=== PATIENT | male | born 1945 | race Caucasian/White ===

== ENCOUNTER → 2016-10-26 | Outpatient (REF) | payer MEDICARE, OTHER ==
[~2016-10-26] MED LIST: /PRAV20TA; /WARF2TA PO; /WARF4TA OR; ALBU17IN INH; ARANESP; AZEL0.05; B6 OR; BABY81CH; CARV6.25 PO; CENT1TAB PO; COLA100C2 OR; COLA50CA3 PO; COLC0.6T OR; CORE12.5; CORE25TA; CORE25TA OR; CORE25TA PO; COUM1TAB; DARB60SYR; DIALYSIS; DIGO0.257; ELIQ5TAB PO; FERR325T OR; FLUO20CA8 PO; INSULANT; INSULANT SQ; KEFL500C7 PO; LANTUS; LASI40TA; LISI5TAB OR; LORA-376 PO; MIRA3350 PO; MULTIVIT OR; NOVOLOG100 MG/ML; NOVOLOG100 MG/ML SC; Omega OR; PAXI20TA; PERC5TAB PO; POTA10CA2 OR; PRAV10TA4; PRAV20TA2 PO; PRAV40TA OR; PRAV40TA2 PO; PROZ20CA OR; RENA800T PO; RENV2TAB PO; ROCA0.25; SALI0.653; SENO8.6T9 PO; TORS20TA2 OR; TRIC145T19; TRIC145T19 OR; Uloric OR; VIT D; VITA250T OR; VITA400C29 PO; VITA500C24 PO; WARF1TAB OR; [UNRECOGNIZED DRUG - OTHER]
[2016-10-26 18:27] LABS: PERCENT SATURATION 46.7 % (19.7-37.4)
== END ==
LOC: M LAB REF 16:22
DX: N18.6 End stage renal disease (principal); D63.1 Anemia in chronic kidney disease

== ENCOUNTER → 2017-04-17 | Outpatient (REF) | payer MEDICARE, OTHER ==
[~2017-04-17] MED LIST changes: +KEFL500C17 PO; -KEFL500C7 PO; -LORA-376 PO; +LORA0.5T11 PO; +SALI0.6523; -SALI0.653; +VITA-110 PO; -VITA400C29 PO
== END ==
LOC: M LAB REF 13:50
PROVIDERS: ATTEND Nurse Practitioner Family
DX: L02.416 Cutaneous abscess of left lower limb (principal)

== ENCOUNTER → 2017-05-15 | Outpatient (REF) | payer MEDICARE, OTHER | LOC: M LAB REF 17:29 | PROVIDERS: ATTEND Surgery | DX: L02.31 Cutaneous abscess of buttock (principal); E11.9 Type 2 diabetes mellitus without complications; Z79.4 Long term (current) use of insulin | CPT/HCPCS: 10060; 87070; 87077; 87186; G0463 ==

== ENCOUNTER → 2017-06-05 | Outpatient (CLI) | payer MEDICARE, OTHER ==
[~2017-06-05] MED LIST changes: +GASTROGRAFIN SOLUTION 30ML (Q9963) As Ordered ONE; +ISOVUE-370 76% 100ML VIAL (Q9967) As Ordered ONE
--- NOTE | 2017-06-05 13:53 | REP ---
CT ABDOMEN AND PELVIS WITH IV AND ORAL CONTRAST: HISTORY: Perirectal abscess. Comparison CT study November 01, 2013. CT CONTRAST DOSE: 100 mL of Isovue [address] FINDINGS: Preliminary digital filler room attendant radiograph demonstrates a normal bowel gas pattern. The heart is enlarged and contains pacemaker leads. A lap band device is visible superimposed on the left abdomen. There are pins in the left hip. The lung bases are clear on axial CT images. A lap band device seen in good position around the gastroesophageal junction region in the left upper quadrant. There is a tiny cyst in the right lobe of the liver. No significant liver lesion is seen. There are clips in the gallbladder fossa. Spleen is unremarkable. No adrenal lesion is seen. The pancreas has a normal appearance. Prominent vascular calcification is seen in the upper abdomen. Fairly advanced renal cortical atrophy is noted bilaterally. The patient is on dialysis. No retroperitoneal mass or adenopathy is seen. Normal caliber aorta is noted. A normal appendix is visible. Small and large intestinal bowel loops are normal in the upper abdomen and mid pelvis. Pelvic CT images show no evidence of perirectal or other peroneal abscess. There is skin thickening and subdermal inflammation along with a skin defect in the left posteromedial buttock. No abscess cavity is visible however. There is no evidence of free air or intraperitoneal abscess. IMPRESSION: 1. Skin thickening and subdermal edema in the left posteromedial buttock. No abscess is seen in the peroneal region or perirectal region. 2. Renal cortical atrophy bilaterally. 3. Lap band in place. 4. Extensive vascular calcification. 5. Cardiomegaly with pacemaker. Signed by Adrian Castillo MD 06/05/2017 05:17 P
== END ==
LOC: M RAD 11:21
PROVIDERS: ATTEND Surgery
DX: K61.1 Rectal abscess (principal); I51.7 Cardiomegaly; Z98.84 Bariatric surgery status; Z95.0 Presence of cardiac pacemaker; Z99.2 Dependence on renal dialysis
CPT/HCPCS: 11042; 74177; Q9963; Q9967

== ENCOUNTER 2017-09-22 09:47 | Inpatient (IN) | payer MEDICARE, OTHER ==
[~2017-09-22] VITALS: Ht 188 cm; Wt 105.7 kg
[~2017-09-22 09:47] MED LIST changes: -GASTROGRAFIN SOLUTION 30ML (Q9963) As Ordered ONE; -ISOVUE-370 76% 100ML VIAL (Q9967) As Ordered ONE
[2017-09-22] MEDS ORDERED: AMIO200T PO (09:59)
[2017-09-22] MEDS ORDERED: INSUHUMDS SC (09:59)
[2017-09-22] MEDS ORDERED: TOUJ1.2I SC (09:59)
--- NOTE | 2017-09-22 11:11 | REP ---
CT of the abdomen pelvis without IV or bowel contrast: Comparison is 06/05/2017. The visualized lung bird are unremarkable. There is a left abandon surrounding the gastroesophageal junction. This is unchanged. The unenhanced hepatic parenchyma is unremarkable. Surgical clips are again identified in the gallbladder fossa. The unenhanced pancreas and spleen are unremarkable. There is calcified vascular atheroma in the splenic artery. There is calcified vascular atheroma in the superior mesenteric artery. The adrenals are unremarkable. There is bilateral renal cortical atrophy. This is unchanged. There is vascular atheroma in the renal arteries. There is a 3 mm nonobstructive left renal calculus laterally at the mid pole. There is no hydronephrosis. There is calcified atheroma in the abdominal aorta. No aneurysm. There is no bowel distension or obstruction. Pelvis: The appendix is unremarkable. There is no ascites or adenopathy. The pelvic bowel loops are unremarkable. Previously the skin thickening and subdural edema in the left posteromedial buttock. This is no longer present. Impression: There is no hydronephrosis. There is a 3 mm nonobstructive left renal calculus laterally at the mid pole. There are renal vascular calcifications. There is bilateral renal cortical atrophy and there are small bilateral renal cortical cysts. These are unchanged. Cholecystectomy. Lap band. Diffuse vascular calcified atheroma. The skin thickening subdural edema in the left posteromedial buttock is no longer present. Signed by Farhad Oden MD 09/22/2017 11:03 A
[2017-09-22 11:13] LABS: BASO % 0.2 % (0.0-1.0); EOS # 0.1 10^3/uL (0.0-0.50); EOS % 0.7 % (0.0-3.0); IMMATURE GRANULOCYTE % 0.8 % (0-0); LYMPH # 0.7 10^3/uL (1.5-4.5); MEAN CORPUSCULAR HGB CONC 34.6 g/dl (32.0-36.5); MEAN CORPUSCULAR VOLUME 98.1 fl (80.0-96.0); MONO # 0.8 10^3/uL (0.0-0.8); MONO % 6.1 % (0.0-5.0); NEUTROPHILS # 11.5 10^3/uL (1.8-7.7); NEUTROPHILS % 87.2 % (36.0-66.0); PLATELET COUNT, AUTOMATED 189 10^3/uL (150-450); WHITE BLOOD COUNT 13.1 10^3/uL (4.0-10.0)
[2017-09-22 11:20] LABS: BACTERIA, URINE NONE SEEN; HYALINE CAST, URINE NONE SEEN /lpf (0-1); MICROSCOPIC EXAM PERFORMED; MICROSCOPIC INDICATED? MAN YES (NO); RBC, URINE TNTC /hpf (0-3); SQUAMOUS EPITHELIAL CELL URINE NONE SEEN /hpf (SMALL AMT); WBC, URINE 20-30 /hpf (0-3)
[2017-09-22 11:27] LABS: INR 1.15
[2017-09-22 11:34] LABS: ALBUMIN 3.6 GM/DL (3.2-5.2); ALBUMIN/GLOBULIN RATIO 0.73 (1.00-1.93); BILIRUBIN,DIRECT 0.3 MG/DL (0.0-0.2); BILIRUBIN,TOTAL 1.2 MG/DL (0.2-1.0); CALCIUM LEVEL 9.7 MG/DL (8.8-10.2); CREATININE FOR GFR 4.73 MG/DL (0.70-1.30); POTASSIUM SERUM 4.3 MEQ/L (3.5-5.1); TOTAL PROTEIN 8.5 GM/DL (6.4-8.2)
[2017-09-22] MEDS ORDERED: CIPROFLOXACIN 400 MG in APPROPRIATE DILUENT 1 EA IV ONE (13:00)
[2017-09-22] MEDS ORDERED: NS 1,000 ML IV SCH (13:48)
--- NOTE | 2017-09-22 13:53 | SMCUROLCON ---
Urology Consultation General Date of Consultation 09/22/17 Reason For Consultation This patient is seen for gross hematuria History of Present Illness The patient is a [74]-year-old [man] with a past medical history for [HD dependent renal failure]here with gross hematuria and dysuria. Symptoms began 24 hours ago and have been stable. Is on hemodialysis and is severely oliguric. Has a history of similar symptoms 3 years ago and was evaluated by urology. Other than the dysuria, patient feels well, has good apatite, and good energy level Past Medical History Medical History chronic renal failure on hemodialysis, anticoagulated, HTN Surgical Hstory Patient denies any prior urologic surgery Medications Current Medications reviewed Allergies Allergies: Coded Allergies: Penicillins (Verified Allergy, Unknown, DROWSINESS, 02/03/15) Penicillins Cross Reactors (Verified Allergy, Unknown, 01/09/13) Review of Systems General: Denies: ROS Unobtainable, Chills, Night Sweats, Fatigue, Malaise, Normal Appetite, Other Symptoms Constitutional: Reports: Fever, Chills, Denies: Sweats, Weakness, Malaise, Other Eyes: Denies: Pain, Vision change, Conjunctivae inflammation, Eyelid inflammation, Redness, Other ENT: Denies: Head Aches, Ear Pain, Dysphagia, Sinus Congestion, Post Nasal Drip , Sore Throat, Epistaxis, Other Symptoms Skin: Denies: Rash, Lesions, Jaundice, Bruising, Itching, Dry, Breakdown, Nail Changes, Other Pulmonary: Denies: Dyspnea, Cough, Pleuritic Chest Pain, Other Symptoms Cardiovascular: Denies Chest Pain, Denies Palpitations, Denies Orthopnea, Denies Paroxysmal Noc. Dyspnea, Denies Edema, Denies Lt Headedness, Denies Other Symptoms Gastrointestinal: Denies: Nausea, Vomiting, Abdominal Pain, Diarrhea, Constipation, Melena, Hematochezia, Other Symptoms Genitourinary: Reports: Hematuria, Denies: Dysuria, Frequency, Incontinence, Retention, Other Symptoms Hematologic: Denies: Bruising, Bleeding Excessively, Petecchia, Purpura, Enlarged Lymph Nodes, Other Hematologic Musculoskeletal: Denies: Neck Pain, Back Pain, Shoulder Pain, Arm Pain, Hand Pain, Leg Pain, Foot Pain, Joint Pain, Muscle Pain, Spasms, Other Symptoms Psych: Denies: Mood Normal, Anxiety, Depression, Memory Issues, Thoughts of Self Harm, Anger, Thoughts of harming Other, Other Psych Physical Examination General Exam: Cooperative, No: Alert, No Acute Distress, Mild Distress, Moderate Distress, Severe Distress, Other EYE EXAM: No: PERRLA, Conjunctiva & lids normal, EOMI, Sclera icteric, Ptosis, Other Eye Symptoms ENT EXAM: Tongue Midline Neck Exam: Supple, No: JVD, thyromegaly Chest Exam: Clear to auscultation, Normal air movement Heart Exam: Rate Normal, Regular Rhythm, Normal S1, Normal S2, No: Murmurs, Rubs Abdomen Exam: Soft Male Exam: Tenderness, No: Normal Genital Exam, Lesions, Edema, Erythema, Discharge, Mass, Hernia, Normal Prostate, Normal Sphincter Tone Male Exam Bladder not distended, normal phallus. Sonosite done and negative for bladder clot Female Exam: Nl Ext Genitalia, No: Lesions, Discharge, Odor, Tenderness Extremity Exam: Normal Pulses, No: Clubbing, Cyanosis, Edema Skin Exam: Nl turgor and temperature, No: Rash, Breakdown Neuro Exam: Normal Gait, Normal Speech, Cranial Nerves 3-12 NL, Reflexes 2+ Psych Exam: Mental status NL, Mood NL, Anxiety, Oriented x 3, No: Memory Intact, Other Vital Signs/I&O Vital Signs Date Time Temp Pulse Resp B/P (MAP) Pulse Ox O2 Delivery O2 Flow Rate FiO2 09/22/17 13:17 70 99 09/22/17 12:54 128/64 (85) 09/22/17 09:48 98.9 18 Room Air Laboratory Data 24H Labs Laboratory Tests 2 09/22/17 10:56: Immature Granulocyte % (Auto) 0.8H, White Blood Count 13.1H, Red Blood Count 3.21L, Hemoglobin 10.9L, Hematocrit 31.5L, Mean Corpuscular Volume 98.1H, Mean Corpuscular Hemoglobin 34.0H, Mean Corpuscular Hemoglobin Concent 34.6, Red Cell Distribution Width 15.0H, Platelet Count 189, Neutrophils (%) (Auto) 87.2H , Lymphocytes (%) (Auto) 5.0L, Monocytes (%) (Auto) 6.1H, Eosinophils (%) (Auto ) 0.7, Basophils (%) (Auto) 0.2, Neutrophils # (Auto) 11.5H, Lymphocytes # (Auto ) 0.7L, Monocytes # (Auto) 0.8, Eosinophils # (Auto) 0.1, Basophils # (Auto) 0.0 , Immature Granulocyte # (Auto) 0.1H, Nucleated Red Blood Cells % (auto) 0.0, Prothrombin Time 14.9H, Prothromb Time International Ratio 1.15, Activated Partial Thromboplast Time 34.5, Bedside Urine Color (LAB) REDH, Bedside Urine Appearance (LAB) TURBIDH, Bedside Urine pH (LAB) 7.0, Bedside Urine Specific [place] (LAB 1.015, Bedside Urine Protein (LAB) 3+H, Bedside Urine Glucose (UA) NEGATIVE, Bedside Urine Ketones (LAB) NEGATIVE, Bedside Urine Blood POSITIVEH, Bedside Urine Nitrite (LAB) NEGATIVE, Bedside Urine Bilirubin (LAB) NEGATIVE, Bedside Urine Urobilinogen (LAB) NORMAL, Bedside Urine Leukocyte Esterase (L TRACEH, Urine WBC 20-30H, Urine RBC TNTCH, Urine Squamous Epithelial Cells NONE SEEN, Urine Bacteria NONE SEEN, Urine Hyaline Casts NONE SEEN, Urine Sediment Examination PERFORMED, Anion Gap 9, Glomerular Filtration Rate 13.0L, Calcium Level 9.7, Aspartate Amino Transf (AST/SGOT) 16, Alanine Aminotransferase (ALT/ SGPT) 23, Alkaline Phosphatase 167H, Total Bilirubin 1.2H, Direct Bilirubin 0.3H , Total Protein 8.5H, Albumin 3.6, Albumin/Globulin Ratio 0.73L, Lipase 280 CBC/BMP Laboratory Tests 09/22/17 10:56 Red Blood Count 3.21 L, Mean Corpuscular Volume 98.1 H, Mean Corpuscular Hemoglobin 34.0 H, Mean Corpuscular Hemoglobin Concent 34.6, Red Cell Distribution Width 15.0 H, Neutrophils (%) (Auto) 87.2 H, Lymphocytes (%) (Auto ) 5.0 L, Monocytes (%) (Auto) 6.1 H, Eosinophils (%) (Auto) 0.7, Basophils (%) ( Auto) 0.2, Neutrophils # (Auto) 11.5 H, Lymphocytes # (Auto) 0.7 L, Monocytes # (Auto) 0.8, Eosinophils # (Auto) 0.1, Basophils # (Auto) 0.0 Microbiology Microbiology 09/22/17 Blood Culture, Received Pending 09/22/17 Blood Culture, Received Pending 09/22/17 Urine Culture, Received Pending Assessment Gross hematuria, elevated WBC, anticoagulated, UTI Plan Admit for observation, IV antibiotics. Please hold eliquis. No need for garvey at present. Will re-evaluate in the AM. Follow CBC. Time Spent on Consult: Time Spent / Consult (Minutes): 30 JOSE KELLY MD Sep 22, 2017 13:53
[2017-09-22] MEDS ORDERED: ACETAMINOPHEN TAB 650MG DOSE (2X325MG) PO PRN (14:00)
[2017-09-22] MEDS ORDERED: PERCOCET 5MG/325MG TAB PO PRN (14:00)
[2017-09-22] MEDS ORDERED: BISACODYL 5 MG TAB PO PRN (14:00)
[2017-09-22] MEDS ORDERED: MORPHINE 2 MG/ML 1ML SYRINGE IV PRN (14:00)
[2017-09-22] MEDS ORDERED: ONDANSETRON 4MG/2ML VIAL (J2405) IV PRN (14:00)
[2017-09-22] MEDS ORDERED: CARV3.12 PO (14:01)
[2017-09-22] MEDS ORDERED: DRIS50002 PO (14:01)
[2017-09-22 15:00] VITALS: BP 131/71
--- NOTE | 2017-09-22 15:34 | HPEPDOC ---
[facility] Medical History & Physical History and Physical Primary care provider: Dr. Miller Date of Admission: 09/22/2017 Attending: Dr. Pan CHIEF COMPLAINT: Hematuria and dysuria HISTORY OF PRESENT ILLNESS: Mr. Villarreal is a 72-year-old male who has been experiencing dysuria and hematuria since yesterday evening. Because he has end-stage renal disease and is on dialysis he only urinates and very small quantities. He states that yesterday evening he began to experience significant burning while urinating and the sensation that "it was like someone was pulling sandpaper out". He does not flush the toilet during the night so as not to disturb the others in the home, this morning he noticed that the water was pinkish, and with his next urination he noticed blood. He called the urologist who recommended that he come to the emergency department. ALLERGIES: Penicillins and penicillin cross reactors PAST MEDICAL HISTORY: End-stage renal disease on dialysis History of hematuria approximately 3 years ago, was given antibiotics and it cleared up within 3 days Hypertension Hypercholesterolemia Atrial fibrillation Coronary artery disease status post triple bypass graft and 3 stents Ischemic cardiomyopathy Diabetes mellitus type 2, on insulin Anxiety PAST SURGICAL HISTORY: Left hip fracture repair 2013 Left knee replacement 1999 Cholecystectomy 1985 Triple bypass graft and defibrillator/pacer 1998 Cardiac stenting times 12/25/2014 SOCIAL HISTORY: Lives at home with his as well as his daughter and granddaughter. They also have 2 dogs in the home. 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 He quit smoking in 1999, prior to that he smoked one pack per day for 36 years. He will drink alcohol on a rare occasion. He does not use recreational drugs FAMILY HISTORY: Both his father and mother had diabetes, his father had lung cancer. He has a brother who of an unknown etiology while he was in the hospital status post prostate surgery REVIEW OF SYSTEMS: Constitutional: Patient denies fevers, chills, night sweats, recent weight gain/ loss. HEENT: Patient denies blurred or double vision, transient visual disturbances, postnasal drip, epistaxis, sore throat, difficulty chewing or swallowing food. Cardiovascular: Patient denies chest discomfort/pain, palpitations, exertional dyspnea, orthopnea, edema of the extremities, claudication. Respiratory: Patient denies dyspnea, wheezing, cough, hemoptysis, sputum production. Gastrointestinal: Patient denies nausea, vomiting, diarrhea, constipation, abdominal pain, melena, hematochezia, hematemesis, jaundice. Genitourinary: He has significant burning and pain with urination, and gross hematuria. He only urinates a few drops at a time. He does not have pain in between episodes of urination. PHYSICAL EXAMINATION: General: Awake, alert, oriented. He is in no acute distress at this time HEENT: Head normocephalic atraumatic, pupils equally reactive to light and accommodation, conjunctiva are pink, sclera are nonicteric, buccal mucosa is pink and moist with no lesions in the oropharynx. Hearing is grossly intact to conversation. Respiratory: Clear to auscultation bilaterally with no wheezes, rales, or rhonchi. Cardiovascular: Regular rate and rhythm, with no rubs, gallops, he does have a very faint 1/6 systolic murmur. Abdomen: Soft, nontender, nondistended, no hepatosplenomegaly appreciated. Bowel sounds present. Extremities: 2+ pulses in the radial and dorsalis pedis bilaterally. No evidence of clubbing or cyanosis. Trace to 1+ pitting edema in the ankles bilaterally. He also does have chronic venous stasis changes in the skin of the legs IMAGING: CT of the abdomen and pelvis does show a 3 mm nonobstructive left renal calculus laterally at the midpole. He does have multiple chronic changes. Please see full report ASSESSMENT: 1. Hematuria with dysuria 2. Nonobstructing 3 mm left renal calculus 3. End-stage renal disease on dialysis 4. Hypertension 5. Hypercholesterolemia 6. Atrial fibrillation 7. Coronary artery disease status post triple bypass graft and 3 stents 8. Ischemic cardiomyopathy 9. Diabetes mellitus type 2, on insulin PLAN: Will admit for observation. Urology has been consulted and has already seen and evaluated the patient. We will start the patient on IV ciprofloxacin, hold his Eliquis, and monitor him through the night. Otherwise, we will continue the remainder of his home medications at their usual dose for his chronic conditions. My preceptor for this patient encounter was physically present in the building during the encounter and was fully available. As needed, all aspects of the patient interview, examination, medical decision making process, and medical care plan development were reviewed and approved by the preceptor. Preceptor is aware and concurs with the plan as stated in the body of this note and will attest to such by his/her cosignature. Vital Signs Vital Signs Date Time Temp Pulse Resp B/P (MAP) Pulse Ox O2 Delivery O2 Flow Rate FiO2 09/22/17 15:00 98.7 82 18 131/71 (91) 97 Room Air Laboratory Data Labs 24H Laboratory Tests 2 09/22/17 10:56: Immature Granulocyte % (Auto) 0.8H, White Blood Count 13.1H, Red Blood Count 3.21L, Hemoglobin 10.9L, Hematocrit 31.5L, Mean Corpuscular Volume 98.1H, Mean Corpuscular Hemoglobin 34.0H, Mean Corpuscular Hemoglobin Concent 34.6, Red Cell Distribution Width 15.0H, Platelet Count 189, Neutrophils (%) (Auto) 87.2H , Lymphocytes (%) (Auto) 5.0L, Monocytes (%) (Auto) 6.1H, Eosinophils (%) (Auto ) 0.7, Basophils (%) (Auto) 0.2, Neutrophils # (Auto) 11.5H, Lymphocytes # (Auto ) 0.7L, Monocytes # (Auto) 0.8, Eosinophils # (Auto) 0.1, Basophils # (Auto) 0.0 , Immature Granulocyte # (Auto) 0.1H, Nucleated Red Blood Cells % (auto) 0.0, Prothrombin Time 14.9H, Prothromb Time International Ratio 1.15, Activated Partial Thromboplast Time 34.5, Bedside Urine Color (LAB) REDH, Bedside Urine Appearance (LAB) TURBIDH, Bedside Urine pH (LAB) 7.0, Bedside Urine Specific [place] (LAB 1.015, Bedside Urine Protein (LAB) 3+H, Bedside Urine Glucose (UA) NEGATIVE, Bedside Urine Ketones (LAB) NEGATIVE, Bedside Urine Blood POSITIVEH, Bedside Urine Nitrite (LAB) NEGATIVE, Bedside Urine Bilirubin (LAB) NEGATIVE, Bedside Urine Urobilinogen (LAB) NORMAL, Bedside Urine Leukocyte Esterase (L TRACEH, Urine WBC 20-30H, Urine RBC TNTCH, Urine Squamous Epithelial Cells NONE SEEN, Urine Bacteria NONE SEEN, Urine Hyaline Casts NONE SEEN, Urine Sediment Examination PERFORMED, Anion Gap 9, Glomerular Filtration Rate 13.0L, Calcium Level 9.7, Aspartate Amino Transf (AST/SGOT) 16, Alanine Aminotransferase (ALT/ SGPT) 23, Alkaline Phosphatase 167H, Total Bilirubin 1.2H, Direct Bilirubin 0.3H , Total Protein 8.5H, Albumin 3.6, Albumin/Globulin Ratio 0.73L, Lipase 280 CBC/BMP Laboratory Tests 09/22/17 10:56 Red Blood Count 3.21 L, Mean Corpuscular Volume 98.1 H, Mean Corpuscular Hemoglobin 34.0 H, Mean Corpuscular Hemoglobin Concent 34.6, Red Cell Distribution Width 15.0 H, Neutrophils (%) (Auto) 87.2 H, Lymphocytes (%) (Auto ) 5.0 L, Monocytes (%) (Auto) 6.1 H, Eosinophils (%) (Auto) 0.7, Basophils (%) ( Auto) 0.2, Neutrophils # (Auto) 11.5 H, Lymphocytes # (Auto) 0.7 L, Monocytes # (Auto) 0.8, Eosinophils # (Auto) 0.1, Basophils # (Auto) 0.0 Microbiology Microbiology 09/22/17 Blood Culture, Received Pending 09/22/17 Blood Culture, Received Pending 09/22/17 Urine Culture, Received Pending Home Medications Scheduled (Miles Quintero) 300 Unit/Ml Inj, 30 UNITS SC DAILY Amiodarone HCl (Amiodarone HCl) 200 Mg Tab, 200 MG PO DAILY Apixaban Base (Eliquis) 5 Mg Tab, 5 MG PO ASDIRECTED RX FOR BID DOSING, PT STATES HE DOES NOT TAKE ON DIALYSIS DAYS (SUN/SUN/SUN) BC OF LOWER BP. Ascorbic Acid (Vitamin C) 500 Mg Cap, 500 MG PO DAILY Carvedilol (Carvedilol) 3.125 Mg Tab, 3.125 MG PO BID Cholecalciferol (Vitamin D) 400 Unit Cap, 400 UNIT PO ASDIRECTED TAKES ON DIALYSIS DAYS SUN/SUN/SUN Insulin Human Lispro (Humalog) 1 Units/0.01 Ml Inj, 10 UNITS SC AC Multivitamins (Centrum Silver Adult 50+) 1 Tab Tab, 1 TAB PO DAILY Pravastatin Sodium (Pravastatin Sodium) 20 Mg Tab, 20 MG PO DAILY Sevelamer Carbonate (Renvela) 800 Mg Tab, 800 MG PO ASDIRECTED TAKES 800MG TID WITH MEALS EXCEPT ON DIALYSIS DAYS (SUN/SUN/SUN) Vitamin D (Drisdol) 50,000 Unit Cap, 50,000 UNIT PO ASDIRECTED EVERY SUNDAY Scheduled PRN (Saline Nasal [place]) 0.65 % Spr, 2 SPRAYS NA PRN PRN for NASAL CONGESTION Fluoxetine Hcl (Fluoxetine) 20 Mg Cap, 20 MG PO BID PRN for ANXIETY TAKES PRN AT DIALYSIS Lorazepam (Lorazepam) 0.5 Mg Tab, 0.5 MG PO ASDIRECTED PRN for ANXIETY TAKES PRN WHEN AT DIALYSIS Allergies Coded Allergies: Penicillins (Verified Allergy, Unknown, DROWSINESS, 02/03/15) Penicillins Cross Reactors (Verified Allergy, Unknown, 01/09/13) SAVITA KENDRICK DO Sep 22, 2017 15:34 LEEANN PAN MD Sep 22, 2017 16:32
[2017-09-22] MEDS ORDERED: SODIUM CHLORIDE NASAL 0.65% SPRAY BTL (OCEAN) PRN (15:45)
[2017-09-22] MEDS ORDERED: DEXTROSE 50% 50 ML SYRINGE IV PRN (15:45)
[2017-09-22] MEDS ORDERED: GLUCOSE 4 GM CHEW TABLET PO PRN (15:45)
[2017-09-22] MEDS ORDERED: FLUoxetine 20 MG CAP PO PRN (15:45)
[2017-09-22] MEDS ORDERED: GLUCAGON FOR INJ 1 MG VIAL (J1610) SC PRN (15:45)
[2017-09-22] MEDS ORDERED: LORazepam 0.5 MG TAB PO PRN (15:45)
[2017-09-22] MEDS ORDERED: APIXABAN 5 MG TAB (ELIQUIS) PO SCH (15:45)
[2017-09-22] MEDS ORDERED: LORazepam 0.5 MG TAB PO ONE (16:30)
[2017-09-22] MEDS: (RENVELA) SEVELAMER **CARBONate** 800 MG TAB PO SCH (17:10)
[2017-09-22] MEDS: AMIODARONE 200 MG TAB (PACERONE) PO SCH (17:10)
[2017-09-22] MEDS: HumaLOG INSULIN (NovoLOG) PER UNIT SC SCH ×2 (17:11→21:10)
[2017-09-22] MEDS: CARVedilol 3.125 MG TAB PO SCH (21:11)
[2017-09-22 22:00] VITALS: BP 135/64
[2017-09-23] MEDS: CIPROFLOXACIN 200 MG in APPROPRIATE DILUENT 1 EA IV SCH ×2 (00:49→13:57)
[2017-09-23] MEDS ORDERED: CIPROFLOXACIN 200 MG in APPROPRIATE DILUENT 1 EA IV SCH (01:00)
[2017-09-23 06:00] VITALS: BP 125/79
[2017-09-23 06:44] LABS: BASO % 0.1 % (0.0-1.0); EOS % 0.1 % (0.0-3.0); IMMATURE GRANULOCYTE % 0.8 % (0-0); LYMPH # 0.6 10^3/uL (1.5-4.5); LYMPH % 3.3 % (24.0-44.0); MEAN CORPUSCULAR HEMOGLOBIN 33.8 pg (27.0-33.0); MEAN CORPUSCULAR HGB CONC 34.6 g/dl (32.0-36.5); MEAN CORPUSCULAR VOLUME 97.7 fl (80.0-96.0); MONO # 1.1 10^3/uL (0.0-0.8); MONO % 6.6 % (0.0-5.0); NEUTROPHILS # 14.9 10^3/uL (1.8-7.7); NEUTROPHILS % 89.1 % (36.0-66.0); PLATELET COUNT, AUTOMATED 177 10^3/uL (150-450); RED CELL DISTRIBUTION WIDTH 15.5 % (11.5-14.5); WHITE BLOOD COUNT 16.7 10^3/uL (4.0-10.0)
[2017-09-23 07:08] LABS: CREATININE FOR GFR 6.13 MG/DL (0.70-1.30); GLOMERULAR FILTRATION RATE 9.6 (>42); POTASSIUM SERUM 4.7 MEQ/L (3.5-5.1)
[2017-09-23] MEDS: HumaLOG INSULIN (NovoLOG) PER UNIT SC SCH ×4 (08:56→21:00)
[2017-09-23] MEDS: MULTIVITAMINS/MINERALS THERAP 1 TAB PO SCH (08:57)
[2017-09-23] MEDS: CARVedilol 3.125 MG TAB PO SCH ×2 (08:57→21:31)
[2017-09-23] MEDS: (RENVELA) SEVELAMER **CARBONate** 800 MG TAB PO SCH ×3 (08:57→18:02)
[2017-09-23] MEDS: LEVEMIR (INSULIN DETEMIR) 1 UNITS/0.01ML SC SCH (08:57)
[2017-09-23] MEDS: AMIODARONE 200 MG TAB (PACERONE) PO SCH (08:58)
[2017-09-23] MEDS: ASCORBIC ACID 500 MG TAB PO SCH (08:58)
[2017-09-23] MEDS: PRAVASTATIN 20 MG TAB PO SCH (08:58)
--- NOTE | 2017-09-23 09:45 | IPNPDOC ---
Date Seen The patient was seen on 09/23/17. Progress Note SUBJECTIVE: Patient is a [74]-year-old [white] [male] with [gross hematuria. resolved, dysuria resolved] OBJECTIVE PHYSICAL EXAMINATION: VITAL SIGNS: Please see below. GENERAL: [looks well. No distress] HEENT: CARDIOVASCULAR: . RESPIRATORY: . ABDOMINAL: [soft, NT. Bladder not distended] EXTREMITIES: NEUROLOGICAL: PSYCHOLOGICAL: LABORATORY DATA: Please see below. MICROBIOLOGY: Please see below. IMAGING: Echocardiogram: . DVT prophylaxis ordered?: ASSESSMENT AND PLAN: This is a [74]-year-old [white] [male] with [gross hematuria and dysuria, resolving]. PROBLEMS: 1. [dysuria]: [resolved with antibiotics]. 2. [hematuria]: [resolved with antibiotics]. 3. [UTI]: [awaiting culture, resolved with antibiotics]. DISPOSITION: [Patient may go home either today or tomorrow depending on culture results. He is hold his Eliquis until complete resolution of his hematuria. Will follow if still here in the AM]. VS, I&O, 24H, [facility] Vital Signs/I&O Vital Signs Date Time Temp Pulse Resp B/P (MAP) Pulse Ox O2 Delivery O2 Flow Rate FiO2 09/23/17 08:57 77 125/79 09/23/17 08:46 BIPAP/CPAP 09/23/17 06:00 98.5 20 94 Laboratory Data 24H LABS Laboratory Tests 2 09/22/17 10:56: Immature Granulocyte % (Auto) 0.8H, White Blood Count 13.1H, Red Blood Count 3.21L, Hemoglobin 10.9L, Hematocrit 31.5L, Mean Corpuscular Volume 98.1H, Mean Corpuscular Hemoglobin 34.0H, Mean Corpuscular Hemoglobin Concent 34.6, Red Cell Distribution Width 15.0H, Platelet Count 189, Neutrophils (%) (Auto) 87.2H , Lymphocytes (%) (Auto) 5.0L, Monocytes (%) (Auto) 6.1H, Eosinophils (%) (Auto ) 0.7, Basophils (%) (Auto) 0.2, Neutrophils # (Auto) 11.5H, Lymphocytes # (Auto ) 0.7L, Monocytes # (Auto) 0.8, Eosinophils # (Auto) 0.1, Basophils # (Auto) 0.0 , Immature Granulocyte # (Auto) 0.1H, Nucleated Red Blood Cells % (auto) 0.0, Prothrombin Time 14.9H, Prothromb Time International Ratio 1.15, Activated Partial Thromboplast Time 34.5, Bedside Urine Color (LAB) REDH, Bedside Urine Appearance (LAB) TURBIDH, Bedside Urine pH (LAB) 7.0, Bedside Urine Specific [place] (LAB 1.015, Bedside Urine Protein (LAB) 3+H, Bedside Urine Glucose (UA) NEGATIVE, Bedside Urine Ketones (LAB) NEGATIVE, Bedside Urine Blood POSITIVEH, Bedside Urine Nitrite (LAB) NEGATIVE, Bedside Urine Bilirubin (LAB) NEGATIVE, Bedside Urine Urobilinogen (LAB) NORMAL, Bedside Urine Leukocyte Esterase (L TRACEH, Urine WBC 20-30H, Urine RBC TNTCH, Urine Squamous Epithelial Cells NONE SEEN, Urine Bacteria NONE SEEN, Urine Hyaline Casts NONE SEEN, Urine Sediment Examination PERFORMED, Anion Gap 9, Glomerular Filtration Rate 13.0L, Calcium Level 9.7, Aspartate Amino Transf (AST/SGOT) 16, Alanine Aminotransferase (ALT/ SGPT) 23, Alkaline Phosphatase 167H, Total Bilirubin 1.2H, Direct Bilirubin 0.3H , Total Protein 8.5H, Albumin 3.6, Albumin/Globulin Ratio 0.73L, Lipase 280 09/22/17 20:21: Bedside Glucose (Misc Panel) 289H 09/23/17 06:21: Anion Gap 13, Glomerular Filtration Rate 9.6L, Calcium Level 9.0, Blood Urea Nitrogen 33H, Creatinine 6.13H, Sodium Level 131L, Potassium Level 4.7, Chloride Level 94L, Carbon Dioxide Level 24 09/23/17 06:22: Immature Granulocyte % (Auto) 0.8H, White Blood Count 16.7H, Red Blood Count 3.08L, Hemoglobin 10.4L, Hematocrit 30.1L, Mean Corpuscular Volume 97.7H, Mean Corpuscular Hemoglobin 33.8H, Mean Corpuscular Hemoglobin Concent 34.6, Red Cell Distribution Width 15.5H, Platelet Count 177, Neutrophils (%) (Auto) 89.1H , Lymphocytes (%) (Auto) 3.3L, Monocytes (%) (Auto) 6.6H, Eosinophils (%) (Auto ) 0.1, Basophils (%) (Auto) 0.1, Neutrophils # (Auto) 14.9H, Lymphocytes # (Auto ) 0.6L, Monocytes # (Auto) 1.1H, Eosinophils # (Auto) 0.0, Basophils # (Auto) 0.0, Immature Granulocyte # (Auto) 0.1H, Nucleated Red Blood Cells % (auto) 0.0 CBC/BMP Laboratory Tests 09/22/17 10:56 Red Blood Count 3.21 L, Mean Corpuscular Volume 98.1 H, Mean Corpuscular Hemoglobin 34.0 H, Mean Corpuscular Hemoglobin Concent 34.6, Red Cell Distribution Width 15.0 H, Neutrophils (%) (Auto) 87.2 H, Lymphocytes (%) (Auto ) 5.0 L, Monocytes (%) (Auto) 6.1 H, Eosinophils (%) (Auto) 0.7, Basophils (%) ( Auto) 0.2, Neutrophils # (Auto) 11.5 H, Lymphocytes # (Auto) 0.7 L, Monocytes # (Auto) 0.8, Eosinophils # (Auto) 0.1, Basophils # (Auto) 0.0 09/23/17 06:21 Calcium Level 9.0 09/23/17 06:22 Red Blood Count 3.08 L, Mean Corpuscular Volume 97.7 H, Mean Corpuscular Hemoglobin 33.8 H, Mean Corpuscular Hemoglobin Concent 34.6, Red Cell Distribution Width 15.5 H, Neutrophils (%) (Auto) 89.1 H, Lymphocytes (%) (Auto ) 3.3 L, Monocytes (%) (Auto) 6.6 H, Eosinophils (%) (Auto) 0.1, Basophils (%) ( Auto) 0.1, Neutrophils # (Auto) 14.9 H, Lymphocytes # (Auto) 0.6 L, Monocytes # (Auto) 1.1 H, Eosinophils # (Auto) 0.0, Basophils # (Auto) 0.0 Microbiology Microbiology 09/22/17 Blood Culture, Received Pending 09/22/17 Blood Culture, Received Pending 09/22/17 Urine Culture, Received Pending JOSE KELLY MD Sep 23, 2017 09:45
[2017-09-23 14:00] VITALS: BP 107/57
--- NOTE | 2017-09-23 15:22 | IPN ---
DATE: 09/23/2017 SUBJECTIVE: The patient tells me that he is feeling significantly better. He denies any further dysuria or any significant hematuria. He tells me that his notes a significant improvement in his symptoms over the last 24 hours. OBJECTIVE: Vital signs: Temperature 98.5, pulse 77, respiratory rate 20, blood pressure 175/79, oxygen saturation 94% on room air. General: He is a pleasant elderly man sitting up in bed eating breakfast. He does not appear to be in any acute distress. HEENT: Cranial nerves II through XII grossly intact. He has moist mucous membranes. No elevation of his jugular venous pulse. Cardiovascular: S1, S2. Respiratory exam is clear. Abdominal exam: Obese. Extremities: No clubbing, cyanosis or edema. He has chronic deformity of the distal right upper extremity. LABORATORY STUDIES: WBC 15.7, up from 13.1. Hemoglobin 10.4 stable. Platelet count 177. Chemistry panel: Sodium 131 stable. Potassium 4.1, chloride 94, bicarbonate 24, BUN 33, creatinine 6.1. Microbiology: Urine culture is pending. Blood cultures are negative after 24 hours. Imaging: The patient did have a CT scan of the abdomen and pelvis yesterday which revealed no hydronephrosis and there was a 3 mm nonobstructing left renal calculi as well as renal vascular calcifications. Bilateral renal and cortical atrophy. Small bilateral renal cortical cysts, unchanged. ASSESSMENT/PLAN: This is a 72-year-old man with dysuria and hematuria likely secondary to a urinary tract infection. PROBLEMS: 1. Hematuria and dysuria likely secondary to urinary tract infection. This does appear to be resolving. His symptoms have abated. Will continue with ciprofloxacin IV. I suspect that tomorrow he can be transitioned to oral. We will await urine culture to ensure appropriate coverage is being met. I suspect he can be discharged home over the next 24 hours. I did speak with the urologist seeing the patient during this stay as well and they are in agreement. I have spoken with Dr. Alonso of nephrology. We will plan for outpatient hemodialysis tomorrow. 2. Endstage renal disease on hemodialysis: Nephrology's help was appreciated. Continue on Renvela. 3. History of a Lap-Band: The patient is on vitamin D and vitamin C and multivitamin. 4. Coronary artery disease: The patient is on a statin, beta alexander. He is normally on Eliquis, which is on hold. 5. Atrial fibrillation: His anticoagulation is on hold. He is rate controlled with Coreg. Consider restarting anticoagulation in the coming weeks. Will defer to his outpatient provider as to what is best appropriate. Please note he is on amiodarone. 6. Insulin dependent diabetes: He is on a sliding scale of insulin. His fingersticks are in control. 7. Mood disorder: He is on Prozac. 8. Anxiety: He is on Ativan as needed. 9. Hypertension controlled. 10. Deep venous thrombosis prophylaxis: Sequentials and thromboembolic deterrent stockings (TEDS). DISPOSITION: Likely home within the next 24-48 hours.
[2017-09-23] MEDS ORDERED: LORazepam 0.5 MG TAB PO ONE (19:00)
[2017-09-23 22:00] VITALS: BP 128/71
[2017-09-24 06:00] VITALS: BP 114/67
[2017-09-24 07:02] LABS: MEAN CORPUSCULAR HEMOGLOBIN 34.1 pg (27.0-33.0); MEAN CORPUSCULAR HGB CONC 34.6 g/dl (32.0-36.5); MEAN CORPUSCULAR VOLUME 98.6 fl (80.0-96.0); PLATELET COUNT, AUTOMATED 158 10^3/uL (150-450); RED CELL DISTRIBUTION WIDTH 15.7 % (11.5-14.5); WHITE BLOOD COUNT 12.8 10^3/uL (4.0-10.0)
[2017-09-24 07:34] LABS: CREATININE FOR GFR 7.69 MG/DL (0.70-1.30); GLOMERULAR FILTRATION RATE 7.4 (>42); POTASSIUM SERUM 4.9 MEQ/L (3.5-5.1)
[2017-09-24] MEDS ORDERED: CIPR500T3 PO (07:39)
[2017-09-24] MEDS: HumaLOG INSULIN (NovoLOG) PER UNIT SC SCH (07:56)
[2017-09-24] MEDS: LEVEMIR (INSULIN DETEMIR) 1 UNITS/0.01ML SC SCH (07:56)
[2017-09-24] MEDS: (RENVELA) SEVELAMER **CARBONate** 800 MG TAB PO SCH (07:57)
[2017-09-24] MEDS: PRAVASTATIN 20 MG TAB PO SCH (07:57)
[2017-09-24] MEDS: MULTIVITAMINS/MINERALS THERAP 1 TAB PO SCH (07:58)
[2017-09-24] MEDS: AMIODARONE 200 MG TAB (PACERONE) PO SCH (07:58)
[2017-09-24] MEDS: ASCORBIC ACID 500 MG TAB PO SCH (07:58)
[2017-09-24 07:59] VITALS: BP 110/60
[2017-09-24] MEDS: CARVedilol 3.125 MG TAB PO SCH (07:59)
[2017-09-24] MEDS ORDERED: VITAMIN D (CHOLECALCIFEROL) 400 INTERNATIONAL UNITS TAB PO SCH (09:00)
[2017-09-24] MEDS ORDERED: CIPROFLOXACIN 200 MG in APPROPRIATE DILUENT 1 EA IV SCH (16:00)
--- NOTE | 2017-09-24 16:13 | CR ---
DATE OF CONSULTATION: 09/23/2017 CONSULTATION REPORT FOR: Dr. Ritesh Driscoll REASON FOR CONSULTATION: Management of end-stage renal disease. HISTORY OF PRESENT ILLNESS: Mr. Villarreal is a 72-year-old male with a past medical history of longstanding diabetes, coronary artery disease (CAD) status post coronary artery bypass graft (CABG), atrial fibrillation, history of automatic implantable cardioverter defibrillator (AICD) placement, hypertension, ischemic cardiomyopathy who was admitted with complaint of dysuria and hematuria. The patient states he was in his usual state of health until one day prior to admission when he had significant burning with urination and episode of darleen hematuria. He reports a similar episode three years prior. He denies any flank pain, renal colic, or associated nausea or vomiting. His hemoglobin has remained stable and subsequent CT scan of the abdomen and pelvis revealed a 3 mm nonobstructive left renal calculus. The patient is receiving empiric antibiotics with IV ciprofloxacin and his home anticoagulant, Eliquis, has been on hold. PAST MEDICAL HISTORY: 1. End-stage renal disease on hemodialysis via right upper extremity fistula Sunday, Sunday and Sunday schedule. 2. History of gross hematuria three years prior. 3. Hypertension. 4. Dyslipidemia. 5. Atrial fibrillation on Eliquis. 6. Coronary artery disease (CAD) status post coronary artery bypass graft (CABG) and history of stents. 7. Ischemic cardiomyopathy. 8. Insulin-dependent diabetes. 9. Anxiety. PAST SURGICAL HISTORY: 1. Fistula, right upper extremity. 2. Left hip fracture repair 2013. 3. Left knee replacement 1999. 4. Cholecystectomy 1985. 5. Coronary artery bypass graft (CABG) and placement of automatic implantable cardioverter defibrillator (AICD) in remote past. 6. History of cardiac stenting. SOCIAL HISTORY: Ex-smoker. Social alcohol. No recreational drugs. 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 FAMILY HISTORY: No known history of renal failure requiring dialysis. REVIEW OF SYSTEMS: CONSTITUTIONAL: The patient denies fevers, chills, or fatigue. HEENT: The patient denies any change in vision, sore throat, dysphagia. CARDIOVASCULAR: The patient denies chest pain, edema, or palpitations. RESPIRATORY: He denies any shortness of breath or cough. GASTROINTESTINAL (GI): He denies nausea, vomiting, diarrhea. GENITOURINARY (): He notes improvement in urinary symptoms. Denies any ongoing hematuria or dysuria. He is oligo-anuric. MUSCULOSKELETAL: He denies any arthralgias, myalgias. NEUROLOGIC: He denies any focal weakness or syncopal episode. PSYCHIATRIC: He denies depression and increased anxiety. SKIN: He denies rashes and ulcers. HEMATOLOGY: Reports use of long-term anticoagulant. Remainder of review of systems is negative. ALLERGIES: PENICILLIN and PENICILLIN CROSS REACTORS. PHYSICAL EXAMINATION: VITAL SIGNS: Temperature 98.5, pulse 77, respiratory rate 20, blood pressure 125/79, saturating 94% to 98% on room air. INTAKE AND OUTPUT: Oral intake today 1440, IV intake 750. Weight in the bed scale 108 kg. GENERAL: The patient is seen sitting up in bed, comfortable, in no acute distress, in good spirits. Extraocular muscles are intact. The oral mucosa is moist. NECK: Supple. There is no jugular venous distention. CARDIAC: S1, S2, irregular, 2+ radial pulse. No edema in the peripheries or in the dependent area. RESPIRATORY: Clear lungs bilaterally. Comfortable on room air. ABDOMEN: Soft, obese, nontender with no flank tenderness elicited. EXTREMITIES: There is a right upper extremity fistula with thrill and bruit. There is no edema of cyanosis in the lower extremities. NEUROLOGIC: Baseline mentation without issues. PSYCHIATRIC: Appropriate mood and affect. LABORATORY DATA: Hemoglobin 10.4, platelets 177. Sodium 131, potassium 4.7, bicarbonate 24, glucose 297. MICROBIOLOGY: Blood cultures two sets with no growth. Urine culture is pending. IMAGING STUDIES: CT scan of the abdomen and pelvis 09/22/2017 which is noncontrast shows no hydronephrosis. There is a 3 mm nonobstructive left renal calculus and bilateral renal atrophy and small bilateral renal cortical cysts. INPATIENT MEDICATIONS: I have adjusted the patient's ciprofloxacin for dialysis dosing. He has received two doses of ciprofloxacin 200 mg IV thus far. He is on: - acetaminophen as needed - amiodarone 200 mg by mouth daily - vitamin C 500 mg by mouth daily - carvedilol 3.125 mg by mouth twice a day - Prozac 20 mg by mouth twice a day as needed - insulin - Ativan 0.5 mg by mouth as needed - morphine 2 mg IV every two hours as needed for pain - multivitamin one tablet by mouth daily - Zofran 4 mg IV every six hours as needed - Percocet one tablet by mouth every four hours as needed - pravastatin 20 mg by mouth daily - Renvela 800 mg by mouth with meals - vitamin D 400 units by mouth Sunday, Sunday and Sunday PROBLEMS: 1. Episode of gross hematuria with dysuria. The patient has been seen by urology. CT scan did not show any renal mass. There was a small nonobstructive stone. Urine culture is pending. He is on ciprofloxacin and I have reduced the frequency to 200 mg IV every 24 hours for dialysis dosing. His anticoagulation, Eliquis, is on hold at present. Hemoglobin has remained stable. 2. End-stage renal disease on hemodialysis. The patient's maintenance schedule is Sunday, Sunday and Sunday. Next treatment will be Sunday09/24/2017. Electrolytes are reviewed and acceptable. Corrected sodium is close to 134. 3. Atrial fibrillation. His Eliquis is on hold. He is rate controlled on Coreg and continues as well on amiodarone. 4. Anemia of chronic kidney disease. The patient's hemoglobin is at goal for end-stage renal disease. 5. Insulin-dependent diabetes. The patient's glucose is in the 200s and he continues on insulin at this time. Thank you for involving me in the care of the patient. I will be happy to follow the patient along with you. Plan of care was discussed with Dr. Ritesh Driscoll.
--- NOTE | 2017-09-24 17:24 | DS.PDOC ---
Discharge Summary General Date of Admission Sep 22, 2017 at 13:53 Date of Discharge 09/24/2017 Discharge Summary PRIMARY CARE PHYSICIAN: Dr. Miller ATTENDING AT TIME OF DISCHARGE: Dr. Driscoll DISCHARGE DIAGNOS(E)S: 1. Hematuria with dysuria 2. Nonobstructing 3 mm left renal calculus 3. End-stage renal disease on dialysis 4. Hypertension 5. Hypercholesterolemia 6. Atrial fibrillation 7. Coronary artery disease status post triple bypass graft and 3 stents 8. Ischemic cardiomyopathy 9. Diabetes mellitus type 2, on insulin HPI & HOSPITAL COURSE: Mr. Villarreal is a 72-year-old male who presented to the emergency department per recommendations from his urologist with symptoms of gross hematuria and dysuria. CT of the abdomen and pelvis did show a 3 mm nonobstructive left renal calculus, however is not felt that this was the etiology of his hematuria. It is more likely secondary to a cystitis or urethritis, and was treated with ciprofloxacin. With the administration of antibiotics his dysuria and hematuria has essentially resolved, and he does appear stable for discharge at this time. His Eliquis was was put on hold upon admission, and it will not be continued upon discharge, he will need to follow- up with his outpatient provider to determine the appropriate time to restart. PHYSICAL EXAMINATION ON DISCHARGE: GENERAL: Awake, alert, oriented. He is in no acute distress. CARDIOVASCULAR EXAMINATION: Regular rate and rhythm, with no rubs, gallops, perhaps he does have a 1/6 systolic murmur. RESPIRATORY EXAMINATION: Clear to auscultation bilaterally with no wheezes, rales, or rhonchi. ABDOMINAL EXAMINATION: Soft, nontender, nondistended. Bowel sounds present. EXTREMITIES: Chronic venous stasis changes noted in the bilateral lower extremities, he does have trace pitting edema. DISPOSITION: Home DISCHARGE INSTRUCTIONS: With follow-up with primary care provider Dr. Miller within 7-10 days. He will be seeing Dr. Jiménez this afternoon in dialysis as well. Also recommend that he follow-up with urology if his symptoms worsen or return. DISCHARGE MEDICATIONS: -He'll be discharged home on ciprofloxacin 500 mg by mouth daily ( recommendation to take after dialysis on dialysis days) for an additional 5 days. -Eliquis's has been stopped for the time being -Otherwise, no changes to his home medications ITEMS THAT NEED OUTPATIENT FOLLOWUP: He will need to discuss with his primary care provider about the appropriate reinitiation of his Eliquis. My preceptor for this patient encounter was physically present in the building during the encounter and was fully available. As needed, all aspects of the patient interview, examination, medical decision making process, and medical care plan development were reviewed and approved by the preceptor. Preceptor is aware and concurs with the plan as stated in the body of this note and will attest to such by his/her cosignature. Vital Signs/I&Os Vital Signs Date Time Temp Pulse Resp B/P (MAP) Pulse Ox O2 Delivery O2 Flow Rate FiO2 09/24/17 09:00 BIPAP/CPAP 09/24/17 07:59 70 110/60 09/24/17 06:00 97.4 18 92 Laboratory Data Labs 24H Laboratory Tests 2 09/23/17 17:55: Bedside Glucose (Misc Panel) 217H 09/23/17 21:25: Bedside Glucose (Misc Panel) 173H 09/24/17 06:46: Nucleated Red Blood Cells % (auto) 0.0, Anion Gap 14, Glomerular Filtration Rate 7.4L, Blood Urea Nitrogen 53#H, Creatinine 7.69H, Sodium Level 131L, Potassium Level 4.9, Chloride Level 94L, Carbon Dioxide Level 23, Calcium Level 9.0 CBC/BMP Laboratory Tests 09/24/17 06:46 Red Blood Count 2.87 L, Mean Corpuscular Volume 98.6 H, Mean Corpuscular Hemoglobin 34.1 H, Mean Corpuscular Hemoglobin Concent 34.6, Red Cell Distribution Width 15.7 H, Calcium Level 9.0 FSBS Laboratory Tests Test 09/23/17 17:55 09/23/17 21:25 Range/Units Bedside Glucose (Misc Panel) 217 173 83-110 MG/DL Microbiology Microbiology 09/22/17 Blood Culture - Preliminary, Resulted No Growth after 48 hours. All Specime... 09/22/17 Blood Culture - Preliminary, Resulted No Growth after 48 hours. All Specime... 09/22/17 Urine Culture - Final, Complete Klebsiella Pneumoniae Discharge Medications Scheduled (Miles Quintero) 300 Unit/Ml Inj, 30 UNITS SC DAILY, (Reported) Amiodarone HCl (Amiodarone HCl) 200 Mg Tab, 200 MG PO DAILY, (Reported) Ascorbic Acid (Vitamin C) 500 Mg Cap, 500 MG PO DAILY, (Reported) Carvedilol (Carvedilol) 3.125 Mg Tab, 3.125 MG PO BID, (Reported) Cholecalciferol (Vitamin D) 400 Unit Cap, 400 UNIT PO ASDIRECTED, (Reported) TAKES ON DIALYSIS DAYS SUN/SUN/SUN Ciprofloxacin HCl (Ciprofloxacin HCl) 500 Mg Tab, 500 MG PO DAILY Take after dialysis (on dialysis days) Insulin Human Lispro (Humalog) 1 Units/0.01 Ml Inj, 10 UNITS SC AC, (Reported) Multivitamins (Centrum Silver Adult 50+) 1 Tab Tab, 1 TAB PO DAILY, (Reported) Pravastatin Sodium (Pravastatin Sodium) 20 Mg Tab, 20 MG PO DAILY, (Reported) Sevelamer Carbonate (Renvela) 800 Mg Tab, 800 MG PO ASDIRECTED, (Reported) TAKES 800MG TID WITH MEALS EXCEPT ON DIALYSIS DAYS (SUN/SUN/SUN) Vitamin D (Drisdol) 50,000 Unit Cap, 50,000 UNIT PO ASDIRECTED, (Reported) EVERY SUNDAY Scheduled PRN (Saline Nasal [place]) 0.65 % Spr, 2 SPRAYS NA PRN PRN for NASAL CONGESTION, ( Reported) Fluoxetine Hcl (Fluoxetine) 20 Mg Cap, 20 MG PO BID PRN for ANXIETY, (Reported) TAKES PRN AT DIALYSIS Lorazepam (Lorazepam) 0.5 Mg Tab, 0.5 MG PO ASDIRECTED PRN for ANXIETY, ( Reported) TAKES PRN WHEN AT DIALYSIS Allergies Coded Allergies: Penicillins (Verified Allergy, Unknown, DROWSINESS, 02/03/15) Penicillins Cross Reactors (Verified Allergy, Unknown, 01/09/13) SAVITA KENDRICK DO Sep 24, 2017 17:24
== END 2017-09-24 10:30 | disposition home or self-care (01) | DRG 689 ==
LOC: M ED 09:47 → M ED INP 13:53 → M MS5PR 14:54
PROVIDERS: ADMIT General Practice; ATTEND Internal Medicine
DX: N30.91 Cystitis, unspecified with hematuria (principal); N18.6 End stage renal disease; I12.0 Hypertensive chronic kidney disease with stage 5 chronic kidney disease or end stage renal disease; I25.5 Ischemic cardiomyopathy; N20.0 Calculus of kidney; E11.9 Type 2 diabetes mellitus without complications; E78.00 Pure hypercholesterolemia, unspecified; I48.91 Unspecified atrial fibrillation; I25.10 Atherosclerotic heart disease of native coronary artery without angina pectoris; Z95.5 Presence of coronary angioplasty implant and graft; Z96.652 Presence of left artificial knee joint; Z90.49 Acquired absence of other specified parts of digestive tract; Z99.2 Dependence on renal dialysis; Z95.810 Presence of automatic (implantable) cardiac defibrillator; Z88.0 Allergy status to penicillin; Z87.891 Personal history of nicotine dependence; Z79.4 Long term (current) use of insulin; Z79.01 Long term (current) use of anticoagulants; Z79.899 Other long term (current) drug therapy; Z98.84 Bariatric surgery status

== ENCOUNTER → 2017-12-11 | Outpatient (CLI) | payer MEDICARE, OTHER ==
[2017-12-11 13:58] LABS: ALBUMIN 3.7 GM/DL (3.2-5.2); ALBUMIN/GLOBULIN RATIO 0.95 (1.00-1.93); ALKALINE PHOSPHATASE 194 U/L (45-117); ALT/SGPT 23 U/L (12-78); ANION GAP 11 MEQ/L (8-16); AST/SGOT 11 U/L (7-37); BILIRUBIN,DIRECT 0.2 MG/DL (0.0-0.2); BILIRUBIN,TOTAL 0.7 MG/DL (0.2-1.0); BLOOD UREA NITROGEN 25 MG/DL (7-18); CALCIUM LEVEL 8.4 MG/DL (8.8-10.2); CARBON DIOXIDE LEVEL 29 MEQ/L (21-32); CHLORIDE LEVEL 96 MEQ/L (98-107); CHOLESTEROL LEVEL 175 MG/DL (<200); CHOLESTEROL RISK RATIO 4.487 (<5); GLOMERULAR FILTRATION RATE 11.4 (>42); GLUCOSE, FASTING 218 MG/DL (70-100); HDL CHOLESTEROL 39 MG/DL (>40); LDL CHOLESTEROL 94.2 MG/DL (<100); NON-HDL-C 136 MG/DL; POTASSIUM SERUM 4.6 MEQ/L (3.5-5.1); SODIUM LEVEL 136 MEQ/L (136-145); TOTAL PROTEIN 7.6 GM/DL (6.4-8.2); TRIGLYCERIDES LEVEL 209 MG/DL (<150)
[2017-12-11 14:00] LABS: HEMATOCRIT 33.6 % (42.0-52.0); HEMOGLOBIN 11.3 g/dl (14.0-18.0); MEAN CORPUSCULAR HEMOGLOBIN 33.6 pg (27.0-33.0); MEAN CORPUSCULAR HGB CONC 33.6 g/dl (32.0-36.5); PLATELET COUNT, AUTOMATED 209 10^3/uL (150-450); RED BLOOD COUNT 3.36 10^6/uL (4.30-6.10); RED CELL DISTRIBUTION WIDTH 14.4 % (11.5-14.5); WHITE BLOOD COUNT 6.9 10^3/uL (4.0-10.0)
== END ==
LOC: M SMT 08:47
DX: I47.2 Ventricular tachycardia (principal); E78.5 Hyperlipidemia, unspecified; I48.2 Chronic atrial fibrillation; N19 Unspecified kidney failure; Z95.810 Presence of automatic (implantable) cardiac defibrillator; I25.5 Ischemic cardiomyopathy; I25.10 Atherosclerotic heart disease of native coronary artery without angina pectoris
CPT/HCPCS: 84443

== ENCOUNTER 2018-01-13 09:46 | Emergency (ER) | payer MEDICARE, OTHER ==
[2018-01-13 10:45] LABS: BASO % 0.2 % (0.0-1.0); EOS # 0.1 10^3/uL (0.0-0.50); EOS % 0.9 % (0.0-3.0); HEMATOCRIT 29.4 % (42.0-52.0); HEMOGLOBIN 10.3 g/dl (13.5-17.5); IMMATURE GRANULOCYTE % 0.6 % (0-3.0); LYMPH # 0.7 10^3/uL (1.5-4.5); LYMPH % 8.5 % (24.0-44.0); MEAN CORPUSCULAR HEMOGLOBIN 33.8 pg (27.0-33.0); MEAN CORPUSCULAR VOLUME 96.4 fl (80.0-96.0); MONO # 0.6 10^3/uL (0.0-0.8); MONO % 6.7 % (0.0-5.0); NEUTROPHILS # 7.2 10^3/uL (1.8-7.7); NEUTROPHILS % 83.1 % (36.0-66.0); PLATELET COUNT, AUTOMATED 201 10^3/uL (150-450); RED BLOOD COUNT 3.05 10^6/uL (4.30-6.10); WHITE BLOOD COUNT 8.7 10^3/uL (4.0-10.0)
[2018-01-13 10:56] LABS: PROTHROMBIN TIME 15.5 SECONDS (12.4-14.5)
[2018-01-13 11:29] LABS: ANION GAP 11 MEQ/L (8-16); BLOOD UREA NITROGEN 42 MG/DL (7-18); CALCIUM LEVEL 8.4 MG/DL (8.8-10.2); CARBON DIOXIDE LEVEL 27 MEQ/L (21-32); CHLORIDE LEVEL 91 MEQ/L (98-107); CREATININE FOR GFR 6.55 MG/DL (0.70-1.30); GLOMERULAR FILTRATION RATE 8.9 (>42); GLUCOSE, FASTING 373 MG/DL (70-100); SODIUM LEVEL 129 MEQ/L (136-145)
== END 2018-01-13 11:55 | disposition home or self-care (01) ==
LOC: M ED 09:46
DX: S70.11XA Contusion of right thigh, initial encounter (principal); X58.XXXA Exposure to other specified factors, initial encounter; Y92.89 Other specified places as the place of occurrence of the external cause; D68.8 Other specified coagulation defects; I25.10 Atherosclerotic heart disease of native coronary artery without angina pectoris; N18.6 End stage renal disease; I48.91 Unspecified atrial fibrillation; Z88.0 Allergy status to penicillin; Z79.4 Long term (current) use of insulin; Z79.899 Other long term (current) drug therapy
CPT/HCPCS: 80048

== ENCOUNTER 2018-01-31 06:50 | Day surgery (SDC) | payer MEDICARE, OTHER ==
[~2018-01-31 06:50] MED LIST changes: -/PRAV20TA; -/WARF2TA PO; -/WARF4TA OR; -ALBU17IN INH; -ARANESP; -AZEL0.05; -B6 OR; -BABY81CH; -CARV6.25 PO; -CENT1TAB PO; -COLA100C2 OR; -COLA50CA3 PO; -COLC0.6T OR; -CORE12.5; -CORE25TA; -CORE25TA OR; -CORE25TA PO; -COUM1TAB; -DARB60SYR; -DIALYSIS; -DIGO0.257; -ELIQ5TAB PO; -FERR325T OR; -FLUO20CA8 PO; -INSULANT; -INSULANT SQ; -KEFL500C17 PO; -LANTUS; -LASI40TA; -LISI5TAB OR; -LORA0.5T11 PO; -MIRA3350 PO; -MULTIVIT OR; -NOVOLOG100 MG/ML; -NOVOLOG100 MG/ML SC; +OFLOXACIN 0.3 % (OCUFLOX) OPTH SOL 5ML OS; -Omega OR; -PAXI20TA; -PERC5TAB PO; +PHENYLEPHRINE 2.5% OPHTH SOL 2ML OS; -POTA10CA2 OR; -PRAV10TA4; -PRAV20TA2 PO; -PRAV40TA OR; -PRAV40TA2 PO; +PROPARACAINE 0.5% OPHTH SOL 15ML OS; -PROZ20CA OR; -RENA800T PO; -RENV2TAB PO; -ROCA0.25; -SALI0.6523; -SENO8.6T9 PO; -TORS20TA2 OR; -TRIC145T19; -TRIC145T19 OR; +TROPICAMIDE 1% OPHTH SOLN 2ML OS; -Uloric OR; -VIT D; -VITA-110 PO; -VITA250T OR; -VITA500C24 PO; -WARF1TAB OR; -[UNRECOGNIZED DRUG - OTHER]
[2018-01-31] MEDS ORDERED: TROPICAMIDE 1% OPHTH SOLN 2ML OS (07:00)
[2018-01-31 07:31] LABS: BEDSIDE GLUCOSE 218 MG/DL (83-110)
[2018-01-31 07:36] LABS: POTASSIUM SERUM 4.2 MEQ/L (3.5-5.1)
[2018-01-31] MEDS: PHENYLEPHRINE 2.5% OPHTH SOL 2ML OS (07:36)
[2018-01-31] MEDS: OFLOXACIN 0.3 % (OCUFLOX) OPTH SOL 5ML OS (07:36)
[2018-01-31] MEDS: PROPARACAINE 0.5% OPHTH SOL 15ML OS (07:36)
[2018-01-31] MEDS ORDERED: fentaNYL 100 MCG/2 ML INJECTION (J3010) As Ordered (08:19)
[2018-01-31] MEDS ORDERED: MIDAZOLAM INJ 2 MG/2 ML VIAL (J2250) As Ordered (08:20)
[2018-01-31] MEDS ORDERED: DUOVISC (0.50ML VISCOAT/0.55ML PROVISC) OPHTH KIT As Ordered (08:55)
[2018-01-31] MEDS: BALANCED SALT IRRIGATION SOLUTION 500ML BAG (FOR OR EYE MACHINE) As Ordered (08:56)
[2018-01-31] MEDS: DUOVISC (0.50ML VISCOAT/0.55ML PROVISC) OPHTH KIT As Ordered (08:56)
[2018-01-31] MEDS: POVIDONE-IODINE 5% OPHTH PREP SOL 30ML As Ordered (08:56)
[2018-01-31] MEDS: LIDOCAINE 0.75%/EPINEPHRINE 0.025% IN BSS 1ML SYR INTRACAMERAL (OR ONLY) As Ordered (08:57)
== END 2018-01-31 09:44 | disposition home or self-care (01) ==
LOC: M SDC 06:50
DX: H25.12 Age-related nuclear cataract, left eye (principal); I25.10 Atherosclerotic heart disease of native coronary artery without angina pectoris; I12.0 Hypertensive chronic kidney disease with stage 5 chronic kidney disease or end stage renal disease; E78.5 Hyperlipidemia, unspecified; E11.65 Type 2 diabetes mellitus with hyperglycemia; E11.22 Type 2 diabetes mellitus with diabetic chronic kidney disease; E11.21 Type 2 diabetes mellitus with diabetic nephropathy; E11.3293 Type 2 diabetes mellitus with mild nonproliferative diabetic retinopathy without macular edema, bilateral; R29.898 Other symptoms and signs involving the musculoskeletal system; M12.9 Arthropathy, unspecified; F41.9 Anxiety disorder, unspecified; F32.9 Major depressive disorder, single episode, unspecified; G47.33 Obstructive sleep apnea (adult) (pediatric); N18.6 End stage renal disease; I87.2 Venous insufficiency (chronic) (peripheral); I50.42 Chronic combined systolic (congestive) and diastolic (congestive) heart failure; I48.91 Unspecified atrial fibrillation; Z88.0 Allergy status to penicillin; Z88.8 Allergy status to other drugs, medicaments and biological substances; Z79.899 Other long term (current) drug therapy; Z79.4 Long term (current) use of insulin; Z79.01 Long term (current) use of anticoagulants; Z95.810 Presence of automatic (implantable) cardiac defibrillator; Z87.891 Personal history of nicotine dependence; Z99.2 Dependence on renal dialysis
CPT/HCPCS: 66984

== ENCOUNTER 2018-02-14 05:44 | Day surgery (SDC) | payer MEDICARE, OTHER ==
[2018-02-14 06:33] LABS: POTASSIUM SERUM 4.3 MEQ/L (3.5-5.1)
[2018-02-14] MEDS: LIDOCAINE 0.75%/EPINEPHRINE 0.025% IN BSS 1ML SYR INTRACAMERAL (OR ONLY) As Ordered (06:35)
[2018-02-14 07:10] LABS: BEDSIDE GLUCOSE 285 MG/DL (83-110)
[2018-02-14] MEDS: OFLOXACIN 0.3 % (OCUFLOX) OPTH SOL 5ML OD (07:13)
[2018-02-14] MEDS: TROPICAMIDE 1% OPHTH SOLN 2ML OD (07:14)
[2018-02-14] MEDS: PHENYLEPHRINE 2.5% OPHTH SOL 2ML OD (07:14)
[2018-02-14] MEDS: PROPARACAINE 0.5% OPHTH SOL 15ML OD (07:14)
[2018-02-14] MEDS ORDERED: fentaNYL 100 MCG/2 ML INJECTION (J3010) As Ordered (07:34)
[2018-02-14] MEDS ORDERED: MIDAZOLAM INJ 2 MG/2 ML VIAL (J2250) As Ordered (07:34)
[2018-02-14] MEDS: DUOVISC (0.50ML VISCOAT/0.55ML PROVISC) OPHTH KIT As Ordered (07:37)
[2018-02-14] MEDS: ACETYLCHOLINE OPHTH SOLN 1% 2ML (MIOCHOL-E) As Ordered (07:37)
[2018-02-14] MEDS: BALANCED SALT IRRIGATION SOLUTION 500ML BAG (FOR OR EYE MACHINE) As Ordered (07:37)
[2018-02-14] MEDS: CEFUROXIME 1MG/0.1ML INTRACAMERAL INJ As Ordered (07:37)
[2018-02-14] MEDS: POVIDONE-IODINE 5% OPHTH PREP SOL 30ML As Ordered (07:37)
== END 2018-02-14 08:19 | disposition home or self-care (01) ==
LOC: M SDC 05:44
DX: H25.11 Age-related nuclear cataract, right eye (principal); I48.91 Unspecified atrial fibrillation; I25.10 Atherosclerotic heart disease of native coronary artery without angina pectoris; I13.2 Hypertensive heart and chronic kidney disease with heart failure and with stage 5 chronic kidney disease, or end stage renal disease; E78.00 Pure hypercholesterolemia, unspecified; R29.898 Other symptoms and signs involving the musculoskeletal system; M12.9 Arthropathy, unspecified; F41.9 Anxiety disorder, unspecified; F32.9 Major depressive disorder, single episode, unspecified; G47.33 Obstructive sleep apnea (adult) (pediatric); N18.6 End stage renal disease; E10.9 Type 1 diabetes mellitus without complications; Z88.0 Allergy status to penicillin; Z79.899 Other long term (current) drug therapy; Z79.01 Long term (current) use of anticoagulants; Z79.4 Long term (current) use of insulin; Z95.5 Presence of coronary angioplasty implant and graft; Z95.810 Presence of automatic (implantable) cardiac defibrillator; Z87.891 Personal history of nicotine dependence
CPT/HCPCS: 66984

== ENCOUNTER 2018-03-10 18:40 | Emergency (ER) | payer MEDICARE, OTHER | END 2018-03-10 20:30 | disposition home or self-care (01) | LOC: M ED 18:40 | DX: I87.2 Venous insufficiency (chronic) (peripheral) (principal); I50.9 Heart failure, unspecified; E11.9 Type 2 diabetes mellitus without complications; I10 Essential (primary) hypertension; N18.6 End stage renal disease; K21.9 Gastro-esophageal reflux disease without esophagitis; Z79.4 Long term (current) use of insulin; Z79.899 Other long term (current) drug therapy; Z88.0 Allergy status to penicillin | CPT/HCPCS: 99283 ==

== ENCOUNTER 2018-04-25 12:21 | Day surgery (SDC) | payer MEDICARE, OTHER ==
[2018-04-25 13:16] LABS: POTASSIUM SERUM 4.4 MEQ/L (3.5-5.1)
[2018-04-25 13:27] LABS: BEDSIDE GLUCOSE 287 MG/DL (83-110)
[2018-04-25] MEDS: NS 1,000 ML IV (13:30)
[2018-04-25] MEDS ORDERED: MIDAZOLAM INJ 2 MG/2 ML VIAL (J2250) As Ordered ×3 (13:30→16:02)
[2018-04-25] MEDS ORDERED: BUPIVACAINE HCL 0.5% 30 ML VIAL As Ordered (13:53)
[2018-04-25] MEDS ORDERED: LIDOCAINE 1% SDV INJ 30 ML VIAL As Ordered (13:53)
[2018-04-25] MEDS ORDERED: HEPARIN SOD (PORCINE) 5000 UNITS/ML VIAL As Ordered (13:53)
[2018-04-25] MEDS ORDERED: ONDANSETRON 4MG/2ML VIAL (J2405) As Ordered (13:58)
[2018-04-25] MEDS ORDERED: PROPOFOL 200 MG/20 ML VIAL As Ordered (13:58)
[2018-04-25] MEDS ORDERED: fentaNYL 100 MCG/2 ML INJECTION (J3010) As Ordered (13:58)
[2018-04-25] MEDS ORDERED: LIDOCAINE 2% INJ 100 MG/5 ML SDV (FOR ANES.) As Ordered (13:58)
[2018-04-25] MEDS ORDERED: HumaLOG INSULIN (NovoLOG) PER UNIT As Ordered (14:01)
[2018-04-25] MEDS: HumaLOG INSULIN (NovoLOG) PER UNIT SC (14:05)
[2018-04-25] MEDS ORDERED: KETAMINE HCL 200 MG/20 ML VIAL As Ordered (14:45)
[2018-04-25] MEDS ORDERED: ceFAZolin 2 GM/D5W 50 ML IV BAG (J0690 PER 500MG) As Ordered (15:05)
[2018-04-25] MEDS ORDERED: ONDANSETRON 4MG/2ML VIAL (J2405) IV (16:45)
[2018-04-25] MEDS ORDERED: NORCO, ANEXSIA 5/325MG TABLET (HYDROcodone/ACETAMINOPHEN) PO (16:45)
[2018-04-25] MEDS ORDERED: NS 1,000 ML IV ×2 (16:45)
[2018-04-25 17:16] LABS: BEDSIDE GLUCOSE 172 MG/DL (83-110)
== END 2018-04-25 18:51 | disposition home or self-care (01) ==
LOC: M SDC 12:21
DX: T82.898A Other specified complication of vascular prosthetic devices, implants and grafts, initial encounter (principal); T82.838A Hemorrhage due to vascular prosthetic devices, implants and grafts, initial encounter; N18.6 End stage renal disease; I12.0 Hypertensive chronic kidney disease with stage 5 chronic kidney disease or end stage renal disease; I25.10 Atherosclerotic heart disease of native coronary artery without angina pectoris; I48.91 Unspecified atrial fibrillation; Z98.61 Coronary angioplasty status; Z95.810 Presence of automatic (implantable) cardiac defibrillator; E78.5 Hyperlipidemia, unspecified; G47.30 Sleep apnea, unspecified; Z88.0 Allergy status to penicillin; Z79.02 Long term (current) use of antithrombotics/antiplatelets; D64.9 Anemia, unspecified; Z79.4 Long term (current) use of insulin; Z79.899 Other long term (current) drug therapy; Z87.891 Personal history of nicotine dependence
CPT/HCPCS: 36832

== ENCOUNTER 2018-05-02 18:49 | Emergency (ER) | payer MEDICARE, OTHER ==
[2018-05-02 19:38] LABS: BASO % 0.2 % (0.0-1.0); EOS % 0.1 % (0.0-3.0); HEMATOCRIT 30.6 % (42.0-52.0); HEMOGLOBIN 10.5 g/dl (13.5-17.5); IMMATURE GRANULOCYTE % 0.8 % (0-3.0); LYMPH # 0.7 10^3/uL (1.5-4.5); LYMPH % 4.9 % (24.0-44.0); MEAN CORPUSCULAR HEMOGLOBIN 33.8 pg (27.0-33.0); MEAN CORPUSCULAR HGB CONC 34.3 g/dl (32.0-36.5); MEAN CORPUSCULAR VOLUME 98.4 fl (80.0-96.0); MONO # 0.8 10^3/uL (0.0-0.8); MONO % 5.8 % (0.0-5.0); NEUTROPHILS % 88.2 % (36.0-66.0); PLATELET COUNT, AUTOMATED 196 10^3/uL (150-450); RED BLOOD COUNT 3.11 10^6/uL (4.30-6.10); WHITE BLOOD COUNT 13.6 10^3/uL (4.0-10.0)
[2018-05-02] MEDS: ACETAMINOPHEN 325 MG TAB PO (19:49)
[2018-05-02 20:02] LABS: ALBUMIN 2.9 GM/DL (3.2-5.2); ALBUMIN/GLOBULIN RATIO 0.57 (1.00-1.93); ALKALINE PHOSPHATASE 236 U/L (45-117); ALT/SGPT 10 U/L (12-78); ANION GAP 10 MEQ/L (8-16); AST/SGOT 13 U/L (7-37); BILIRUBIN,DIRECT 0.2 MG/DL (0.0-0.2); BILIRUBIN,TOTAL 0.6 MG/DL (0.2-1.0); BLOOD UREA NITROGEN 26 MG/DL (7-18); CALCIUM LEVEL 9.2 MG/DL (8.8-10.2); CARBON DIOXIDE LEVEL 28 MEQ/L (21-32); CHLORIDE LEVEL 93 MEQ/L (98-107); CREATININE FOR GFR 5.29 MG/DL (0.70-1.30); GLOMERULAR FILTRATION RATE 11.4 (>42); GLUCOSE, FASTING 189 MG/DL (70-100); POTASSIUM SERUM 3.8 MEQ/L (3.5-5.1); SODIUM LEVEL 131 MEQ/L (136-145)
[2018-05-02 20:15] LABS: LACTIC ACID SEPSIS PROTOCOL 2.7 MMOL/L (0.4-2.0)
[2018-05-02] MEDS: NS 500 ML IV (22:02)
[2018-05-02] MEDS: diphenhydrAMINE INJ 50MG/ML VIAL (J1200) IV (22:05)
[2018-05-02] MEDS: cefTRIAXone SOD 500 MG in D5W MINI-BAG PLUS 50 ML IV (22:06)
== END 2018-05-02 23:41 | disposition home or self-care (01) ==
LOC: M ED 18:49
DX: R50.9 Fever, unspecified (principal); I25.10 Atherosclerotic heart disease of native coronary artery without angina pectoris; I51.7 Cardiomegaly; E11.9 Type 2 diabetes mellitus without complications; E78.5 Hyperlipidemia, unspecified; N18.9 Chronic kidney disease, unspecified; Z99.2 Dependence on renal dialysis; Z98.84 Bariatric surgery status
CPT/HCPCS: J1200

== ENCOUNTER 2018-05-05 18:26 | Emergency (ER) | payer MEDICARE, OTHER | END 2018-05-05 19:28 | disposition home or self-care (01) | LOC: M ED 18:26 | DX: R79.9 Abnormal finding of blood chemistry, unspecified (principal); R50.9 Fever, unspecified; B95.2 Enterococcus as the cause of diseases classified elsewhere; E11.9 Type 2 diabetes mellitus without complications; I11.0 Hypertensive heart disease with heart failure; I50.9 Heart failure, unspecified; N18.6 End stage renal disease; I48.91 Unspecified atrial fibrillation; I25.10 Atherosclerotic heart disease of native coronary artery without angina pectoris; G47.33 Obstructive sleep apnea (adult) (pediatric); K21.9 Gastro-esophageal reflux disease without esophagitis; K74.60 Unspecified cirrhosis of liver; Z99.2 Dependence on renal dialysis; Z95.1 Presence of aortocoronary bypass graft; Z95.5 Presence of coronary angioplasty implant and graft; Z79.899 Other long term (current) drug therapy; Z79.01 Long term (current) use of anticoagulants; Z79.4 Long term (current) use of insulin; Z88.0 Allergy status to penicillin | CPT/HCPCS: 99282 ==

== ENCOUNTER → 2018-05-16 | Outpatient (CLI) | payer MEDICARE, OTHER ==
[~2018-05-16] MED LIST changes: +ISOVUE-300 61% 50ML VIAL (Q9967) As Ordered; +MIDAZOLAM INJ 2 MG/2 ML VIAL (J2250) As Ordered; -OFLOXACIN 0.3 % (OCUFLOX) OPTH SOL 5ML OS; -PHENYLEPHRINE 2.5% OPHTH SOL 2ML OS; -PROPARACAINE 0.5% OPHTH SOL 15ML OS; -TROPICAMIDE 1% OPHTH SOLN 2ML OS; +fentaNYL 100 MCG/2 ML INJECTION (J3010) As Ordered
== END | disposition home or self-care (01) ==
LOC: M IRPRO 06:16
DX: T82.858A Stenosis of other vascular prosthetic devices, implants and grafts, initial encounter (principal); N18.6 End stage renal disease
CPT/HCPCS: 36902

== ENCOUNTER 2018-06-02 19:46 | Emergency (ER) | payer MEDICARE, OTHER ==
[2018-06-02] MEDS: NORCO, ANEXSIA 5/325MG TABLET (HYDROcodone/ACETAMINOPHEN) PO (21:42)
[2018-06-02 22:08] LABS: BASO % 0.3 % (0.0-1.0); EOS # 0.2 10^3/uL (0.0-0.50); EOS % 2.3 % (0.0-3.0); HEMATOCRIT 31.8 % (42.0-52.0); HEMOGLOBIN 10.8 g/dl (13.5-17.5); IMMATURE GRANULOCYTE % 0.5 % (0-3.0); LYMPH # 1.1 10^3/uL (1.5-4.5); LYMPH % 11.6 % (24.0-44.0); MEAN CORPUSCULAR HEMOGLOBIN 33.2 pg (27.0-33.0); MEAN CORPUSCULAR VOLUME 97.8 fl (80.0-96.0); MONO # 0.7 10^3/uL (0.0-0.8); MONO % 7.4 % (0.0-5.0); NEUTROPHILS # 7.4 10^3/uL (1.8-7.7); NEUTROPHILS % 77.9 % (36.0-66.0); PLATELET COUNT, AUTOMATED 247 10^3/uL (150-450); RED BLOOD COUNT 3.25 10^6/uL (4.30-6.10); RED CELL DISTRIBUTION WIDTH 14.2 % (11.5-14.5); WHITE BLOOD COUNT 9.5 10^3/uL (4.0-10.0)
[2018-06-02 22:24] LABS: INR 1.19; PROTHROMBIN TIME 15.3 SECONDS (12.1-14.4)
[2018-06-02 22:25] LABS: PARTIAL THROMBOPLASTIN TIME 36.5 SECONDS (25.4-37.6)
[2018-06-02 22:42] LABS: ALBUMIN 3.2 GM/DL (3.2-5.2); ALBUMIN/GLOBULIN RATIO 0.78 (1.00-1.93); ALKALINE PHOSPHATASE 237 U/L (45-117); ALT/SGPT 15 U/L (12-78); AMYLASE 74 U/L (25-115); ANION GAP 13 MEQ/L (8-16); AST/SGOT 13 U/L (7-37); BILIRUBIN,DIRECT 0.2 MG/DL (0.0-0.2); BILIRUBIN,TOTAL 0.5 MG/DL (0.2-1.0); BLOOD UREA NITROGEN 31 MG/DL (7-18); CALCIUM LEVEL 8.3 MG/DL (8.8-10.2); CARBON DIOXIDE LEVEL 27 MEQ/L (21-32); CHLORIDE LEVEL 95 MEQ/L (98-107); GLOMERULAR FILTRATION RATE 8.5 (>42); GLUCOSE, FASTING 214 MG/DL (70-100); LIPASE 241 U/L (73-393); POTASSIUM SERUM 4.3 MEQ/L (3.5-5.1); SODIUM LEVEL 135 MEQ/L (136-145); TOTAL PROTEIN 7.3 GM/DL (6.4-8.2)
[2018-06-02] MEDS: CEFUROXIME 500 MG TAB PO (23:28)
== END 2018-06-02 23:36 | disposition home or self-care (01) ==
LOC: M ED 19:46
DX: J18.1 Lobar pneumonia, unspecified organism (principal); I50.9 Heart failure, unspecified; E11.9 Type 2 diabetes mellitus without complications; G47.33 Obstructive sleep apnea (adult) (pediatric); K21.9 Gastro-esophageal reflux disease without esophagitis; F41.9 Anxiety disorder, unspecified; Z95.1 Presence of aortocoronary bypass graft; Z98.890 Other specified postprocedural states; Z87.891 Personal history of nicotine dependence; Z88.0 Allergy status to penicillin; Z79.4 Long term (current) use of insulin; Z79.01 Long term (current) use of anticoagulants; Z79.899 Other long term (current) drug therapy
CPT/HCPCS: 74176

== ENCOUNTER → 2018-08-15 | Outpatient (CLI) | payer MEDICARE, OTHER ==
[~2018-08-15] MED LIST changes: +LIDOCAINE 2% MDV 20 ML VIAL As Ordered; -MIDAZOLAM INJ 2 MG/2 ML VIAL (J2250) As Ordered; -fentaNYL 100 MCG/2 ML INJECTION (J3010) As Ordered
== END ==
LOC: M IRPRO 09:08
DX: Z53.8 Procedure and treatment not carried out for other reasons (principal)

== ENCOUNTER 2018-09-16 13:17 | Emergency (ER) | payer MEDICARE, OTHER ==
[2018-09-16 13:50] LABS: BASO % 0.4 % (0.0-1.0); EOS # 0.2 10^3/uL (0.0-0.50); EOS % 2.2 % (0.0-3.0); HEMATOCRIT 31.3 % (42.0-52.0); HEMOGLOBIN 11.2 g/dl (13.5-17.5); IMMATURE GRANULOCYTE % 0.7 % (0-3.0); MEAN CORPUSCULAR HEMOGLOBIN 32.7 pg (27.0-33.0); MEAN CORPUSCULAR HGB CONC 35.8 g/dl (32.0-36.5); MEAN CORPUSCULAR VOLUME 91.5 fl (80.0-96.0); MONO # 0.6 10^3/uL (0.0-0.8); MONO % 6.4 % (0.0-5.0); NEUTROPHILS # 7.3 10^3/uL (1.8-7.7); NEUTROPHILS % 79.3 % (36.0-66.0); PLATELET COUNT, AUTOMATED 225 10^3/uL (150-450); RED BLOOD COUNT 3.42 10^6/uL (4.30-6.10); RED CELL DISTRIBUTION WIDTH 16.4 % (11.5-14.5); WHITE BLOOD COUNT 9.2 10^3/uL (4.0-10.0)
[2018-09-16 14:17] LABS: ALBUMIN 3.7 GM/DL (3.2-5.2); ALBUMIN/GLOBULIN RATIO 0.77 (1.00-1.93); ALKALINE PHOSPHATASE 219 U/L (45-117); ALT/SGPT 19 U/L (12-78); ANION GAP 12 MEQ/L (8-16); AST/SGOT 13 U/L (7-37); BILIRUBIN,DIRECT 0.2 MG/DL (0.0-0.2); BILIRUBIN,TOTAL 0.6 MG/DL (0.2-1.0); BLOOD UREA NITROGEN 21 MG/DL (7-18); CALCIUM LEVEL 9.6 MG/DL (8.8-10.2); CARBON DIOXIDE LEVEL 26 MEQ/L (21-32); CHLORIDE LEVEL 91 MEQ/L (98-107); CREATININE FOR GFR 4.58 MG/DL (0.70-1.30); GLOMERULAR FILTRATION RATE 13.5 (>42); GLUCOSE, FASTING 239 MG/DL (70-100); LIPASE 493 U/L (73-393); POTASSIUM SERUM 3.6 MEQ/L (3.5-5.1); SODIUM LEVEL 129 MEQ/L (136-145); TOTAL PROTEIN 8.5 GM/DL (6.4-8.2)
[2018-09-16] MEDS: IPRATROPIUM 0.5MG/ALBUTEROL 2.5MG INH SOL UD 3ML (DUONEB)(J7620) NEB (14:51)
== END 2018-09-16 15:50 | disposition home or self-care (01) ==
LOC: M ED 13:17
DX: K59.00 Constipation, unspecified (principal)
CPT/HCPCS: 74021

== ENCOUNTER → 2018-09-17 | Outpatient (CLI) | payer MEDICARE, OTHER ==
[2018-09-17 10:04] LABS: BEDSIDE GLUCOSE 404 MG/DL (83-110)
== END ==
LOC: M IRPRO 09:34
DX: N18.6 End stage renal disease (principal); Z53.8 Procedure and treatment not carried out for other reasons

== ENCOUNTER 2018-09-26 11:46 | Day surgery (SDC) | payer MEDICARE, OTHER ==
[~2018-09-26] VITALS: Ht 188 cm; Wt 104.3 kg
[~2018-09-26 11:46] MED LIST changes: +/PRAV20TA; +/WARF2TA PO; +/WARF4TA OR; +ALBU17IN INH; +AMIO200T PO; +ARANESP; +AURY1TAB PO; +AZEL0.05; +B6 OR; +BABY81CH; +CARV25TA PO; +CARV3.12 PO; +CARV6.25 PO; +CEFU50TA PO; +CENT1TAB PO; +CINA30TA PO; +CIPR500T3 PO; +COLA100C2 OR; +COLA100C5 PO; +COLA50CA3 PO; +COLC0.6T OR; +CORE12.5; +CORE25TA; +CORE25TA OR; +CORE25TA PO; +COUM1TAB; +DARB60SYR; +DIALYSIS; +DIGO0.257; +DRIS50003 PO; +ELIQ5TAB PO; +FERR325T OR; +FLUO20CA8 PO; +INSUHUMDS SC; +INSULANT; +INSULANT SQ; -ISOVUE-300 61% 50ML VIAL (Q9967) As Ordered; +KEFL500C17 PO; +LANTUS; +LASI40TA; +LIDOCAINE 1% MDV 20ML VIAL SQ PRN; -LIDOCAINE 2% MDV 20 ML VIAL As Ordered; +LISI5TAB OR; +LORA0.5T11 PO; +MIRA3350 PO; +MULTIVIT OR; +NOVOLOG100 MG/ML; +NOVOLOG100 MG/ML SC; +Omega OR; +PAXI20TA; +PERC5TAB PO; +POTA10CA2 OR; +PRAV10TA4; +PRAV20TA2 PO; +PRAV40TA OR; +PRAV40TA2 PO; +PROZ20CA OR; +RENA800T PO; +RENV2TAB PO; +ROCA0.25; +SALI0.6528; +SENO8.6T9 PO; +SENS60TA PO; +TORS20TA2 OR; +TOUJ1.2I SC; +TRIC145T19; +TRIC145T19 OR; +Uloric OR; +VIT D; +VITA-110 PO; +VITA200016 PO; +VITA250T OR; +VITA50005 PO; +VITA500C24 PO; +WARF1TAB OR; +[UNRECOGNIZED DRUG - OTHER]
[2018-09-26] MEDS ORDERED: LR 1,000 ML IV ONE (12:00)
[2018-09-26] MEDS ORDERED: NS 1,000 ML IV SCH (12:45)
[2018-09-26] MEDS ORDERED: LIDOCAINE 2% INJ 100 MG/5 ML SDV (FOR ANES.) As Ordered ONE (12:46)
[2018-09-26] MEDS ORDERED: ONDANSETRON 4MG/2ML VIAL (J2405) As Ordered ONE (12:46)
[2018-09-26] MEDS ORDERED: PROPOFOL 500 MG/50 ML VIAL As Ordered ONE (12:46)
[2018-09-26] MEDS ORDERED: dexameTHASONE 4 MG/ML 1ML VIAL (J1100) As Ordered ONE (12:46)
[2018-09-26] MEDS ORDERED: fentaNYL 250 MCG/5 ML INJECTION (J3010) As Ordered ONE (12:47)
[2018-09-26] MEDS ORDERED: MIDAZOLAM INJ 2 MG/2 ML VIAL (J2250) As Ordered ONE (12:47)
[2018-09-26] MEDS ORDERED: fentaNYL 100 MCG/2 ML INJECTION (J3010) As Ordered ONE (12:48)
[2018-09-26] MEDS ORDERED: HumaLOG INSULIN (NovoLOG) PER UNIT As Ordered ONE (13:20)
[2018-09-26] MEDS ORDERED: HumaLOG INSULIN (NovoLOG) PER UNIT SC ONE (13:30)
[2018-09-26] MEDS ORDERED: LIDOCAINE 1% SDV INJ 30 ML VIAL As Ordered ONE (13:37)
[2018-09-26] MEDS ORDERED: HEPARIN SOD (PORCINE) 5000 UNITS/ML VIAL As Ordered ONE (13:37)
[2018-09-26] MEDS ORDERED: BUPIVACAINE HCL 0.5% 30 ML VIAL As Ordered ONE (13:38)
[2018-09-26] MEDS ORDERED: PHENYLephrine HCL 500 MCG/5 ML (100MCG/ML) SYRINGE (J2370) As Ordered ONE (14:19)
[2018-09-26 15:20] VITALS: BP 114/61
--- NOTE | 2018-11-01 14:12 | RO ---
DATE OF PROCEDURE: 09/26/2018 ATTENDING SURGEON: Dr. Priyanka Auguste RETAIL LOAN ORIGINATOR: Nevin Romero PA-C PREOPERATIVE DIAGNOSIS: End-stage renal disease, dysfunctional right radiocephalic arteriovenous fistula. POSTOPERATIVE DIAGNOSIS: End-stage renal disease, dysfunctional right radiocephalic arteriovenous fistula. PROCEDURE: Revision of right radiocephalic arteriovenous fistula, creation of advancement skin flaps for coverage of the right radiocephalic arteriovenous fistula. 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 The patient now has exposure of a small area of the PTFE graft at the wrist which has been nonhealing and will undergo revision of the arteriovenous fistula with attempts to salvage the arteriovenous fistula and cover the exposed graft. Risks, benefits and alternative treatment options were discussed with the patient. The procedure was described and explained to the patient in detail including drawing pictures of the pertinent anatomy and the procedure. Alternative treatment options included but were not limited to, no intervention. Benefits included but were not limited to, coverage of the graft with prevention of loss of the arteriovenous access and infection. Risks included but were not limited to, infection, bleeding, loss of arteriovenous access, steal syndrome, possible need for further open surgical intervention, adverse reaction to the prepping and draping materials, adverse reaction to the anesthetic and sedation medications, cerebrovascular accident, myocardial infarction, pulmonary embolus, deep vein thrombosis (DVT), loss of limb, loss to life, poor outcome, poor results and poor satisfaction. The patient's questions were answered. The patient voices understanding and acceptance of the risks, benefits and alternative treatment options and consents to proceed. No promises or guarantees were made to the patient or his regarding the procedure outcome and/or results. ANESTHESIA: Local, monitored anesthesia care (MAC). ESTIMATED BLOOD LOSS: 35 mL. IV FLUIDS: 500 mL. SPECIMEN: None. COMPLICATIONS: None. DRAINS: None. IMPLANTS: None. HEPARIN: None. DESCRIPTION OF PROCEDURE: The patient was taken to the operating room, placed supine on the operating room table and then prepped and draped in a standard surgical fashion. A timeout was then conducted by myself and the team members in the room confirming the correct patient, procedure and laterality. The skin surrounding the exposed graft was sharply dissected free and mobilized and advancement skin flaps created by undermining of the skin on either side of the arteriovenous fistula. The graft and wound were then irrigated after which the skin flaps were advanced over the graft and closed using holli. There was a good thrill in the fistula at the completion of the procedure. Dressings were then applied. The patient tolerated the procedure well. All instrument, sponge and needle counts were correct at the end of the case. There were no complications. Dr. Auguste was present for and directed the entire case. The patient was transferred to the recovery room awake, alert, extubated and in stable condition. The procedure, findings and results were discussed with the patient in the recovery room with all of his questions answered. The procedure findings and results were discussed with the patient's in the surgical waiting room with all of her questions answered.
== END 2018-09-26 15:35 | disposition home or self-care (01) ==
LOC: M SDC 11:46
PROVIDERS: ATTEND Surgery Vascular Surgery
DX: T82.898A Other specified complication of vascular prosthetic devices, implants and grafts, initial encounter (principal); S61.501A Unspecified open wound of right wrist, initial encounter
CPT/HCPCS: 14020; 36415; 84132; J1100; J2250; J2370; J2405; J3010

== ENCOUNTER 2018-09-29 15:31 | Inpatient (IN) | payer MEDICARE, OTHER ==
[~2018-09-29] VITALS: Ht 188 cm; Wt 101.5 kg
[~2018-09-29 15:31] MED LIST changes: -LIDOCAINE 1% MDV 20ML VIAL SQ PRN
[2018-09-29] MEDS ORDERED: VANCOMYCIN HCL 1,000 MG, VIAL MATE ADAPTER 1 EACH in D5W 250 ML IV ONE (17:00)
--- NOTE | 2018-09-29 17:22 | REP ---
Clinical: Acute chest pain. Comparison: 09/16/2018. Findings: Cardiomegaly is again appreciated. Evidence for prior sternotomy and pacemaker. Lung bird demonstrate chronic interstitial changes. No obvious acute consolidation, effusion, or pneumothorax. Skeletal structures demonstrate stable degenerative changes. Impression: Stable cardiomegaly and diffuse chronic interstitial changes. Electronically Signed by Mars Ivory MD 09/29/2018 05:14 P
[2018-09-29 17:24] LABS: BASO % 0.3 % (0.0-1.0); EOS # 0.1 10^3/uL (0.0-0.50); EOS % 1.4 % (0.0-3.0); HEMATOCRIT 31.1 % (42.0-52.0); HEMOGLOBIN 10.8 g/dl (13.5-17.5); LYMPH # 0.7 10^3/uL (1.5-4.5); LYMPH % 7.8 % (24.0-44.0); MEAN CORPUSCULAR HEMOGLOBIN 32.9 pg (27.0-33.0); MEAN CORPUSCULAR HGB CONC 34.7 g/dl (32.0-36.5); MEAN CORPUSCULAR VOLUME 94.8 fl (80.0-96.0); MONO # 0.6 10^3/uL (0.0-0.8); MONO % 6.8 % (0.0-5.0); NEUTROPHILS # 7.8 10^3/uL (1.8-7.7); NEUTROPHILS % 82.8 % (36.0-66.0); PLATELET COUNT, AUTOMATED 206 10^3/uL (150-450); RED BLOOD COUNT 3.28 10^6/uL (4.30-6.10); WHITE BLOOD COUNT 9.4 10^3/uL (4.0-10.0)
[2018-09-29 17:34] LABS: INR 1.04; PROTHROMBIN TIME 13.8 SECONDS (12.1-14.4)
[2018-09-29 17:35] LABS: PARTIAL THROMBOPLASTIN TIME 31.5 SECONDS (25.4-37.6)
[2018-09-29] MEDS ORDERED: MIRA3350 PO (17:49)
[2018-09-29 17:54] LABS: ALBUMIN 3.3 GM/DL (3.2-5.2); BILIRUBIN,DIRECT 0.2 MG/DL (0.0-0.2); BILIRUBIN,TOTAL 0.7 MG/DL (0.2-1.0); CALCIUM LEVEL 8.7 MG/DL (8.8-10.2); CREATININE FOR GFR 2.71 MG/DL (0.70-1.30); GLOMERULAR FILTRATION RATE 24.7 (>42); MB/CK RELATIVE INDEX 6.15 (< OR =4); TOTAL PROTEIN 7.5 GM/DL (6.4-8.2)
[2018-09-29 17:55] LABS: THYROID STIMULATING HORMONE 3.34 uIU/ML (0.358-3.740); TROPONIN I 0.03 NG/ML (< 0.10)
[2018-09-29] MEDS ORDERED: GLUCOSE 4 GM CHEW TABLET PO PRN (19:45)
[2018-09-29] MEDS ORDERED: GLUCAGON FOR INJ 1 MG VIAL (J1610) SC PRN (19:45)
[2018-09-29] MEDS ORDERED: DEXTROSE 50% 50 ML SYRINGE IV PRN (19:45)
--- NOTE | 2018-09-29 20:27 | HPEPDOC ---
[facility] Medical History & Physical Date of Admission Sep 29, 2018 Attending Physician: JUSTEN JACKSON MD History and Physical CHIEF COMPLAINT: [Right arm fistula bleed] HISTORY OF PRESENT ILLNESS: [73-year-old gentleman with significant past medical history of end-stage renal disease (M, W, F), hypertension, hypercholesterolemi a, atrial fibrillation, coronary artery disease status post CABG 3 stents in the past, ischemic cardiomyopathy, diabetes, anxiety who presents bleed from right arm fistula after hemodialysis today. Patient had his fistula of the right arm manipulated by vascular couple of days ago and today had his dialysis due to the holiday season. Afterwards he noted bleeding from the site of the fistula manipulation and therefore came to emergency room for further evaluation. The bleeding stopped with pressure. Vital stable. H&H stable. ER consulted with renal and vascular surgery who recommended admission for surgical intervention in the a.m. Per ER, specialist recommended vancomycin to the ER physician and therefore patient received a dose. Otherwise patient denies of any complaints. ER asked hospitalist admission. Review system: 10 point review systems negative than those described in HPI PAST MEDICAL HISTORY: End-stage renal disease on dialysis (M,W,F) History of hematuria Hypertension Hypercholesterolemia Atrial fibrillation Coronary artery disease status post triple bypass graft and 3 stents Ischemic cardiomyopathy Diabetes mellitus type 2, on insulin Anxiety PAST SURGICAL HISTORY: Left hip fracture repair 2013 Left knee replacement 1999 Cholecystectomy 1985 Triple bypass graft Right-sided defibrillator/pacer Cardiac stenting times 12/25/2014 SOCIAL HISTORY: He quit smoking in 1999, prior to that he smoked one pack per day for 36 years. He will drink alcohol on a rare occasion. He does not use recreational drugs FAMILY HISTORY: Both his father and mother had diabetes, his father had lung cancer. He has a brother who of an unknown etiology while he was in the hospital status post prostate surgery ALLERGIES: Please see below. HOME MEDICATIONS: Please see below. PHYSICAL EXAMINATION: VITAL SIGNS: Please see below GENERAL APPEARANCE: Resting comfortably HEENT: Normocephalic, PERRLA, Mucous moist, CARDIOVASCULAR: S1,S2, pulse present, regularly, regular LUNGS: Equal air entry b/l, no wheezes or crackle ABDOMEN: Soft, BS present, no tenderness, no guarding GENITOURINARY: No Cardona EXTREMITIES: B/L no edema, right arm fistula patent, bandaged at the site of bleed and no active bleeding. SKIN: Warm, No fever NEUROLOGICAL: Cranial nerves grossly intact PSYCHIATRIC: Normal mood and affect for current situation IMAGING: MICROBIOLOGY: Please see below. Assessment and plan: 73-year-old gentleman with significant past medical history of end-stage renal disease (M, W, F), hypertension, hypercholesterolemia, atrial fibrillation, coronary artery disease status post CABG 3 stents in the past, ischemic cardiomyopathy, diabetes, anxiety who presents bleed from right arm fistula after hemodialysis today. Right arm fistula bleed, stopped Plan for surgery by Dr. Auguste in a.m., nothing by mouth, repeat blood work Hold Maryana covarrubias and defer to vascular End-stage renal disease on dialysis (M,W,F), consult with nephrology in a.m. Diabetes mellitus type 2, on insulin, fingersticks and sliding scale, Give half of long-acting insulin 1 as patient nothing by mouth. Resume amiodarone, Sensipar, Colace, vitamin D, fluoxetine, Xanax, pravastatin once patient no longer nothing by mouth Hypertension Hypercholesterolemia Atrial fibrillation Coronary artery disease status post triple bypass graft and 3 stents Ischemic cardiomyopathy Anxiety DVT prophylaxis with SCD and defer to surgery Vital Signs Vital Signs Date Time Temp Pulse Resp B/P (MAP) Pulse Ox O2 Delivery O2 Flow Rate FiO2 09/29/18 18:31 87 100 09/29/18 18:30 108/52 (70) 09/29/18 15:33 97.2 18 Room Air Laboratory Data Labs 24H Laboratory Tests 2 09/29/18 17:12: Immature Granulocyte % (Auto) 0.9, White Blood Count 9.4, Red Blood Count 3.28L, Hemoglobin 10.8L, Hematocrit 31.1L, Mean Corpuscular Volume 94.8, Mean Corpuscular Hemoglobin 32.9, Mean Corpuscular Hemoglobin Concent 34.7, Red Cell Distribution Width 15.9H, Platelet Count 206, Neutrophils (%) (Auto) 82.8H, Lymphocytes (%) (Auto) 7.8L, Monocytes (%) (Auto) 6.8H, Eosinophils (%) (Auto) 1.4, Basophils (%) (Auto) 0.3, Neutrophils # (Auto) 7.8H, Lymphocytes # (Auto) 0.7L, Monocytes # (Auto) 0.6, Eosinophils # (Auto) 0.1, Basophils # (Auto) 0.0, Nucleated Red Blood Cells % (auto) 0.0, Prothrombin Time 13.8, Prothromb Time International Ratio 1.04, Activated Partial Thromboplast Time 31.5, Anion Gap 11, Glomerular Filtration Rate 24.7L, Calcium Level 8.7L, Aspartate Amino Transf (AST/SGOT) 13, Alanine Aminotransferase (ALT/SGPT) 20, Alkaline Phosphatase 207H, Total Bilirubin 0.7, Direct Bilirubin 0.2, Total Creatine Kinase 26L, Creatine Kinase MB 2.0, Creatine Kinase MB Relative Index 6.15H, Troponin I 0.03, Total Protein 7.5, Albumin 3.3, Albumin/Globulin Ratio 0.79L, Thyroid Stimulating Hormone (TSH) 3.340 CBC/BMP Laboratory Tests 09/29/18 17:12 Red Blood Count 3.28 L, Mean Corpuscular Volume 94.8, Mean Corpuscular Hemoglobin 32.9, Mean Corpuscular Hemoglobin Concent 34.7, Red Cell Distribution Width 15.9 H, Neutrophils (%) (Auto) 82.8 H, Lymphocytes (%) (Auto) 7.8 L, Monocytes (%) (Auto) 6.8 H, Eosinophils (%) (Auto) 1.4, Basophils (%) (Auto) 0.3, Neutrophils # (Auto) 7.8 H, Lymphocytes # (Auto) 0.7 L, Monocytes # (Auto) 0.6, Eosinophils # (Auto) 0.1, Basophils # (Auto) 0.0 Microbiology Microbiology 09/29/18 Blood Culture, Received Pending 09/29/18 Blood Culture, Received Pending Home Medications Scheduled (Miles Quintero) 300 Unit/Ml Inj, 36 UNITS SC DAILY (Auryxia) 210 Mg Tab, 630 MG PO AC Amiodarone HCl (Amiodarone HCl) 200 Mg Tab, 200 MG PO DAILY Apixaban Base (Eliquis) 5 Mg Tab, 5 MG PO BID Cinacalcet Hydrochloride (Sensipar) 30 Mg Tab, 30 MG PO 2XW SUNDAY AND SUNDAY Docusate Sodium (Colace) 100 Mg Cap, 100 MG PO BID Ergocalciferol (Vitamin D) 50,000 Unit Cap, 50,000 UNITS PO QWEEK MONDAYS Fluoxetine Hcl (Fluoxetine) 20 Mg Cap, 20 MG PO DAILY Insulin Human Lispro (Humalog) 1 Units/0.01 Ml Inj, 10 UNITS SC TID Pravastatin Sodium (Pravastatin Sodium) 20 Mg Tab, 20 MG PO DAILY Scheduled PRN Lorazepam (Lorazepam) 0.5 Mg Tab, 0.5 MG PO ASDIRECTED PRN for ANXIETY TAKES PRN WHEN AT DIALYSIS Polyethylene Glycol (Miralax) 1 Pow Pow, 17 GM PO DAILY PRN for CONSTIPATION Allergies Coded Allergies: Penicillins (Verified Adverse Reaction, Mild, DROWSINESS; DIZZINESS, 09/26/18) Penicillins Cross Reactors (Verified Adverse Reaction, Mild, 09/26/18) KELSI HAYES MD Sep 29, 2018 20:27
[2018-09-29] MEDS ORDERED: LEVEMIR (INSULIN DETEMIR) 1 UNITS/0.01ML SC ONE (20:30)
[2018-09-29] MEDS ORDERED: LORazepam 2 MG/ML VIAL (J2060) IV PRN (20:45)
[2018-09-29] MEDS ORDERED: HumaLOG INSULIN (NovoLOG) PER UNIT SC SCH (21:00)
[2018-09-29 22:00] VITALS: BP 162/84
[2018-09-29] MEDS: ACETAMINOPHEN TAB 650MG DOSE (2X325MG) PO PRN (22:47)
[2018-09-30] MEDS: HumaLOG INSULIN (NovoLOG) PER UNIT SC SCH ×4 (00:02→17:45)
[2018-09-30 02:00] VITALS: BP 108/84
[2018-09-30] MEDS: ACETAMINOPHEN TAB 650MG DOSE (2X325MG) PO PRN ×3 (04:38→20:11)
[2018-09-30 05:48] LABS: HEMOGLOBIN 10.2 g/dl (13.5-17.5); MEAN CORPUSCULAR HEMOGLOBIN 33.2 pg (27.0-33.0); MEAN CORPUSCULAR HGB CONC 35.2 g/dl (32.0-36.5); MEAN CORPUSCULAR VOLUME 94.5 fl (80.0-96.0); PLATELET COUNT, AUTOMATED 173 10^3/uL (150-450); RED BLOOD COUNT 3.07 10^6/uL (4.30-6.10); WHITE BLOOD COUNT 9.7 10^3/uL (4.0-10.0)
[2018-09-30 06:00] VITALS: BP 144/62
[2018-09-30 06:13] LABS: CALCIUM LEVEL 8.6 MG/DL (8.8-10.2); CREATININE FOR GFR 3.71 MG/DL (0.70-1.30); GLOMERULAR FILTRATION RATE 17.2 (>42); POTASSIUM SERUM 3.6 MEQ/L (3.5-5.1)
[2018-09-30] MEDS ORDERED: HumaLOG INSULIN (NovoLOG) PER UNIT SC SCH (07:30)
[2018-09-30] MEDS ORDERED: LORazepam 0.5 MG TAB PO PRN (08:00)
[2018-09-30] MEDS: AMIODARONE 200 MG TAB (PACERONE) PO SCH (08:16)
[2018-09-30] MEDS: FLUoxetine 20 MG CAP PO SCH (08:16)
[2018-09-30] MEDS: PRAVASTATIN 20 MG TAB PO SCH (08:16)
[2018-09-30] MEDS: DOCUSATE SODIUM 100 MG CAP PO SCH ×2 (08:16→20:08)
[2018-09-30] MEDS ORDERED: LEVEMIR (INSULIN DETEMIR) 1 UNITS/0.01ML SC SCH (09:00)
[2018-09-30] MEDS ORDERED: KETOROLAC 30 MG/ML VIAL (J1885) IV ONE (09:00)
--- NOTE | 2018-09-30 09:41 | IPNPDOC ---
Subjective Date Seen The patient was seen on 09/30/18. Subjective Chief Complaint/HPI . General: Denies: Chills Pulmonary: Denies: Dyspnea, Cough Cardiovascular: Denies: Chest Pain, Palpitations, Orthopnea, Paroxysmal Noc. Dyspnea, Edema, Lt Headedness Gastrointestinal: Denies: Nausea, Vomiting, Abdominal Pain, Diarrhea, Constipation Genitourinary: Denies: Dysuria Musculoskeletal: Reports: Hand Pain (right hand pain) Neurological: Denies: Weakness Psych: Reports: Mood Normal Objective Physical Examination General Exam: Positive: Alert, Cooperative, No Acute Distress Chest Exam: Positive: Diminished; Negative: Rales, Rhonchi, Wheezing Heart Exam: Positive: Rate Normal, Normal S1, Normal S2; Negative: Gallops, Murmurs, Rubs Abdomen Exam: Positive: Normal bowel sounds, Soft; Negative: Tenderness, Hepatospenomegaly, Mass Extremity Exam: Negative: Clubbing, Cyanosis, Edema Skin Exam: Positive: Breakdown (right forearm ) Psych Exam: Positive: Oriented x 3 Assessment /Plan Assessment 1. Right arm fistula bleed -this has stopped -pt NPO, will contact Dr. Auguste again to discuss surgery tomorrow or possibly today -holding patients eliquis 2. End-stage renal disease on dialysis (M,W,F) -We will consult nephrology 3. Diabetes mellitus type 2 -c/w insulin -sliding scale with hypoglycemic protocol 4. HTN -stable, pt continued on home medications 5. DLP 6. A fib -Eliquis on hold in light of possible surgery -c/w amiodarone 7. CAD s/p triple bypass and 3 stent placement 8. Anxiety -c/w home medications xanax 9. DVT prophylaxis -scds, defer to surgery DISPOSITION: patient was to be discharged today as per vascular surgery recommendation however began to bleed again from right fistula, he will stay today. Plan/VTE VTE Prophylaxis Ordered?: Yes VS, I&O, 24H, Fishbone Vital Signs/I&O Vital Signs Date Time Temp Pulse Resp B/P (MAP) Pulse Ox O2 Delivery O2 Flow Rate FiO2 09/30/18 06:00 98.1 80 16 144/62 (89) 98 Room Air I&O- Last 24 Hours up to 6 AM 09/30/18 05:59 Intake Total 270 ml Balance 270 ml Laboratory Data 24H LABS Laboratory Tests 2 09/29/18 17:12: Immature Granulocyte % (Auto) 0.9, White Blood Count 9.4, Red Blood Count 3.28L, Hemoglobin 10.8L, Hematocrit 31.1L, Mean Corpuscular Volume 94.8, Mean Corpuscular Hemoglobin 32.9, Mean Corpuscular Hemoglobin Concent 34.7, Red Cell Distribution Width 15.9H, Platelet Count 206, Neutrophils (%) (Auto) 82.8H, Lymphocytes (%) (Auto) 7.8L, Monocytes (%) (Auto) 6.8H, Eosinophils (%) (Auto) 1.4, Basophils (%) (Auto) 0.3, Neutrophils # (Auto) 7.8H, Lymphocytes # (Auto) 0.7L, Monocytes # (Auto) 0.6, Eosinophils # (Auto) 0.1, Basophils # (Auto) 0.0, Nucleated Red Blood Cells % (auto) 0.0, Prothrombin Time 13.8, Prothromb Time International Ratio 1.04, Activated Partial Thromboplast Time 31.5, Anion Gap 11, Glomerular Filtration Rate 24.7L, Calcium Level 8.7L, Aspartate Amino Transf (AST/SGOT) 13, Alanine Aminotransferase (ALT/SGPT) 20, Alkaline Phosphatase 207H, Total Bilirubin 0.7, Direct Bilirubin 0.2, Total Creatine Kinase 26L, Creatine Kinase MB 2.0, Creatine Kinase MB Relative Index 6.15H, Troponin I 0.03, Total Protein 7.5, Albumin 3.3, Albumin/Globulin Ratio 0.79L, Thyroid Stimulating Hormone (TSH) 3.340 09/29/18 20:43: Bedside Glucose (Misc Panel) 328H 09/29/18 23:57: Bedside Glucose (Misc Panel) 281H 09/30/18 05:37: Nucleated Red Blood Cells % (auto) 0.2H, Anion Gap 10, Glomerular Filtration Rate 17.2L, Calcium Level 8.6L, Blood Urea Nitrogen 16#, Creatinine 3.71H, Sodium Level 132L, Potassium Level 3.6, Chloride Level 94L, Carbon Dioxide Level 28 CBC/BMP Laboratory Tests 09/29/18 17:12 Red Blood Count 3.28 L, Mean Corpuscular Volume 94.8, Mean Corpuscular Hemoglobin 32.9, Mean Corpuscular Hemoglobin Concent 34.7, Red Cell Distribution Width 15.9 H, Neutrophils (%) (Auto) 82.8 H, Lymphocytes (%) (Auto) 7.8 L, Monocytes (%) (Auto) 6.8 H, Eosinophils (%) (Auto) 1.4, Basophils (%) (Auto) 0.3, Neutrophils # (Auto) 7.8 H, Lymphocytes # (Auto) 0.7 L, Monocytes # (Auto) 0.6, Eosinophils # (Auto) 0.1, Basophils # (Auto) 0.0 09/30/18 05:37 Red Blood Count 3.07 L, Mean Corpuscular Volume 94.5, Mean Corpuscular Hem oglobin 33.2 H, Mean Corpuscular Hemoglobin Concent 35.2, Red Cell Distribution Width 16.0 H, Calcium Level 8.6 L Microbiology Microbiology 09/29/18 Blood Culture, Received Pending 09/29/18 Blood Culture, Received Pending GME ATTESTATION GME ATTESTATION My faculty preceptor for this patient encounter was physically present during the encounter and was fully available. All aspects of the patient interview, examination, medical decision making process, and medical care plan development were reviewed and approved by the faculty preceptor. The faculty preceptor is aware and concurs with the plan as stated in the body of this note and will attest to such by his/her cosignature. TYRESE TEIXEIRA DO Sep 30, 2018 09:41
[2018-09-30 10:00] VITALS: BP 117/56
[2018-09-30] MEDS ORDERED: OXYC1TAB23 PO (11:40)
[2018-09-30 14:00] VITALS: BP 122/61
[2018-09-30 18:00] VITALS: BP 120/64
[2018-09-30] MEDS ORDERED: VANCOMYCIN HCL 1,000 MG, VIAL MATE ADAPTER 1 EACH in D5W 250 ML IV SCH (18:45)
--- NOTE | 2018-09-30 19:41 | PHACANCOPD ---
PHARMACY VANCOMYCIN DOSING Pt Demographics Demographics Patient Age:73 , Weight:99.200 , Gender: male Adjusted Body Weight Date: 09/30/18, Adjusted Body Weight: [89] Kg Events Past 24 Hours Events Past 24 Hours: NO: Dialysis, Diuretic Therapy, Change in CrCl, Fever, Elevation in WBC, Pending Diagnostics, Pending Procedures, Other Vancomycin Vancomycin indication: POSSITIVE BLOOD CX Vancomycin Target Ranges: 15-20 mcg/ml Vancomycin Load Y/N: No Load Dose Date Time Vancomycin Load Dose: Date: Time: Vancomycin Dose Date: 09/30/18. Current Vancomycin Dose: [1G IV AFTER HD] Intermittent Dosing?: No Labs Labs Item Value Date Time White Blood Count 9.4 10^3/uL 09/29/18 1712 White Blood Count 9.7 10^3/uL 09/30/18 0537 Creatinine 2.71 MG/DL H 09/29/18 1712 Creatinine 3.71 MG/DL H 09/30/18 0537 Micro Microbiology 09/30/18 Blood Culture, Received Pending 09/29/18 Blood Culture - Preliminary, Resulted 09/29/18 Blood Culture - Preliminary, Resulted No growth after 24 hours . All specim... Creatinine Clearance Date:09/30/18. Creatinine Clearance: [20.6ML/MIN]. Assessment and Plan Maintaining Current Dose?: Yes Reason for dose change: No Dose Change Pharmacist Note Pharmacist Note Date: 09/30/18. Pharmacist note: PT is a 73 year old male being treated for positive blood cultures. The patient was planned to be discharged until fistula began bleeding. The patient is currently receiving hd sunday, sunday, and sunday. Current therapy will consist of 1g iv after hd. We will continue to monitor and adjust dose as needed. AALIYAH CONTRERAS PHARMACY Sep 30, 2018 19:41
[2018-09-30 22:00] VITALS: BP 99/77
[2018-10-01] VITALS (10 sets, daily range): BP systolic 82–121; BP diastolic 49–67
--- NOTE | 2018-10-01 05:39 | ECGEPIP ---
Stationary ECG Study [facility] - ED Test Date: 2018-09-29 Pat Name: DAGO BRODERICK Department: Room: - Gender: M [employer] Supervisor: lanette : [id number] Requested By: EMILY Mathew Order Number: [id number] Reading MD: Jose Ponce Measurements Intervals [place] Rate: 89 P: MD: 0 QRS: -30 QRSD: 134 T: 129 QT: 422 QTc: 515 Interpretive Statements ATRIAL FIBRILLATION WITH ABERRANT CONDUCTION OR VENTRICULAR PREMATURE COMPLEXES INTRAVENTRICULAR CONDUCTION DELAY POOR R WAVE PROGRESSION SIMILAR TO 10/22/13 Electronically Signed On 10-01-2018 5:38:38 EST by Jose Ponce
[2018-10-01] MEDS: DOCUSATE SODIUM 100 MG CAP PO SCH ×2 (08:29→21:10)
[2018-10-01] MEDS: AMIODARONE 200 MG TAB (PACERONE) PO SCH (08:29)
[2018-10-01] MEDS: FLUoxetine 20 MG CAP PO SCH (08:29)
[2018-10-01] MEDS: PRAVASTATIN 20 MG TAB PO SCH (08:29)
[2018-10-01] MEDS: HumaLOG INSULIN (NovoLOG) PER UNIT SC SCH ×4 (08:29→17:01)
[2018-10-01] MEDS: LEVEMIR (INSULIN DETEMIR) 1 UNITS/0.01ML SC SCH (08:30)
--- NOTE | 2018-10-01 10:23 | CR ---
DATE OF CONSULTATION: 09/30/2018 REQUESTING PHYSICIAN: Dr. Anjelica Quinonez CONSULTING PHYSICIAN: Dr. Persaud REASON FOR CONSULTATION: Management of end-stage renal disease on hemodialysis. CHIEF COMPLAINT: Patient was sent from the dialysis center yesterday because of bleeding from the right forearm AV fistula site after end of dialysis. HISTORY OF PRESENT ILLNESS: Mr. Joel Villarreal is a 73-year-old male with past medical history of end-stage renal disease on hemodialysis every Sunday, Sunday, and Sunday, history of atrial fibrillation, hypertension, multiple other comorbidities as mentioned below. Patient recently had a right forearm AV fistula repair done last because of bleeding from the fistula site. He got his regular Sunday, Sunday, and Sunday scheduled dialysis done yesterday at dialysis center because of holiday schedule and dialysis went okay, however, at the end of dialysis then pressure was being applied at the needle site he started oozing from his AV fistula at anastomosis site. A pressure dressing was applied and patient was sent to the emergency room from further evaluation. Patient was admitted overnight under the hospitalist service. Vascular surgery is onboard. Nephrology service was called for further help in the management of this patient with end-stage renal disease and hemodialysis. I saw and evaluated the patient today morning at the beside. He reports that bleeding has stopped with the pressure dressing at this point. He denies any active complaints and he tells me that he pending surgical repair of the fistula now. PAST MEDICAL HISTORY: End-stage renal disease on hemodialysis every Sunday, Sunday, and Sunday, hypertension, hyperlipidemia, atrial fibrillation, coronary artery disease status post stents and coronary artery bypass grafting, ischemic cardiomyopathy, diabetes mellitus type 2 insulin dependent, history of anxiety. PAST SURGICAL HISTORY: Status post left forearm AV fistula repair last week. Status post left fracture repair 2013. Left knee replacement in 1999. Status post cholecystectomy 1985. Status post coronary artery bypass grafting, three vessel graft was done, status post automatic implantable cardioverter-defibrillator (AICD) placement and status post coronary artery stenting. ALLERGIES: PENICILLINS. FAMILY HISTORY: No significant family history of end-stage renal disease. Both parents have diabetes. Patient family history of lung cancer in the father. SOCIAL HISTORY: Patient lives at home. He denies any illicit drug abuse or alcohol abuse. He quit smoking almost 18 years ago. REVIEW OF SYSTEMS: CONSTITUTIONAL: He denies any fevers or chills. EYES: He denies any blurry vision or double vision. ENT: Denies any dysphagia or odynophagia. CARDIOVASCULAR: He denies any chest pain or palpitation. RESPIRATORY: He denies any shortness of breath, cough, or phlegm. GI: He denies any nausea or vomiting. GENITOURINARY: He denies any dysuria, hematuria. MUSCULOSKELETAL: He denies any muscle aches or pains. HEALTH PROMOTION SPECIALIST: He denies any strokes or seizures. SKIN: He reports bleeding from the right forearm AV fistula site. HEMATOLOGICAL/ONCOLOGICAL: Bleeding on fistula site as mentioned above, otherwise he denies any bruising. ENDOCRINE: He reports history of type 2 diabetes and secondary hyperparathyroidism. All other review of systems is negative. PHYSICAL EXAMINATION: GENERAL: The patient is awake, alert, oriented times three, laying in bed, in no apparent distress. VITAL SIGNS: Temperature is 98.1 degrees Fahrenheit, blood pressure 144/62, pulse is 80, respiratory rate of 16, saturating 98% on room air. HEAD AND NECK EXAM: Extraocular muscles intact, pupils equal round and reactive to light. Mucous membranes are moist. NECK: Supple. There is no jugular venous distention (JVD). CARDIOVASCULAR: S1, S2. Right anterior chest wall automatic implantable cardioverter-defibrillator (AICD) is noted. Midline sternotomy scar was also noted. EXTREMITIES: No edema of the bilateral lower extremities. RESPIRATORY: Chest is clear to auscultation bilaterally. Bilateral good air entry. No rales or rhonchi. ABDOMEN: Soft, obese, positive right upper quadrant previous cholecystectomies, eschar is noted. Left upper quadrant abdominal band is noted from previous bariatric surgery. No other organomegaly was noted. GENITOURINARY: Bladder is not palpable. No hernia was noted. MUSCULOSKELETAL: No clubbing or stenosis. Pulses are 2+. Right forearm AV fistula with positive thrill and bruit and close to the wrist there is a pressure dressing at the AV fistula site, there is no active bleeding at this time. CENTRAL NERVOUS SYSTEM (HEALTH PROMOTION SPECIALIST): No focal deficit. Power is 5/5 in all extremities. PSYCH: Normal mood and affect. LABORATORY REVIEW: CBC showed a WBC of 9.7, hemoglobin 10.2, platelets of 173, INR is 1.04. BMP showed sodium of 132, potassium 3.6, chloride 94, bicarbonate 28, BUN 16, creatinine is 3.7. MICROBIOLOGY: Blood cultures were drawn and they are negative so far. IMAGING: Chest x-ray was done yesterday which showed cardiomegaly and diffuse chronic interstitial changes. HOME MEDICATIONS: - amiodarone 200 mg daily - Auryxia one tablet three times a day - Sensipar 30 mg by mouth two times a week - Colace 100 mg by mouth twice a day - vitamin D 5000 units once a week - fluoxetine 20 mg by mouth daily - Humalog 10 units subcutaneous three times a day - Ativan as needed - Percocet as needed for pain - MiraLAX as needed - pravastatin 20 mg daily - Toujeo 36 units subcutaneous daily CURRENT INPATIENT MEDICATIONS: Patient's medications are all reviewed by me. - Tylenol as needed - amiodarone 200 mg daily - Colace 100 mg by mouth twice a day - fluoxetine 20 mg daily - insulin Levemir 15 units one dose then 30 units subcutaneous daily - insulin Humalog sliding scale - Ativan 0.5 mg by mouth every 6 hour as needed anxiety - pravastatin 20 mg daily ASSESSMENT: 73-year-old male with past medical history of end-stage renal disease on hemodialysis every Sunday, Sunday, and Sunday, hypertension, ischemic cardiomyopathy, atrial fibrillation, coronary artery disease, diabetes mellitus type 2, admitted this time because of bleeding from the right forearm AV fistula. PLAN: 1. Right forearm AV fistula type bleeding. Patient takes Eliquis 5 mg by mouth twice a day because of his history of atrial fibrillation. His Eliquis is on hold now. He has a pressure dressing on the right forearm. Vascular surgery to repair the fistula. 2. End-stage renal disease on hemodialysis. Patient's regular days are Sunday, Sunday, and Sunday. He was dialyzed yesterday because of the holiday schedule. His volume status is optimized. No urgent need of hemodialysis today. 3. Chronic atrial fibrillation. Heart rate is controlled with current dose of amiodarone. Eliquis is on hold as mentioned above because of bleeding from the fistula site. 4. Secondary hyperparathyroidism of renal origin. It is being managed at the dialysis center. Patient will resume his Sensipar at dialysis center as outpatient. 5. Chronic kidney disease. Mineral bone disease. I am going to check his phosphorus levels tomorrow. Patient takes Auryxia at home which is not available in the hospital. 6. Anemia and end-stage renal disease. Hemoglobin is 10.2 which is optimal. No need of Aranesp administration at this point. 7. Diabetes mellitus type 2 insulin dependent. Glucose levels are controlled. Continue current dose of insulin Levemir and Humalog sliding scale. If patient is nothing by mouth give half the dose of Levemir. Thank you for involving me in the care of this patient. I shall be happy to follow the patient along with you tomorrow morning.
--- NOTE | 2018-10-01 10:29 | IPNPDOC ---
Subjective Date Seen The patient was seen on 10/01/18. Subjective Chief Complaint/HPI . General: Denies: Chills, Fatigue Skin: Denies: Rash, Lesions Pulmonary: Denies: Dyspnea, Cough Cardiovascular: Denies: Chest Pain, Palpitations, Orthopnea Gastrointestinal: Denies: Nausea, Vomiting, Abdominal Pain Musculoskeletal: Reports: Arm Pain, Hand Pain (RIGHT arm fistula discomfort) Neurological: Denies: Weakness Psych: Reports: Mood Normal Objective Physical Examination General Exam: Positive: Alert, Cooperative, No Acute Distress Chest Exam: Positive: Diminished; Negative: Rales, Rhonchi, Wheezing Heart Exam: Positive: Rate Normal, Normal S1, Normal S2; Negative: Gallops, Murmurs, Rubs Abdomen Exam: Positive: Normal bowel sounds, Soft; Negative: Tenderness, Hepatospenomegaly, Mass Extremity Exam: Negative: Clubbing, Cyanosis, Edema Skin Exam: Positive: Breakdown (right forearm is wrapped there is no blood exudation through the wrapping) Psych Exam: Positive: Oriented x 3 Assessment /Plan Assessment 1. Right arm fistula bleed -this has stopped today, however patient was due to be discharged home yesterday per recommendation of vascular surgery and then the fistula began bleeding again, decision made to not discharge patient -pt is currently is on a diet, NPO after midnight, Dr. Auguste to perform surgery hopefully tomorrow -holding patients Eliquis 2. End-stage renal disease on dialysis (M,W,F) -Nephrology consulted appreciate their help -dialysis today 3. Bacteremia -pt does not have complaints of cough or diarrhea, could be source from fistula- covering for MRSA with Vancomycin -blood cultures 1 out 2 from 09.29.18 demonstrated gram positive cocci pairs, clusters chains, awaiting sensitivities and organism identification, first set from 09.29.18 neg. -have started vancomycin to be given after HD 3x a week -pt afebrile without a white count today, max temp this admission 100.7 F -two more sets of blood cultures drawn and pending 4. Diabetes mellitus type 2 -c/w insulin -levemir increased to 40 units daily for better BS control -sliding scale with hypoglycemic protocol 5. HTN -stable, pt continued on home medications 6. DLP -stable 7. A fib -Eliquis on hold in light of possible surgery -c/w amiodarone 8. CAD s/p triple bypass and 3 stent placement -stable 9. Anxiety -c/w home medications xanax 10. DVT prophylaxis -scds, defer to surgery Plan/VTE VTE Prophylaxis Ordered?: Yes VS, I&O, 24H, Fishbone Vital Signs/I&O Vital Signs Date Time Temp Pulse Resp B/P (MAP) Pulse Ox O2 Delivery O2 Flow Rate FiO2 10/01/18 06:00 97.9 90 18 103/56 (72) 97 Room Air I&O- Last 24 Hours up to 6 AM 10/01/18 06:00 Intake Total 360 ml Output Total 0 ml Balance 360 ml Laboratory Data 24H LABS Laboratory Tests 2 09/30/18 13:00: Bedside Glucose (Misc Panel) 211H 09/30/18 16:59: Bedside Glucose (Misc Panel) 274H 09/30/18 23:33: Bedside Glucose (Misc Panel) 234H 10/01/18 05:10: Bedside Glucose (Misc Panel) 269H 10/01/18 05:51: Phosphorus Level 4.0 Microbiology Microbiology 09/30/18 Blood Culture, Received Pending 09/30/18 Blood Culture, Received Pending 09/29/18 Blood Culture - Preliminary, Resulted 09/29/18 Blood Culture - Preliminary, Resulted No growth after 24 hours . All specim... GME ATTESTATION GME ATTESTATION My faculty preceptor for this patient encounter was physically present during the encounter and was fully available. All aspects of the patient interview, examination, medical decision making process, and medical care plan development were reviewed and approved by the faculty preceptor. The faculty preceptor is aware and concurs with the plan as stated in the body of this note and will attest to such by his/her cosignature. TYRESE TEIXEIRA DO Oct 01, 2018 10:29
[2018-10-01] MEDS ORDERED: DARBEPOETIN 100 MCG/0.5 ML *DIALYSIS* SYRINGE (J0882) IV SCH (10:45)
[2018-10-01] MEDS ORDERED: VANCOMYCIN HCL 750 MG, VIAL MATE ADAPTER 1 EACH in D5W 250 ML IV ONE (11:00)
[2018-10-01] MEDS: ACETAMINOPHEN TAB 650MG DOSE (2X325MG) PO PRN ×2 (12:26→21:10)
[2018-10-01] MEDS: **VANCO AFTER HD** MISC XX SCH (13:16)
[2018-10-01] MEDS ORDERED: PERCOCET 5MG/325MG TAB PO ONE (13:30)
[2018-10-01] MEDS ORDERED: NS 250 ML IV ONE ×2 (16:00→17:30)
[2018-10-01 16:03] LABS: HEMATOCRIT 26.3 % (42.0-52.0); HEMOGLOBIN 9.2 g/dl (13.5-17.5)
[2018-10-01 17:27] LABS: HEMOGLOBIN 9.6 g/dl (13.5-17.5); MEAN CORPUSCULAR HEMOGLOBIN 33.3 pg (27.0-33.0); MEAN CORPUSCULAR HGB CONC 34.3 g/dl (32.0-36.5); MEAN CORPUSCULAR VOLUME 97.2 fl (80.0-96.0); PLATELET COUNT, AUTOMATED 153 10^3/uL (150-450); RED BLOOD COUNT 2.88 10^6/uL (4.30-6.10); WHITE BLOOD COUNT 4.4 10^3/uL (4.0-10.0)
[2018-10-01 18:22] LABS: ALBUMIN 2.3 GM/DL (3.2-5.2); BILIRUBIN,TOTAL 0.5 MG/DL (0.2-1.0); C REACTIVE PROTEIN QUANTITATIV 22.5 MG/DL (0.00-0.30); CALCIUM LEVEL 8.3 MG/DL (8.8-10.2); CREATININE FOR GFR 6.3 MG/DL (0.70-1.30); GLOMERULAR FILTRATION RATE 9.3 (>42); POTASSIUM SERUM 3.7 MEQ/L (3.5-5.1); TOTAL PROTEIN 6.2 GM/DL (6.4-8.2)
[2018-10-01 22:18] LABS: BASO % 0.4 % (0.0-1.0); EOS # 0.2 10^3/uL (0.0-0.50); EOS % 3.6 % (0.0-3.0); HEMATOCRIT 27.3 % (42.0-52.0); HEMOGLOBIN 9.5 g/dl (13.5-17.5); LYMPH # 0.3 10^3/uL (1.5-4.5); MEAN CORPUSCULAR HEMOGLOBIN 33.5 pg (27.0-33.0); MEAN CORPUSCULAR HGB CONC 34.8 g/dl (32.0-36.5); MEAN CORPUSCULAR VOLUME 96.1 fl (80.0-96.0); MONO # 0.4 10^3/uL (0.0-0.8); MONO % 9.2 % (0.0-5.0); NEUTROPHILS # 3.7 10^3/uL (1.8-7.7); NEUTROPHILS % 79.4 % (36.0-66.0); PLATELET COUNT, AUTOMATED 135 10^3/uL (150-450); RED BLOOD COUNT 2.84 10^6/uL (4.30-6.10); WHITE BLOOD COUNT 4.7 10^3/uL (4.0-10.0)
[2018-10-02] VITALS (8 sets, daily range): BP systolic 100–131; BP diastolic 55–68
[2018-10-02] MEDS ORDERED: D5W/0.45% SODIUM CHLORIDE 1,000 ML IV SCH (01:00)
[2018-10-02] MEDS: ACETAMINOPHEN TAB 650MG DOSE (2X325MG) PO PRN ×3 (03:44→20:28)
[2018-10-02] MEDS: FLUoxetine 20 MG CAP PO SCH (06:14)
[2018-10-02] MEDS: DOCUSATE SODIUM 100 MG CAP PO SCH ×2 (06:14→20:28)
[2018-10-02] MEDS: PRAVASTATIN 20 MG TAB PO SCH (06:14)
[2018-10-02 06:35] LABS: BASO % 0.2 % (0.0-1.0); EOS # 0.2 10^3/uL (0.0-0.50); EOS % 4.4 % (0.0-3.0); HEMATOCRIT 26.1 % (42.0-52.0); LYMPH # 0.4 10^3/uL (1.5-4.5); MEAN CORPUSCULAR HEMOGLOBIN 32.5 pg (27.0-33.0); MEAN CORPUSCULAR HGB CONC 34.5 g/dl (32.0-36.5); MEAN CORPUSCULAR VOLUME 94.2 fl (80.0-96.0); MONO # 0.5 10^3/uL (0.0-0.8); MONO % 10.8 % (0.0-5.0); NEUTROPHILS # 3.6 10^3/uL (1.8-7.7); NEUTROPHILS % 75.5 % (36.0-66.0); PLATELET COUNT, AUTOMATED 138 10^3/uL (150-450); RED BLOOD COUNT 2.77 10^6/uL (4.30-6.10); WHITE BLOOD COUNT 4.7 10^3/uL (4.0-10.0)
[2018-10-02 06:54] LABS: ALBUMIN 2.4 GM/DL (3.2-5.2); CALCIUM LEVEL 8.3 MG/DL (8.8-10.2); CREATININE FOR GFR 7.19 MG/DL (0.70-1.30); PHOSPHORUS LEVEL 4.5 MG/DL (2.5-4.9); POTASSIUM SERUM 4.1 MEQ/L (3.5-5.1); VANCOMYCIN RANDOM 16.1 UG/ML
[2018-10-02] MEDS: HumaLOG INSULIN (NovoLOG) PER UNIT SC SCH ×3 (07:52→17:15)
[2018-10-02 07:59] LABS: C REACTIVE PROTEIN QUANTITATIV 15.7 MG/DL (0.00-0.30)
[2018-10-02] MEDS: AMIODARONE 200 MG TAB (PACERONE) PO SCH (08:16)
[2018-10-02] MEDS ORDERED: LEVEMIR (INSULIN DETEMIR) 1 UNITS/0.01ML SC ONE (09:00)
--- NOTE | 2018-10-02 10:50 | IPNPDOC ---
Subjective Date Seen The patient was seen on 10/02/18. Subjective Chief Complaint/HPI Feels well. Denies any changes overnight.. General: Denies: Chills Pulmonary: Denies: Dyspnea, Cough Cardiovascular: Denies: Chest Pain, Palpitations, Lt Headedness Gastrointestinal: Denies: Nausea, Vomiting, Abdominal Pain, Diarrhea, Constipation Hematologic: Reports: Other Hematologic (right arm fistula bleed) Musculoskeletal: Reports: Arm Pain (right arm fistula), Hand Pain Neurological: Denies: Weakness Psych: Reports: Mood Normal Objective Physical Examination General Exam: Positive: Alert, Cooperative, No Acute Distress Chest Exam: Positive: Diminished; Negative: Rales, Rhonchi, Wheezing Heart Exam: Positive: Rate Normal, Normal S1, Normal S2; Negative: Gallops, Murmurs, Rubs Abdomen Exam: Positive: Normal bowel sounds, Soft; Negative: Tenderness, Hepatospenomegaly, Mass Extremity Exam: Positive: Normal pulses; Negative: Clubbing, Cyanosis, Edema Skin Exam: Positive: Breakdown (right forearm is wrapped there is no blood exudation through the wrapping this morning) Psych Exam: Positive: Oriented x 3 Assessment /Plan Assessment 1. Right arm fistula bleed -this has stopped -pt has been NPO since midnight, Dr. Auguste to perform surgery today -holding patients Eliquis 2. End-stage renal disease on dialysis (M,W,F) -Nephrology consulted appreciate their help -dialysis one day ago 3. Bacteremia -pt does not have complaints of cough or diarrhea, could be source from fistula- covering for MRSA with Vancomycin -blood cultures 1 out 2 from 09.29.18 demonstrated gram positive cocci pairs, clusters chains, identification of E. Faecalis from second culture 09.29.18, repeat from 09.30.18 first set demonstrated gram positive cocci in clusters -we will obtain CT ab/pelvis to rule out abscess that could possibly have caused E. faecalis bacteremia, will coordinate this with nephrology per patients dialysis schedule -repeat blood cultures pending, ECHO ordered -c/w Vancomycin for now -c/w vancomycin to be given after HD 3x a week -pt afebrile without a white count today, max temp this admission 100.7 F 4. Diabetes mellitus type 2 -c/w insulin -levemir 40 units daily -have cut to 20 units this AM in anticipation of arnaud morris, also holding sliding scale this AM -sliding scale with hypoglycemic protocol 5. HTN -stable, pt continued on home medications 6. DLP -stable 7. A fib -Eliquis on hold in light of possible surgery today -c/w amiodarone this morning 8. CAD s/p triple bypass and 3 stent placement -stable 9. Anxiety -c/w home medications Xanax 10. DVT prophylaxis -SCDS, defer to surgery Plan/VTE VTE Prophylaxis Ordered?: Yes VS, I&O, 24H, Fishbone Vital Signs/I&O Vital Signs Date Time Temp Pulse Resp B/P (MAP) Pulse Ox O2 Delivery O2 Flow Rate FiO2 10/02/18 02:00 97.6 84 20 100/64 (76) 97 Room Air I&O- Last 24 Hours up to 6 AM 10/02/18 05:59 Intake Total 290 ml Output Total 0 ml Balance 290 ml Laboratory Data 24H LABS Laboratory Tests 2 10/01/18 11:40: Bedside Glucose (Misc Panel) 349H 10/01/18 16:58: Bedside Glucose (Misc Panel) 172H 10/01/18 17:13: Nucleated Red Blood Cells % (auto) 0.0, Anion Gap 10, Glomerular Filtration Rate 9.3L, Lactic Acid Level 1.6, Blood Urea Nitrogen 42#H, Creatinine 6.30#H, Sodium Level 130L, Potassium Level 3.7, Chloride Level 93L, Carbon Dioxide Level 27, Calcium Level 8.3L, Aspartate Amino Transf (AST/SGOT) 19, Alanine Aminotransferase (ALT/SGPT) 13, Alkaline Phosphatase 202H, Total Bilirubin 0.5, Total Protein 6.2L, Albumin 2.3#L, C-Reactive Protein, Quantitative 22.50H, Albumin/Globulin Ratio 0.59L 10/01/18 20:00: Bedside Glucose (Misc Panel) 163H 10/01/18 22:12: Immature Granulocyte % (Auto) 0.4, White Blood Count 4.7, Red Blood Count 2.84L, Hemoglobin 9.5L, Hematocrit 27.3L, Mean Corpuscular Volume 96.1H, Mean Corpuscular Hemoglobin 33.5H, Mean Corpuscular Hemoglobin Concent 34.8, Red Cell Distribution Width 16.7H, Platelet Count 135L, Neutrophils (%) (Auto) 79.4H, Lymphocytes (%) (Auto) 7.0L, Monocytes (%) (Auto) 9.2H, Eosinophils (%) (Auto) 3.6H, Basophils (%) (Auto) 0.4, Neutrophils # (Auto) 3.7, Lymphocytes # (Auto) 0.3L, Monocytes # (Auto) 0.4, Eosinophils # (Auto) 0.2, Basophils # (Auto) 0.0, Nucleated Red Blood Cells % (auto) 0.0 10/02/18 06:08: Immature Granulocyte % (Auto) 1.1, White Blood Count 4.7, Red Blood Count 2.77L, Hemoglobin 9.0L, Hematocrit 26.1L, Mean Corpuscular Volume 94.2, Mean Corpuscular Hemoglobin 32.5, Mean Corpuscular Hemoglobin Concent 34.5, Red Cell Distribution Width 16.6H, Platelet Count 138L, Neutrophils (%) (Auto) 75.5H, Lymphocytes (%) (Auto) 8.0L, Monocytes (%) (Auto) 10.8H, Eosinophils (%) (Auto) 4.4H, Basophils (%) (Auto) 0.2, Neutrophils # (Auto) 3.6, Lymphocytes # (Auto) 0.4L, Monocytes # (Auto) 0.5, Eosinophils # (Auto) 0.2, Basophils # (Auto) 0.0, Nucleated Red Blood Cells % (auto) 0.0, Blood Urea Nitrogen 50H, Creatinine 7.19H, Sodium Level 130L, Potassium Level 4.1, Chloride Level 93L, Carbon Dioxide Level 25, Anion Gap 12, Glomerular Filtration Rate 8.0L, Calcium Level 8.3L, Phosphorus Level 4.5, C-Reactive Protein, Quantitative 15.70H, Albumin 2.4L, Random Vancomycin Level 16.1 CBC/BMP Laboratory Tests 10/01/18 15:56 10/01/18 17:13 Red Blood Count 2.88 L, Mean Corpuscular Volume 97.2 H, Mean Corpuscular Hemoglobin 33.3 H, Mean Corpuscular Hemoglobin Concent 34.3, Red Cell Distribution Width 16.8 H, Calcium Level 8.3 L, Aspartate Amino Transf (AST/SGOT) 19, Alanine Aminotransferase (ALT/SGPT) 13, Alkaline Phosphatase 202 H, Total Bilirubin 0.5, Total Protein 6.2 L, Albumin 2.3 #L 10/01/18 22:12 Red Blood Count 2.84 L, Mean Corpuscular Volume 96.1 H, Mean Corpuscular Hemoglobin 33.5 H, Mean Corpuscular Hemoglobin Concent 34.8, Red Cell Distribution Width 16.7 H, Neutrophils (%) (Auto) 79.4 H, Lymphocytes (%) (Auto) 7.0 L, Monocytes (%) (Auto) 9.2 H, Eosinophils (%) (Auto) 3.6 H, Basophils (%) (Auto) 0.4, Neutrophils # (Auto) 3.7, Lymphocytes # (Auto) 0.3 L, Monocytes # (Auto) 0.4, Eosinophils # (Auto) 0.2, Basophils # (Auto) 0.0 10/02/18 06:08 Red Blood Count 2.77 L, Mean Corpuscular Volume 94.2, Mean Corpuscular Hemoglobin 32.5, Mean Corpuscular Hemoglobin Concent 34.5, Red Cell Distribution Width 16.6 H, Neutrophils (%) (Auto) 75.5 H, Lymphocytes (%) (Auto) 8.0 L, Monocytes (%) (Auto) 10.8 H, Eosinophils (%) (Auto) 4.4 H, Basophils (%) (Auto) 0.2, Neutrophils # (Auto) 3.6, Lymphocytes # (Auto) 0.4 L, Monocytes # (Auto) 0.5, Eosinophils # (Auto) 0.2, Basophils # (Auto) 0.0, Anion Gap 12 Microbiology Microbiology 09/30/18 Blood Culture - Preliminary, Resulted No growth after 24 hours . All specim... 09/30/18 Blood Culture - Preliminary, Resulted 09/29/18 Blood Culture - Final, Complete Enterococcus Faecalis 09/29/18 Blood Culture - Preliminary, Resulted No Growth after 48 hours. All Specime... GME ATTESTATION GME ATTESTATION My faculty preceptor for this patient encounter was physically present during the encounter and was fully available. All aspects of the patient interview, examination, medical decision making process, and medical care plan development were reviewed and approved by the faculty preceptor. The faculty preceptor is aware and concurs with the plan as stated in the body of this note and will attest to such by his/her cosignature. TYRESE TEIXEIRA DO Oct 02, 2018 10:50 BAKARI CHEW MD Oct 17, 2018 20:31
[2018-10-02] MEDS ORDERED: ISOVUE-370 76% 100ML VIAL (Q9967) As Ordered ONE (12:55)
[2018-10-02] MEDS: **VANCO AFTER HD** MISC XX SCH (13:55)
--- NOTE | 2018-10-02 14:32 | REP ---
Clinical: Bacteremia/sepsis. Technique: Axial contrast enhanced images from the lung bases to the pubic symphysis using 100 ml Isovue 370 intravenous contrast material with coronal and sagittal re-formations. Comparison: 09/22/2017, 06/02/2018. Findings: Lung bases demonstrate chronic changes. Cardiomegaly is appreciated. Liver, spleen, pancreas, and bilateral adrenal glands are normal. The patient is status post cholecystectomy. Kidneys demonstrate bilateral symmetric atrophic changes with bilateral small hypodensities compatible with cysts and scattered renovascular calcifications. No hydroureteronephrosis or perinephric stranding. The enteric system is without obstruction or acute inflammatory process. Normal terminal ileum and appendix are identified in the right lower quadrant. Pelvis demonstrates normal bladder and age appropriate prostate/seminal vesicles. Evidence for gastric banding. Musculoskeletal structures demonstrate age-related degenerative changes without focal osseous abnormality. Extensive atherosclerotic disease noted to the aorta and vasculature. No ascites. No free air. No adenopathy. Impression: No acute abdominopelvic pathology appreciated. No ascites, focal inflammatory stranding or adenopathy. Chronic renal disease with small bilateral renal cysts. Extensive atherosclerotic disease. Electronically Signed by Mars Ivory MD 10/02/2018 02:24 P
[2018-10-02] MEDS ORDERED: CONRAY-60 60% 50ML VIAL (Q9961) As Ordered ONE (15:49)
[2018-10-02] MEDS ORDERED: LIDOCAINE 1% SDV INJ 30 ML VIAL As Ordered ONE (15:50)
[2018-10-02] MEDS ORDERED: BUPIVACAINE HCL 0.5% 30 ML VIAL As Ordered ONE (15:50)
--- NOTE | 2018-10-02 16:06 | IPN ---
DATE: 10/01/2018 SUBJECTIVE: Patient was seen and examined at the bedside this morning. Patient is afebrile, hemodynamically stable. Last 24 hour events are noted. Patient started bleeding from the right forearm arteriovenous (AV) fistula site again yesterday. He has a large pressure dressing at the fistula now and he is scheduled to go to the operating room (OR) tomorrow. He also had one out of two blood cultures positive so he has been started on antibiotics. OBJECTIVE: VITAL SIGNS: Temperature is 97.9 degrees Fahrenheit, blood pressure is 103/56, pulse is 90, respiratory rate of 18, saturating 97% on room air. INTAKE AND OUTPUT: Urine output is not recorded. Weight in the bed scale was 99.2 kg yesterday. PHYSICAL EXAMINATION: GENERAL: Patient is awake and alert, oriented times three, laying in bed, no apparent distress. HEAD AND NECK EXAM: Extraocular muscles intact, pupils equally round and reactive to light. Mucous membranes are moist. Neck is supple. There is no jugular venous distention (JVD). CARDIOVASCULAR: S1, S2. Right anterior chest wall automatic implantable cardioverter-defibrillator (AICD) was noted. Midline sternotomy scar was also noted. No edema of the bilateral lower extremities. RESPIRATORY: Chest is clear to auscultation bilaterally. Bilaterally good air entry. No rales or rhonchi. ABDOMEN: Soft, obese, positive bowel sounds . Right upper quadrant cholecystectomy scar. Left upper quadrant lap band is palpable. No organomegaly was noted. MUSCULOSKELETAL: No clubbing or cyanosis. Pulses are 2+. Right forearm AV fistula site has a pressure dressing. CENTRAL NERVOUS SYSTEM (PRODUCER ASSISTANT): No focal deficit. Power is 5/5 in all extremities. LABORATORY REVIEW: CBC showed a WBC of 9.7, hemoglobin 10.2, platelets 173. BMP showed sodium 132 and creatinine 7.2 and these labs are from yesterday. This morning a phosphorous level was done and it is 4. Microbiology: Patient has one out of two blood cultures from 09/29/2018 positive for gram-positive cocci in pairs, chains, and clusters. CURRENT INPATIENT MEDICATIONS: Patient has been started on vancomycin 1 gram IV with hemodialysis. Levemir dose has been changed to 40 units subcutaneous daily. ASSESSMENT AND PLAN: 1. Right forearm arteriovenous (AV) fistula site bleeding. Anticoagulation is on hold. He has a pressure dressing. Patient is going to operating room (OR) tomorrow after dialysis. 2. End-stage renal disease on hemodialysis. Patient's regular dialysis days are Sunday, Sunday, Sunday. He will be dialyzed tomorrow morning for optimization before he goes to the operating room (OR) for fistula surgery. 3. Chronic atrial fibrillation. It is rate controlled with amiodarone. Eliquis is on hold because of bleeding. 4. Chronic kidney disease-mineral bone disease. Phosphorous level is within the acceptable range. No need of binders at this point. 5. Anemia secondary to end-stage renal disease. Patient recently had a bleed from the fistula as well. Latest hemoglobin from yesterday is 10.2 which is optimal. I will check a complete blood count (CBC) tomorrow for any need of packed red blood cell (PRBC) transfusion and I will also give him a dose of Aranesp with dialysis tomorrow morning. 6. Diabetes mellitus type 2. Patient is insulin dependent. Levemir and Humalog dose is being adjusted by primary team.
[2018-10-02] MEDS ORDERED: MIDAZOLAM INJ 2 MG/2 ML VIAL (J2250) As Ordered ONE (17:24)
[2018-10-02] MEDS ORDERED: fentaNYL 100 MCG/2 ML INJECTION (J3010) As Ordered ONE ×2 (17:24→19:13)
[2018-10-02] MEDS ORDERED: PROPOFOL 200 MG/20 ML VIAL As Ordered ONE ×3 (17:24→18:32)
[2018-10-02] MEDS ORDERED: ONDANSETRON 4MG/2ML VIAL (J2405) As Ordered ONE (17:24)
[2018-10-02] MEDS: HEPARIN SOD (PORCINE) 5000 UNITS/ML VIAL As Ordered ONE ×2 (17:48→17:57)
[2018-10-02] MEDS: fentaNYL 100 MCG/2 ML INJECTION (J3010) IV PRN ×3 (19:14→19:25)
[2018-10-02] MEDS ORDERED: D5W/0.2% SODIUM CHLORIDE 1,000 ML IV SCH (19:30)
[2018-10-02] MEDS ORDERED: ONDANSETRON 4MG/2ML VIAL (J2405) IV PRN (19:30)
[2018-10-02] MEDS: PERCOCET 5MG/325MG TAB PO PRN (23:02)
[2018-10-03] VITALS: BP 127/60
[2018-10-03 04:00] VITALS: BP 122/64
[2018-10-03 06:00] VITALS: BP 114/60
[2018-10-03] MEDS: FLUoxetine 20 MG CAP PO SCH (06:23)
[2018-10-03] MEDS: PRAVASTATIN 20 MG TAB PO SCH (06:23)
[2018-10-03] MEDS: DOCUSATE SODIUM 100 MG CAP PO SCH ×2 (06:23→20:37)
[2018-10-03] MEDS: AMIODARONE 200 MG TAB (PACERONE) PO SCH (06:24)
[2018-10-03] MEDS: ACETAMINOPHEN TAB 650MG DOSE (2X325MG) PO PRN (06:24)
[2018-10-03 06:45] LABS: BASO % 0.2 % (0.0-1.0); EOS # 0.2 10^3/uL (0.0-0.50); EOS % 3.5 % (0.0-3.0); HEMATOCRIT 24.8 % (42.0-52.0); HEMOGLOBIN 8.5 g/dl (13.5-17.5); LYMPH # 0.6 10^3/uL (1.5-4.5); LYMPH % 9.2 % (24.0-44.0); MEAN CORPUSCULAR HEMOGLOBIN 32.8 pg (27.0-33.0); MEAN CORPUSCULAR HGB CONC 34.3 g/dl (32.0-36.5); MEAN CORPUSCULAR VOLUME 95.8 fl (80.0-96.0); MONO # 0.8 10^3/uL (0.0-0.8); MONO % 11.9 % (0.0-5.0); NEUTROPHILS # 4.7 10^3/uL (1.8-7.7); NEUTROPHILS % 74.2 % (36.0-66.0); PLATELET COUNT, AUTOMATED 164 10^3/uL (150-450); RED BLOOD COUNT 2.59 10^6/uL (4.30-6.10); WHITE BLOOD COUNT 6.3 10^3/uL (4.0-10.0)
[2018-10-03 07:17] LABS: CALCIUM LEVEL 7.8 MG/DL (8.8-10.2); CREATININE FOR GFR 8.35 MG/DL (0.70-1.30); GLOMERULAR FILTRATION RATE 6.7 (>42); POTASSIUM SERUM 4.8 MEQ/L (3.5-5.1)
[2018-10-03] MEDS: LEVEMIR (INSULIN DETEMIR) 1 UNITS/0.01ML SC SCH (08:37)
[2018-10-03] MEDS: HumaLOG INSULIN (NovoLOG) PER UNIT SC SCH ×3 (08:37→17:37)
[2018-10-03] MEDS ORDERED: IRON SUCROSE 100MG 5ML VIAL (J1756 PER 1MG) IV SCH (09:15)
[2018-10-03] MEDS: PERCOCET 5MG/325MG TAB PO PRN ×2 (11:58→18:11)
--- NOTE | 2018-10-03 13:54 | PHACANCOPD ---
PHARMACY VANCOMYCIN DOSING Pt Demographics Demographics Patient Age:73 , Weight:100.300 , Gender: male Adjusted Body Weight Date: 09/30/18, Adjusted Body Weight: [89] Kg Vancomycin Vancomycin indication: POSSITIVE BLOOD CX Vancomycin Target Ranges: 15-20 mcg/ml Vancomycin Load Y/N: No Load Dose Date Time Vancomycin Load Dose: Date: Time: Vancomycin Dose Date: 09/30/18. Current Vancomycin Dose: [1G IV AFTER HD] Intermittent Dosing?: No Labs Micro Microbiology 10/03/18 Blood Culture, Received Pending 10/03/18 Blood Culture, Received Pending 09/30/18 Blood Culture - Preliminary, Resulted No Growth after 48 hours. All Specime... 09/30/18 Blood Culture - Preliminary, Resulted 09/29/18 Blood Culture - Final, Complete Enterococcus Faecalis 09/29/18 Blood Culture - Preliminary, Resulted No Growth after 72 hours. All specime... Creatinine Clearance Date:09/30/18. Creatinine Clearance: [20.6ML/MIN]. Assessment and Plan Maintaining Current Dose?: Yes Reason for dose change: No Dose Change Pharmacist Note Pharmacist Note 10/03/18: Day #4 IV vancomycin. Random level yesterday resulted therapeutic at 16.1mcg/ml. The patient was not dialyzed yesterday and today his scr has jumped from 3.71 at the start of vancomycin therapy to 8.35 today. The patient is being dialyzed today and will received a 1g dose after dialysis. Another follow-up random vancomycin level has been scheduled to be drawn tomorrow. We will continue to monitor and make dose adjustments if needed. Date: 09/30/18. Pharmacist note: PT is a 73 year old male being treated for positive blood cultures. The patient was planned to be discharged until fistula began bleeding. The patient is currently receiving hd sunday, sunday, and . Current therapy will consist of 1g iv after hd. We will continue to monitor and adjust dose as needed. R[facility]Y [facility] Oct 03, 2018 13:54
[2018-10-03 14:00] VITALS: BP 107/59
[2018-10-03] MEDS: **VANCO AFTER HD** MISC XX SCH (15:53)
--- NOTE | 2018-10-03 15:54 | IPNPDOC ---
Text Note Date of Service The patient was seen on 10/03/18. NOTE Subjective: Patient feels well. No active bleeding from the right upper extr emity site. No chest pain or shortness of breath. Objective: Vitals: (see below) General: No acute distress, laying comfortably in bed. HEENT: Moist mucous membranes. Neck: No JVD or lymphadenopathy Cardiac: RRR, No murmurs Pulm: Diminished breath sounds at the bases b/l. No wheezing, rhonchi Abd: NT/ND + BS Ext: No edema or cyanosis. Right upper extremity- bandage intact. Distal pulses intact. No active bleeding. Capillary refill less than 2 seconds. Labs (see below) Images: CT abdomen and pelvis on 10/02/18 Impression: No acute abdominopelvic pathology appreciated. No ascites, focal inflammatory stranding or adenopathy. Chronic renal disease with small bilateral renal cysts. Extensive atherosclerotic disease. Assessment/Plan 1. Right upper extremity fistula bleeding, status post revision 10/[address] Auguste. Eliquis management per Dr. Auguste. 2. Enterococcus faecalis bacteremia- patient with prior bacteremia in April after AV fistula placement, and had since cleared. Patient notes prior ulceration at the area prior to surgery with drainage in April. Presents on this admission with bleeding at the fistula site, and noted to be bacteremic once again. Repeat blood cultures on 09/30 positive. Repeat blood cultures sent on 10/03. CT abdomen pelvis with no abscess. Discussed with Dr. Delacruz who will be performing a HERMILO 10/04 to rule out vegetations. On vancomycin. Hemodynamically stable. CRP trending down. 3. Diabetes mellitus continue current insulin regimen. 4. Hypertension controlled continue home meds 5. History of atrial fibrillation- rate controlled. On eliquis - to be resumed when cleared by Dr. Auguste. 6. CAD status post CABG/PCI. Continue meds. Denies chest pain. DVT prophy: On Eliquis Overall prognosis guarded. VS,Fishbone, I+O VS, Fishbone, I+O Laboratory Tests 10/03/18 06:22 Red Blood Count 2.59 L, Mean Corpuscular Volume 95.8, Mean Corpuscular Hemoglobin 32.8, Mean Corpuscular Hemoglobin Concent 34.3, Red Cell Distribution Width 16.9 H, Neutrophils (%) (Auto) 74.2 H, Lymphocytes (%) (Auto) 9.2 L, Mon ocytes (%) (Auto) 11.9 H, Eosinophils (%) (Auto) 3.5 H, Basophils (%) (Auto) 0.2, Neutrophils # (Auto) 4.7, Lymphocytes # (Auto) 0.6 L, Monocytes # (Auto) 0.8, Eosinophils # (Auto) 0.2, Basophils # (Auto) 0.0, Calcium Level 7.8 L Vital Signs Date Time Temp Pulse Resp B/P (MAP) Pulse Ox O2 Delivery O2 Flow Rate FiO2 10/03/18 11:58 19 Room Air 10/03/18 06:00 97.1 86 114/60 (78) 99 10/03/18 04:00 2.0 10/03/18 00:00 97 I&O- Last 24 Hours up to 6 AM 10/03/18 05:59 Intake Total 800 ml Output Total 200 ml Balance 600 ml BAKARI CHEW MD Oct 03, 2018 15:54
--- NOTE | 2018-10-03 16:40 | IPN ---
DATE: 10/02/2018 SUBJECTIVE: The patient was seen and examined at the bedside today morning. He is afebrile, hemodynamically stable. The patient is nothing by mouth at this point. He is getting IV fluids. Last 24 hour events were noted. The patient reports that around 4:00 o'clock early in the morning he found himself in a pool of blood. There was blood on the pillows, on his right arm, on the clothes, and on the bedding, and the right forearm arteriovenous (AV) fistula was bleeding through the dressing. Another pressure dressing was done. The patient was given IV fluids because of hypotension. He reports that he is feeling better now and he is pending AV fistula exploration by vascular surgery today in the operating room (OR). OBJECTIVE: VITAL SIGNS: Temperature is 97.6 degrees Fahrenheit, blood pressure 100/64, pulse is 84, respiratory rate of 20, saturating 97% on room air. INTAKE AND OUTPUT: There is no urine output recorded. Weight in the bed scale is 99 kg. PHYSICAL EXAMINATION: GENERAL: The patient is awake, alert and oriented times three, laying in bed, in no apparent distress. HEAD AND NECK: Extraocular muscles intact. Pupils equally round and reactive to light. Mucous membranes are moist. Neck is supple. There is no jugular venous distention (JVD). CARDIOVASCULAR: S1, S2. Right anterior chest wall automatic implantable cardioverter-defibrillator (AICD) was noted. No edema of the bilateral lower extremities. Midline sternotomy scar was also noted. RESPIRATORY: Chest is clear to auscultation bilaterally. Bilateral equal air entry. No rales or rhonchi. ABDOMEN: Soft, obese, positive bowel sounds. Old right upper quadrant cholecystectomy scar was noted. Left upper quadrant abdominal band was also noted. MUSCULOSKELETAL: No clubbing or cyanosis. Pulses are 2+. Right forearm arteriovenous (AV) fistula site is covered with a large pressure dressing. CENTRAL NERVOUS SYSTEM (INDUSTRIAL ELECTRICIAN JOURNEYMAN): No focal deficit. Power is 5/5 in all extremities. LABORATORY REVIEW: CBC showed a WBC of 4.7, hemoglobin is 9, platelets are 138. BMP showed a sodium of 130, potassium 4.1, chloride 93, bicarbonate 25, BUN 50, creatinine is 7.1, calcium 8.3, C-reactive protein 15.7. Microbiology: Blood culture one out of two is positive for Enterococcus faecalis. CURRENT INPATIENT MEDICATIONS: The patient's medications were all reviewed by me. He is currently on D5 half-normal saline at 60 mL an hour. He is also on IV vancomycin. No other change in the medications today as compared with yesterday. ASSESSMENT AND PLAN: 1. Right forearm arteriovenous (AV) fistula site bleeding. The patient is persistently bleeding almost everyday from the fistula site despite the pressure dressing. Anticoagulation is already on hold. The patient is nothing by mouth at this point for operating room (OR) today. 2. End-stage renal disease, on hemodialysis. The patient needs to be dialyzed today as per his regular schedule. However, because of recurrent bleeding from the fistule, it has a large pressure dressing. The patient needs to be evaluated in the OR before fistula is deemed okay to cannulate or he will need a tunneled dialysis catheter placement before we can dialyze him. Plan of care was already discussed with vascular surgery. 3. Chronic atrial fibrillation. Heart rate is controlled. Anticoagulation is on hold because of active bleeding. Continue current dose of amiodarone. 4. Anemia and end-stage renal disease and recent bleeding. Hemoglobin is 9 which is lower than his baseline on admission. The patient will get Aranesp 200 mcg IV with hemodialysis. If needed, the patient will get packed red blood cells (PRBC) transfusion if hemoglobin drops below 9. 5. Diabetes mellitus type 2, insulin dependent. The patient is currently on insulin Levemir and sliding scale. Give half the dose of Levemir when the patient is nothing by mouth. 6. Enterococcus faecalis bacteremia. The patient has one out of two blood cultures positive for Enterococcus faecalis. It was sent on 09/29/2018. Repeat blood culture sent on 09/30/2018 is also positive. Continue vancomycin at this point.
[2018-10-03 18:00] VITALS: BP 109/62
[2018-10-03 22:00] VITALS: BP 124/71
[2018-10-04 02:00] VITALS: BP 112/52
[2018-10-04] MEDS: PERCOCET 5MG/325MG TAB PO PRN (05:48)
[2018-10-04 05:49] LABS: BASO % 0.3 % (0.0-1.0); EOS # 0.1 10^3/uL (0.0-0.50); EOS % 1.7 % (0.0-3.0); HEMOGLOBIN 8.2 g/dl (13.5-17.5); LYMPH # 0.4 10^3/uL (1.5-4.5); LYMPH % 6.1 % (24.0-44.0); MEAN CORPUSCULAR HEMOGLOBIN 32.8 pg (27.0-33.0); MEAN CORPUSCULAR HGB CONC 34.2 g/dl (32.0-36.5); MONO # 0.6 10^3/uL (0.0-0.8); MONO % 9.8 % (0.0-5.0); NEUTROPHILS # 5.2 10^3/uL (1.8-7.7); NEUTROPHILS % 80.5 % (36.0-66.0); PLATELET COUNT, AUTOMATED 153 10^3/uL (150-450); WHITE BLOOD COUNT 6.4 10^3/uL (4.0-10.0)
[2018-10-04 06:00] VITALS: BP 107/52
[2018-10-04 06:19] LABS: C REACTIVE PROTEIN QUANTITATIV 13.5 MG/DL (0.00-0.30); CALCIUM LEVEL 7.9 MG/DL (8.8-10.2); CREATININE FOR GFR 4.74 MG/DL (0.70-1.30); GLOMERULAR FILTRATION RATE 12.9 (>42)
[2018-10-04] MEDS: HumaLOG INSULIN (NovoLOG) PER UNIT SC SCH ×3 (07:30→16:19)
[2018-10-04] MEDS: PRAVASTATIN 20 MG TAB PO SCH (08:34)
[2018-10-04] MEDS: FLUoxetine 20 MG CAP PO SCH (08:34)
[2018-10-04] MEDS: AMIODARONE 200 MG TAB (PACERONE) PO SCH (08:34)
[2018-10-04] MEDS: MEROPENEM INJ 1 GM in APPROPRIATE DILUENT 1 EA IV SCH (08:34)
[2018-10-04] MEDS: DOCUSATE SODIUM 100 MG CAP PO SCH ×2 (08:34→20:49)
[2018-10-04] MEDS: LEVEMIR (INSULIN DETEMIR) 1 UNITS/0.01ML SC SCH (08:35)
[2018-10-04 10:00] VITALS: BP 95/54
[2018-10-04] MEDS ORDERED: METOCLOPRAMIDE INJ 10MG/2ML VIAL (J2765) IV PRN (12:45)
--- NOTE | 2018-10-04 12:47 | IPN ---
DATE: 10/03/2018 SUBJECTIVE: The patient was seen and examined at the bedside today morning during hemodialysis. The patient is tolerating the hemodialysis procedure well. The patient was taken to the operating room (OR) yesterday. Right forearm arteriovenous (AV) fistula was repaired. He did have some blood loss during the surgery. His hemoglobin has dropped to 8.5 today. He denies any active complaints at this time. OBJECTIVE: VITAL SIGNS: Temperature is 97.1 degrees Fahrenheit, blood pressure 114/60, pulse is 86, respiratory rate of 16, saturating 99% on room air. INTAKE AND OUTPUT: Urine output is not recorded. Estimated blood loss during surgery was about 200 mL. Weight in the bed scale is 100.3 kg. PHYSICAL EXAMINATION: GENERAL: The patient is awake, alert and oriented times three, laying in bed, getting hemodialysis done. HEAD AND NECK: Extraocular muscles intact. Pupils equally round and reactive to light. Mucous membranes are moist. Neck is supple. There is no jugular venous distention (JVD). CARDIOVASCULAR: S1, S2, irregular rate. Right anterior chest wall automatic implantable cardioverter-defibrillator (AICD) was noted. No edema of the bilateral lower extremities. Midline sternotomy scar was visible. RESPIRATORY: Chest is clear to auscultation bilaterally. Bilateral equal air entry. No rales or rhonchi. ABDOMEN: Soft, obese, positive bowel sounds. Left upper quadrant bariatric surgery lap band is palpable. MUSCULOSKELETAL: No clubbing or cyanosis. Pulses are 2+. ARTERIOVENOUS (AV) ACCESS: Right forearm AV fistula site is being used and on the distal portion there is a dressing. CENTRAL NERVOUS SYSTEM (WEB WORKER): No focal deficit. Power is 5/5 in all extremities. LABORATORY REVIEW: CBC showed a WBC of 6.3, hemoglobin 8.5, platelets are 164. BMP showed sodium 129, potassium 4.8, chloride 94, bicarbonate 43, BUN 54, creatinine is 8.3, calcium is 7.8, C-reactive protein is 12. Microbiology: Repeat blood culture sent on 09/30/2018 is also growing gram-positive cocci in clusters. IMAGING STUDIES: A CAT scan of the abdomen and pelvis was done yesterday which showed no acute abdominopelvic pathology. CURRENT INPATIENT MEDICATIONS: The patient's medications were all reviewed by me. He continues to be on IV vancomycin with hemodialysis. He has been started on Venofer 100 mg IV with hemodialysis. He is also on Aranesp 200 mcg with hemodialysis. ASSESSMENT AND PLAN: 1. End-stage renal disease, on hemodialysis. Yesterday was the patient's regular day of dialysis but he missed hemodialysis yesterday because of bleeding from the arteriovenous (AV) fistula. He is being dialyzed today. I will try to remove at least 1.5 to 2 liters of fluid as tolerated by his blood pressure. 2. Right forearm AV fistula site bleeding. The patient got the repair of the right forearm AV fistula done yesterday. AV fistula is working well at this time. Anticoagulation is on hold. 3. Chronic atrial fibrillation. Heart rate is controlled with amiodarone. He was on Eliquis which is on hold for now. I would keep it on hold at least for the next 24 hours until he is cleared by surgical service to restart anticoagulation. 4. Anemia secondary to end-stage renal disease and recent blood loss. Hemoglobin has dropped to 8.5. I will give him a dose of Aranesp 200 mcg today. He will also get Venofer 100 mg with each hemodialysis. No need of blood transfusion at this point. I would given him blood transfusion only if his hemoglobin drops to 8 or below. . 5. Diabetes mellitus, type 2. Continue current dose of Levemir and Humolog. 6. Hyponatremia. It is hypervolemic hyponatremia because he missed his hemodialysis yesterday. Sodium level is expected to improve with hemodialysis. 7. Enterococcus faecalis bacteremia. The patient got the CAT scan done yesterday which did not show any abdominopelvic pathology. He continues to be on IV vancomycin. Because of persistent positive cultures, the patient needs to get an echocardiogram done to rule out vegetation.
[2018-10-04] MEDS ORDERED: MIDAZOLAM INJ 2 MG/2 ML VIAL (J2250) As Ordered ONE ×2 (13:52→13:53)
--- NOTE | 2018-10-04 14:10 | IPNPDOC ---
Subjective Date Seen The patient was seen on 10/04/18. Subjective Chief Complaint/HPI . General: Reports: Fatigue; Denies: Chills Constitutional: Reports: Weakness Pulmonary: Denies: Dyspnea, Cough Cardiovascular: Denies: Chest Pain, Palpitations, Edema, Lt Headedness Gastrointestinal: Denies: Nausea, Vomiting, Abdominal Pain Genitourinary: Denies: Dysuria Musculoskeletal: Denies: Neck Pain Neurological: Reports: Weakness Objective Physical Examination General Exam: Positive: Alert, Cooperative, No Acute Distress Chest Exam: Positive: Diminished; Negative: Rales, Rhonchi, Wheezing Heart Exam: Positive: Rate Normal, Normal S1, Normal S2; Negative: Gallops, Murmurs, Rubs Abdomen Exam: Positive: Normal bowel sounds, Soft; Negative: Tenderness, Hepatospenomegaly, Mass Extremity Exam: Negative: Clubbing, Cyanosis, Edema Skin Exam: Positive: Breakdown (right forearm is wrapped there is no blood exudation, s/p av fistula repair) Psych Exam: Positive: Oriented x 3 Assessment /Plan Assessment 1. Right upper extremity fistula bleeding -s/p revision 10.02.18 with vascular surgery -patient is being dialyzed today, reports of av fistula working well 2. Enterococcus faecalis and GNR bacteremia- - patient with prior bacteremia in April after AV fistula placement, and had since cleared. Patient notes prior ulceration at the area prior to surgery with drainage in April. Presents on this admission with bleeding at the fistula site, and noted to be bacteremic once again - Repeat blood cultures on 09/30 positive. Repeat blood cultures sent on 10/03 -third set blood cx now positive for GNR 10.03.18 -CT abdomen pelvis with no abscess - Discussed with Dr. Delacruz who will be performing a HERMILO today to rule out vegetations -patient on meropenem antibiotic, s/p vancomycin with HD -CRP did bump today to 13.50, awaiting identification and sensitivity for GNR + blood cx -Hemodynamically stable 3. DM2 - continue current insulin regimen 4. ESRD on HD -nephrology on board -dialysis as per nephrology t,r,s normal schedule 5. Anemia 2/2 ESRD and recent blood loss due to AV fistula bleed -h/h now 8.2 and 24, nephrology to give venofer and aranesp, recommend not to transfuse unless hg <8 6. Hypertension - controlled continue home meds 7. History of atrial fibrillation- - rate controlled, currently on Eliquis which has been on hold due to AV fistula bleed - to be resumed when cleared by Dr. Auguste -c/w amiodarone 8. CAD s/p CABG/PCI -c/w current medications, patient has not complained of chest pain 9. dvt px -scd teds Plan/VTE VTE Prophylaxis Ordered?: Yes VS, I&O, 24H, Fishbone Vital Signs/I&O Vital Signs Date Time Temp Pulse Resp B/P (MAP) Pulse Ox O2 Delivery O2 Flow Rate FiO2 10/04/18 10:00 99.8 90 18 95/54 (68) 97 Room Air 10/04/18 06:00 2.0 10/03/18 00:00 97 I&O- Last 24 Hours up to 6 AM 10/04/18 06:00 Intake Total 970 ml Output Total 1000 ml Balance -30 ml Laboratory Data 24H LABS Laboratory Tests 2 10/03/18 14:09: Bedside Glucose (Misc Panel) 103 10/03/18 16:30: Bedside Glucose (Misc Panel) 168H 10/03/18 23:15: Bedside Glucose (Misc Panel) 123H 10/04/18 05:26: Immature Granulocyte % (Auto) 1.6, White Blood Count 6.4, Red Blood Count 2.50L, Hemoglobin 8.2L, Hematocrit 24.0L, Mean Corpuscular Volume 96.0, Mean Corpus cular Hemoglobin 32.8, Mean Corpuscular Hemoglobin Concent 34.2, Red Cell Distribution Width 17.0H, Platelet Count 153, Neutrophils (%) (Auto) 80.5H, Lymphocytes (%) (Auto) 6.1L, Monocytes (%) (Auto) 9.8H, Eosinophils (%) (Auto) 1.7, Basophils (%) (Auto) 0.3, Neutrophils # (Auto) 5.2, Lymphocytes # (Auto) 0.4L, Monocytes # (Auto) 0.6, Eosinophils # (Auto) 0.1, Basophils # (Auto) 0.0, Nucleated Red Blood Cells % (auto) 0.0, Anion Gap 10, Glomerular Filtration Rate 12.9L, Blood Urea Nitrogen 22#H, Creatinine 4.74H, Sodium Level 135L, Potassium Level 4.0, Chloride Level 97L, Carbon Dioxide Level 28, Calcium Level 7.9L, C- Reactive Protein, Quantitative 13.50H 10/04/18 11:15: Bedside Glucose (Misc Panel) 133H CBC/BMP Laboratory Tests 10/04/18 05:26 Red Blood Count 2.50 L, Mean Corpuscular Volume 96.0, Mean Corpuscular Hemoglobin 32.8, Mean Corpuscular Hemoglobin Concent 34.2, Red Cell Distribution Width 17.0 H, Neutrophils (%) (Auto) 80.5 H, Lymphocytes (%) (Auto) 6.1 L, Monocytes (%) (Auto) 9.8 H, Eosinophils (%) (Auto) 1.7, Basophils (%) (Auto) 0.3, Neutrophils # (Auto) 5.2, Lymphocytes # (Auto) 0.4 L, Monocytes # (Auto) 0.6, Eosinophils # (Auto) 0.1, Basophils # (Auto) 0.0, Calcium Level 7.9 L Microbiology Microbiology 10/03/18 Blood Culture - Preliminary, Resulted No growth after 24 hours . All specim... 10/03/18 Blood Culture - Preliminary, Resulted 09/30/18 Blood Culture - Preliminary, Resulted No Growth after 72 hours. All specime... 09/30/18 Blood Culture - Final, Complete Staphylococcus Epidermidis 09/29/18 Blood Culture - Final, Complete Enterococcus Faecalis 09/29/18 Blood Culture - Preliminary, Resulted No Growth after 72 hours. All specime... GME ATTESTATION GME ATTESTATION My faculty preceptor for this patient encounter was physically present during the encounter and was fully available. All aspects of the patient interview, examination, medical decision making process, and medical care plan development were reviewed and approved by the faculty preceptor. The faculty preceptor is aware and concurs with the plan as stated in the body of this note and will attest to such by his/her cosignature. TYRESE TEIXEIRA DO Oct 04, 2018 14:10
[2018-10-04] MEDS ORDERED: LIDOCAINE VISCOUS 2% SOLN 15ML UDC PO ONE (14:50)
[2018-10-04] MEDS ORDERED: LIDOCAINE VISCOUS 2% SOLN 15ML UDC As Ordered ONE (15:08)
[2018-10-04] MEDS ORDERED: MIDAZOLAM INJ 2 MG/2 ML VIAL (J2250) IV ONE ×2 (15:27→15:28)
--- NOTE | 2018-10-04 16:17 | T-ECHO ---
DATE OF PROCEDURE: 10/04/2018 REFERRING PHYSICIAN: Dr. Ernst Rehman INDICATION: Enterococcus faecalis bacteremia. PREPROCEDURE DIAGNOSIS: Enterococcus faecalis bacteremia. POSTPROCEDURE DIAGNOSIS: Enterococcus faecalis bacteremia. PRINCIPAL FINDINGS: No vegetations on any of the cardiac valves or the pacemaker lead. PROCEDURE PERFORMED: Transesophageal echocardiogram. PROCEDURE PERFORMED BY: Jayme Delacruz MD LEATHER CLEANER: None. IV SEDATION: Midazolam 4 mg IV. COMPLICATIONS: None. PROCEDURE DESCRIPTION: Rhythm was atrial fibrillation with controlled ventricular response. The patient received 50 mL of 2% viscous lidocaine to gargle and swallow. Following this, he received 4 mg of midazolam IV for IV sedation. Esophageal intubation was then accomplished without difficulty using a Pan 3-dimensional transesophageal echocardiogram probe. The left ventricle appeared normal in size and LV systolic function probably near the lower limits of normal at about 55% by visual estimate. It was difficult to see all of the endocardium and all of the left ventricle because I could not deep enough on the transgastric views to view the entire left ventricle. Overall, the left ventricle regional wall motion appeared fairly preserved. The right ventricle appeared normal in size and systolic function. No mass or thrombi were seen within the atria or their appendages. The pacemaker lead was seen in the right atrium and right ventricle and was without attached vegetations. Tricuspid leaflets appeared structurally normal. Very mild tricuspid regurgitation was present. Pulmonic valve was normal and without vegetations. At least mild mitral annular calcification was present. Very mild mitral regurgitation. No mitral stenosis. No vegetations on the mitral valve. Aortic valve is 3-cusp and had moderate focal thickening and calcific deposit. No aortic stenosis or aortic regurgitation. No vegetations on the aortic valve. No pericardial effusion. Mild to moderate atherosclerosis involving the distal aortic arch and descending thoracic aorta. CONCLUSIONS: 1. No vegetations on any of the cardiac valves or on the cardiac rhythm management endocardial lead. 2. Mild mitral annular calcification. Very mild mitral regurgitation. 3. Moderate aortic valve sclerosis of a 3-cusp aortic valve. No aortic stenosis or regurgitation. 4. Preserved overall LV systolic function. 5. Mild to moderate atheroma in the distal aortic arch and descending thoracic aorta.
[2018-10-04 18:00] VITALS: BP 112/39
[2018-10-04] MEDS: ACETAMINOPHEN TAB 650MG DOSE (2X325MG) PO PRN (20:48)
[2018-10-04 22:00] VITALS: BP 95/58
[2018-10-05 02:00] VITALS: BP 102/60
[2018-10-05 05:48] LABS: BASO % 0.3 % (0.0-1.0); EOS # 0.1 10^3/uL (0.0-0.50); EOS % 1.7 % (0.0-3.0); HEMATOCRIT 23.5 % (42.0-52.0); HEMOGLOBIN 7.9 g/dl (13.5-17.5); LYMPH # 1.1 10^3/uL (1.5-4.5); LYMPH % 15.3 % (24.0-44.0); MEAN CORPUSCULAR HEMOGLOBIN 32.6 pg (27.0-33.0); MEAN CORPUSCULAR HGB CONC 33.6 g/dl (32.0-36.5); MEAN CORPUSCULAR VOLUME 97.1 fl (80.0-96.0); MONO # 1.1 10^3/uL (0.0-0.8); MONO % 15.8 % (0.0-5.0); NEUTROPHILS # 4.4 10^3/uL (1.8-7.7); NEUTROPHILS % 64.2 % (36.0-66.0); PLATELET COUNT, AUTOMATED 135 10^3/uL (150-450); RED BLOOD COUNT 2.42 10^6/uL (4.30-6.10); WHITE BLOOD COUNT 6.9 10^3/uL (4.0-10.0)
[2018-10-05 06:00] VITALS: BP 103/54
[2018-10-05 06:24] LABS: C REACTIVE PROTEIN QUANTITATIV 21.6 MG/DL (0.00-0.30); CALCIUM LEVEL 8.2 MG/DL (8.8-10.2); CREATININE FOR GFR 6.68 MG/DL (0.70-1.30); GLOMERULAR FILTRATION RATE 8.7 (>42); POTASSIUM SERUM 4.2 MEQ/L (3.5-5.1)
[2018-10-05] MEDS: MEROPENEM INJ 1 GM in APPROPRIATE DILUENT 1 EA IV SCH (08:16)
[2018-10-05] MEDS: HumaLOG INSULIN (NovoLOG) PER UNIT SC SCH ×3 (08:17→17:22)
[2018-10-05] MEDS: LEVEMIR (INSULIN DETEMIR) 1 UNITS/0.01ML SC SCH (08:17)
[2018-10-05] MEDS: DOCUSATE SODIUM 100 MG CAP PO SCH ×3 (08:18→20:23)
[2018-10-05] MEDS: PRAVASTATIN 20 MG TAB PO SCH (08:18)
[2018-10-05] MEDS: FLUoxetine 20 MG CAP PO SCH (08:18)
[2018-10-05] MEDS: AMIODARONE 200 MG TAB (PACERONE) PO SCH (08:18)
[2018-10-05] MEDS ORDERED: VANCOMYCIN HCL 1,000 MG, VIAL MATE ADAPTER 1 EACH in D5W 250 ML IV SCH (09:30)
--- NOTE | 2018-10-05 11:07 | IPN ---
DATE OF SERVICE: 10/04/2018 SUBJECTIVE: The patient was seen and examined at the bedside today morning. He was nothing by mouth in the morning for transesophageal echocardiogram. Patient reported that he was nauseated and he requested medication for nausea. He was dialyzed yesterday, he tolerated the hemodialysis procedure well. OBJECTIVE: VITAL SIGNS: Temperature is 99.8 degrees Fahrenheit, blood pressure 95/54, pulse is 90, respiratory rate of 18, saturating 97 on room air. INTAKE AND OUTPUT: Ultrafiltration with hemodialysis was 1 liter yesterday. Weight in the bed scale was 100.3 kg yesterday, no weight is available today. PHYSICAL EXAMINATION: GENERAL: The patient is awake, alert and oriented times three, laying in bed, in no apparent distress, having nausea and having some retching. HEAD AND NECK: Extraocular muscles intact. Pupils equally round and reactive to light. Mucous membranes are moist. Neck is supple. There is no jugular venous distention (JVD). CARDIOVASCULAR: S1, S2, irregular rate. Right anterior chest wall automatic implantable cardioverter-defibrillator (AICD). No edema of the bilateral lower extremities. RESPIRATORY: Chest is clear to auscultation bilaterally. Bilateral equal air entry. No rales or rhonchi. ABDOMEN: Soft, obese, positive bowel sounds. Left upper quadrant bariatric lap band was noted. Right upper quadrant old cholecystectomy scar. MUSCULOSKELETAL: No clubbing or cyanosis. Pulses are 2+. ARTERIOVENOUS (AV) ACCESS: Right forearm AV fistula site is covered with a dressing. CENTRAL NERVOUS SYSTEM (SCHOOL BUS DRIVER/MECHANIC): No focal deficit. Power is 5/5 in all extremities. LABORATORY REVIEW: CBC showed a WBC of 6.4, hemoglobin 8.2, platelets are 153. BMP showed sodium 135, potassium 4, chloride 97, bicarbonate 28, BUN 22, creatinine is 4.7, calcium is 7.9, C-reactive protein is 13.5. Microbiology: Repeat blood culture sent on 09/30/2018 is also growing Staphylococcus epidermitis and initial blood culture on 09/29/2018 was growing Enterococcus faecalis. CURRENT INPATIENT MEDICATIONS: The patient's medications were all reviewed by me. He is currently on meropenem 1 gram IV daily. Vancomycin has been stopped now. ASSESSMENT AND PLAN: 1. End-stage renal disease, on hemodialysis. Patient was dialyzed yesterday. Next hemodialysis will be tomorrow. Fluid ascites is optimized. 2. Right forearm AV fistula site bleeding. Patient AV fistula was repaired during this hospitalization. He denies any more bleeding. Hemoglobin is still low at 8.2. If his hemoglobin stays low, then patient will get 1 unit of packed red blood cell (PRBC) transfusion with hemodialysis. 3. Chronic atrial fibrillation. Heart rate is controlled with amiodarone. Eliquis was held because of active bleeding. 4. 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 Patient is getting Aranesp and Venofer with hemodialysis. As mentioned above if hemoglobin stays close to 8 then he will get packed red blood cell (PRBC) transfusion. 5. Enterococcus faecalis and Staphylococcus epidermitis bacteremia. Patient has two different blood cultures on two different days. He was initially on vancomycin, current he is getting meropenem. I see the transesophageal echocardiogram report is back, there are no evidence of vegetation, most likely source was infected right forearm AV fistula. Duration of antibiotic is as per primary team and infectious disease recommendations. 6. Nausea and vomiting. I have started the patient on metoclopramide 5 mg IV every 8 hours as needed for nausea and vomiting. MTDD
[2018-10-05 14:00] VITALS: BP 126/56
--- NOTE | 2018-10-05 14:42 | PHACANCOPD ---
PHARMACY VANCOMYCIN DOSING Pt Demographics Demographics Patient Age:73 , Weight:99.800 , Gender: male Adjusted Body Weight Date: 09/30/18, Adjusted Body Weight: [89] Kg Events Past 24 Hours Events Past 24 Hours: YES: Dialysis; NO: Diuretic Therapy, Change in CrCl, Fever, Elevation in WBC, Pending Diagnostics, Pending Procedures, Other Vancomycin Vancomycin indication: POSSITIVE BLOOD CX Vancomycin Target Ranges: 15-20 mcg/ml Vancomycin Load Y/N: No Load Dose Date Time Vancomycin Load Dose: 1000mg Date: 10/05 Time: after HD Vancomycin Dose Date: 09/30/18. Current Vancomycin Dose: [1G IV AFTER HD] Intermittent Dosing?: No Labs Labs Vital Signs Label Value Date Time Patient Temperature 98.0 degrees F 10/05/18 0200 Temperature Source Temporal 10/05/18 0200 Patient Temperature 97.4 degrees F 10/05/18 0600 Temperature Source Temporal 10/05/18 0600 Item Value Date Time White Blood Count 6.4 10^3/uL 10/04/18 0526 White Blood Count 6.9 10^3/uL 10/05/18 0515 Creatinine 4.74 MG/DL H 10/04/18 0526 Creatinine 6.68 MG/DL H 10/05/18 0515 C-Reactive Protein, Quantitative 13.50 MG/DL H 10/04/18 0526 C-Reactive Protein, Quantitative 21.60 MG/DL H 10/05/18 0515 Micro Microbiology 10/05/18 Blood Culture, Received Pending 10/05/18 Blood Culture, Received Pending 10/03/18 Blood Culture - Preliminary, Resulted No Growth after 48 hours. All Specime... 10/03/18 Blood Culture - Final, Complete Enterobacter Cloacae Complex 09/30/18 Blood Culture - Preliminary, Resulted No Growth after 72 hours. All specime... 09/30/18 Blood Culture - Final, Complete Staphylococcus Epidermidis 09/29/18 Blood Culture - Final, Complete Enterococcus Faecalis 09/29/18 Blood Culture - Final, Complete NO GROWTH AFTER 5 DAYS Creatinine Clearance Date:09/30/18. Creatinine Clearance: [20.6ML/MIN]. Assessment and Plan Maintaining Current Dose?: Yes Reason for dose change: No Dose Change Pharmacist Note Pharmacist Note 10/05: Patient was restarted on Vancomycin again this morning nephrology. Since admission patient has had three sets of positive blood cultures: 09/29 was E. faecalis, 09/30 was Staph.epi, 10/03 was Enterobacter. His random this morning was 19 so he was continued on Vancomycin 1000mg after HD. He currently has more sets of blood cultures pending. Patient had dialysis today and had 1500ml removed. He is afebrile, WBC is within normal limits, but his CRP is trending up. His AV fistula has been replaced since admission, which is what is believed to be the source of infection. His HERMILO was negative as well. We will continue to monitor and make adjustments as necessary. 10/03/18: Day #4 IV vancomycin. Random level yesterday resulted therapeutic at 16.1mcg/ml. The patient was not dialyzed yesterday and today his scr has jumped from 3.71 at the start of vancomycin therapy to 8.35 today. The patient is being dialyzed today and will received a 1g dose after dialysis. Another follow-up random vancomycin level has been scheduled to be drawn tomorrow. We will continue to monitor and make dose adjustments if needed. Date: 09/30/18. Pharmacist note: PT is a 73 year old male being treated for positive blood cultures. The patient was planned to be discharged until fistula began bleeding. The patient is currently receiving hd sunday, sunday, and sunday. Current therapy will consist of 1g iv after hd. We will continue to monitor and adjust dose as needed. [facility] Oct 05, 2018 14:42
--- NOTE | 2018-10-05 15:00 | IPNPDOC ---
Subjective Date Seen The patient was seen on 10/05/18. Subjective Chief Complaint/HPI . Events since last encounter No acute changes overnight. No active bleeding. General: Denies: Chills Constitutional: Denies: Chills Pulmonary: Denies: Dyspnea, Cough Cardiovascular: Denies: Chest Pain, Palpitations, Lt Headedness Gastrointestinal: Denies: Nausea, Vomiting, Abdominal Pain Musculoskeletal: Reports: Other Symptoms (minimal right arm AV fistula discomfort) Psych: Reports: Mood Normal Objective Physical Examination General Exam: Positive: Alert, Cooperative, No Acute Distress (in HD) ENT Exam: Positive: Mucous membr. moist/pink Chest Exam: Positive: Diminished; Negative: Rales, Rhonchi, Wheezing Heart Exam: Positive: Rate Normal, Normal S1, Normal S2; Negative: Gallops, Murmurs, Rubs Abdomen Exam: Positive: Normal bowel sounds, Soft; Negative: Tenderness, Hepatospenomegaly, Mass Extremity Exam: Negative: Clubbing, Cyanosis, Edema Skin Exam: Positive: Breakdown (right forearm is wrapped, currently in HD with good function of AV fistula in use) Neuro Exam: Positive: Normal Speech Psych Exam: Positive: Oriented x 3 Assessment /Plan Assessment 1. Right upper extremity fistula bleeding -s/p revision 10.02.18 with vascular surgery -patient is being dialyzed today and seen in HD, av fistula working well on physical exam -patient reports minimal pain of right upper extremity 2. 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 Repeat blood cultures sent on 10/03 -third set blood cx now positive for GNR 10.03.18-enterobacter -CT abdomen pelvis with no intra-abdominal abscess - HERMILO with cardiology ruled out vegetations -patient on meropenem antibiotic, restarted on vancomycin with HD today -CRP did bump again today, restarted vancomycin -Hemodynamically stable 3. DM2 - continue current insulin regimen 4. ESRD on HD -nephrology on board -dialysis as per nephrology -seen in HD today 5. 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 Hypertension - controlled continue home meds 7. History of atrial fibrillation- - rate controlled, currently on Eliquis which has been on hold due to AV fistula bleed - to be resumed when cleared by Dr. Auguste -c/w amiodarone 8. CAD s/p CABG/PCI -c/w current medications, patient has not complained of chest pain 9. dvt px -scd teds 10. Physical deconditioning -PT ordered Plan/VTE VTE Prophylaxis Ordered?: Yes VS, I&O, 24H, Fishbone Vital Signs/I&O Vital Signs Date Time Temp Pulse Resp B/P (MAP) Pulse Ox O2 Delivery O2 Flow Rate FiO2 10/05/18 14:00 97.8 72 18 126/56 (79) 91 Room Air 10/05/18 02:00 2.0 10/03/18 00:00 97 I&O- Last 24 Hours up to 6 AM 10/05/18 06:00 Intake Total 720 ml Output Total 0 ml Balance 720 ml Laboratory Data 24H LABS Laboratory Tests 2 10/04/18 16:15: Bedside Glucose (Misc Panel) 139H 10/04/18 20:47: Bedside Glucose (Misc Panel) 200H 10/05/18 05:15: Immature Granulocyte % (Auto) 2.7, White Blood Count 6.9, Red Blood Count 2.42L, Hemoglobin 7.9L, Hematocrit 23.5L, Mean Corpuscular Volume 97.1H, Mean Corpuscular Hemoglobin 32.6, Mean Corpuscular Hemoglobin Concent 33.6, Red Cell Distribution Width 17.2H, Platelet Count 135L, Neutrophils (%) (Auto) 64.2, Lymphocytes (%) (Auto) 15.3L, Monocytes (%) (Auto) 15.8H, Eosinophils (%) (Auto) 1.7, Basophils (%) (Auto) 0.3, Neutrophils # (Auto) 4.4, Lymphocytes # (Auto) 1. 1L, Monocytes # (Auto) 1.1H, Eosinophils # (Auto) 0.1, Basophils # (Auto) 0.0, Nucleated Red Blood Cells % (auto) 0.3H, Anion Gap 8, Glomerular Filtration Rate 8.7L, Blood Urea Nitrogen 34#H, Creatinine 6.68H, Sodium Level 133L, Potassium Level 4.2, Chloride Level 97L, Carbon Dioxide Level 28, Calcium Level 8.2L, C- Reactive Protein, Quantitative 21.60H, Random Vancomycin Level 19.0 10/05/18 13:46: Bedside Glucose (Misc Panel) 137H CBC/BMP Laboratory Tests 10/05/18 05:15 Red Blood Count 2.42 L, Mean Corpuscular Volume 97.1 H, Mean Corpuscular Hemoglobin 32.6, Mean Corpuscular Hemoglobin Concent 33.6, Red Cell Distribution Width 17.2 H, Neutrophils (%) (Auto) 64.2, Lymphocytes (%) (Auto) 15.3 L, Monocytes (%) (Auto) 15.8 H, Eosinophils (%) (Auto) 1.7, Basophils (%) (Auto) 0.3, Neutrophils # (Auto) 4.4, Lymphocytes # (Auto) 1.1 L, Monocytes # (Auto) 1.1 H, Eosinophils # (Auto) 0.1, Basophils # (Auto) 0.0, Calcium Level 8.2 L Microbiology Microbiology 10/05/18 Blood Culture, Received Pending 10/05/18 Blood Culture, Received Pending 10/03/18 Blood Culture - Preliminary, Resulted No Growth after 48 hours. All Specime... 10/03/18 Blood Culture - Final, Complete Enterobacter Cloacae Complex 09/30/18 Blood Culture - Preliminary, Resulted No Growth after 72 hours. All specime... 09/30/18 Blood Culture - Final, Complete Staphylococcus Epidermidis 09/29/18 Blood Culture - Final, Complete Enterococcus Faecalis 09/29/18 Blood Culture - Final, Complete NO GROWTH AFTER 5 DAYS GME ATTESTATION GME ATTESTATION My faculty preceptor for this patient encounter was physically present during the encounter and was fully available. All aspects of the patient interview, examination, medical decision making process, and medical care plan development were reviewed and approved by the faculty preceptor. The faculty preceptor is aware and concurs with the plan as stated in the body of this note and will attest to such by his/her cosignature. TYRESE TEIXEIRA DO Oct 05, 2018 15:00 BAKARI CHEW MD Oct 17, 2018 21:02
[2018-10-05] MEDS: **VANCO AFTER HD** MISC XX SCH (16:00)
[2018-10-05] MEDS: ACETAMINOPHEN TAB 650MG DOSE (2X325MG) PO PRN (20:23)
[2018-10-05 22:00] VITALS: BP 119/58
[2018-10-06 02:00] VITALS: BP 126/58
[2018-10-06 05:48] LABS: HEMATOCRIT 25.8 % (42.0-52.0); HEMOGLOBIN 8.5 g/dl (13.5-17.5); MEAN CORPUSCULAR HEMOGLOBIN 32.3 pg (27.0-33.0); MEAN CORPUSCULAR HGB CONC 32.9 g/dl (32.0-36.5); MEAN CORPUSCULAR VOLUME 98.1 fl (80.0-96.0); PLATELET COUNT, AUTOMATED 155 10^3/uL (150-450); RED BLOOD COUNT 2.63 10^6/uL (4.30-6.10); WHITE BLOOD COUNT 6.2 10^3/uL (4.0-10.0)
[2018-10-06 06:00] VITALS: BP 122/57
[2018-10-06 06:18] LABS: C REACTIVE PROTEIN QUANTITATIV 13.5 MG/DL (0.00-0.30); CALCIUM LEVEL 8.7 MG/DL (8.8-10.2); CREATININE FOR GFR 3.88 MG/DL (0.70-1.30); GLOMERULAR FILTRATION RATE 16.3 (>42); POTASSIUM SERUM 3.9 MEQ/L (3.5-5.1)
[2018-10-06 06:34] LABS: ANISOCYTOSIS 1+; BASOPHILS 1 % (0-4); EOSINOPHILS 5 % (0-5); LYMPHOCYTES 18 % (16-52); METAMYELOCYTES 1 % (0-0); MONOCYTES 6 % (0-8); MYELOCYTES 3 % (0-0); NEUTROPHILS 64 % (35-75)
[2018-10-06 06:35] LABS: HYPOCHROMASIA 1+; PLATELET ESTIMATE NORMAL (NORMAL); POIKILOCYTOSIS 1+
[2018-10-06] MEDS: HumaLOG INSULIN (NovoLOG) PER UNIT SC SCH ×3 (07:30→17:25)
[2018-10-06] MEDS: DOCUSATE SODIUM 100 MG CAP PO SCH ×2 (09:00→20:32)
[2018-10-06] MEDS: AMIODARONE 200 MG TAB (PACERONE) PO SCH (09:09)
[2018-10-06] MEDS: MEROPENEM INJ 1 GM in APPROPRIATE DILUENT 1 EA IV SCH (09:09)
[2018-10-06] MEDS: LEVEMIR (INSULIN DETEMIR) 1 UNITS/0.01ML SC SCH (09:09)
[2018-10-06] MEDS: FLUoxetine 20 MG CAP PO SCH (09:09)
[2018-10-06] MEDS: PRAVASTATIN 20 MG TAB PO SCH (09:09)
[2018-10-06 10:00] VITALS: BP 103/55
[2018-10-06 10:04] LABS: VANCOMYCIN RANDOM 14.1 UG/ML
[2018-10-06] MEDS ORDERED: VANCOMYCIN HCL 750 MG, VIAL MATE ADAPTER 1 EACH in D5W 250 ML IV ONE (11:00)
--- NOTE | 2018-10-06 11:50 | IPNPDOC ---
Text Note Date of Service The patient was seen on 10/06/18. NOTE Subjective: Patient feels well. No active bleeding from the right upper extr emity site. Denies any complaints. No abd pain. Objective: Vitals: (see below) General: No acute distress, laying comfortably in bed. HEENT: Moist mucous membranes. Neck: No JVD or lymphadenopathy Cardiac: RRR, No murmurs Pulm: Diminished breath sounds at the bases b/l. No wheezing, rhonchi Abd: NT/ND + BS Ext: No edema or cyanosis. Right upper extremity- bandage intact. Distal pulses intact. No active bleeding. Capillary refill less than 2 seconds. Labs (see below) Images: CT abdomen and pelvis on 10/02/18 Impression: No acute abdominopelvic pathology appreciated. No ascites, focal inflammatory stranding or adenopathy. Chronic renal disease with small bilateral renal cysts. Extensive atherosclerotic disease. Assessment/Plan 1. Right upper extremity fistula bleeding, status post revision 10/[address] Auguste. Eliquis management per Dr. Auguste. 2. Enterococcus faecalis bacteremia- patient with prior bacteremia in April after AV fistula placement, and had since cleared. Patient notes prior ulceration at the area prior to surgery with drainage in April. Presents on this admission with bleeding at the fistula site, and noted to be bacteremic once again. Repeat blood cultures on 09/30 positive. Repeat blood cultures sent on 10/03. CT abdomen pelvis with no abscess. HERMILO 10/04 negative for vegetations.Hemodynamically stable. CRP trending down now as meropenem/vanco. Discussed with Dr. Auguste who notes graft was infected, and has since been removed. 3. Diabetes mellitus continue current insulin regimen. 4. Hypertension controlled continue home meds 5. History of atrial fibrillation- rate controlled. On eliquis - to be resumed when cleared by Dr. Auguste. 6. CAD status post CABG/PCI. Continue meds. Denies chest pain. DVT prophy: On Eliquis Overall prognosis guarded. VS,Fishbone, I+O VS, Fishbone, I+O Laboratory Tests 10/06/18 05:13 Red Blood Count 2.63 L, Mean Corpuscular Volume 98.1 H, Mean Corpuscular Hemoglobin 32.3, Mean Corpuscular Hemoglobin Concent 32.9, Red Cell Distribution Width 18.3 H, Calcium Level 8.7 L Vital Signs Date Time Temp Pulse Resp B/P (MAP) Pulse Ox O2 Delivery O2 Flow Rate FiO2 10/06/18 10:00 96.8 69 18 103/55 (71) 100 Room Air 10/05/18 02:00 2.0 10/03/18 00:00 97 I&O- Last 24 Hours up to 6 AM 10/06/18 06:00 Intake Total 1020 ml Output Total 1500 ml Balance -480 ml BAKARI CHEW MD Oct 06, 2018 11:50
--- NOTE | 2018-10-06 11:54 | PHACANCOPD ---
PHARMACY VANCOMYCIN DOSING Pt Demographics Demographics Patient Age:73 , Weight:99.800 , Gender: male Adjusted Body Weight Date: 09/30/18, Adjusted Body Weight: [89] Kg Vancomycin Vancomycin indication: POSITIVE BLOOD CX Vancomycin Target Ranges: 15-20 mcg/ml Vancomycin Load Y/N: No Load Dose Date Time Vancomycin Load Dose: 1000mg Date: 10/05 Time: after HD Vancomycin Dose Date: 09/30/18. Current Vancomycin Dose: [1G IV AFTER HD] Intermittent Dosing?: No Labs Micro Microbiology 10/05/18 Blood Culture - Preliminary, Resulted No growth after 24 hours . All specim... 10/05/18 Blood Culture - Preliminary, Resulted No growth after 24 hours . All specim... 10/03/18 Blood Culture - Preliminary, Resulted No Growth after 72 hours. All specime... 10/03/18 Blood Culture - Final, Complete Enterobacter Cloacae Complex 09/30/18 Blood Culture - Final, Complete NO GROWTH AFTER 5 DAYS 09/30/18 Blood Culture - Final, Complete Staphylococcus Epidermidis 09/29/18 Blood Culture - Final, Complete Enterococcus Faecalis 09/29/18 Blood Culture - Final, Complete NO GROWTH AFTER 5 DAYS Creatinine Clearance Date:09/30/18. Creatinine Clearance: [20.6ML/MIN]. Assessment and Plan Maintaining Current Dose?: No Reason for dose change: Other Pharmacist Note Pharmacist Note 10/06/18: A random level was ordered this morning because pharmacy discovered that no vancomycin had been administered by nursing yesterday after dialysis. The random level this morning resulted at 14.1mcg/ml (~30% had been removed by dialysis). Goal trough level ordered is 15-20mcg/ml, so a one time dose of 750mg was ordered to be given today. The patient will continue vancomycin 750mg IV post-HD starting tomorrow. Another follow-up random vancomycin level has been scheduled to be drawn tomorrow with morning labs to ensure that continuing the patient on a regimen of 750mg IV HD will be appropriate. We will continue to monitor and make further dose adjustments if needed. 10/05: Patient was restarted on Vancomycin again this morning nephrology. Since admission patient has had three sets of positive blood cultures: 09/29 was E. faecalis, 09/30 was Staph.epi, 10/03 was Enterobacter. His random this morning was 19 so he was continued on Vancomycin 1000mg after HD. He currently has more sets of blood cultures pending. Patient had dialysis today and had 1500ml removed. He is afebrile, WBC is within normal limits, but his CRP is trending up. His AV fistula has been replaced since admission, which is what is believed to be the source of infection. His HERMILO was negative as well. We will continue to monitor and make adjustments as necessary. 10/03/18: Day #4 IV vancomycin. Random level yesterday resulted therapeutic at 16.1mcg/ml. The patient was not dialyzed yesterday and today his scr has jumped from 3.71 at the start of vancomycin therapy to 8.35 today. The patient is being dialyzed today and will received a 1g dose after dialysis. Another follow-up random vancomycin level has been scheduled to be drawn tomorrow. We will continue to monitor and make dose adjustments if needed. Date: 09/30/18. Pharmacist note: PT is a 73 year old male being treated for positive blood cultures. The patient was planned to be discharged until fistula began bleeding. The patient is currently receiving hd sunday, sunday, and sunday. Current therapy will consist of 1g iv after hd. We will continue to monitor and adjust dose as needed. [facility] Oct 06, 2018 11:54
--- NOTE | 2018-10-06 12:05 | IPN ---
DATE: 10/05/2018 SUBJECTIVE: The patient was seen and examined at the bedside today morning getting hemodialysis procedure. He is tolerating the hemodialysis procedure well. He denies any fever or chills at this point. He denies any bleeding from the right forearm AV fistula site. The patient's anemia is worse, his hemoglobin has dropped to 7.9 today. OBJECTIVE: VITAL SIGNS: Temperature is 97.8 degrees Fahrenheit, blood pressure 126/56, pulse is 72, respiratory rate of 18, saturating 91% on room air. INTAKE AND OUTPUT: Urine output is not recorded. Weight on the bed scale is 99.8 kg. PHYSICAL EXAMINATION: GENERAL: The patient is awake, alert and oriented times three, laying in bed getting hemodialysis done. In no apparent distress. HEAD AND NECK: Extraocular muscles intact. Pupils equally round and reactive to light. Mucous membranes are moist. Neck is supple. There is no jugular venous distention (JVD). CARDIOVASCULAR: S1, S2, regular rate. Right anterior chest wall automatic implantable cardioverter-defibrillator (AICD). No edema of the bilateral lower extremities. RESPIRATORY: Chest is clear to auscultation bilaterally. Bilateral equal air entry. No rales or rhonchi. ABDOMEN: Soft, obese, positive bowel sounds. Left upper quadrant bariatric lap band was palpable. Right upper quadrant old cholecystectomy scar is noted. MUSCULOSKELETAL: No clubbing or cyanosis. Pulses are 2+. ARTERIOVENOUS (AV) ACCESS: Right forearm AV fistula site is covered with a dressing and is currently being used for dialysis from the proximal portion. CENTRAL NERVOUS SYSTEM (BLEACHING MACHINE OPERATOR): No focal deficit. Power is 5/5 in all extremities. LABORATORY REVIEW: CBC showed a WBC of 6.9, hemoglobin 7.9, platelets are 135. BMP showed sodium 133, potassium 4.2, chloride 97, bicarbonate 28, BUN 34, creatinine is 6.6, calcium is 8.2, C-reactive protein is 21.6. MICROBIOLOGY: Blood culture sent on 10/03/2018 is also growing Enterobacter cloacae complex. CURRENT INPATIENT MEDICATIONS: The patient's medications were all reviewed by me. He is currently on meropenem 1 gram IV daily. I have also started him on Vancomycin 1 gram IV daily. No other change in the medications today as compared with yesterday. ASSESSMENT AND PLAN: 1. End-stage renal disease, on hemodialysis. Patient is being dialyzed today. Volume status is optimized. Ultrafiltration goal will be 1.5 liters today. 2. Right forearm AV fistula site infection and bleeding. Patient got excision of the infected AV fistula done. It is being used for dialysis at this point, there is no active bleeding. 3. Polymicrobial bacteremia. The patient is growing three organisms in his blood cultures -- Enterococcus faecalis, Staphylococcus epidermidis, and Enterobacter cloacae on cultures drawn on three different days. He is currently being covered with meropenem. I added Vancomycin as well. The patient needs infectious disease consultation as well. I have discussed this with the primary team. 4. Chronic atrial fibrillation. Controlled with amiodarone at this time. Eliquis was held on admission because of active bleeding. 4. 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 Hemoglobin has dropped below 8. The patient is going to get 1 unit of packed red blood cell transfusion with dialysis today. MTDD
[2018-10-06 14:00] VITALS: BP 113/57
[2018-10-06] MEDS: **VANCO AFTER HD** MISC XX SCH (15:23)
[2018-10-06 22:00] VITALS: BP 108/62
[2018-10-07 02:00] VITALS: BP 120/57
[2018-10-07 05:58] LABS: HEMATOCRIT 26.6 % (42.0-52.0); HEMOGLOBIN 8.8 g/dl (13.5-17.5); MEAN CORPUSCULAR HEMOGLOBIN 32.6 pg (27.0-33.0); MEAN CORPUSCULAR HGB CONC 33.1 g/dl (32.0-36.5); MEAN CORPUSCULAR VOLUME 98.5 fl (80.0-96.0); PLATELET COUNT, AUTOMATED 182 10^3/uL (150-450); WHITE BLOOD COUNT 7.6 10^3/uL (4.0-10.0)
[2018-10-07 06:00] VITALS: BP 118/58
[2018-10-07 06:22] LABS: C REACTIVE PROTEIN QUANTITATIV 7.28 MG/DL (0.00-0.30); CALCIUM LEVEL 8.5 MG/DL (8.8-10.2); CREATININE FOR GFR 5.23 MG/DL (0.70-1.30); GLOMERULAR FILTRATION RATE 11.6 (>42); POTASSIUM SERUM 3.7 MEQ/L (3.5-5.1); VANCOMYCIN RANDOM 19.8 UG/ML
[2018-10-07 07:07] LABS: ANISOCYTOSIS 1+; ATYPICAL LYMPH 1 % (0-5); BASOPHILS 2 % (0-4); EOSINOPHILS 5 % (0-5); LYMPHOCYTES 13 % (16-52); METAMYELOCYTES 2 % (0-0); MONOCYTES 8 % (0-8); MYELOCYTES 1 % (0-0); NEUTROPHILS 68 % (35-75); PLATELET ESTIMATE NORMAL (NORMAL)
--- NOTE | 2018-10-07 07:26 | PHACANCOPD ---
PHARMACY VANCOMYCIN DOSING Pt Demographics Demographics Patient Age:73 , Weight:100.600 , Gender: male Adjusted Body Weight Date: 09/30/18, Adjusted Body Weight: [89] Kg Events Past 24 Hours Events Past 24 Hours: YES: Dialysis; NO: Diuretic Therapy, Change in CrCl, Fever, Elevation in WBC, Pending Diagnostics, Pending Procedures, Other Vancomycin Vancomycin indication: POSITIVE BLOOD CX Vancomycin Target Ranges: 15-20 mcg/ml Vancomycin Load Y/N: No Load Dose Date Time Vancomycin Load Dose: 1000mg Date: 10/05 Time: after HD Vancomycin Dose Date: 09/30/18. Current Vancomycin Dose: [1G IV AFTER HD] Intermittent Dosing?: No Labs Labs Vital Signs Label Value Date Time Patient Temperature 96.0 degrees F 10/07/18 0600 Temperature Source Temporal 10/07/18 0600 Patient Temperature 96.7 degrees F 10/07/18 0200 Temperature Source Temporal 10/07/18 0200 Patient Temperature 97.8 degrees F 10/06/18 2200 Temperature Source Temporal 10/06/18 2200 Item Value Date Time White Blood Count 7.6 10^3/uL 10/07/18 0524 White Blood Count 6.2 10^3/uL 10/06/18 0513 White Blood Count 6.9 10^3/uL 10/05/18 0515 Creatinine 5.23 MG/DL H 10/07/18 0524 Creatinine 3.88 MG/DL H 10/06/18 0513 Creatinine 6.68 MG/DL H 10/05/18 0515 Random Vancomycin Level 19.8 UG/ML 10/07/18 0524 Random Vancomycin Level 14.1 UG/ML 10/06/18 0513 Random Vancomycin Level 19.0 UG/ML 10/05/18 0515 Micro Microbiology 10/05/18 Blood Culture - Preliminary, Resulted No Growth after 48 hours. All Specime... 10/05/18 Blood Culture - Preliminary, Resulted No Growth after 48 hours. All Specime... 10/03/18 Blood Culture - Preliminary, Resulted No Growth after 72 hours. All specime... 10/03/18 Blood Culture - Final, Complete Enterobacter Cloacae Complex 09/30/18 Blood Culture - Final, Complete NO GROWTH AFTER 5 DAYS 09/30/18 Blood Culture - Final, Complete Staphylococcus Epidermidis 09/29/18 Blood Culture - Final, Complete Enterococcus Faecalis 09/29/18 Blood Culture - Final, Complete NO GROWTH AFTER 5 DAYS Creatinine Clearance Date:09/30/18. Creatinine Clearance: [20.6ML/MIN]. Assessment and Plan Maintaining Current Dose?: Yes Reason for dose change: No Dose Change Pharmacist Note Pharmacist Note 10/07/18: Random this AM resulted at 19.8mcg/ml. We will continue Vanco 750mg IV HD. We will continue to follow and adjust dose as needed. 10/06/18: A random level was ordered this morning because pharmacy discovered that no vancomycin had been administered by nursing yesterday after dialysis. T he random level this morning resulted at 14.1mcg/ml (~30% had been removed by dialysis). Goal trough level ordered is 15-20mcg/ml, so a one time dose of 750mg was ordered to be given today. The patient will continue vancomycin 750mg IV post-HD starting tomorrow. Another follow-up random vancomycin level has been scheduled to be drawn tomorrow with morning labs to ensure that continuing the patient on a regimen of 750mg IV HD will be appropriate. We will continue to monitor and make further dose adjustments if needed. 10/05: Patient was restarted on Vancomycin again this morning nephrology. Since admission patient has had three sets of positive blood cultures: 09/29 was E. faecalis, 09/30 was Staph.epi, 10/03 was Enterobacter. His random this morning was 19 so he was continued on Vancomycin 1000mg after HD. He currently has more sets of blood cultures pending. Patient had dialysis today and had 1500ml removed. He is afebrile, WBC is within normal limits, but his CRP is trending up. His AV fistula has been replaced since admission, which is what is believed to be the source of infection. His HERMILO was negative as well. We will continue to monitor and make adjustments as necessary. 10/03/18: Day #4 IV vancomycin. Random level yesterday resulted therapeutic at 16.1mcg/ml. The patient was not dialyzed yesterday and today his scr has jumped from 3.71 at the start of vancomycin therapy to 8.35 today. The patient is being dialyzed today and will received a 1g dose after dialysis. Another follow-up random vancomycin level has been scheduled to be drawn tomorrow. We will continue to monitor and make dose adjustments if needed. Date: 09/30/18. Pharmacist note: PT is a 73 year old male being treated for positive blood cultures. The patient was planned to be discharged until fistula began bleeding. The patient is currently receiving hd sunday, sunday, and sunday. Current therapy will consist of 1g iv after hd. We will continue to monitor and adjust dose as needed. ANAMARIA [facility]HANNA [facility] Oct 07, 2018 07:26
[2018-10-07] MEDS: HumaLOG INSULIN (NovoLOG) PER UNIT SC SCH ×3 (07:30→17:30)
--- NOTE | 2018-10-07 13:27 | IPN ---
DATE: 10/06/2018 SUBJECTIVE: Patient was seen and examined at the bedside today morning. He is afebrile, hemodynamically stable. He was getting the intravenous (IV) antibiotic. He was dialyzed yesterday. There was 1.5 liters of fluid removed. Hemoglobin has improved to 8.5 today. OBJECTIVE: Vital signs: Temperature is 96.8 degrees Fahrenheit, blood pressure 103/55, pulse is 69, respiratory rate of 18, saturating 100% on room air. Intake and output: Urine output is not recorded. Ultrafiltration was 1.5 liters yesterday. Weight in the bed scale was 99.8 kg yesterday. PHYSICAL EXAMINATION: GENERAL: Patient is awake, alert, oriented times three, lying in bed. No apparent distress. HEAD AND NECK: Extraocular muscles intact. Pupils equally round and reactive to light. Mucous membranes are moist. Neck is supple. There is no jugular venous distention (JVD). CARDIOVASCULAR: S1, S2, regular rate. Right anterior chest wall automatic implantable cardioverter-defibrillator (AICD) was noted. RESPIRATORY: Chest is clear to auscultation bilaterally. Bilateral equal air entry. No rales or rhonchi. ABDOMEN: Soft, obese. Positive bowel sounds. Nontender. Left upper quadrant Lap-Band was palpable. No organomegaly. MUSCULOSKELETAL: No clubbing or cyanosis. Pulses are 2+. CENTRAL NERVOUS SYSTEM: No focal deficit. Power is 5/5 in all extremities. ARTERIOVENOUS (AV) ACCESS: Right forearm AV fistula and anastomosis site is covered with a dressing. LABORATORY REVIEW: CBC showed a WBC 6.2, hemoglobin 8.5, platelets are 155. BMP showed sodium 136, potassium 3.9, chloride 99, bicarbonate 31, BUN 14, creatinine is 3.8. C-reactive protein is 13.5 now. Microbiology: Repeat blood cultures sent yesterday are negative so far. CURRENT INPATIENT MEDICATIONS: Patient's medications were all reviewed by me. He continues to be on intravenous (IV) meropenem and vancomycin. No other change in the medications today as compared with yesterday. ASSESSMENT AND PLAN: 1. End-stage renal disease, on hemodialysis. Patient was dialyzed yesterday. There was 1.5 liters of fluid removed. Next hemodialysis will be done tomorrow morning. 2. Right forearm AV fistula site infection and bleeding. Patient got the excision and repair of the infected AV fistula. She currently is on IV antibiotic. Symptomatically is improving. 2. Polymicrobial bacteremia. Patient currently continues to be meropenem and IV vancomycin. Repeat blood cultures from yesterday are negative. Possible source was infected right forearm AV fistula. 3. Anemia secondary to blood loss and end-stage renal disease. Patient continues to be on IV Venofer and Aranesp. He also got 1 unit of packed red blood cells (PRBC) transfusion yesterday. Transfuse as needed for hemoglobin 8 or below.
[2018-10-07 14:00] VITALS: BP 111/57
[2018-10-07] MEDS: AMIODARONE 200 MG TAB (PACERONE) PO SCH (14:20)
[2018-10-07] MEDS: DOCUSATE SODIUM 100 MG CAP PO SCH ×2 (14:20→21:00)
[2018-10-07] MEDS: PRAVASTATIN 20 MG TAB PO SCH (14:20)
[2018-10-07] MEDS: FLUoxetine 20 MG CAP PO SCH (14:20)
[2018-10-07] MEDS: LEVEMIR (INSULIN DETEMIR) 1 UNITS/0.01ML SC SCH (14:21)
--- NOTE | 2018-10-07 14:51 | IPNPDOC ---
Subjective Date Seen The patient was seen on 10/07/18. Subjective Chief Complaint/HPI . General: Denies: Chills, Night Sweats, Fatigue, Malaise Constitutional: Denies: Weakness Pulmonary: Denies: Dyspnea, Cough, Pleuritic Chest Pain Cardiovascular: Denies: Chest Pain, Palpitations, Orthopnea, Edema, Lt Headedness Gastrointestinal: Denies: Nausea, Vomiting, Abdominal Pain, Diarrhea Neurological: Denies: Weakness Objective Physical Examination General Exam: Positive: Alert, Cooperative, No Acute Distress (in HD today) ENT Exam: Positive: Mucous membr. moist/pink Chest Exam: Positive: Diminished; Negative: Rales, Rhonchi, Wheezing Heart Exam: Positive: Rate Normal, Normal S1, Normal S2; Negative: Gallops, Murmurs, Rubs Abdomen Exam: Positive: Normal bowel sounds, Soft; Negative: Tenderness, Hepatospenomegaly, Mass Extremity Exam: Negative: Clubbing, Cyanosis, Edema Skin Exam: Positive: Breakdown (right forearm is wrapped, currently in HD with good function of AV fistula in use, no bleeding episodes reported ) Neuro Exam: Positive: Normal Speech Psych Exam: Positive: Oriented x 3 Assessment /Plan Assessment 1. Right upper extremity fistula bleeding -s/p revision 10.02.18 with vascular surgery -patient is being dialyzed today and seen in HD again, av fistula working well on physical exam -patient reports minimal pain of right upper extremity 2. 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 Repeat blood cultures sent on 10/03 -third set blood cx now positive for GNR 10.03.18-enterobacter -CT abdomen pelvis with no intra-abdominal abscess - HERMILO with cardiology ruled out vegetations -patient on meropenem/Vanco antibiotic, restarted on vancomycin with HD days -CRP improved today, will de-escalate antibiotic therapy tomorrow, one more day of IV antibiotics -Hemodynamically stable 3. DM2 - continue current insulin regimen 4. ESRD on HD -nephrology on board -dialysis as per nephrology -seen in HD today 5. 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 Hypertension - controlled continue home meds 7. History of atrial fibrillation- - rate controlled, currently on Eliquis which has been on hold due to AV fistula bleed - to be resumed when cleared by Dr. Auguste -c/w amiodarone 8. CAD s/p CABG/PCI -c/w current medications, patient has not complained of chest pain 9. dvt px -scd teds 10. Physical deconditioning -PT ordered Plan/VTE VTE Prophylaxis Ordered?: Yes VS, I&O, 24H, Fishbone Vital Signs/I&O Vital Signs Date Time Temp Pulse Resp B/P (MAP) Pulse Ox O2 Delivery O2 Flow Rate FiO2 10/07/18 06:00 96.0 54 16 118/58 (78) 100 Room Air 10/05/18 02:00 2.0 10/03/18 00:00 97 I&O- Last 24 Hours up to 6 AM 10/07/18 06:00 Intake Total 1620 ml Output Total 0 ml Balance 1620 ml Laboratory Data 24H LABS Laboratory Tests 2 10/06/18 16:52: Bedside Glucose (Misc Panel) 95 10/06/18 20:15: Bedside Glucose (Misc Panel) 88 10/07/18 05:24: Immature Granulocyte % (Auto) , Nucleated Red Blood Cells % (auto) 0.0, Neutrophils 68, Lymphocytes (Manual) 13L, Monocytes (Manual) 8, Eosinophils (Manual) 5, Basophils (Manual) 2, Metamyelocytes 2H, Myelocytes 1H, Atypical Lymphocytes 1, Platelet Estimate NORMAL, Anisocytosis 1+, Macrocytosis 1+, Anion Gap 10, Glomerular Filtration Rate 11.6L, Blood Urea Nitrogen 18, Creatinine 5.23H, Sodium Level 134L, Potassium Level 3.7, Chloride Level 97L, Carbon Dioxide Level 27, Calcium Level 8.5L, C-Reactive Protein, Quantitative 7.28H, Random Vancomycin Level 19.8 10/07/18 13:40: Bedside Glucose (Misc Panel) 133H CBC/BMP Laboratory Tests 10/07/18 05:24 Red Blood Count 2.70 L, Mean Corpuscular Volume 98.5 H, Mean Corpuscular Hemoglobin 32.6, Mean Corpuscular Hemoglobin Concent 33.1, Red Cell Distribution Width 17.8 H, Calcium Level 8.5 L Microbiology Microbiology 10/05/18 Blood Culture - Preliminary, Resulted No Growth after 48 hours. All Specime... 10/05/18 Blood Culture - Preliminary, Resulted No Growth after 48 hours. All Specime... 10/03/18 Blood Culture - Preliminary, Resulted No Growth after 72 hours. All specime... 10/03/18 Blood Culture - Final, Complete Enterobacter Cloacae Complex 09/30/18 Blood Culture - Final, Complete NO GROWTH AFTER 5 DAYS 09/30/18 Blood Culture - Final, Complete Staphylococcus Epidermidis 09/29/18 Blood Culture - Final, Complete Enterococcus Faecalis 09/29/18 Blood Culture - Final, Complete NO GROWTH AFTER 5 DAYS GME ATTESTATION GME ATTESTATION My faculty preceptor for this patient encounter was physically present during the encounter and was fully available. All aspects of the patient interview, examination, medical decision making process, and medical care plan development were reviewed and approved by the faculty preceptor. The faculty preceptor is aware and concurs with the plan as stated in the body of this note and will attest to such by his/her cosignature. TYRESE TEIXEIRA DO Oct 07, 2018 14:50
[2018-10-07] MEDS: ACETAMINOPHEN TAB 650MG DOSE (2X325MG) PO PRN (15:49)
[2018-10-07] MEDS: **VANCO AFTER HD** MISC XX SCH (16:00)
[2018-10-07] MEDS: MEROPENEM INJ 1 GM in APPROPRIATE DILUENT 1 EA IV SCH (16:00)
[2018-10-07] MEDS: VANCOMYCIN HCL 750 MG, VIAL MATE ADAPTER 1 EACH in D5W 250 ML IV SCH (18:28)
[2018-10-07 22:00] VITALS: BP 97/55
[2018-10-08 02:00] VITALS: BP 106/56
[2018-10-08 05:58] LABS: HEMATOCRIT 27.6 % (42.0-52.0); HEMOGLOBIN 8.9 g/dl (13.5-17.5); MEAN CORPUSCULAR HEMOGLOBIN 31.6 pg (27.0-33.0); MEAN CORPUSCULAR HGB CONC 32.2 g/dl (32.0-36.5); MEAN CORPUSCULAR VOLUME 97.9 fl (80.0-96.0); PLATELET COUNT, AUTOMATED 195 10^3/uL (150-450); RED BLOOD COUNT 2.82 10^6/uL (4.30-6.10); WHITE BLOOD COUNT 7.5 10^3/uL (4.0-10.0)
[2018-10-08 06:00] VITALS: BP 95/57
[2018-10-08 06:31] LABS: C REACTIVE PROTEIN QUANTITATIV 4.65 MG/DL (0.00-0.30); CALCIUM LEVEL 8.4 MG/DL (8.8-10.2); CREATININE FOR GFR 3.14 MG/DL (0.70-1.30); GLOMERULAR FILTRATION RATE 20.8 (>42)
[2018-10-08 06:59] LABS: ANISOCYTOSIS 1+; EOSINOPHILS 2 % (0-5); LYMPHOCYTES 22 % (16-52); MONOCYTES 6 % (0-8); MYELOCYTES 1 % (0-0); NEUTROPHILS 67 % (35-75); PLATELET ESTIMATE NORMAL (NORMAL)
[2018-10-08 07:00] LABS: POLYCHROMASIA 1+
[2018-10-08] MEDS: HumaLOG INSULIN (NovoLOG) PER UNIT SC SCH ×3 (07:30→17:58)
[2018-10-08] MEDS: PRAVASTATIN 20 MG TAB PO SCH (08:45)
[2018-10-08] MEDS: DOCUSATE SODIUM 100 MG CAP PO SCH ×2 (08:45→21:12)
[2018-10-08] MEDS: FLUoxetine 20 MG CAP PO SCH (08:45)
[2018-10-08] MEDS: MEROPENEM INJ 1 GM in APPROPRIATE DILUENT 1 EA IV SCH (08:45)
[2018-10-08] MEDS: AMIODARONE 200 MG TAB (PACERONE) PO SCH (08:45)
[2018-10-08] MEDS: LEVEMIR (INSULIN DETEMIR) 1 UNITS/0.01ML SC SCH (08:46)
--- NOTE | 2018-10-08 08:53 | IPN ---
DATE: 10/07/2018 Mr. Villarreal is seen during hemodialysis this morning. He is feeling much better now and denies any nausea, vomiting, dyspnea, chest pain, fever, or chills. His AV fistula is working well. His initial blood cultures were positive; however, since the surgery of his infected AV fistula repeat blood cultures have been negative so far. On physical examination, temperature 96 degrees Fahrenheit, heart rate 68 per minute and respiratory rate 16 per minute. Blood pressure 118/58 mmHg and oxygen saturation 100% on room air. His head is atraumatic. Neck is supple and there is no jugular venous distention (JVD) or thyroid enlargement. Pupils are equal and reactive to light and sclera is anicteric. His heart sounds are irregular in rhythm. Lungs have slightly diminished breath sounds at bases, but no wheezing or rales. Abdomen is soft and nontender and bowel sounds are present. Extremities have no cyanosis or clubbing. The right arm AV fistula is currently being used for dialysis. Neurologically, he is awake, alert and oriented times three. Today's labs show WBC count 7.6, hemoglobin 8.8, hematocrit 26.6 and platelets 182. Sodium 137, potassium 3.7, CO2 27, BUN 18 and creatinine 5.23. Calcium level is 8.5 and C-reactive protein is down to 7.28. PROBLEMS: 1. End-stage renal disease. The patient is being dialyzed today for his regular treatment. He is tolerating it very well. His electrolytes are stable and likely to improve further. 2. Acute blood loss anemia. The patient did have a transfusion earlier and his anemia has improved. At this point, I do not see any need for further transfusion. Anemia will be managed with hemodialysis as an outpatient. 3. Bacteremia. His blood cultures have been positive initially for different organisms. However, the most recent blood cultures drawn on October 03 and October 05 are negative so far. He remains on antibiotics and infected AV fistula surgery has already been done with removal of the source of his infection. 4. Atrial fibrillation. He is rate is very well controlled and no changes are being made today. 5. Disposition. The patient seems to be doing well and I feel that he will be ready for discharge tomorrow. I will see him again and confirm tomorrow morning.
[2018-10-08 10:00] VITALS: BP 95/59
--- NOTE | 2018-10-08 11:15 | IPNPDOC ---
Subjective Date Seen The patient was seen on 10/08/18. Subjective Chief Complaint/HPI . General: Denies: Chills Constitutional: Denies: Malaise Pulmonary: Denies: Dyspnea, Cough Cardiovascular: Denies: Chest Pain, Palpitations, Lt Headedness Gastrointestinal: Denies: Nausea, Vomiting Neurological: Denies: Weakness Psych: Reports: Mood Normal Objective Physical Examination General Exam: Positive: Alert, Cooperative, No Acute Distress ENT Exam: Positive: Mucous membr. moist/pink Chest Exam: Positive: Diminished; Negative: Rales, Rhonchi, Wheezing Heart Exam: Positive: Rate Normal, Normal S1, Normal S2; Negative: Gallops, Murmurs, Rubs Abdomen Exam: Positive: Normal bowel sounds, Soft; Negative: Tenderness, Hepatospenomegaly, Mass Extremity Exam: Negative: Clubbing, Cyanosis, Edema Skin Exam: Positive: Breakdown (right forearm is wrapped, s/p HD with good function of AV fistula in HD, no bleeding episodes reported ) Neuro Exam: Positive: Normal Speech Psych Exam: Positive: Oriented x 3 Assessment /Plan Assessment 1. Right upper extremity fistula bleeding -s/p revision 10.02.18 with vascular surgery -patient s/p dialysis av fistula working well -patient reports minimal pain of right upper extremity 2. 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 Repeat blood cultures sent on 10/03 -third set blood cx now positive for GNR 10.03.18-enterobacter -CT abdomen pelvis with no intra-abdominal abscess - HERMILO with cardiology ruled out vegetations -patient on meropenem/Vanco antibiotic, restarted on vancomycin with HD days -CRP improved today, will de-escalate antibiotic therapy today-monitor labs in AM -Hemodynamically stable 3. DM2 - continue current insulin regimen 4. ESRD on HD -nephrology on board -dialysis as per nephrology 5. 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 Hypertension - controlled continue home meds 7. History of atrial fibrillation- - rate controlled, currently on Eliquis which has been on hold due to AV fistula bleed - to be resumed when cleared by Dr. Auguste -c/w amiodarone 8. CAD s/p CABG/PCI -c/w current medications, patient has not complained of chest pain 9. dvt px -scd teds 10. Physical deconditioning -PT ordered Plan/VTE VTE Prophylaxis Ordered?: Yes VS, I&O, 24H, Fishbone Vital Signs/I&O Vital Signs Date Time Temp Pulse Resp B/P (MAP) Pulse Ox O2 Delivery O2 Flow Rate FiO2 10/08/18 10:00 96.8 60 16 95/59 (71) 100 10/08/18 06:00 NIPPV (BIPAP/CPAP) 10/05/18 02:00 2.0 10/03/18 00:00 97 I&O- Last 24 Hours up to 6 AM 10/08/18 06:00 Intake Total 1200 ml Output Total 1700 ml Balance -500 ml Laboratory Data 24H LABS Laboratory Tests 2 10/07/18 13:40: Bedside Glucose (Misc Panel) 133H 10/07/18 16:34: Bedside Glucose (Misc Panel) 170H 10/07/18 20:17: Bedside Glucose (Misc Panel) 181H 10/08/18 05:21: Immature Granulocyte % (Auto) , Nucleated Red Blood Cells % (auto) 0.4H, Neutrophils 67, Band Neutrophils 2, Lymphocytes (Manual) 22, Monocytes (Manual) 6, Eosinophils (Manual) 2, Myelocytes 1H, Platelet Estimate NORMAL, Polychromasia 1+, Anisocytosis 1+, Macrocytosis 1+, Anion Gap 8, Glomerular Filtration Rate 20.8L, Blood Urea Nitrogen 6#L, Creatinine 3.14H, Sodium Level 136, Potassium Level 4.0, Chloride Level 100, Carbon Dioxide Level 28, Calcium Level 8.4L, C-Reactive Protein, Quantitative 4.65H CBC/BMP Laboratory Tests 10/08/18 05:21 Red Blood Count 2.82 L, Mean Corpuscular Volume 97.9 H, Mean Corpuscular Hemoglobin 31.6, Mean Corpuscular Hemoglobin Concent 32.2, Red Cell Distribution Width 17.6 H, Calcium Level 8.4 L Microbiology Microbiology 10/05/18 Blood Culture - Preliminary, Resulted No Growth after 72 hours. All specime... 10/05/18 Blood Culture - Preliminary, Resulted No Growth after 72 hours. All specime... 10/03/18 Blood Culture - Final, Complete NO GROWTH AFTER 5 DAYS 10/03/18 Blood Culture - Final, Complete Enterobacter Cloacae Complex 09/30/18 Blood Culture - Final, Complete NO GROWTH AFTER 5 DAYS 09/30/18 Blood Culture - Final, Complete Staphylococcus Epidermidis 09/29/18 Blood Culture - Final, Complete Enterococcus Faecalis 09/29/18 Blood Culture - Final, Complete NO GROWTH AFTER 5 DAYS GME ATTESTATION GME ATTESTATION My faculty preceptor for this patient encounter was physically present during the encounter and was fully available. All aspects of the patient interview, examination, medical decision making process, and medical care plan development were reviewed and approved by the faculty preceptor. The faculty preceptor is a [employer] and concurs with the plan as stated in the body of this note and will attest to such by his/her cosignature. TYRESE TEIXEIRA DO Oct 08, 2018 11:15
[2018-10-08 14:00] VITALS: BP 113/56
--- NOTE | 2018-10-08 14:17 | IPN ---
DATE: 10/08/2018 Mr. Schrader is seen this morning on his bedside. He is feeling well and denies any nausea, vomiting, dyspnea or chest pain. He underwent regular hemodialysis yesterday which he tolerated very well. His next dialysis is going to be scheduled for tomorrow. The patient reports that Dr. Auguste inspected his wound and felt comfortable that it is healing. The patient had various positive blood cultures and has been on antibiotics. PHYSICAL EXAMINATION: Temperature 96.8 degrees Fahrenheit, heart rate 60 per minute and respiratory rate 16 per minute. Blood pressure 95/59 mmHg and oxygen saturation 100%. Head is atraumatic. Neck is supple and without JVD or thyroid enlargement. There is no oral thrush or ulcers. Heart sounds are irregular in rhythm and lungs clear to auscultation. Abdomen soft and nontender and bowel sounds are normal. Extremities have no cyanosis or clubbing. Right forearm surgical site is covered with dressing. His AV fistula in right forearm is patent. Neurologically, he is awake, alert and oriented x3. Today's labs show WBC count 7.5, hemoglobin 8.9 and hematocrit 27.6. Sodium 136, potassium 4.0, BUN 6 and creatinine 3.14. C-reactive protein is down to 4.65. PROBLEMS: 1. End-stage renal disease. The patient was dialyzed yesterday and we plan to dialyze him again tomorrow which is a regular day for him. His electrolytes are stable and volume status is well-compensated. 2. Sepsis with bacteremia. The patient had various blood cultures positive. However, most recent blood cultures from October 05 is negative so far. I discussed with Dr. Anjelica Quinonez today about antibiotic choices as an outpatient. He is already on meropenem and vancomycin after dialysis. He will get vancomycin after dialysis and also we will switch him to ceftazidime. 3. Anemia. The patient had acute blood loss anemia in the setting of bleeding from his AV fistula. Since she was transfused his anemia has been stable and we hope that it will improve with treatment. There is no emergent indication for a transfusion. DISPOSITION: The patient is going to have dialysis tomorrow here and then we will consider to discharge him on .
[2018-10-08] MEDS: **VANCO AFTER HD** MISC XX SCH (16:00)
[2018-10-08 22:00] VITALS: BP 114/58
[2018-10-09] MEDS: ACETAMINOPHEN TAB 650MG DOSE (2X325MG) PO PRN (01:03)
[2018-10-09 02:00] VITALS: BP 115/62
[2018-10-09] MEDS: FLUoxetine 20 MG CAP PO SCH (05:39)
[2018-10-09] MEDS: AMIODARONE 200 MG TAB (PACERONE) PO SCH (05:39)
[2018-10-09] MEDS: PRAVASTATIN 20 MG TAB PO SCH (05:39)
[2018-10-09] MEDS: DOCUSATE SODIUM 100 MG CAP PO SCH ×2 (05:44→20:31)
[2018-10-09 06:00] VITALS: BP 110/60
[2018-10-09 06:06] LABS: C REACTIVE PROTEIN QUANTITATIV 3.02 MG/DL (0.00-0.30)
[2018-10-09] MEDS: HumaLOG INSULIN (NovoLOG) PER UNIT SC SCH ×3 (07:30→16:29)
[2018-10-09 07:56] LABS: ALBUMIN 2.3 GM/DL (3.2-5.2); CALCIUM LEVEL 8.3 MG/DL (8.8-10.2); CREATININE FOR GFR 4.64 MG/DL (0.70-1.30); GLOMERULAR FILTRATION RATE 13.3 (>42); PHOSPHORUS LEVEL 2.8 MG/DL (2.5-4.9); POTASSIUM SERUM 4.8 MEQ/L (3.5-5.1)
--- NOTE | 2018-10-09 08:18 | IPNPDOC ---
Subjective Date Seen The patient was seen on 10/09/18. Subjective Chief Complaint/HPI . General: Reports: Normal Appetite; Denies: Chills, Fatigue Constitutional: Denies: Weakness Pulmonary: Denies: Dyspnea, Cough Cardiovascular: Denies: Chest Pain, Palpitations, Orthopnea, Paroxysmal Noc. Dyspnea, Edema, Lt Headedness Gastrointestinal: Denies: Nausea, Vomiting Genitourinary: Denies: Dysuria Neurological: Denies: Weakness Objective Physical Examination General Exam: Positive: Alert, Cooperative, No Acute Distress ENT Exam: Positive: Mucous membr. moist/pink Chest Exam: Positive: Diminished; Negative: Rales, Rhonchi, Wheezing Heart Exam: Positive: Rate Normal, Normal S1, Normal S2; Negative: Gallops, Murmurs, Rubs Abdomen Exam: Positive: Normal bowel sounds, Soft; Negative: Tenderness, Hepatospenomegaly, Mass Extremity Exam: Negative: Clubbing, Cyanosis, Edema Skin Exam: Positive: Breakdown (right forearm is wrapped, in HD with good function of AV fistula in HD, no bleeding episodes reported ) Neuro Exam: Positive: Normal Speech Psych Exam: Positive: Oriented x 3 Assessment /Plan Assessment 1. Right upper extremity fistula bleeding -seen in HD, fistula is working well -s/p revision 18 with vascular surgery -patient s/p dialysis av fistula working well -patient reports minimal pain of right upper extremity 2. 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 Repeat blood cultures sent on 10/03 -third set blood cx now positive for GNR 12..18-enterobacter -CT abdomen pelvis with no intra-abdominal abscess - HERMILO with cardiology ruled out vegetations -patient on Meropenem/Vanco antibiotic, restarted on vancomycin with HD days -CRP improved, will de-escalate antibiotic therapy tomorrow on outpatient d/c after HD today -Hemodynamically stable 3. DM2 - continue current insulin regimen 4. ESRD on HD -nephrology on board -dialysis as per nephrology 5. 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 Hypertension - controlled continue home meds 7. History of atrial fibrillation- - rate controlled, currently on Eliquis which has been on hold due to AV fistula bleed - to be resumed when cleared by Dr. Auguste -c/w Amiodarone 8. CAD s/p CABG/PCI -c/w current medications, patient has not complained of chest pain 9. DVT px -scd teds 10. Physical deconditioning -PT ordered Plan/VTE VTE Prophylaxis Ordered?: Yes VS, I&O, 24H, Fishbone Vital Signs/I&O Vital Signs Date Time Temp Pulse Resp B/P (MAP) Pulse Ox O2 Delivery O2 Flow Rate FiO2 10/09/18 06:00 97.1 66 16 110/60 (77) 99 Room Air 10/05/18 02:00 2.0 10/03/18 00:00 97 I&O- Last 24 Hours up to 6 AM 10/09/18 06:00 Intake Total 1540 ml Output Total 0 ml Balance 1540 ml Laboratory Data 24H LABS Laboratory Tests 2 10/08/18 11:43: Bedside Glucose (Misc Panel) 103 10/08/18 16:49: Bedside Glucose (Misc Panel) 113H 10/08/18 20:08: Bedside Glucose (Misc Panel) 100 10/09/18 05:18: Blood Urea Nitrogen 12#, Creatinine 4.64H, Sodium Level 138, Potassium Level 4.8, Chloride Level 101, Carbon Dioxide Level 28, Anion Gap 9, Glomerular Filtration Rate 13.3L, Calcium Level 8.3L, Phosphorus Level 2.8, C-Reactive Protein, Quantitative 3.02H, Albumin 2.3L 10/09/18 05:53: Bedside Glucose (Misc Panel) 106 CBC/BMP Laboratory Tests 10/09/18 05:18 Anion Gap 9 Microbiology Microbiology 10/05/18 Blood Culture - Preliminary, Resulted No Growth after 72 hours. All specime... 10/05/18 Blood Culture - Preliminary, Resulted No Growth after 72 hours. All specime... 10/03/18 Blood Culture - Final, Complete NO GROWTH AFTER 5 DAYS 10/03/18 Blood Culture - Final, Complete Enterobacter Cloacae Complex 09/30/18 Blood Culture - Final, Complete NO GROWTH AFTER 5 DAYS 09/30/18 Blood Culture - Final, Complete Staphylococcus Epidermidis 09/29/18 Blood Culture - Final, Complete Enterococcus Faecalis 09/29/18 Blood Culture - Final, Complete NO GROWTH AFTER 5 DAYS GME ATTESTATION GME ATTESTATION My faculty preceptor for this patient encounter was physically present during the encounter and was fully available. All aspects of the patient interview, examination, medical decision making process, and medical care plan development were reviewed and approved by the faculty preceptor. The faculty preceptor is aware and concurs with the plan as stated in the body of this note and will attest to such by his/her cosignature. TYRESE TEIXEIRA DO Oct 09, 2018 08:18
[2018-10-09 08:34] LABS: BASO % 0.5 % (0.0-1.0); EOS # 0.3 10^3/uL (0.0-0.50); EOS % 4.1 % (0.0-3.0); HEMATOCRIT 27.2 % (42.0-52.0); HEMOGLOBIN 8.7 g/dl (13.5-17.5); LYMPH # 0.8 10^3/uL (1.5-4.5); LYMPH % 10.5 % (24.0-44.0); MEAN CORPUSCULAR HEMOGLOBIN 31.9 pg (27.0-33.0); MEAN CORPUSCULAR VOLUME 99.6 fl (80.0-96.0); MONO # 0.8 10^3/uL (0.0-0.8); MONO % 10.1 % (0.0-5.0); NEUTROPHILS # 5.3 10^3/uL (1.8-7.7); NEUTROPHILS % 70.3 % (36.0-66.0); PLATELET COUNT, AUTOMATED 220 10^3/uL (150-450); RED BLOOD COUNT 2.73 10^6/uL (4.30-6.10); WHITE BLOOD COUNT 7.5 10^3/uL (4.0-10.0)
[2018-10-09] MEDS: MEROPENEM INJ 1 GM in APPROPRIATE DILUENT 1 EA IV SCH (08:35)
[2018-10-09] MEDS: LEVEMIR (INSULIN DETEMIR) 1 UNITS/0.01ML SC SCH (08:35)
[2018-10-09 10:00] VITALS: BP 106/57
[2018-10-09 15:00] VITALS: BP 120/66
[2018-10-09] MEDS: **VANCO AFTER HD** MISC XX SCH (15:00)
[2018-10-09] MEDS: VANCOMYCIN HCL 750 MG, VIAL MATE ADAPTER 1 EACH in D5W 250 ML IV SCH (15:00)
[2018-10-09 18:00] VITALS: BP 103/57
[2018-10-09 20:00] VITALS: BP 101/52
--- NOTE | 2018-10-09 21:33 | IPN ---
DATE: 10/09/2018 Mr. Villarreal is seen this morning during hemodialysis. He is feeling well and denies any nausea, vomiting, dyspnea, or chest pain. His right arm arteriovenous (AV) fistula is working. PHYSICAL EXAMINATION: Temperature 97.2 degrees Fahrenheit, heart rate 82 per minute, respiratory rate 18 per minute, blood pressure 106/57 mm of mercury, and oxygen saturation 99% on room air. His head is atraumatic. Neck is supple and without jugular venous distention (JVD) or thyroid enlargement. There is no oral thrush or ulcers. Pupils are equal and reactive to light, and sclerae are anicteric. Heart sounds are irregular in rhythm, and lungs sound clear to auscultation. Abdomen is soft, obese, and nontender, and bowel sounds are normal. Extremities have no cyanosis or clubbing. Right forearm AV fistula is functioning, and there is a dressing at the site where he had infected fistula excised. Neurologically, he is awake, alert and oriented times three. Today's labs show WBC count 7.5, hemoglobin 8.7, hematocrit 27.2, platelets of 220. Sodium 138, potassium 4.8, CO2 of 28. C-reactive protein 2.4 PROBLEMS: 1. End-stage renal disease. The patient is being dialyzed today and will complete his dialysis treatment. Today is his regular dialysis day. 2. Sepsis related to infected fistula. The patient had resection of the infected fistula and has been on antibiotics due to multiple organisms growing in blood cultures. Currently he is on meropenem and vancomycin. After discharge he will be switched to vancomycin and ceftazidime as an outpatient. Blood cultures drawn from October 05 are negative so far. 3. Acute blood loss anemia. The patient had bleeding from AV fistula and required a transfusion. Since then has been stable, and we will continue to treat with Aranesp . 4. Disposition. From a renal standpoint, the patient can be discharged to home tomorrow. 5. Atrial fibrillation. His ventricular rate is well controlled at present, and he remains on amiodarone. Currently he is off anticoagulation. MTDD
[2018-10-10] VITALS: BP 106/56
[2018-10-10 04:00] VITALS: BP 108/60
[2018-10-10] MEDS: HumaLOG INSULIN (NovoLOG) PER UNIT SC SCH (07:30)
--- NOTE | 2018-10-10 08:55 | DS.PDOC ---
Discharge Summary General Date of Admission Sep 30, 2018 at 18:41 Date of Discharge 10/10/18 Discharge Summary PROCEDURES PERFORMED DURING STAY: Right wrist A-V fistula revision DISCHARGE DIAGNOSES: 1. Infected Right fore arm AV fistula s/p resection of the infected site and revision of fistula. 2. Enterococcus faecalis and Enterobacter bacteremia and staph epidermidis bacteremia 3. DM2 4. ESRD on HD 5. Acute blood loss anemia on chronic Anemia 2/2 ESRD due to recent blood loss due to AV fistula bleed 6. Hypertension 7. History of atrial fibrillation- 8. CAD s/p CABG/PCI 9. Secondary Hyperparathyroidism 10.Physical deconditioning COMPLICATIONS/CHIEF COMPLAINT: Bleeding Diathesis. HISTORY OF PRESENT ILLNESS: This is a 73 y/o male who presented to the ED on 09.29.18 with complaint right arm AV fistula bleed. HOSPITAL COURSE: During the course of the patients hospital stay he was found to be bacteremic with multiple pathogens, he was covered in house with IV antibiotics with likely source being his right AV fistula as it had history of being infected in past with graft which had since been removed. He did have AV fistula revision performed with vascular surgery and the patient had good use multiple times in-house with HD after the revision and no further bleeding episodes reported. The patient eventually had negative blood cultures and will be discharged with IV antibiotics to be administered during his HD days. Right upper extremity graft rupture and bleeding due to infection and ulceration lower part of the graft has been excised Right AV graft infection infected area excised by Dr Auguste to complete course of antibiotics ceftazidime and vancomycin during HD. Enterococcus faecalis and Enterobacter bacteremia- patient with prior bacteremia in April after AV fistula placement, and had since cleared Spoke with vascular surgery, apparently patient had infected right AV fistula graft in past that has since been removed, upon questioning the patient notes prior ulceration at the area prior to surgery with drainage in April 2018 Presented on this admission with bleeding at the fistula site, and noted to be bacteremic once again-likely source if from AV fistula Repeat blood cultures on 09/30 positive. Repeat blood cultures sent on 10/03 third set blood cx now positive for GNR 10.03.18-enterobacter CT abdomen pelvis with no intra-abdominal abscess HERMILO with cardiology ruled out vegetations Continue Ceftazidime and vancomycin on HD days DM2 continue current insulin regimen ESRD on HD continue maintenance HD Anemia 2/2 ESRD and recent blood loss due to AV fistula bleed h/h now 8.9/27.6 , s/p 1 unit pRBC in HD along with Venofer and Aranesp continue to monitor Hypertension controlled continue home meds History of atrial fibrillation- rate controlled, currently on Eliquis which has been on hold due to AV fistula bleed - to be resumed when cleared by Dr. Auguste c/w Amiodarone CAD s/p CABG/PCI /w current medications, patient has not complained of chest pain Physical deconditioning PT ordered DISCHARGE MEDICATIONS: Please see below. ALLERGIES: Please see below. PHYSICAL EXAMINATION ON DISCHARGE: VITAL SIGNS: Please see below. GENERAL: Pleasant, sitting in bedside chair, happy to be going home, NAD HEENT: EOMI, nares patent b/l, moist mucus membranes NECK: supple CARDIOVASCULAR EXAMINATION: normal s1 and s2, no murmurs, rubs or gallops appreciated RESPIRATORY EXAMINATION: CTA b/l, no wheezing, rales or rhonchi appreciated ABDOMINAL EXAMINATION: nabsx4, no pain to palpitation, no rebound, no guarding, no distension, no hepatosplenomegaly EXTREMITIES: no swelling, cyanosis or mottling SKIN: intact NEUROLOGICAL EXAMINATION: no focal deficits PSYCHIATRIC EXAMINATION: affect is appropriate LABORATORY DATA: Please see below. IMAGING: CXR 09.29.18 Impression: Stable cardiomegaly and diffuse chronic interstitial changes. Abdominal/pelvis CT 10.02.18 Impression: No acute abdominopelvic pathology appreciated. No ascites, focal inflammatory stranding or adenopathy. Chronic renal disease with small bilateral renal cysts. Extensive atherosclerotic disease. PROGNOSIS: stable ACTIVITY: As tolerated DIET: regular, as tolerated DISCHARGE PLAN: home DISPOSITION: stable DISCHARGE INSTRUCTIONS: Please continue to be adherent to your dialysis days, receive IV antibiotics during HD Follow up with PCP and grease man within 7-10 days of d.c Follow up With Dr Auguste in 1 week DISCHARGE CONDITION: Stable TIME SPENT ON DISCHARGE: Greater than 45 minutes. Vital Signs/I&Os Vital Signs Date Time Temp Pulse Resp B/P (MAP) Pulse Ox O2 Delivery O2 Flow Rate FiO2 10/10/18 04:00 98.0 67 18 108/60 (76) 97 NIPPV (BIPAP/CPAP) 10/05/18 02:00 2.0 I&O- Last 24 Hours up to 6 AM 10/10/18 06:00 Intake Total 1640 ml Output Total 1500 ml Balance 140 ml Laboratory Data Labs 24H Laboratory Tests 2 10/09/18 16:27: Bedside Glucose (Misc Panel) 170H 10/09/18 19:41: Bedside Glucose (Misc Panel) 131H 10/10/18 04:50: Bedside Glucose (Misc Panel) 70L FSBS Laboratory Tests Test 10/09/18 16:27 10/09/18 19:41 10/10/18 04:50 Range/Units Bedside Glucose (Misc Panel) 170 131 70 83-110 MG/DL Microbiology Microbiology 10/05/18 Blood Culture - Final, Complete NO GROWTH AFTER 5 DAYS 10/05/18 Blood Culture - Final, Complete NO GROWTH AFTER 5 DAYS 10/03/18 Blood Culture - Final, Complete NO GROWTH AFTER 5 DAYS 10/03/18 Blood Culture - Final, Complete Enterobacter Cloacae Complex 09/30/18 Blood Culture - Final, Complete NO GROWTH AFTER 5 DAYS 09/30/18 Blood Culture - Final, Complete Staphylococcus Epidermidis Discharge Medications Scheduled (Miles Quintero) 300 Unit/Ml Inj, 36 UNITS SC DAILY, (Reported) (Auryxia) 210 Mg Tab, 630 MG PO AC, (Reported) Amiodarone HCl (Amiodarone HCl) 200 Mg Tab, 200 MG PO DAILY, (Reported) Apixaban Base (Eliquis) 5 Mg Tab, 5 MG PO BID, (Reported) Cinacalcet Hydrochloride (Sensipar) 30 Mg Tab, 30 MG PO 2XW, (Reported) SUNDAY AND SUNDAY Docusate Sodium (Colace) 100 Mg Cap, 100 MG PO BID, (Reported) Ergocalciferol (Vitamin D) 50,000 Unit Cap, 50,000 UNITS PO QWEEK, (Reported) MONDAYS Fluoxetine Hcl (Fluoxetine) 20 Mg Cap, 20 MG PO DAILY, (Reported) Insulin Human Lispro (Humalog) 1 Units/0.01 Ml Inj, 10 UNITS SC TID, (Reported) Pravastatin Sodium (Pravastatin Sodium) 20 Mg Tab, 20 MG PO DAILY, (Reported) Trimethoprim/Sulfamethoxazole (Bactrim Ds 800-160 mg) 1 Tab Tab, 1 TAB PO BID for wound infection Scheduled PRN Lorazepam (Lorazepam) 0.5 Mg Tab, 0.5 MG PO ASDIRECTED PRN for ANXIETY, (Reported) TAKES PRN WHEN AT DIALYSIS Oxycodone/Acetaminophen (Oxycodone/Acetaminophen 5-325 mg) 1 Tab Tab, 1 TAB PO QID PRN for PAIN, (Reported) Polyethylene Glycol (Miralax) 1 Pow Pow, 17 GM PO DAILY PRN for CONSTIPATION, (Reported) Allergies Coded Allergies: Penicillins (Verified Adverse Reaction, Mild, DROWSINESS; DIZZINESS, 09/26/18) Penicillins Cross Reactors (Verified Adverse Reaction, Mild, 09/26/18) GME ATTESTATION GME ATTESTATION My faculty preceptor for this patient encounter was physically present during the encounter and was fully available. All aspects of the patient interview, examination, medical decision making process, and medical care plan development were reviewed and approved by the faculty preceptor. The faculty preceptor is aware and concurs with the plan as stated in the body of this note and will attest to such by his/her cosignature. TYRESE TEIXEIRA DO Oct 10, 2018 08:55 JUSTEN JACKSON MD Oct 26, 2018 03:35
[2018-10-10] MEDS: DOCUSATE SODIUM 100 MG CAP PO SCH (09:19)
[2018-10-10] MEDS: PRAVASTATIN 20 MG TAB PO SCH (09:19)
[2018-10-10] MEDS: MEROPENEM INJ 1 GM in APPROPRIATE DILUENT 1 EA IV SCH (09:19)
[2018-10-10] MEDS: FLUoxetine 20 MG CAP PO SCH (09:19)
[2018-10-10] MEDS: AMIODARONE 200 MG TAB (PACERONE) PO SCH (09:20)
[2018-10-10] MEDS: LEVEMIR (INSULIN DETEMIR) 1 UNITS/0.01ML SC SCH (09:20)
[2018-10-10 10:00] VITALS: BP 101/53
[2018-10-10] MEDS ORDERED: ELIQ5TAB PO (10:39)
--- NOTE | 2018-11-01 14:18 | RO ---
DATE OF PROCEDURE: 10/02/2018 ATTENDING PHYSICIAN: Dr. Priyanka Auguste PLUG CUTTING MACHINE OPERATOR: None. PREOPERATIVE DIAGNOSES: End-stage renal disease, dysfunctional right radiocephalic arteriovenous fistula. POSTOPERATIVE DIAGNOSES: End-stage renal disease, dysfunctional right radiocephalic arteriovenous fistula. PROCEDURE: Revision of right lower right radiocephalic arteriovenous fistula with removal of PTFE graft and translocation of the cephalic vein to the radial artery, patch angioplasty of the radial artery with a XenoSure biologic patch. INDICATION The patient is a 73-year-old male with end-stage renal disease who underwent revision of his right radiocephalic arteriovenous fistula with interposition bypass grafting from the radial artery to the cephalic vein with subsequent revision due to exposure of the graft. The patient now has developed bleeding from the fistula and will require exploration of the fistula with probable removal of the graft. The procedure was described and explained to the patient in detail, including drawing up pictures demonstrating the procedure and the pertinent anatomy. Risks, benefits and alternative options were discussed with the patient. Alternative treatment options included but were not limited to no intervention. Benefits included but were not limited to removal of foreign body for reduction and healing of the infection, as well as salvage of the arteriovenous fistula. Risks included but were not limited to infection, bleeding, loss of arteriovenous access, steal syndrome, possible need for further open surgical intervention, adverse reaction to the prepping and draping materials, adverse reaction to the anesthesia and/or local anesthetic, possible need for transfusion of blood products cerebrovascular accident myocardial infarction pulmonary embolus, DVT, loss of limb, loss of life, poor outcome, poor results and/or poor satisfaction. The risks of not performing procedure included but were not limited to bleeding, worsening infection, loss of limb, loss of arteriovenous access and possibly loss of life. The patient's questions were answered. The patient voices understanding and acceptance of these risks, benefits and alternative treatment options. No promises or guarantees were made to the patient regarding the procedure and/or outcome and results. ANESTHESIA: Local MAC. ESTIMATED BLOOD LOSS: 200 mL IV FLUIDS: 400 mL SPECIMENS: None. HEPARIN: 7000 units followed by an additional 3000, 2000 and 2000 unit boluses. COMPLICATIONS: None. DRAINS: None. SPECIMENS: None. IMPLANTS: XenoSure biologic patch used to perform patch angioplasty of the radial artery. PROCEDURE: The patient was taken to the operating room, placed supine on the operating room table and the right upper extremity was prepped and draped in a standard surgical fashion. A time-out was conducted by myself and the team members in the room confirming the correct patient, procedure and laterality. The incision was opened overlying the previous graft and extended along the course of the cephalic vein. The radial artery was identified, sharply dissected proximally and distally and encircled with vessel loops. The patient was given 7000 units of heparin after which the radial artery was clamped proximally and distally and the PTFE graft was removed from the radial artery. The graft was clamped to prevent backbleeding from the arteriovenous fistula. The radial artery then was closed using a XenoSure biologic patch and #6-0 Prolene suture in running continuous fashion to close the arteriotomy in the right radial artery. There was good flow noted to the right radial artery with Doppler ultrasound evaluation at the completion of the patch angioplasty. The radial artery was then sharply dissected free higher in the arm and clamped proximally and distally. The graft was removed from the cephalic vein, which was dissected free, encircled vessel loops. The cephalic vein was clamped and dissected free and then translocated to the radial artery. An arteriotomy was made in the radial artery, which was elongated with Bland scissors. The cephalic vein was fashioned with a ferrell, after which the cephalic vein was anastomosed to the radial artery in an end-to-side fashion using #6-0 Prolene suture in running continuous fashion. The clamps were removed and there was excellent flow through the fistula, as well as into the radial artery distal to the arteriovenous anastomosis and through the patch angioplasty portion of the radial artery. Hemostasis was obtained, after which the skin was closed using holli after the skin was debrided of all nonviable tissue. Dressings were then applied. The patient tolerated the procedure well. All instrument, sponge, needle counts were correct at the end the case. There were no complications. Dr. Auguste was present for and directed the entire case. The patient was transferred to the recovery room awake, alert, extubated and in stable condition. The procedure results and findings were discussed with the patient in the recovery room with all his questions answered. The procedure results and findings were discussed with the patient's in the surgical waiting room with all of her questions answered.
== END 2018-10-10 11:50 | disposition home or self-care (01) | DRG 252 ==
LOC: M ED 15:31 → M ED INP 20:10 → M MS5PR 22:00 → OBSVTOIN 09-30 18:41
PROVIDERS: ADMIT Internal Medicine; ATTEND Internal Medicine Nephrology
PROC: 03U Upper Arteries, Supplement (ICD-10-PCS; 2018-10-02)
PROC: 03WY0JZ Revision of Synthetic Substitute in Upper Artery, Open Approach (ICD-10-PCS; principal; 2018-10-02 11:29)
DX: T82.838A Hemorrhage due to vascular prosthetic devices, implants and grafts, initial encounter (principal); N18.6 End stage renal disease; I12.0 Hypertensive chronic kidney disease with stage 5 chronic kidney disease or end stage renal disease; Z99.2 Dependence on renal dialysis; E78.00 Pure hypercholesterolemia, unspecified; I48.91 Unspecified atrial fibrillation; I25.10 Atherosclerotic heart disease of native coronary artery without angina pectoris; Z95.5 Presence of coronary angioplasty implant and graft; I25.5 Ischemic cardiomyopathy; E11.22 Type 2 diabetes mellitus with diabetic chronic kidney disease; F41.9 Anxiety disorder, unspecified; Z96.642 Presence of left artificial hip joint; Z90.49 Acquired absence of other specified parts of digestive tract; Z95.810 Presence of automatic (implantable) cardiac defibrillator; Z87.891 Personal history of nicotine dependence; Z79.4 Long term (current) use of insulin; Z79.01 Long term (current) use of anticoagulants; Z79.899 Other long term (current) drug therapy; Z88.0 Allergy status to penicillin

== ENCOUNTER 2018-10-16 11:03 | Inpatient (IN) | payer MEDICARE, OTHER ==
[~2018-10-16] VITALS: Ht 188 cm; Wt 102.0 kg
[~2018-10-16 11:03] MED LIST changes: +OXYC1TAB23 PO; +VANCOMYCIN HCL 1,000 MG, VIAL MATE ADAPTER 1 EACH in D5W 250 ML IV ONE
[2018-10-16] MEDS ORDERED: ACETAMINOPHEN TAB 650MG DOSE (2X325MG) PO PRN (12:15)
[2018-10-16] MEDS ORDERED: DEXTROSE 50% 50 ML SYRINGE IV PRN (12:30)
[2018-10-16] MEDS ORDERED: GLUCOSE 4 GM CHEW TABLET PO PRN (12:30)
[2018-10-16] MEDS ORDERED: GLUCAGON FOR INJ 1 MG VIAL (J1610) SC PRN (12:30)
[2018-10-16 12:53] VITALS: BP 132/73
--- NOTE | 2018-10-16 13:01 | HPEPDOC ---
General Date of Admission Oct 16, 2018 at 11:03 Attending Physician: Richy Auguste MD Chief Complaint The patient is a 73-year-old male admitted with a reason for visit of AV Fi peggy. History of Present Illness 73 y/o male presents for f/u Rt AVF revision with drainage. Pt has type 2 DM with ESRD and underwent Rt R-C AVF creation in 2008. It has worked well until September 2018. The distal fistula found to exposed and infected. Pt underwent distal fistula revision on 09/26/18. On 09/29/18, pt went to ER with Rt AV fistula bleed. Pt was admitted to the hospital for treatment. During the course of his hospital stay pt was found to be bacteremic with multiple pathogens, he was covered in house with IV antibiotics with likely source being his right AV fistula as it had history of being infected in past with graft which had since been removed. The AV fistula has been used multiple times in-house for HD after the revision and no further bleeding episodes reported. The patient eventually had negative blood cultures and was discharged with IV antibiotics to be administered during his HD days on 10/10/18. Pt came in today for c/o constant drainage from the distal fistula. Pt is afebrile. Home Medications Scheduled (Totara Quintero) 300 Unit/Ml Inj, 36 UNITS SC DAILY, (Reported) (Auryxia) 210 Mg Tab, 630 MG PO AC, (Reported) Amiodarone HCl (Amiodarone HCl) 200 Mg Tab, 200 MG PO DAILY, (Reported) Apixaban Base (Eliquis) 5 Mg Tab, 5 MG PO BID, (Reported) Cinacalcet Hydrochloride (Sensipar) 30 Mg Tab, 30 MG PO 2XW, (Reported) SUNDAY AND SUNDAY Docusate Sodium (Colace) 100 Mg Cap, 100 MG PO BID, (Reported) Ergocalciferol (Vitamin D) 50,000 Unit Cap, 50,000 UNITS PO QWEEK, (Reported) MONDAYS Fluoxetine Hcl (Fluoxetine) 20 Mg Cap, 20 MG PO DAILY, (Reported) Insulin Human Lispro (Humalog) 1 Units/0.01 Ml Inj, 10 UNITS SC TID, (Reported) Pravastatin Sodium (Pravastatin Sodium) 20 Mg Tab, 20 MG PO DAILY, (Reported) Trimethoprim/Sulfamethoxazole (Bactrim Ds 800-160 mg) 1 Tab Tab, 1 TAB PO BID for wound infection Scheduled PRN Lorazepam (Lorazepam) 0.5 Mg Tab, 0.5 MG PO ASDIRECTED PRN for ANXIETY, (Reported) TAKES PRN WHEN AT DIALYSIS Oxycodone/Acetaminophen (Oxycodone/Acetaminophen 5-325 mg) 1 Tab Tab, 1 TAB PO QID PRN for PAIN, (Reported) Polyethylene Glycol (Miralax) 1 Pow Pow, 17 GM PO DAILY PRN for CONSTIPATION, (Reported) Allergies Coded Allergies: Penicillins (Verified Adverse Reaction, Mild, DROWSINESS; DIZZINESS, 09/26/18) Penicillins Cross Reactors (Verified Adverse Reaction, Mild, 09/26/18) Past Medical History Medical History 1. Hypertension 2. Hypercholesterolemia 3. IDDM type 2 4. Atrial Fibrillation 5. ESRD 6. CAD Surgical History 1. Heart Triple Bypass, 2. Defibrillator/Icd, 3. Cardiac Stents, 3. Removal of Gallbladder, 5. Knee Replacement 6. Hip - FRACTURE /ORIF 7. Right AVF creation in 2008, Revision - 04/25/18, 09/26/18 (for infection) Review of Systems Constitutional: Denies: Chills, Fever, Night Sweats Eyes: Denies: Pain, Vision change ENT: Denies: Head Aches, Ear Pain, Dysphagia Skin: Denies: Rash, Lesions, Breakdown Pulmonary: Denies: Dyspnea, Cough Cardiovascular: Denies: Chest Pain, Palpitations, Orthopnea, Paroxysmal Noc. Dyspnea, Lt Headedness Gastrointestinal: Denies: Nausea, Vomiting, Abdominal Pain, Diarrhea Genitourinary: Denies: Dysuria, Frequency, Incontinence, Retention Hematologic: Denies: Bruising, Bleeding Excessively Musculoskeletal: Denies: Neck Pain, Back Pain, Joint Pain, Muscle Pain, Spasms Neurological: Denies: Weakness, Numbness, Change in speech, Confusion Psych: Reports: Mood Normal; Denies: Depression, Memory Issues Other systems 14 systems reviewed and were negative except those listed in HPI. Physical Examination General Exam: Positive: Alert, No Acute Distress Eye Exam: Positive: PERRLA, Conjunctiva & lids normal, EOMI ENT Exam: Positive: Atraumatic Neck Exam: Positive: Supple, +2 carotid pulse wo bruit Chest Exam: Positive: Clear to auscultation, Normal air movement; Negative: Rales, Rhonchi, Wheezing, Diminished, Other Heart Exam: Positive: Rate Normal, Normal S1, Normal S2 Abdomen Exam: Positive: Normal bowel sounds, Soft; Negative: Tenderness, Mass Extremity Exam: Positive: Normal pulses (2+ b/l), Other ( RUE: pulsatile R-C AVF. Adonis in place in forearm, there are some purulent discharge with nonhealing wound.); Negative: Clubbing, Cyanosis, Edema, Tenderness, Swelling Skin Exam: Positive: Nl turgor and temperature Neuro Exam: Positive: Normal Speech, Cranial Nerves 3-12 NL Psych Exam: Positive: Mental status NL, Mood NL Vital Signs Temp 96.9, RI 65, RR16, BP 1323/73, PSO2 99% RA. Assessment/Plan 1. Rt R-C AVF nonhealing wound infection 73 y/o male with ESRD on HD with R-C AVF that was created in 2008. It has worked well until September 2018. The distal fistula found to be exposed and infected. Pt underwent distal fistula revision on 09/26/18. Pt was admitted to the hospital on 09/29/18 to 10/10/18 for Rt AV fistula bleed. Blood culture with multiple pathogens. Pt was covered in house with IV antibiotics with likely source being his right AV fistula as it had history of being infected in past with graft which had since been removed. The AV fistula has been used multiple times in-house for HD after the revision and no further bleeding episodes reported. Pt came in today with c/o constant drainage from the distal fistula. examination shows nonhealing distal fistula wound with some purulent discharge. Pt was admitted for the fistula wound debridement and IV antibiotic treatment. 2. ESRD on HD 3. IDDM type 2 4. CAD Plan / VTE VTE Prophylaxis Ordered?: Yes Plan Plan 1. Restart home med. 2. Preop lab: CBC diff and BMP. 3. NPO. 4. Dressing change prn 5. AVF wound debridement this evening. 6. Vancomycin 1 g IV q12hr, start 1-2 hours prior to surgery. 7. Nephrology consult for HD today or tomorrow. Dr Mrogan was called. JENI BARAJAS PA-C Oct 16, 2018 13:01
[2018-10-16 13:33] LABS: BASO % 0.6 % (0.0-1.0); EOS # 0.2 10^3/uL (0.0-0.50); EOS % 3.3 % (0.0-3.0); HEMATOCRIT 27.8 % (42.0-52.0); HEMOGLOBIN 9.1 g/dl (13.5-17.5); LYMPH # 0.9 10^3/uL (1.5-4.5); LYMPH % 17.9 % (24.0-44.0); MEAN CORPUSCULAR HEMOGLOBIN 32.2 pg (27.0-33.0); MEAN CORPUSCULAR HGB CONC 32.7 g/dl (32.0-36.5); MEAN CORPUSCULAR VOLUME 98.2 fl (80.0-96.0); MONO # 0.5 10^3/uL (0.0-0.8); MONO % 8.6 % (0.0-5.0); NEUTROPHILS # 3.6 10^3/uL (1.8-7.7); NEUTROPHILS % 69.2 % (36.0-66.0); PLATELET COUNT, AUTOMATED 252 10^3/uL (150-450); RED BLOOD COUNT 2.83 10^6/uL (4.30-6.10); WHITE BLOOD COUNT 5.2 10^3/uL (4.0-10.0)
[2018-10-16] MEDS ORDERED: OXYC1TAB23 PO (13:48)
[2018-10-16] MEDS ORDERED: ELIQ5TAB PO (13:48)
[2018-10-16 13:50] LABS: CREATININE FOR GFR 5.64 MG/DL (0.70-1.30); GLOMERULAR FILTRATION RATE 10.6 (>42); POTASSIUM SERUM 4.4 MEQ/L (3.5-5.1)
[2018-10-16] MEDS ORDERED: fentaNYL 100 MCG/2 ML INJECTION (J3010) As Ordered ONE (19:25)
[2018-10-16] MEDS ORDERED: MIDAZOLAM INJ 2 MG/2 ML VIAL (J2250) As Ordered ONE (19:25)
[2018-10-16] MEDS ORDERED: PROPOFOL 200 MG/20 ML VIAL As Ordered ONE (19:27)
[2018-10-16] MEDS ORDERED: LORazepam 0.5 MG TAB PO PRN (19:45)
[2018-10-16] MEDS ORDERED: MIRALAX *UNIT DOSE* 17GM PACKET PO PRN (19:45)
[2018-10-16] MEDS ORDERED: ePHEDrine SULFATE 25 MG/5 ML(5MG/ML) SYRINGE As Ordered ONE (19:58)
[2018-10-16] MEDS ORDERED: D5W/0.45% SODIUM CHLORIDE 1,000 ML IV SCH (20:45)
[2018-10-16] MEDS ORDERED: PERCOCET 5MG/325MG TAB PO PRN (20:45)
[2018-10-16 21:00] VITALS: BP 106/55
[2018-10-16] MEDS: cefTAZidime 1 GM in D5W MINI-BAG PLUS 50 ML IV SCH (21:20)
[2018-10-16] MEDS: DOCUSATE SODIUM 100 MG CAP PO SCH (21:21)
[2018-10-16] MEDS: APIXABAN 5 MG TAB (ELIQUIS) PO SCH (21:21)
[2018-10-16 21:30] VITALS: BP 108/56
--- NOTE | 2018-10-16 21:59 | CR ---
DATE OF CONSULTATION: 10/16/2018 REFERRING PHYSICIAN: Richy Auguste MD REASON FOR CONSULTATION: Assist in the management of end-stage renal disease. HISTORY OF PRESENT ILLNESS Mr. Schrader is a 73-year-old gentleman with multiple chronic medical problems including diabetes, congestive heart failure, end-stage renal disease, atrial fibrillation, hyperlipidemia and chronic degenerative arthritis. He was recently admitted to [facility] with bleeding from his AV fistula and underwent surgery at that time. He required transfusions. He has been on intravenous vancomycin and ceftazidime as an outpatient in dialysis unit and was seen by Dr. Auguste today for followup and noticed to have further infective area and is going to require further surgery and debridement. He did have some bleeding from the fistula due to which he was admitted because of risk for further heavy bleeding. The patient is due for dialysis today which he missed and will require dialysis due to which nephrology consultation was requested. PAST MEDICAL AND SURGICAL HISTORY Significant for history of type 2 diabetes, hypertension, hypercholesterolemia, atrial fibrillation, morbid obesity, status post gastric lap band procedure, coronary artery disease, congestive heart failure and degenerative arthritis. Past surgical history is significant for triple-vessel coronary artery bypass surgery, automatic implantable cardioverter-defibrillator (AICD) placement, coronary angioplasty with stents, cholecystectomy, knee replacement, hip fracture status post ORIF, right forearm AV fistula creation in 2008 and revision in April 2018 and September 2018 for infection. MEDICATIONS His medications include Toujeo 36 units daily, Auryxia 1 tablet three times a day with meals, amiodarone 200 mg daily, Eliquis 5 mg twice a day, Sensipar 30 mg twice a week, Colace 100 mg twice a day, vitamin D 50,000 units once a week, fluoxetine 20 mg daily, Humalog insulin 10 units three times a day and pravastatin 20 mg daily. He takes lorazepam 0.5 mg as needed for anxiety and oxycodone as needed for pain. ALLERGIES: He has allergy to PENICILLIN. PERSONAL AND SOCIAL HISTORY The patient is and lives with his . He does not smoke or drink. There is no history of drug use. FAMILY HISTORY: Negative for end-stage renal disease. REVIEW OF SYSTEMS The patient denies any fever or chills. He reports some oozing from his AV fistula surgical site and has a dressing on it now. Two weeks ago he had heavy bleeding and at that time required hospitalization and surgical intervention. Ears, nose and throat are unremarkable. Cardiovascular system is negative for dyspnea or chest pain. Respiratory system is negative for cough or hemoptysis. GI system negative for vomiting or diarrhea. system is negative for dysuria or hematuria. Endocrine system is significant for type 2 diabetes which has been well controlled in addition to secondary hyperparathyroidism. Hematological system is significant for chronic anticoagulation. Neurological system is negative for seizures or stroke. Musculoskeletal system is significant for chronic degenerative arthritis. Psychosocial system is significant for depression. Other systems are reviewed and are unremarkable. PHYSICAL EXAMINATION The patient is seen this afternoon on his bedside. He is awake and alert and without any acute distress. Temperature 96.9 degrees Fahrenheit, heart rate 65 per minute and respiratory rate 17 per minute. Blood pressure 132/72 mmHg and oxygen saturation 99% on room air. His head is atraumatic. Neck is supple and without jugular venous distention (JVD) or thyroid enlargement. Pupils equal and reactive to light and sclera is anicteric. Trachea is midline and there is no thyroid enlargement. Heart: Sounds are irregular in rhythm and lungs sound clear to auscultation. Abdomen: Soft and nontender and bowel sounds are normal. Extremities have no cyanosis or clubbing. He has a right forearm AV fistula which has a large dressing on it and fistula is still patent. Neurologically the patient is awake, alert and oriented x3. Today's labs show WBC count 5.2, hemoglobin 9.1 and hematocrit 27.8. Platelets 252. Sodium 136, potassium 4.4, CO2 29, BUN 21 and creatinine 5.64. Glucose 210 and calcium 8.0. PROBLEMS: 1. End-stage renal disease. The patient is due for dialysis today and he is being dialyzed right now. He is tolerating his dialysis treatment very well. 2. Infected right forearm AV fistula. The patient had revision done of his AV fistula a couple of weeks ago and has been on intravenous antibiotics. However, he has more infected area and will require further debridement. He remains on intravenous vancomycin and ceftazidime. Dr. Auguste plans to take him to OR later today. 3. Anemia. This is due to recent blood loss and end-stage renal disease. At this point, anemia is stable and we will continue to monitor closely. There is no emergent indication for a transfusion. 4. Hypertension. Blood pressure is generally well-controlled and he has not been on any antihypertensive medication. 5. Atrial fibrillation. The patient has been on amiodarone and Eliquis which should be continued. 6. Secondary hyperparathyroidism. The patient will continue with Sensipar and vitamin D as previously. 7. History of recent bacteremia. The patient was still on intravenous vancomycin and ceftazidime. He will be given vancomycin 1 gram today after dialysis or just before surgery. We will also resume ceftazidime 1 gram every 24 hours. Thank you for involving me in the care of Mr. Villarreal.
[2018-10-16 22:00] VITALS: BP 110/56
[2018-10-16] MEDS: PERCOCET 5MG/325MG TAB PO PRN (22:06)
[2018-10-16 23:00] VITALS: BP 111/60
[2018-10-17] VITALS (8 sets, daily range): BP systolic 100–127; BP diastolic 55–67
[2018-10-17] MEDS: HumaLOG INSULIN (NovoLOG) PER UNIT SC SCH ×3 (08:52→12:20)
[2018-10-17] MEDS: APIXABAN 5 MG TAB (ELIQUIS) PO SCH ×2 (08:53→21:31)
[2018-10-17] MEDS: PRAVASTATIN 20 MG TAB PO SCH (08:53)
[2018-10-17] MEDS: DOCUSATE SODIUM 100 MG CAP PO SCH ×2 (08:53→21:00)
[2018-10-17] MEDS: AMIODARONE 200 MG TAB (PACERONE) PO SCH (08:53)
[2018-10-17] MEDS: FLUoxetine 20 MG CAP PO SCH (08:53)
--- NOTE | 2018-10-17 11:58 | IPN ---
DATE: 10/17/2018 Mr. Villarreal is seen this morning on his bedside. He was admitted yesterday due to bleeding and infection in his right forearm AV fistula. The patient underwent surgery and debridement of his infected AV fistula last evening. He was dialyzed yesterday prior to the procedure. He is feeling well today and denies any fever, chills, nausea or vomiting. He has no dyspnea or chest pain. PHYSICAL EXAMINATION: Temperature 97.1 degrees Fahrenheit, heart rate 74 per minute and respiratory rate 18 per minute. Blood pressure 100/55 mmHg and oxygen saturation 96% on room air. Head is atraumatic. Neck is supple and without jugular venous distention (JVD) or thyroid enlargement. His heart sounds are irregular in rhythm. Lungs are clear to auscultation. Abdomen is soft and nontender and bowel sounds are normal. Extremities have no leg edema, cyanosis or clubbing. Right forearm fistula surgical site is covered with a dressing. Neurologically, he is awake, alert and oriented times three. The patient did not have any new labs today. PROBLEMS: 1. End-stage renal disease. The patient was dialyzed yesterday and his next dialysis will be due tomorrow. There is no emergent need for dialysis today. 2. Anemia. He does have anemia due to recent acute blood loss and end-stage renal disease. Yesterday his hemoglobin was 9.1. We will check his CBC again tomorrow. There is no emergent indication for a transfusion. He will be given Aranesp 100 mcg with his next dialysis treatment. 3. Infected AV fistula and recent history of bacteremia. The patient has been on vancomycin and ceftazidime. We will continue with the same. 4. Congestive heart failure. At present, his volume status is very well compensated and no emergent dialysis is indicated.
[2018-10-17] MEDS: cefTAZidime 1 GM in D5W MINI-BAG PLUS 50 ML IV SCH (21:31)
[2018-10-18] VITALS (7 sets, daily range): BP systolic 108–123; BP diastolic 58–67
[2018-10-18] MEDS: cefTAZidime 1 GM in D5W MINI-BAG PLUS 50 ML IV SCH ×2 (00:08→20:41)
[2018-10-18] MEDS: PRAVASTATIN 20 MG TAB PO SCH (06:35)
[2018-10-18] MEDS: FLUoxetine 20 MG CAP PO SCH (06:36)
[2018-10-18] MEDS: APIXABAN 5 MG TAB (ELIQUIS) PO SCH ×2 (06:36→20:40)
[2018-10-18] MEDS: CINACALCET 30 MG TAB (SENSIPAR) PO SCH (06:36)
[2018-10-18] MEDS: AMIODARONE 200 MG TAB (PACERONE) PO SCH (06:36)
[2018-10-18] MEDS: DOCUSATE SODIUM 100 MG CAP PO SCH ×2 (06:37→20:40)
[2018-10-18] MEDS: HumaLOG INSULIN (NovoLOG) PER UNIT SC SCH ×3 (07:30→15:50)
[2018-10-18] MEDS ORDERED: DARBEPOETIN 100 MCG/0.5 ML *DIALYSIS* SYRINGE (J0882) IV SCH (09:15)
[2018-10-18 09:22] LABS: BASO # 0.1 10^3/uL (0.0-0.2); EOS # 0.3 10^3/uL (0.0-0.50); EOS % 5.4 % (0.0-3.0); HEMATOCRIT 24.3 % (42.0-52.0); HEMOGLOBIN 8.1 g/dl (13.5-17.5); LYMPH # 0.9 10^3/uL (1.5-4.5); LYMPH % 18.8 % (24.0-44.0); MEAN CORPUSCULAR HEMOGLOBIN 32.1 pg (27.0-33.0); MEAN CORPUSCULAR HGB CONC 33.3 g/dl (32.0-36.5); MEAN CORPUSCULAR VOLUME 96.4 fl (80.0-96.0); MONO # 0.5 10^3/uL (0.0-0.8); MONO % 9.4 % (0.0-5.0); NEUTROPHILS # 3.1 10^3/uL (1.8-7.7); NEUTROPHILS % 64.8 % (36.0-66.0); PLATELET COUNT, AUTOMATED 210 10^3/uL (150-450); RED BLOOD COUNT 2.52 10^6/uL (4.30-6.10); WHITE BLOOD COUNT 4.8 10^3/uL (4.0-10.0)
[2018-10-18 09:24] LABS: ALBUMIN 2.5 GM/DL (3.2-5.2); CALCIUM LEVEL 7.7 MG/DL (8.8-10.2); CREATININE FOR GFR 4.33 MG/DL (0.70-1.30); GLOMERULAR FILTRATION RATE 14.4 (>42); PHOSPHORUS LEVEL 4.9 MG/DL (2.5-4.9); POTASSIUM SERUM 4.5 MEQ/L (3.5-5.1)
[2018-10-18 14:14] LABS: HEP C VIRUS AB INDEX SOURCE PT 0.1 INDEX (0.0-0.8); HEPATITIS B SURFACE ANTIGEN NEGATIVE (NEGATIVE)
[2018-10-18] MEDS ORDERED: fentaNYL 100 MCG/2 ML INJECTION (J3010) As Ordered ONE ×3 (17:11→19:03)
[2018-10-18] MEDS ORDERED: PROPOFOL 200 MG/20 ML VIAL As Ordered ONE ×2 (17:11→18:35)
[2018-10-18] MEDS ORDERED: LIDOCAINE 2% INJ 100 MG/5 ML SDV (FOR ANES.) As Ordered ONE (17:11)
[2018-10-18] MEDS ORDERED: CLINDAMYCIN 600 MG/50 ML PREMIX BAG As Ordered ONE (17:37)
[2018-10-18] MEDS ORDERED: LIDOCAINE 1% SDV INJ 30 ML VIAL As Ordered ONE (17:37)
[2018-10-18] MEDS ORDERED: BUPIVACAINE HCL 0.5% 30 ML VIAL As Ordered ONE (17:37)
[2018-10-18] MEDS ORDERED: HEPARIN SOD (PORCINE) 5000 UNITS/ML VIAL As Ordered ONE ×3 (17:38→18:00)
[2018-10-18] MEDS ORDERED: PHENYLephrine HCL 500 MCG/5 ML (100MCG/ML) SYRINGE (J2370) As Ordered ONE ×2 (17:45→18:14)
[2018-10-18] MEDS ORDERED: MIDAZOLAM INJ 2 MG/2 ML VIAL (J2250) As Ordered ONE (17:45)
[2018-10-18] MEDS ORDERED: ONDANSETRON 4MG/2ML VIAL (J2405) As Ordered ONE (18:00)
[2018-10-18] MEDS ORDERED: NORCO, ANEXSIA 5/325MG TABLET (HYDROcodone/ACETAMINOPHEN) As Ordered ONE (19:03)
[2018-10-18] MEDS: fentaNYL 100 MCG/2 ML INJECTION (J3010) IV PRN ×4 (19:05→19:26)
[2018-10-18] MEDS ORDERED: ONDANSETRON 4MG/2ML VIAL (J2405) IV PRN (19:15)
[2018-10-18] MEDS: NS 1,000 ML IV SCH (19:15)
[2018-10-18] MEDS ORDERED: NORCO, ANEXSIA 5/325MG TABLET (HYDROcodone/ACETAMINOPHEN) PO PRN (19:15)
[2018-10-18] MEDS ORDERED: VANCOMYCIN HCL 1,000 MG, VIAL MATE ADAPTER 1 EACH in D5W 250 ML IV SCH (20:30)
[2018-10-18] MEDS: PERCOCET 5MG/325MG TAB PO PRN (22:00)
--- NOTE | 2018-10-18 22:32 | IPN ---
DATE: 10/18/2018 SUBJECTIVE: The patient was seen and examined at the bedside today, morning. The patient is afebrile, hemodynamically stable, getting hemodialysis done. He denies any active complaints. He is nothing by mouth (n.p.o.) for a procedure on the arteriovenous (AV) fistula in the afternoon after dialysis today. OBJECTIVE: VITAL SIGNS: Temperature is 97.6 degrees Fahrenheit, blood pressure 108/58, pulse is 69, respiratory rate of 15, saturating 100% on room air. INTAKE/OUTPUT: There is no urine output recorded since overnight. Weight on the bed scale is 103.2 kg. PHYSICAL EXAMINATION: GENERAL: The patient is awake, alert, oriented times three, laying in bed getting hemodialysis done. HEAD AND NECK EXAM: Extraocular muscles intact. Pupils equally round and reactive to light. Mucous membranes are moist. Neck is supple. There is no jugular venous distention (JVD). CARDIOVASCULAR: S1, S2, regular rate. No edema of the bilateral lower extremities. RESPIRATORY: Chest is clear to auscultation bilaterally. Bilateral equal air entry. No rales or rhonchi. ABDOMEN: Abdomen is soft. Positive bowel sounds. Nontender. No organomegaly. MUSCULOSKELETAL: No clubbing or cyanosis. AV ACCESS: He has a right forearm AV fistula and distal portion of the fistula at the anastomosis site is covered with a dressing. CENTRAL NERVOUS SYSTEM: No focal deficit. Power is 5/5 in all extremities LAB REVIEW: CBC showed a WBC of 4.8, hemoglobin 8.1, platelets are 210, and BMP showed sodium 136, potassium 4.5, chloride 99, bicarbonate 27, BUN 15, creatinine is 4.3, albumin 2.5. CURRENT INPATIENT MEDICATIONS: The patient's medications were all reviewed by me. He continues to be on IV ceftazidime. There is no change in the medications today as compared with yesterday. ASSESSMENT/PLAN: 1. End-stage renal disease, on dialysis. The patient is being dialyzed today according to Sunday, Sunday, Sunday schedule. He is tolerating the procedure well. Ultrafiltration goal will be 2 liters as tolerated by his blood pressure. 2. Infected right forearm AV fistula. The patient is going for another procedure by vascular surgery in the afternoon today. He continues to be on IV ceftazidime. I am restarting him on vancomycin with hemodialysis as well. 3. Anemia in end-stage renal disease. Hemoglobin is 8.1, which is suboptimal. Patient has been started on Aranesp 200 mcg IV with hemodialysis. He will get the first dose today. Transfuse as needed for hemoglobin below 8. 4. Hypertension with end-stage renal disease. Blood pressure is acceptable. Continue current antihypertensive regimen.
[2018-10-19 00:30] VITALS: BP 120/65
[2018-10-19] MEDS ORDERED: PERCOCET 5MG/325MG TAB PO PRN (02:45)
[2018-10-19 04:30] VITALS: BP 115/63
--- NOTE | 2018-10-19 06:38 | PHACANCOPD ---
PHARMACY VANCOMYCIN DOSING Pt Demographics Demographics Patient Age:73 , Weight:103.200 , Gender: male Adjusted Body Weight Date: 10/19/18, Adjusted Body Weight: [90.6] Kg Events Past 24 Hours Events Past 24 Hours: YES: Dialysis Vancomycin Vancomycin indication: BACTEREMIA/AVF INFECTUION Vancomycin Target Ranges: 15-20 mcg/ml Vancomycin Load Y/N: No Load Dose Date Time Vancomycin Load Dose: Date: Time: Vancomycin Dose Date: 10/19/18. Current Vancomycin Dose: [1 GRAM HD] Intermittent Dosing?: Yes Labs Labs Laboratory Tests 10/18/18 08:27 Red Blood Count 2.52 L, Mean Corpuscular Volume 96.4 H, Mean Corpuscular Hemoglobin 32.1, Mean Corpuscular Hemoglobin Concent 33.3, Red Cell Distribution Width 16.0 H, Neutrophils (%) (Auto) 64.8, Lymphocytes (%) (Auto) 18.8 L, Monocytes (%) (Auto) 9.4 H, Eosinophils (%) (Auto) 5.4 H, Basophils (%) (Auto) 1.0, Neutrophils # (Auto) 3.1, Lymphocytes # (Auto) 0.9 L, Monocytes # (Auto) 0.5, Eosinophils # (Auto) 0.3, Basophils # (Auto) 0.1, Anion Gap 10 Creatinine Clearance Date:10/19/18. Creatinine Clearance: [19.47]. Pending Labs AM RANDOMS TO BE SCHEDULED Assessment and Plan Maintaining Current Dose?: Yes Reason for dose change: No Dose Change Pharmacist Note Pharmacist Note Date: 10/19/18. Pharmacist note:AVF INFECTION/BACTEREMIA-pHARMACY CONSULT TO DOSE VANCOMYCIN WITH GOAL OF 15-20.dIALYSIS M-W-F WITH 1 GRAM TO BE ADMIISTERED AFTER HDREMAINS ON CEFTAZIDIME 1 GRAM DAILY.PCN ALLERGY-WILL CONTINUE TO FOLLOW AND MAKE ADJUSTMENTS NECESSARY MOISE [facility] Oct 19, 2018 06:38
[2018-10-19 08:30] VITALS: BP 108/55
[2018-10-19] MEDS: DOCUSATE SODIUM 100 MG CAP PO SCH ×2 (08:33→21:00)
[2018-10-19] MEDS: AMIODARONE 200 MG TAB (PACERONE) PO SCH (08:33)
[2018-10-19] MEDS: PRAVASTATIN 20 MG TAB PO SCH (08:33)
[2018-10-19] MEDS: APIXABAN 5 MG TAB (ELIQUIS) PO SCH ×2 (08:33→21:07)
[2018-10-19] MEDS: FLUoxetine 20 MG CAP PO SCH (08:33)
[2018-10-19] MEDS: HumaLOG INSULIN (NovoLOG) PER UNIT SC SCH ×3 (08:42→16:42)
[2018-10-19 09:08] LABS: BASO # 0.1 10^3/uL (0.0-0.2); BASO % 1.2 % (0.0-1.0); EOS # 0.3 10^3/uL (0.0-0.50); EOS % 7.1 % (0.0-3.0); HEMATOCRIT 25.6 % (42.0-52.0); HEMOGLOBIN 8.3 g/dl (13.5-17.5); LYMPH # 0.9 10^3/uL (1.5-4.5); LYMPH % 20.5 % (24.0-44.0); MEAN CORPUSCULAR HEMOGLOBIN 32.7 pg (27.0-33.0); MEAN CORPUSCULAR HGB CONC 32.4 g/dl (32.0-36.5); MEAN CORPUSCULAR VOLUME 100.8 fl (80.0-96.0); MONO # 0.4 10^3/uL (0.0-0.8); MONO % 10.4 % (0.0-5.0); NEUTROPHILS # 2.6 10^3/uL (1.8-7.7); NEUTROPHILS % 60.6 % (36.0-66.0); PLATELET COUNT, AUTOMATED 222 10^3/uL (150-450); RED BLOOD COUNT 2.54 10^6/uL (4.30-6.10); WHITE BLOOD COUNT 4.2 10^3/uL (4.0-10.0)
--- NOTE | 2018-10-19 09:28 | PHACANCOPD ---
PHARMACY VANCOMYCIN DOSING Pt Demographics Demographics Patient Age:73 , Weight:102.100 , Gender: male Adjusted Body Weight Date: 10/19/18, Adjusted Body Weight: [90.6] Kg Vancomycin Vancomycin indication: BACTEREMIA/AVF INFECTION Vancomycin Target Ranges: 15-20 mcg/ml Vancomycin Load Y/N: No Load Dose Date Time Vancomycin Load Dose: Date: Time: Vancomycin Dose Date: 10/19/18. Current Vancomycin Dose: [1 GRAM HD] Intermittent Dosing?: Yes Labs Creatinine Clearance Date:10/19/18. Creatinine Clearance: [19.47]. Pending Labs AM RANDOMS TO BE SCHEDULED Assessment and Plan Maintaining Current Dose?: No Reason for dose change: Trough too high Pharmacist Note Pharmacist Note 10/19/18: Random level this AM resulted at 26.8mcg/ml. We will decrease the post- HD dose to 500mg starting after Sunday's normally scheduled dialysis session. We will continue to monitor and make further dose adjustments if needed. Date: 10/19/18. Pharmacist note:AVF INFECTION/BACTEREMIA-pHARMACY CONSULT TO DOSE VANCOMYCIN WITH GOAL OF 15-20.dIALYSIS M-W-F WITH 1 GRAM TO BE ADMIISTERED AFTER HDREMAINS ON CEFTAZIDIME 1 GRAM DAILY.PCN ALLERGY-WILL CONTINUE TO FOLLOW AND MAKE ADJUSTMENTS NECESSARY [facility] Oct 19, 2018 09:28
[2018-10-19 12:30] VITALS: BP 109/61
[2018-10-19] MEDS: **VANCO AFTER HD** MISC XX SCH (13:30)
[2018-10-19] MEDS ORDERED: VANCOMYCIN HCL 500 MG in D5W MINI-BAG PLUS 100 ML IV SCH (16:00)
--- NOTE | 2018-10-19 16:01 | IPN ---
DATE: 10/19/2018 SUBJECTIVE: Patient was seen and examined at the bedside today morning. Patient is afebrile, hemodynamically stable. He was dialyzed yesterday, he tolerated the hemodialysis procedure well. He got revision of the right forearm arteriovenous (AV) fistula site. He denies any active complaints at this point. OBJECTIVE: VITAL SIGNS: Temperature is 98.1 degrees Fahrenheit, blood pressure 108/55, pulse is 77, respiratory rate of 17, saturating 98% on room air. Intake and output: Urine output is not recorded. Estimated blood loss during procedure yesterday was 100 mL. Fluid removal with dialysis has not been recorded but he was dialyzed yesterday. Weight in the bed scale is 102 kg. PHYSICAL EXAMINATION: GENERAL: Patient is awake, alert, oriented times three, laying in bed, no apparent distress. HEAD AND NECK EXAM: Extraocular muscles intact. Pupils equally round and reactive to light. Mucous membranes are moist. Neck is supple. There is no jugular venous distention (JVD). CARDIOVASCULAR: S1, S2, regular rate. No edema of the bilateral lower extremities. RESPIRATORY: Chest is clear to auscultation bilaterally. Bilateral equal air entry. No rales or rhonchi. ABDOMEN: Abdomen is soft. Positive bowel sounds. Nontender. No organomegaly. MUSCULOSKELETAL: Patient has a right forearm AV fistula site dressing. No active bleeding. CENTRAL NERVOUS SYSTEM (TEXTURE ARTIST): No focal deficit. Power is 5/5 in all extremities. LABORATORY REVIEW: CBC showed a WBC of 4.2, hemoglobin 8.3, platelets are 222. CURRENT INPATIENT MEDICATIONS: Patient's medications were all reviewed by me. He continues to be on IV vancomycin with hemodialysis and IV ceftazidime. No other change in the medications today as compared with yesterday. ASSESSMENT AND PLAN: 1. End-stage renal disease on hemodialysis. Patient's regular dialysis days are Sunday, Sunday, Sunday. He was dialyzed yesterday, he tolerated the hemodialysis procedure well. Next hemodialysis will be on 10/21/2018. 2. Infected right forearm arteriovenous (AV) fistula. Patient got another revision of the fistula yesterday. He continues to be on IV antibiotics, vancomycin and ceftazidime. Doses are accurate according to renal function. 3. 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 Patient's hemoglobin is suboptimal. He lost blood yesterday as well. I have ordered one unit of packed red blood cell (PRBC) transfusion to be given today. 4. Hypertension. Blood pressure is acceptable. Volume status is well optimized.
[2018-10-19 16:30] VITALS: BP 111/60
[2018-10-19] MEDS: NS 1,000 ML IV SCH (18:50)
[2018-10-19 20:30] VITALS: BP 129/66
[2018-10-19] MEDS: cefTAZidime 1 GM in D5W MINI-BAG PLUS 50 ML IV SCH (21:07)
[2018-10-20 00:30] VITALS: BP 120/67
[2018-10-20 04:30] VITALS: BP 116/59
[2018-10-20] MEDS: PRAVASTATIN 20 MG TAB PO SCH (08:52)
[2018-10-20] MEDS: HumaLOG INSULIN (NovoLOG) PER UNIT SC SCH ×4 (08:52→21:00)
[2018-10-20] MEDS: FLUoxetine 20 MG CAP PO SCH (08:52)
[2018-10-20] MEDS: APIXABAN 5 MG TAB (ELIQUIS) PO SCH ×2 (08:52→20:48)
[2018-10-20] MEDS: DOCUSATE SODIUM 100 MG CAP PO SCH ×2 (08:52→20:48)
[2018-10-20] MEDS: AMIODARONE 200 MG TAB (PACERONE) PO SCH (08:52)
[2018-10-20 14:00] VITALS: BP 107/59
[2018-10-20] MEDS: **VANCO AFTER HD** MISC XX SCH (14:47)
[2018-10-20] MEDS ORDERED: GLUCOSE 4 GM CHEW TABLET PO PRN (18:00)
[2018-10-20] MEDS ORDERED: GLUCAGON FOR INJ 1 MG VIAL (J1610) SC PRN (18:00)
[2018-10-20] MEDS ORDERED: DEXTROSE 50% 50 ML SYRINGE IV PRN (18:00)
[2018-10-20] MEDS: cefTAZidime 1 GM in D5W MINI-BAG PLUS 50 ML IV SCH (20:48)
[2018-10-20 22:00] VITALS: BP 110/54
[2018-10-21 05:42] LABS: BASO # 0.1 10^3/uL (0.0-0.2); BASO % 1.9 % (0.0-1.0); EOS # 0.3 10^3/uL (0.0-0.50); EOS % 6.7 % (0.0-3.0); HEMATOCRIT 26.3 % (42.0-52.0); HEMOGLOBIN 8.4 g/dl (13.5-17.5); LYMPH # 0.9 10^3/uL (1.5-4.5); LYMPH % 22.3 % (24.0-44.0); MEAN CORPUSCULAR HEMOGLOBIN 32.3 pg (27.0-33.0); MEAN CORPUSCULAR HGB CONC 31.9 g/dl (32.0-36.5); MEAN CORPUSCULAR VOLUME 101.2 fl (80.0-96.0); MONO # 0.4 10^3/uL (0.0-0.8); MONO % 10.5 % (0.0-5.0); NEUTROPHILS # 2.4 10^3/uL (1.8-7.7); NEUTROPHILS % 56.9 % (36.0-66.0); PLATELET COUNT, AUTOMATED 171 10^3/uL (150-450); WHITE BLOOD COUNT 4.2 10^3/uL (4.0-10.0)
[2018-10-21 06:00] VITALS: BP 129/72
[2018-10-21 06:16] LABS: ALBUMIN 2.2 GM/DL (3.2-5.2); CALCIUM LEVEL 7.7 MG/DL (8.8-10.2); CREATININE FOR GFR 6.24 MG/DL (0.70-1.30); GLOMERULAR FILTRATION RATE 9.4 (>42); PHOSPHORUS LEVEL 5.4 MG/DL (2.5-4.9); POTASSIUM SERUM 5.1 MEQ/L (3.5-5.1); VANCOMYCIN RANDOM 23.3 UG/ML
[2018-10-21] MEDS: FLUoxetine 20 MG CAP PO SCH (07:49)
[2018-10-21] MEDS: APIXABAN 5 MG TAB (ELIQUIS) PO SCH ×2 (07:49→20:51)
[2018-10-21] MEDS: AMIODARONE 200 MG TAB (PACERONE) PO SCH (07:50)
[2018-10-21] MEDS: CINACALCET 30 MG TAB (SENSIPAR) PO SCH (07:50)
[2018-10-21] MEDS: PRAVASTATIN 20 MG TAB PO SCH (07:50)
[2018-10-21] MEDS: DOCUSATE SODIUM 100 MG CAP PO SCH ×2 (07:51→20:51)
[2018-10-21] MEDS: HumaLOG INSULIN (NovoLOG) PER UNIT SC SCH ×4 (07:51→20:44)
[2018-10-21] MEDS ORDERED: VITAMIN D 50,000 UNITS CAPSULE (ERGOCALCIFEROL 1.25MG) PO SCH (09:00)
--- NOTE | 2018-10-21 09:39 | IPN ---
DATE: 10/20/2018 SUBJECTIVE: The patient was seen and examined at the bedside, this morning. Patient is afebrile, hemodynamically stable. He denies any active complaints. He denies any more bleeding from the right forearm arteriovenous fistula site. He still has a Alex-Vasquez (AARON) drain in the right forearm and fistula is covered with a dressing. OBJECTIVE: VITAL SIGNS: Temperature is 98.2 degrees Fahrenheit. Blood pressure 116/59, pulse is 80, respiratory rate of 15, saturating 99%. Intake and output: There is no urine output recorded. Weight on the bed scale is 103.7 kg. PHYSICAL EXAMINATION: General: Patient is awake, alert, oriented times three sitting up in the bed in no apparent distress. Head/Neck Exam: Extraocular muscles intact. Pupils equal and reactive to light. Mucous membranes are moist. Neck is supple. There is no jugular venous distention (JVD). Cardiovascular: S1, S2, regular rate. No edema of the bilateral lower extremities. Respiratory: Chest is clear to auscultation bilaterally. Bilaterally good air entry. No rales or rhonchi. Abdomen: Soft. Positive bowel sounds. Nontender. No organomegaly. Musculoskeletal: Right forearm arteriovenous fistula site is covered with a dressing and there is a AARON drain. HEALTH INSPECTOR FOOD: No focal deficit. Power is 5/5 in all four extremities. LAB REVIEW: CBC showed a WBC of 4.2, hemoglobin 8.3, platelets are at 122. There is no BMP available today. CURRENT INPATIENT MEDICATIONS: Patient's medications are all reviewed by me. There is no change in the medications today as compared with yesterday. ASSESSMENT/PLAN: 1. End-stage renal disease on hemodialysis: Patient's regular dialysis days are Sunday, Sunday. He will dialyzed tomorrow morning as per his regular schedule. 2. Infected right forearm arteriovenous fistula: Patient got another revision done during this hospitalization. He continues to be on IV vancomycin and ceftazidime. He reports that there is another procedure tentative planned after dialysis tomorrow afternoon. 3. 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 Patient got one unit of packed red blood cells (PRBC) transfusion done yesterday. CBC will be checked tomorrow for further need of PRBC transfusion during hemodialysis. 4. Secondary hyperparathyroidism: Continue current dose of Sensipar 30 mg by mouth every Sunday, Sunday, Sunday.
--- NOTE | 2018-10-21 12:10 | IPNPDOC ---
Text Note Date of Service The patient was seen on 10/21/18. NOTE Subjective: Patient was examined this morning. He was accompanied by a family member. He was alert and orientated. He had no acute complains. Objective: Vitals See Below General: Alert and orientated elderly gentlemen, no appear distress Head/Neck Exam: No JVD, head is atraumatic Cardiovascular: S1, S2, present in normal sinus Respiratory: CTAB, no wheezing or rhonchi Abdomen: Soft. Non tender, BS present Musculoskeletal: Right forearm arteriovenous fistula site is covered with a dressing and there is a AARON drain. PATIENT REGISTRATION REP: No focal deficit. Alert and responsive Labs See Below ASSESSMENT/PLAN: 1. End-stage renal disease on hemodialysis: He had diaylysis regulary on Sunday, Sunday. He will undergo dialysis today 2. Infected right forearm arteriovenous fistula: Currently on IV vancomycin and ceftazidime. Dr. Auguste in on board. Pt has has a revision surgery. 3. 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 s/p 1 unit of blood transfusion. Stable H and H. Will continue to monitor 4. Secondary hyperparathyroidism: Continue current dose of Sensipar 30 mg by mouth every Sunday, Sunday, Sunday. VS,Fishbone, I+O VS, Fishbone, I+O Laboratory Tests 10/21/18 05:20 Red Blood Count 2.60 L, Mean Corpuscular Volume 101.2 H, Mean Corpuscular Hemoglobin 32.3, Mean Corpuscular Hemoglobin Concent 31.9 L, Red Cell Distribution Width 16.9 H, Neutrophils (%) (Auto) 56.9, Lymphocytes (%) (Auto) 22.3 L, Monocytes (%) (Auto) 10.5 H, Eosinophils (%) (Auto) 6.7 H, Basophils (%) (Auto) 1.9 H, Neutrophils # (Auto) 2.4, Lymphocytes # (Auto) 0.9 L, Monocytes # (Auto) 0.4, Eosinophils # (Auto) 0.3, Basophils # (Auto) 0.1, Anion Gap 11 Vital Signs Date Time Temp Pulse Resp B/P (MAP) Pulse Ox O2 Delivery O2 Flow Rate FiO2 10/21/18 06:00 97.9 80 18 129/72 (91) 100 Room Air I&O- Last 24 Hours up to 6 AM 10/21/18 05:59 Intake Total 3090 ml Output Total 15 ml Balance 3075 ml GME ATTESTATION GME ATTESTATION My faculty preceptor for this patient encounter was physically present during the encounter and was fully available. All aspects of the patient interview, examination, medical decision making process, and medical care plan development were reviewed and approved by the faculty preceptor. The faculty preceptor is aware and concurs with the plan as stated in the body of this note and will attest to such by his/her cosignature. CALLY WAKEFIELD DO Oct 21, 2018 12:10
[2018-10-21 15:07] LABS: C REACTIVE PROTEIN QUANTITATIV 5.08 MG/DL (0.00-0.30)
[2018-10-21] MEDS: **VANCO AFTER HD** MISC XX SCH (16:00)
--- NOTE | 2018-10-21 19:11 | IPNPDOC ---
Subjective Date Seen The patient was seen on 10/21/18. Subjective Chief Complaint/HPI No c/o. had HD today w/o concern. Objective Physical Examination General Exam: Positive: Alert, No Acute Distress Eye Exam: Positive: PERRLA, Conjunctiva & lids normal, EOMI ENT Exam: Positive: Atraumatic Neck Exam: Positive: Supple, +2 carotid pulse wo bruit Chest Exam: Positive: Clear to auscultation, Normal air movement; Negative: Rales, Rhonchi, Wheezing, Diminished, Other Heart Exam: Positive: Rate Normal, Normal S1, Normal S2 Abdomen Exam: Positive: Normal bowel sounds, Soft; Negative: Tenderness, Mass Extremity Exam: Positive: Normal pulses (2+ b/l), Other ( RUE: pulsatile R-C AVF. [place] in place in forearm, Incision C/I with mod serosangunous drainage on dressing, AARON drain15 cc/24 hr); Negative: Clubbing, Cyanosis, Edema, Tenderness, Swelling Skin Exam: Positive: Nl turgor and temperature Neuro Exam: Positive: Normal Speech, Cranial Nerves 3-12 NL Psych Exam: Positive: Mental status NL, Mood NL Assessment /Plan Assessment 1. POD #4 S/p Rt arm R-C AVF revision AARON drain trending down 15 cc last 24 hrs. 2. ESRD on HD. Plan/VTE VTE Prophylaxis Ordered?: Yes Plan 1. Continue current management 2. DC AARON drain 3. Change dressing daily and prn. VS, I&O, 24H, Fishbone Vital Signs/I&O Vital Signs Date Time Temp Pulse Resp B/P (MAP) Pulse Ox O2 Delivery O2 Flow Rate FiO2 10/21/18 06:00 97.9 80 18 129/72 (91) 100 Room Air I&O- Last 24 Hours up to 6 AM 10/21/18 06:00 Intake Total 3000 ml Output Total 15 ml Balance 2985 ml Laboratory Data 24H LABS Laboratory Tests 2 10/20/18 20:41: Bedside Glucose (Misc Panel) 170H 10/21/18 05:20: Immature Granulocyte % (Auto) 1.7, White Blood Count 4.2, Red Blood Count 2.60L, Hemoglobin 8.4L, Hematocrit 26.3L, Mean Corpuscular Volume 101.2H, Mean Corpuscular Hemoglobin 32.3, Mean Corpuscular Hemoglobin Concent 31.9L, Red Cell Distribution Width 16.9H, Platelet Count 171, Neutrophils (%) (Auto) 56.9, Lymphocytes (%) (Auto) 22.3L, Monocytes (%) (Auto) 10.5H, Eosinophils (%) (Auto) 6.7H, Basophils (%) (Auto) 1.9H, Neutrophils # (Auto) 2.4, Lymphocytes # (Auto) 0.9L, Monocytes # (Auto) 0.4, Eosinophils # (Auto) 0.3, Basophils # (Auto) 0.1, Nucleated Red Blood Cells % (auto) 0.0, Blood Urea Nitrogen 22H, Creatinine 6.24H, Sodium Level 131L, Potassium Level 5.1, Chloride Level 96L, Carbon Dioxide Level 24, Anion Gap 11, Glomerular Filtration Rate 9.4L, Calcium Level 7.7L, Phosphorus Level 5.4H, C-Reactive Protein, Quantitative 5.08H, Albumin 2.2L, Random Vancomycin Level 23.3 10/21/18 11:25: Bedside Glucose (Misc Panel) 177H 10/21/18 17:05: Bedside Glucose (Misc Panel) 107 CBC/BMP Laboratory Tests 10/21/18 05:20 Red Blood Count 2.60 L, Mean Corpuscular Volume 101.2 H, Mean Corpuscular Hemoglobin 32.3, Mean Corpuscular Hemoglobin Concent 31.9 L, Red Cell Distributi on Width 16.9 H, Neutrophils (%) (Auto) 56.9, Lymphocytes (%) (Auto) 22.3 L, Monocytes (%) (Auto) 10.5 H, Eosinophils (%) (Auto) 6.7 H, Basophils (%) (Auto) 1.9 H, Neutrophils # (Auto) 2.4, Lymphocytes # (Auto) 0.9 L, Monocytes # (Auto) 0.4, Eosinophils # (Auto) 0.3, Basophils # (Auto) 0.1, Anion Gap 11 JENI BARAJAS PA-C Oct 21, 2018 19:11
[2018-10-21] MEDS: cefTAZidime 1 GM in D5W MINI-BAG PLUS 50 ML IV SCH (20:51)
[2018-10-21 22:00] VITALS: BP 106/58
[2018-10-22 06:00] VITALS: BP 111/56
[2018-10-22] MEDS: **VANCO AFTER HD** MISC XX SCH (08:16)
[2018-10-22] MEDS: FLUoxetine 20 MG CAP PO SCH (08:31)
[2018-10-22] MEDS: APIXABAN 5 MG TAB (ELIQUIS) PO SCH (08:31)
[2018-10-22] MEDS: AMIODARONE 200 MG TAB (PACERONE) PO SCH (08:31)
[2018-10-22] MEDS: PRAVASTATIN 20 MG TAB PO SCH (08:31)
[2018-10-22] MEDS: DOCUSATE SODIUM 100 MG CAP PO SCH (08:31)
[2018-10-22] MEDS: HumaLOG INSULIN (NovoLOG) PER UNIT SC SCH (08:32)
[2018-10-22] MEDS ORDERED: BACT800T5 PO (10:39)
--- NOTE | 2018-10-22 10:55 | IPNPDOC ---
Text Note Date of Service The patient was seen on 10/22/18. NOTE Pt doing well, no c/o, ready to go home. PE: Rt arm dressing with min to mod serosanguineous drainage. Wound c/i no Sx/S infection A/P: Dressing changed with Optiform DC home today Home dressing change with optiform bid until no drainage. Then, change it daily. Bactrim DS 800-160 mg 1 tab bid x 7 days F/u with Dr Auguste in 1 week. VS,Fishbone, I+O VS, Fishbone, I+O Vital Signs Date Time Temp Pulse Resp B/P (MAP) Pulse Ox O2 Delivery O2 Flow Rate FiO2 10/22/18 06:00 98.0 69 17 111/56 (74) 99 Room Air I&O- Last 24 Hours up to 6 AM 10/22/18 06:00 Intake Total 760 ml Output Total 3500 ml Balance -2740 ml JENI BARAJAS PA-C Oct 22, 2018 10:55
--- NOTE | 2018-10-22 11:04 | DS.PDOC ---
Discharge Summary General Date of Admission Oct 16, 2018 at 11:03 Date of Discharge 10/22/18 Attending Physician: Richy Auguste MD Discharge Summary PROCEDURES PERFORMED DURING STAY: Rt arm R-C AVF revision ADMITTING DIAGNOSES: 1. Rt R-C AVF delay healing wound with possible infection 2. ESRD on HD 3. IDDM type 2 4. CAD DISCHARGE DIAGNOSES: 1. Rt R-C AVF delay healing wound 2-4 same above COMPLICATIONS/CHIEF COMPLAINT: Renal Failure. HISTORY OF PRESENT ILLNESS: 73 y/o male presents for f/u Rt AVF revision with drainage. Pt has type 2 DM with ESRD and underwent Rt R-C AVF creation in 2008. It has worked well until September 2018. The distal fistula found to exposed and infected. Pt underwent distal fistula revision on 09/26/18. On 09/29/18, pt went to ER with Rt AV fistula bleed. Pt was admitted to the hospital for treatment. During the course of his hospital stay pt was found to be bacteremic with multiple pathogens, he was covered in house with IV antibiotics with likely source being his right AV fistula as it had history of being infected in past with graft which had since been removed. The AV fistula has been used multiple times in-house for HD after the revision and no further bleeding episodes reported. The patient eventually had negative blood cultures and was discharged with IV antibiotics to be administered during his HD days on 10/10/18. Pt came in today for c/o constant drainage from the distal fistula. Pt is afebrile. HOSPITAL COURSE: Pt underwent Rt arm AVF revision, The wound healing delayed mainly d/t scar tissue and no Sx/S infection was found. Given his recent Hx bacteremia, pt was continued on empirical vancomycin and ceftazidime postoperatively. Pt has been afebrile and recuperated well. The AVF has been functioning for HD w/o concern. Pt was ready for discharge on Bactrim DS x 7 days. DISCHARGE MEDICATIONS: Please see below. ALLERGIES: Please see below. PHYSICAL EXAMINATION ON DISCHARGE: VITAL SIGNS: Please see below. GENERAL: AAO x3 HEENT: NCAD, ALINE, EOMI NECK: Supple, No carotid bruits CARDIOVASCULAR EXAMINATION: RRR, no G/M?R, PP: 2+ b/l RESPIRATORY EXAMINATION: CTAB, no R/R/W ABDOMINAL EXAMINATION: BS nl, NT/ND, no mass EXTREMITIES: No C/C/E, RUE: R-C AVF with strong thrill and pulse, wound c/i no S/Sx infection, min-mod serosanguineous drainage on dressing SKIN: Moist and warm NEUROLOGICAL EXAMINATION: CN2-12, motor and sensation intact, no focal deficits PSYCHIATRIC EXAMINATION: Appropriate mood and affect LABORATORY DATA: Please see below. IMAGING: No PROGNOSIS: Good ACTIVITY: As tolerated. DIET: Resume preop diet DISCHARGE PLAN: discharge today DISPOSITION: home. DISCHARGE INSTRUCTIONS: 1. Change dressing bid w/optiform until no drainage, then change it daily. 2. Do not use Rt arm for pulling, heavy lifting or any type of strenuous activity 3. Can have shower today 4. Bactrim DS 800-160 mg 1 tab bid x 7 days ITEMS TO FOLLOWUP ON ON OUTPATIENT: F/u with Dr Auguste in 1 week DISCHARGE CONDITION: Good TIME SPENT ON DISCHARGE: Greater than 60 minutes. Vital Signs/I&Os Vital Signs Date Time Temp Pulse Resp B/P (MAP) Pulse Ox O2 Delivery O2 Flow Rate FiO2 10/22/18 06:00 98.0 69 17 111/56 (74) 99 Room Air I&O- Last 24 Hours up to 6 AM 10/22/18 06:00 Intake Total 760 ml Output Total 3500 ml Balance -2740 ml Laboratory Data Labs 24H Laboratory Tests 2 10/21/18 11:25: Bedside Glucose (Misc Panel) 177H 10/21/18 17:05: Bedside Glucose (Misc Panel) 107 10/21/18 20:12: Bedside Glucose (Misc Panel) 103 10/22/18 05:19: Erythrocyte Sedimentation Rate 74H 10/22/18 06:17: Bedside Glucose (Misc Panel) 120H FSBS Laboratory Tests Test 10/21/18 11:25 10/21/18 17:05 10/21/18 20:12 10/22/18 06:17 Range/Units Bedside Glucose (Misc Panel) 177 107 103 120 83-110 MG/DL Discharge Medications Scheduled (Miles Quintero) 300 Unit/Ml Inj, 36 UNITS SC DAILY, (Reported) (Auryxia) 210 Mg Tab, 630 MG PO AC, (Reported) Amiodarone HCl (Amiodarone HCl) 200 Mg Tab, 200 MG PO DAILY, (Reported) Apixaban Base (Eliquis) 5 Mg Tab, 5 MG PO BID, (Reported) Cinacalcet Hydrochloride (Sensipar) 30 Mg Tab, 30 MG PO 2XW, (Reported) SUNDAY AND SUNDAY Docusate Sodium (Colace) 100 Mg Cap, 100 MG PO BID, (Reported) Ergocalciferol (Vitamin D) 50,000 Unit Cap, 50,000 UNITS PO QWEEK, (Reported) MONDAYS Fluoxetine Hcl (Fluoxetine) 20 Mg Cap, 20 MG PO DAILY, (Reported) Insulin Human Lispro (Humalog) 1 Units/0.01 Ml Inj, 10 UNITS SC TID, (Reported) Pravastatin Sodium (Pravastatin Sodium) 20 Mg Tab, 20 MG PO DAILY, (Reported) Trimethoprim/Sulfamethoxazole (Bactrim Ds 800-160 mg) 1 Tab Tab, 1 TAB PO BID for wound infection Scheduled PRN Lorazepam (Lorazepam) 0.5 Mg Tab, 0.5 MG PO ASDIRECTED PRN for ANXIETY, (Reported) TAKES PRN WHEN AT DIALYSIS Oxycodone/Acetaminophen (Oxycodone/Acetaminophen 5-325 mg) 1 Tab Tab, 1 TAB PO QID PRN for PAIN, (Reported) Polyethylene Glycol (Miralax) 1 Pow Pow, 17 GM PO DAILY PRN for CONSTIPATION, (Reported) Allergies Coded Allergies: Penicillins (Verified Adverse Reaction, Mild, DROWSINESS; DIZZINESS, ) Penicillins Cross Reactors (Verified Adverse Reaction, Mild, 09/26/18) JENI BARAJAS PA-C Oct 22, 2018 11:04
--- NOTE | 2018-10-22 19:00 | IPNPDOC ---
Text Note Date of Service The patient was seen on 10/22/18. NOTE Subjective: Patient was examined at bedside this AM. He had no acute complaints. He was afebrile overnight. He had dialysis yesterday and 3500 mL of fluid was removed. Objective: Vitals See Below General: Elderly gentleman, resting comfortably in a chair. No acute complaints Head/Neck Exam: Head is atraumatic, no JVD, neck is supple Cardiovascular: S1 and S2 present, no murmurs, no gallops Respiratory: CTAB Abdomen: Soft. Non tender, BS present Musculoskeletal: Right forearm arteriovenous fistula in place Labs See Below taken on 10/21/17 ASSESSMENT/PLAN: 1. End-stage renal disease on hemodialysis: He had diaylysis regulary on Sunday, Sunday. He had dialysis yesterday and 3500 ml of fluid was removed 2. Infected right forearm arteriovenous fistula: Currently on IV vancomycin and ceftazidime. Dr. Auguste in on board. Pt has has a revision surgery. 3. 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 s/p 1 unit of blood transfusion. Stable H and H. Will continue to monitor 4. Secondary hyperparathyroidism: Continue current dose of Sensipar 30 mg by mouth every Sunday, Sunday, Sunday. 5. Position, patient be discharged today. He'll follow up with outpatient dialysis as schedule. VS,Fishbone, I+O VS, Fishbone, I+O Vital Signs Date Time Temp Pulse Resp B/P (MAP) Pulse Ox O2 Delivery O2 Flow Rate FiO2 10/22/18 06:00 98.0 69 17 111/56 (74) 99 Room Air I&O- Last 24 Hours up to 6 AM 10/22/18 06:00 Intake Total 760 ml Output Total 3500 ml Balance -2740 ml GME ATTESTATION GME ATTESTATION My faculty preceptor for this patient encounter was physically present during the encounter and was fully available. All aspects of the patient interview, examination, medical decision making process, and medical care plan development were reviewed and approved by the faculty preceptor. The faculty preceptor is aware and concurs with the plan as stated in the body of this note and will attest to such by his/her cosignature. CALLY WAKEFIELD DO Oct 22, 2018 07:25
--- NOTE | 2018-11-04 08:49 | RO ---
DATE OF PROCEDURE: 10/18/2018 ATTENDING SURGEON: Dr. Priyanka Auguste SERVICE OR WORK DISPATCHER: Nevin Romero PA-C PREOPERATIVE DIAGNOSIS: Bleeding right radiocephalic arteriovenous fistula. POSTOPERATIVE DIAGNOSIS: Bleeding right radiocephalic arteriovenous fistula. PROCEDURE: Revision of right radiocephalic arteriovenous fistula, removal of XenoSure Biologic Patch and closure of the right radial artery primarily. INDICATION: The patient is a 73-year-old male who underwent revision of his right radiocephalic arteriovenous fistula subsequent removal of the interposition bypass graft, transposition of the cephalic vein to a more proximal location of the radial artery and patch angioplasty of the radial artery. The patient underwent evaluation and repair of the radial artery patch angioplasty, but now has had continued bleeding and will undergo revision and/or evaluation of the arteriovenous fistula and radial artery. The procedure was described explained to the patient in detail including drawing of pictures demonstrating the procedure and pertinent anatomy. Risks, benefits and alternative options were discussed with the patient and his . Alternative options included, but were not limited to no intervention. Risks included but were not limited to infection, bleeding, loss of arteriovenous access, steal syndrome, possibly for further open surgical intervention, adverse reaction to the prepping and draping materials, adverse reaction to the anesthetic and oral local anesthetic medications, possible need for transfusion of blood products, cerebrovascular accident, myocardial infarction, pulmonary embolus, deep venous thrombosis (DVT), loss of limb, loss of life, poor outcome, poor satisfaction and poor results. Risks of not performing the procedure included but were not limited to continued bleeding and loss of limb light and/or arteriovenous access. Benefits included but were not limited to healing of the wound, prevention of bleeding and continued salvage of the arteriovenous access. The patient's questions were answered. The patient voices understanding and acceptance of these risks, benefits and alternative treatment options and consents to proceed. There were no promises or guarantees made to the patient regarding the procedure outcome and/or results. ANESTHESIA: Local monitored anesthesia care (MAC). ESTIMATED BLOOD LOSS: 100 mL. IV FLUIDS: 400 mL. HEPARIN: 7000 units. SPECIMEN: None. COMPLICATIONS: None. DRAINS: None. IMPLANTS: None. PROCEDURE: The patient was taken to the operating room, placed supine on the operating table. The right upper extremity was prepped and draped in a standard surgical fashion. A tourniquet was applied to the right upper arm, a time-out was then conducted by myself and the team members in the room confirming the correct patient, procedure and laterality. The incision was opened overlying the radial artery and cephalic vein after removal of the holli at this showed bleeding from the patch angioplasty site of the radial artery. The tourniquet was inflated which controlled bleeding. The XenoSure Biologic Patch had from the radial artery which showed nonviable tissue. The patch was removed and the radial artery was debrided and then closed primarily using #6-0 Prolene suture. The tourniquet was released with good flow and now established through the radial artery into the arteriovenous fistula which was patent had a good thrill. Doppler ultrasound was used to evaluate the radial artery distal to the arteriovenous anastomosis, there was flow noted in the radial artery in the region of the primary closure and distal to the primary closure. Hemostasis was obtained after which the wound was closed using #2-0 nylon suture in interrupted vertical mattress fashion. Dressings were then applied. The patient tolerated the procedure well. All instrument, sponge and needle counts were correct at the end of the case. There were no complications. Dr. Auguste was present for and directed the entire case. The patient was transferred to recovery room awake, alert, extubated and in stable condition. There was good perfusion of the right hand and the right radiocephalic arteriovenous fistula had a strong thrill palpable. The procedure, results and findings were discussed with the patient with all his questions answered in the recovery room. The procedure results and findings were discussed with the patient's in the surgical waiting room with all of her questions answered.
--- NOTE | 2018-11-04 09:01 | RO ---
DATE OF PROCEDURE: 10/16/2018 ATTENDING SURGEON: Dr. Priyanka Auguste STRIPPER BLACK AND WHITE: Nevin Romero PA-C PREOPERATIVE DIAGNOSIS: End-stage renal disease, right wrist nonhealing wound and hematoma status post right radiocephalic arteriovenous fistula revision with removal of interposition bypass graft and transposition of the cephalic vein to a higher location on the radial artery and patch angioplasty of the radial artery. POSTOPERATIVE DIAGNOSIS: End-stage renal disease, right wrist nonhealing wound and hematoma status post right radiocephalic arteriovenous fistula revision with removal of interposition bypass graft and transposition of the cephalic vein to a higher location on the radial artery and patch angioplasty of the radial artery. PROCEDURE: Right radial artery exploration and repair of patch angioplasty, evacuation of hematoma, advancement of skin flaps for closure over the radiocephalic arteriovenous fistula. 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 There was non healing of the incision over the graft with exposed graft which required ventral removal of the graft with patch angioplasty of the radial artery with XenoSure Biologic patch and transposition of the cephalic vein from its initial location on the radial artery to a more proximal location on the radial artery. The fistula is widely patent and being used for hemodialysis, but there is nonhealing of the wound at the wrist in the region of the patch angioplasty of the radial artery with hematoma as well. The patient will undergo right radial artery exploration with possible ligation patch angioplasty repair, debridement and advancement skin flaps for closure over the radial artery. The procedure was described and explained to the patient and his in detail including drawing of pictures demonstrating the procedure and the pertinent anatomy. Risks, benefits and alternative treatment options were discussed with the patient. Alternative treatment options included but were not limited to, no intervention. Benefits included but were not limited to, prevention of bleeding and salvage of the arteriovenous fistula. Risks included but were not limited to, infection, bleeding, loss of arteriovenous access, steal syndrome, possible need for further open surgical intervention, adverse reaction to the prepping and draping materials, adverse reaction to the anesthetic and local anesthesia, possible need for transfusion of blood products, cerebrovascular accident, myocardial infarction, pulmonary embolus, deep vein thrombosis (DVT), loss of limb loss to life, poor outcome, poor satisfaction and poor results. Risks of not performing the procedure included but were not limited to, bleeding, loss of arteriovenous access and continued nonhealing of the wounds. The patient's questions were answered. The patient voices understanding and acceptance of these risks, benefits and alternative treatment options and consents to proceed. There were no promises or guarantees made to the patient regarding the procedure outcome and/or results. ANESTHESIA: Monitored anesthesia care (MAC). ESTIMATED BLOOD LOSS: 50 mL. IV FLUIDS: 200 mL. HEPARIN: None. COMPLICATIONS: None. DRAINS: None. SPECIMENS: None. IMPLANTS: None. DESCRIPTION OF PROCEDURE: The patient was taken to the operating room, placed supine on the operating room table and then prepped and draped in a standard surgical fashion. A time-out was then conducted by myself and the team members in the room confirming the correct patient, procedure and laterality. The incision overlying the radiocephalic arteriovenous fistula and the radial artery was reopened with findings of a small amount of hematoma and a small area of bleeding from the patch angioplasty of the right radial artery. The area of bleeding was controlled using an interrupted #6-0 Prolene suture. The hematoma was evacuated and the wound was irrigated and debrided with all nonviable tissue removed. There was still good flow noted in the fistula as well as in the radial artery distal to the fistula within the patch angioplasty region of the radial artery. The wound was then closed after skin and advancement flaps were created with the skin being approximated with #2-0 Vicryl to approximate the deeper layers and holli to approximate the skin. Dressings were then applied. The patient tolerated the procedure well. All instrument, sponge and needle counts were correct at the end the case. There were no complications. Dr. Augsute was present for and directed the entire case. The patient was transferred to recovery room awake, alert, extubated and in stable condition. The procedure results and findings were discussed with the patient in the recovery room with all of his questions being answered. The procedure results and findings were discussed with the patient's in the surgical waiting area with all of her questions being answered.
== END 2018-10-22 12:16 | disposition home or self-care (01) | DRG 252 ==
LOC: OBSVTOIN 11:03 → M MSPAV 11:03 → EEVIPCON 11:03
PROVIDERS: ADMIT Surgery Vascular Surgery; ATTEND Surgery Vascular Surgery
PROC: 0HXDXZZ Transfer Right Lower Arm Skin, External Approach (ICD-10-PCS; 2018-10-16)
PROC: 03CB0ZZ Extirpation of Matter from Right Radial Artery, Open Approach (ICD-10-PCS; principal; 2018-10-16 15:48)
PROC: 0XP Anatomical Regions, Upper Extremities, Removal (ICD-10-PCS; 2018-10-18)
PROC: 30233N1 Transfusion of Nonautologous Red Blood Cells into Peripheral Vein, Percutaneous Approach (ICD-10-PCS; 2018-10-19)
PROC: 5A1D70Z Performance of Urinary Filtration, Intermittent, Less than 6 Hours Per Day (ICD-10-PCS; 2018-10-21)
DX: T82.7XXA Infection and inflammatory reaction due to other cardiac and vascular devices, implants and grafts, initial encounter (principal); N18.6 End stage renal disease; I13.2 Hypertensive heart and chronic kidney disease with heart failure and with stage 5 chronic kidney disease, or end stage renal disease; N25.81 Secondary hyperparathyroidism of renal origin; I97.638 Postprocedural hematoma of a circulatory system organ or structure following other circulatory system procedure; Y83.1 Surgical operation with implant of artificial internal device as the cause of abnormal reaction of the patient, or of later complication, without mention of misadventure at the time of the procedure; E11.22 Type 2 diabetes mellitus with diabetic chronic kidney disease; E78.00 Pure hypercholesterolemia, unspecified; I48.91 Unspecified atrial fibrillation; I50.9 Heart failure, unspecified; D63.1 Anemia in chronic kidney disease; D50.0 Iron deficiency anemia secondary to blood loss (chronic); T81.9XXA Unspecified complication of procedure, initial encounter; T82.838A Hemorrhage due to vascular prosthetic devices, implants and grafts, initial encounter; I25.10 Atherosclerotic heart disease of native coronary artery without angina pectoris; Z95.5 Presence of coronary angioplasty implant and graft; Z87.81 Personal history of (healed) traumatic fracture; Z99.2 Dependence on renal dialysis; Z90.49 Acquired absence of other specified parts of digestive tract; Z95.810 Presence of automatic (implantable) cardiac defibrillator; Z79.01 Long term (current) use of anticoagulants; Z79.4 Long term (current) use of insulin; Z79.899 Other long term (current) drug therapy; Z88.0 Allergy status to penicillin; Z98.84 Bariatric surgery status

== ENCOUNTER 2018-11-20 10:43 | Emergency (ER) | payer MEDICARE, OTHER ==
[~2018-11-20] VITALS: Ht 188 cm; Wt 102.3 kg
[~2018-11-20 10:43] MED LIST changes: +BACT800T5 PO; -VANCOMYCIN HCL 1,000 MG, VIAL MATE ADAPTER 1 EACH in D5W 250 ML IV ONE
[2018-11-20] MEDS ORDERED: RENA1TAB3 (10:59)
--- NOTE | 2018-11-20 11:22 | REP ---
CT Head without contrast HISTORY: Fall COMPARISON: 10/18/2013 Areas of decreased attenuation are present in the periventricular white matter. This represents small-vessel ischemic disease. There is no intraparenchymal hemorrhage, acute infarct, mass or midline shift. The ventricular system and cortical sulci are dilated consistent with mild volume loss. There is no extra cerebral collection. There is no fracture. The visualized sinuses are clear. IMPRESSION: 1. Small vessel ischemic disease. 2. Mild volume loss. Electronically Signed by Dean Carty MD 11/20/2018 11:13 A
--- NOTE | 2018-11-20 11:27 | REP ---
CT cervical spine without contrast HISTORY: Fall COMPARISON: 10/18/2013 There is no acute fracture or subluxation. Disc bulges with associated osteophyte formation are present at the C3-4 through C6-7 levels. There is minimal narrowing of the spinal canal. Uncinate process and/or facet hypertrophy are present at the C2-3 through C7-T1 levels. These findings produce minimal to moderate narrowing of the neural foramina. The cervical intervertebral discs are decreased in height consistent with disc degeneration. A calcification is present in the right thyroid lobe. IMPRESSION: 1. There is no acute fracture or subluxation. 2. There is cervical spondylosis at the C2-3 through C7-T1 levels. Electronically Signed by Dean Carty MD 11/20/2018 11:19 A
[2018-11-20] MEDS ORDERED: LIDOCAINE 2% W/EPIN INJ 20ML **PRES FREE INJ ONE (14:00)
[2018-11-20] MEDS ORDERED: ACETAMINOPHEN 325 MG TAB PO ONE (14:00)
[2018-11-20] MEDS ORDERED: ADACEL/BOOSTRIX VACCINE (DIPHTH/PERTUSS/ACELL/TETANUS)0.5ML SYR (90715) IM ONE (14:00)
[2018-11-20] MEDS ORDERED: BACI500O8 TOP (14:42)
[2018-11-20 15:09] VITALS: BP 131/71
== END 2018-11-20 15:58 | disposition home or self-care (01) ==
LOC: EDBD 10:43 → M ED 10:43
DX: S01.81XA Laceration without foreign body of other part of head, initial encounter (principal); W01.0XXA Fall on same level from slipping, tripping and stumbling without subsequent striking against object, initial encounter; Y92.89 Other specified places as the place of occurrence of the external cause; N18.6 End stage renal disease; Z99.2 Dependence on renal dialysis; Z88.0 Allergy status to penicillin; Z79.899 Other long term (current) drug therapy; Z79.01 Long term (current) use of anticoagulants; Z79.4 Long term (current) use of insulin

== ENCOUNTER 2018-12-24 06:48 | Day surgery (SDC) | payer MEDICARE, OTHER ==
[~2018-12-24] VITALS: Ht 188 cm; Wt 102.1 kg
[~2018-12-24 06:48] MED LIST changes: +BACI500O8 TOP; +NS 1,000 ML IV ONE; +RENA1TAB3
[2018-12-24] MEDS ORDERED: LIDOCAINE 2% INJ 100 MG/5 ML SDV (FOR ANES.) As Ordered ONE (07:10)
[2018-12-24] MEDS ORDERED: PROPOFOL 200 MG/20 ML VIAL As Ordered ONE (07:10)
--- NOTE | 2018-12-24 08:21 | ROOR ---
Patient Name: Joel Villarreal Procedure Date: 12/24/2018 7:56 AM Date of : 1945 Age: 73 Room: [facility] Gender: Male Note Status: Finalized Procedure: Total Colonoscopy to Cecum + Biopsy Polypectomy Indications: Change in bowel habits, Constipation Providers: Ugo Islas MD Referring MD: ENMA SANCHEZ JR, MD Requesting Provider: Medicines: Monitored Anesthesia Care Complications: No immediate complications. Procedure: Pre-Anesthesia Assessment: - The heart rate, respiratory rate, oxygen saturations, blood pressure, adequacy of pulmonary ventilation, and response to care were monitored throughout the procedure. The Colonoscope was introduced through the anus and advanced to the cecum, identified by appendiceal orifice and ileocecal valve. The colonoscopy was performed without difficulty. The patient tolerated the procedure well. The quality of the bowel preparation was excellent. Findings: The perianal and digital rectal examinations were normal. Non-bleeding internal hemorrhoids were found during retroflexion. The hemorrhoids were small and Grade I (internal hemorrhoids that do not prolapse). Multiple small and large-mouthed diverticula were found in the recto-sigmoid colon, sigmoid colon and descending colon. A small polyp was found at 50 cm proximal to the anus. The polyp was sessile. The polyp was removed with a jumbo cold forceps. Resection and retrieval were complete. The exam was otherwise without abnormality on direct and retroflexion views. Impression: - Non-bleeding internal hemorrhoids. - Diverticulosis in the recto-sigmoid colon, in the sigmoid colon and in the descending colon. - One small polyp at 50 cm proximal to the anus, removed with a jumbo cold forceps. Resected and retrieved. - The examination was otherwise normal on direct and retroflexion views. - The exam was otherwise normal to the cecum. Recommendation: - Patient has a contact number available for emergencies. The signs and symptoms of potential delayed complications were discussed with the patient. Return to normal activities tomorrow. Written discharge instructions were provided to the patient. - High fiber diet. - Discharge patient to home. - Continue present medications. - Await pathology results. - Telephone GI clinic for pathology results in 1 week. - Repeat colonoscopy for symptoms only. - Return to referring physician. - Resume Eliquis (apixaban) at prior dose today. - The findings and recommendations were discussed with the patient's family. Ugo Islas MD Ugo Islas MD 12/24/2018 8:21:10 AM This report has been signed electronically. Number of Addenda: 0 Note Initiated On: 12/24/2018 7:56 AM Estimated Blood Loss: Estimated blood loss: none.
[2018-12-24 08:40] VITALS: BP 112/74
== END 2018-12-24 09:02 | disposition home or self-care (01) ==
LOC: M OPP 06:48
PROVIDERS: ATTEND Internal Medicine Gastroenterology
DX: K64.0 First degree hemorrhoids (principal); D12.6 Benign neoplasm of colon, unspecified; R19.4 Change in bowel habit; K57.30 Diverticulosis of large intestine without perforation or abscess without bleeding; I48.91 Unspecified atrial fibrillation; Z79.899 Other long term (current) drug therapy; Z88.0 Allergy status to penicillin; Z87.891 Personal history of nicotine dependence; Z95.5 Presence of coronary angioplasty implant and graft; Z95.810 Presence of automatic (implantable) cardiac defibrillator

== ENCOUNTER → 2019-02-06 | Outpatient (CLI) | payer MEDICARE, OTHER ==
[~2019-02-06] MED LIST changes: -/PRAV20TA; -/WARF2TA PO; -/WARF4TA OR; +BUPIVACAINE HCL 0.5% 10 ML VIAL As Ordered ONE; -CINA30TA PO; +CINA30TA4 PO; +COUM1TAB14 OR; +COUM1TAB16 PO; +ISOVUE-300 61% 100ML VIAL (Q9967) As Ordered ONE; +LIDOCAINE 2% MDV 20 ML VIAL As Ordered ONE; -NS 1,000 ML IV ONE; +PRAV1TAB39
--- NOTE | 2019-02-12 11:32 | REPIR ---
DATE OF PROCEDURE: 02/06/2019 ATTENDING SURGEON: Dr. Priyanka Auguste AUTOMATIC RIVETING MACHINE OPERATOR: PREOPERATIVE DIAGNOSIS: End-stage renal disease, dysfunctional right radiocephalic arteriovenous fistula. POSTOPERATIVE DIAGNOSIS: End-stage renal disease, dysfunctional right radiocephalic arteriovenous fistula. PROCEDURE: Right radiocephalic arteriovenous fistulogram, retrograde right radial artery angiogram. 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 The patient will now undergo a fistulogram with possible angioplasty stent and/or atherectomy. Risks, benefits and alternative treatment options were discussed with the patient. ANESTHESIA: Local. ESTIMATED BLOOD LOSS: Minimal. IV FLUIDS: 100 mL. COMPLICATIONS: None. DRAINS: None. SPECIMENS: None. IMPLANTS: None. DESCRIPTION OF PROCEDURE: The patient was taken to the angiography suite, placed supine on the angiography room table and then prepped and draped in a standard surgical fashion. The right radiocephalic arteriovenous fistulas was cannulated and a fistulogram and retrograde radial artery angiogram were performed showing no intervention was required. The catheter was removed and manual compression applied at the puncture site for hemostasis. Dressings were then applied. The patient tolerated the procedure well. All instrument, sponge and needle counts were correct at the end of the case. There were no complications. Dr. Auguste was present for and directed the entire case. The patient was transferred to [facility] area and subsequently discharged in stable condition.
== END | disposition home or self-care (01) ==
LOC: M IRPRO 08:52
PROVIDERS: ATTEND Surgery Vascular Surgery
DX: T82.9XXA Unspecified complication of cardiac and vascular prosthetic device, implant and graft, initial encounter (principal); N18.6 End stage renal disease
CPT/HCPCS: 36215; 36901; 75710; C1894; Q9967

== ENCOUNTER → 2019-05-27 | Outpatient (CLI) | payer MEDICARE, OTHER ==
[~2019-05-27] MED LIST changes: -BUPIVACAINE HCL 0.5% 10 ML VIAL As Ordered ONE; -ISOVUE-300 61% 100ML VIAL (Q9967) As Ordered ONE; +ISOVUE-370 76% 100ML VIAL (Q9967) As Ordered ONE; -LIDOCAINE 2% MDV 20 ML VIAL As Ordered ONE
--- NOTE | 2019-05-27 16:21 | REP ---
CT ANGIOGRAM ABDOMINAL AORTA AND BILATERAL LOWER EXTREMITIES: CT angiogram abdominal aorta and bilateral lower extremities performed following the intravenous administration of 100 mL of Isovue-370. Sagittal, coronal and 3D MIP reconstruction images are performed. Mild scattered atherosclerotic calcification is seen of the abdominal aorta. These atherosclerotic calcifications extend into the arterial branches of the abdomen diffusely. However, there is only slight narrowing at the origin of the celiac and superior mesenteric arteries with no significant stenosis. There appears to be 30 to 40% narrowing of the proximal renal arteries bilaterally. Patent inferior mesenteric artery is noted. Right common iliac artery demonstrates mild to moderate circumferential calcific plaque with no stenosis. There is mild narrowing at the origin of the right internal iliac artery. Right external iliac artery demonstrates calcific plaque proximally with mild narrowing but no stenosis. There is also mild narrowing of the right common femoral artery with no stenosis. Right profunda is patent. There is mild to moderate narrowing of the proximal right superficial femora artery without significant stenosis. Focal 50% stenosis is seen of the proximal right SFA. Remainder of the right SFA demonstrates mild diffuse narrowing. There is mild diffuse narrowing of the right popliteal artery. Trifurcation arteries are patent. There appears to be mild to moderate stenosis of the proximal right anterior tibial artery. That artery thins distally somewhat but is patent into the foot. The peroneal and posterior tibial arteries demonstrate moderate diffuse calcified plaque. The peroneal artery becomes severely thin distally, but does traverse into the foot. The posterior tibial artery also demonstrates moderate thinning, but appears to traverse into the foot. Left common iliac artery demonstrates mild diffuse narrowing without stenosis. Left internal and external iliac arteries also demonstrate mild narrowing with no stenosis. Left common femoral artery does not demonstrate significant stenosis with mild diffuse narrowing. Left profunda is patent with mild narrowing. Left superficial femoral artery demonstrates mild calcific plaquing and narrowing diffusely, particularly proximally with no significant stenosis. Left popliteal artery demonstrates mild diffuse narrowing. A portion of the popliteal artery is obscured by a metallic left knee prosthesis. There is mild to moderate stenosis of the tibial peroneal trunk on the left. The left anterior tibial artery demonstrates mild to moderate stenosis at its origin. Left anterior tibial artery demonstrates mild diffuse narrowing distally with extension into the left foot. The left peroneal artery demonstrates moderate diffuse calcific plaquing with moderate narrowing distally, traversing into the foot. Left posterior tibial artery demonstrates moderate diffuse plaquing and narrowing with extension into the left foot. There is mild to moderate cardiomegaly. There is bilateral renal atrophy. There are several bilateral renal cysts, which are fairly small. There is no hydronephrosis bilaterally. No adenopathy, free air or free fluid is seen. The prostate is somewhat enlarged. Intramedullary jim is seen in the left femoral shaft. There are degenerative changes of the right hip of a mild to moderate degree with severe degenerative joint disease of the left hip. There is a gastric band of the esophageal junction which appears to represent an antireflux device. The patient has had a prior cholecystectomy. IMPRESSION: Mild to moderate diffuse calcific plaquing of the abdominal aorta, its branches and the bilateral lower extremity arterial systems. There is about 30 to 40% narrowing of the proximal renal arteries bilaterally. There is approximately 50% narrowing of the proximal right superficial femoral artery. There is three-vessel run off into each foot. Mild to moderate cardiomegaly. Bilateral mild to moderate renal atrophy with small bilateral renal cysts. Electronically Signed by Farhad Gomez MD 05/28/2019 01:06 P
== END ==
LOC: M RAD 12:59
PROVIDERS: ATTEND Surgery
DX: I87.312 Chronic venous hypertension (idiopathic) with ulcer of left lower extremity (principal); I70.0 Atherosclerosis of aorta; N28.1 Cyst of kidney, acquired; N26.1 Atrophy of kidney (terminal); I77.1 Stricture of artery
CPT/HCPCS: 75635; Q9967

== ENCOUNTER 2019-09-24 09:49 | Inpatient (IN) | payer MEDICARE, OTHER ==
[~2019-09-24] VITALS: Ht 188 cm; Wt 102.4 kg
[~2019-09-24 09:49] MED LIST changes: +FLUO20CA20 PO; -FLUO20CA8 PO; -ISOVUE-370 76% 100ML VIAL (Q9967) As Ordered ONE; -RENA1TAB3; +RENA1TAB3 PO
--- NOTE | 2019-09-24 10:34 | REP ---
CT brain: 09/24/2019. Indication: Head trauma. Comparison: . Technique: Unenhanced axial CT images of the brain were obtained from skull base to vertex. Findings: There is no acute intracranial hemorrhage, acute cortical infarction, mass effect, hydrocephalus or acute calvarial fracture. Diffuse volume loss is present. There are a few patchy areas of cerebral hemisphere white matter hypoattenuation most consistent with chronic small vessel disease. Impression: No acute intracranial process. Electronically Signed by Art Olsen DO 09/24/2019 10:25 A
--- NOTE | 2019-09-24 10:41 | REP ---
CT cervical spine: 09/24/2019. Indication: Cervical spine trauma. Comparison: 11/20/2018. Technique: Unenhanced axial CT images of the cervical spine were performed with coronal and sagittal reconstructions provided. Findings: There is no acute fracture, subluxation or dislocation. Disc space narrowing is present throughout most pronounced at C3/C4 and C6/C7. Multilevel spondylosis is additionally noted without severe spinal canal narrowing detected by this technique. Partially calcified thyroid nodules are noted within the isthmus and right thyroid. Impression: No acute fracture. Multilevel degenerative sequelae. Calcified thyroid nodules. Electronically Signed by Art Olsen DO 09/24/2019 10:33 A
[2019-09-24] MEDS: MORPHINE 2 MG/ML 1ML VIAL (J2270) IV PRN ×2 (10:47→12:29)
--- NOTE | 2019-09-24 11:19 | REP ---
PELVIS AND LEFT HIP: AP view of the pelvis and multiple views left hip performed. The entire left femur is included as there is an intramedullary jim in place. I see no evidence of acute fracture or dislocation. Left femoral intramedullary jim is fixed proximally by two metallic screw anchors and distally by a metallic screw. There is a total knee prosthesis present. There is severe narrowing at the left hip joint. There is moderate narrowing at the right hip joint. There is associated subchondral sclerosis and spurring at both hip joints. Scattered vascular calcifications are present. There are degenerative changes of the lower lumbar spine. IMPRESSION: No evidence of acute fracture or dislocation. Electronically Signed by Farhad Gomez MD 09/24/2019 07:56 P
--- NOTE | 2019-09-24 11:20 | REP ---
LEFT SHOULDER, THREE VIEWS: There is no evidence of an acute fracture, dislocation or intrinsic bone disease. IMPRESSION: No fracture or dislocation. Electronically Signed by Farhad Gomez MD 09/24/2019 07:56 P
--- NOTE | 2019-09-24 11:22 | REP ---
LEFT FEMUR, AP LATERAL: AP and lateral views of the left femur performed. No fracture or dislocation is seen. There is an intramedullary jim present. Two metallic screw anchors are seen proximally. A single metallic screw is seen distally in the distal femoral shaft. Metallic knee prosthesis is noted with femoral and tibial components. Metallic clips are seen in the medial thigh soft tissues. There are diffuse vascular calcifications present. IMPRESSION: No evidence of fracture or dislocation. Electronically Signed by Farhad Gomez MD 09/24/2019 07:56 P
[2019-09-24] MEDS ORDERED: CARV25TA PO (15:27)
[2019-09-24] MEDS ORDERED: TRIPOIN9 TOP (15:27)
[2019-09-24] MEDS ORDERED: VELP5CHW PO (15:27)
[2019-09-24] MEDS ORDERED: GLUCOSE 4 GM CHEW TABLET PO PRN (16:00)
[2019-09-24] MEDS ORDERED: GLUCAGON FOR INJ 1 MG VIAL (J1610) SC PRN (16:00)
[2019-09-24] MEDS ORDERED: ACETAMINOPHEN TAB 650MG DOSE (2X325MG) PO PRN (16:00)
[2019-09-24] MEDS ORDERED: DEXTROSE 50% 50 ML SYRINGE IV PRN (16:00)
--- NOTE | 2019-09-24 16:01 | REP ---
CT LEFT HIP: Axial CT left hip performed without contrast. Sagittal and coronal reconstruction images are performed. There are nondisplaced fractures of the left superior and inferior pubic rami. No other acute fracture or dislocation is seen. Metallic internal fixation seen in the proximal left femur. Old healed fracture is seen of the proximal left femur. There is severe arthritic change at the left hip joint, with severe joint space narrowing and a moderate degree of subchondral cystic change and sclerosis. There is acetabular spurring. There are adjacent vascular calcifications in the soft tissues. There are heterotopic calcifications in the adjacent soft tissues. IMPRESSION: Nondisplaced fractures left superior and inferior pubic rami. Electronically Signed by Farhad Gomez MD 09/24/2019 08:03 P
--- NOTE | 2019-09-24 16:23 | HPEPDOC ---
General Date of Admission Sep 24, 2019 at 15:54 Date of Service: Sep 24, 2019 Chief Complaint The patient is a 74-year-old male Who presented to the emergency room after experiencing a fall while at home History of Present Illness Patient is a 74-year-old male with a PMHx of ESRD on HD (MWF), A. fib, CAD s/p CABG and Stent x3, HTN, DLP, IDDM2, who presented to the emergency room after experiencing a fall while at home. Patient reports that this morning he was in the bathroom and while he got up he had tripped and fell on his left side. Patient denied any loss of consciousness or any head trauma. He denied any chest pain, shortness of breath or pa lpitations at the time. He denies any cough, nausea, vomiting, abdominal pain, constipation or diarrhea. Patient denies any fevers or chills over the last 2 weeks. Patient reported that when he fell he began to experience extreme shooting pain with left-sided hip and contacted EMS for further assistance. Patient reports that currently his pain as a 5/10, consistent sharp pain aggravated by movement and alleviated with morphine. Patient reports that his appetite is normal but denies any significant change in his weight. Home Medications Scheduled Amiodarone HCl (Amiodarone HCl) 200 Mg Tab, 200 MG PO DAILY, (Reported) Apixaban (Eliquis) 5 Mg Tab, 5 MG PO BID, (Reported) Carvedilol (Carvedilol) 25 Mg Tablet, 25 MG PO BID, (Reported) Cinacalcet (Sensipar) 30 Mg Tab, 60 MG PO 3XW, (Reported) ON NON-DIALYSIS DAYS, SUN//SAT Docusate Sodium (Colace) 100 Mg Cap, 100 MG PO DAILY, (Reported) Fluoxetine Hcl (Fluoxetine HCl) 20 Mg Cap, 20 MG PO DAILY, (Reported) Folic Acid/Vit B Complex and C (Renal-Franklin Tablet) 1 Tab Tab, 1 TAB PO DAILY, (Reported) Insulin Glargine,Hum.rec.anlog (Miles Solostar) 300 Unit/Ml Inj, 46 UNITS SC DAILY, (Reported) Insulin Human Lispro (Humalog) 1 Units/0.01 Ml Inj, 10 UNITS SC TID, (Reported) Pravastatin Sodium (Pravastatin Sodium) 20 Mg Tab, 20 MG PO DAILY, (Reported) Sucroferric Oxyhydroxide (Velphoro) 500 Mg Tab.chew, 1,000 MG PO BIDWM, (Reported) Scheduled PRN Polyethylene Glycol 3350 (Miralax) 1 Pow Pow, 17 GM PO DAILY PRN for CONSTIPATION, (Reported) Allergies Coded Allergies: Penicillins (Verified Adverse Reaction, Unknown, DIZZY, 09/24/19) Past Medical History Medical History ESRD on HD (MWF), A. fib, CAD s/p CABG and Stent x3, HTN, DLP, IDDM2 Surgical History Coronary artery bypass, 1998 AICD placement, 1998 and replacement 3 Cardiac stent. 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 [employer] Review of Systems Other systems 10 point review of systems complete, all negative otherwise stated in HPI Vital Signs - Vitals: BP 119/71, HR 77, RR 16, Sat 97%RA, Temp 96.1F - General: Lying in bed, No acute distress, Speaking in full sentences, AAOx3 - HEENT: NC, AT, PERRLA, EOMI - CVS: RRR, +S1S2 - Lungs: Fair air entry bilaterally, No appreciable wheezing / rales / rhonchi - Abdomen: Soft, Non-distended, Non-tender - Extremities: No lower extremity edema, No calf tenderness - Neuro: No focal motor or sensory deficit - Skin: Venous stasis changes noted bilateral lower extremities Plan / VTE VTE Prophylaxis Ordered?: Yes Plan Plan Left rami Closed fracture - likely 2/2 mechanical fall - Patient presented to the emergency room after experiencing a mechanical fall - Patient did not lose any consciousness or describe any head trauma, did not describe any symptoms of syncope - XR L femur 09/24: No evidence of fracture or dislocation. - XR L hip 09/24: No evidence of acute fracture or dislocation. - XR L shoulder 09/24: No fracture or dislocation. - Head CT 09/24: No acute intracranial process. - Cervical CT 09/24: No acute fracture. Multilevel degenerative sequelae. Calcified thyroid nodules. - L extremity CT 09/24: Nondisplaced left superior and inferior pubic rami fxs - Will admit to medical surgical floor - Will start Percocet for pain control - Will get evaluation with physical therapy and occupational therapy ESRD on HD (MWF) - Will consult Nephrology A. fib - c/w rate / rhythm control with amiodarone and carvedilol - c/w full anticoagulation with Eliqukath CAD s/p CABG and Stent x3 HTN - BP remains well controlled - c/w Carvedilol DLP - c/w Pravastatin IDDM2 - Will start ISS and Levemir Depression - c/w Fluoxetine DVT prophylaxis - c/w full anticoagulation with ALEX Fuentes MD Sep 24, 2019 16:23
[2019-09-24 17:00] VITALS: BP 133/74
[2019-09-24] MEDS: HumaLOG INSULIN (NovoLOG) PER UNIT SC SCH ×2 (17:07→20:12)
[2019-09-24] MEDS: PERCOCET 5MG/325MG TAB PO PRN ×2 (17:07→22:06)
[2019-09-24 17:34] LABS: BASO % 0.4 % (0.0-1.0); EOS # 0.4 10^3/uL (0.0-0.5); EOS % 4.1 % (0.0-3.0); HEMATOCRIT 30.2 % (42.0-52.0); HEMOGLOBIN 10.3 g/dl (13.5-17.5); LYMPH # 1.2 10^3/uL (1.5-5.0); LYMPH % 12.1 % (24.0-44.0); MEAN CORPUSCULAR HEMOGLOBIN 33.1 pg (27.0-33.0); MEAN CORPUSCULAR HGB CONC 34.1 g/dl (32.0-36.5); MEAN CORPUSCULAR VOLUME 97.1 fl (80.0-96.0); MONO # 0.8 10^3/uL (0.0-0.8); MONO % 7.8 % (0.0-5.0); NEUTROPHILS # 7.6 10^3/uL (1.5-8.5); NEUTROPHILS % 74.9 % (36.0-66.0); PLATELET COUNT, AUTOMATED 171 10^3/uL (150-450); RED BLOOD COUNT 3.11 10^6/uL (4.30-6.10); WHITE BLOOD COUNT 10.2 10^3/uL (4.0-10.0)
[2019-09-24 17:52] LABS: CHLORIDE LEVEL 99 MEQ/L (98-107); CREATININE FOR GFR 0.87 MG/DL (0.70-1.30); GLOMERULAR FILTRATION RATE > 60.0 (>42); SODIUM LEVEL 133 MEQ/L (136-145)
[2019-09-24 17:53] LABS: ALT/SGPT 24 U/L (12-78); BILIRUBIN,TOTAL 0.7 MG/DL (0.2-1.0)
[2019-09-24] MEDS: SUCROFERRIC OXYHYDROXIDE 500MG CHEW TAB (VELPHORO) PO SCH (18:27)
[2019-09-24] MEDS: APIXABAN 5 MG TAB (ELIQUIS) PO SCH (20:10)
[2019-09-24 20:11] VITALS: BP 126/73
[2019-09-24] MEDS: CARVedilol 12.5 MG TAB PO SCH (20:11)
[2019-09-24] MEDS ORDERED: HEPARIN SOD (PORCINE) 5000 UNITS/ML VIAL SC SCH (22:00)
[2019-09-25 05:34] VITALS: BP 108/57
[2019-09-25] MEDS: PERCOCET 5MG/325MG TAB PO PRN ×2 (05:43→20:09)
[2019-09-25 06:25] LABS: BASO % 0.5 % (0.0-1.0); EOS # 0.6 10^3/uL (0.0-0.5); EOS % 8.1 % (0.0-3.0); HEMATOCRIT 30.3 % (42.0-52.0); HEMOGLOBIN 9.9 g/dl (13.5-17.5); LYMPH # 1.1 10^3/uL (1.5-5.0); MEAN CORPUSCULAR HEMOGLOBIN 33.2 pg (27.0-33.0); MEAN CORPUSCULAR HGB CONC 32.7 g/dl (32.0-36.5); MEAN CORPUSCULAR VOLUME 101.7 fl (80.0-96.0); MONO # 0.6 10^3/uL (0.0-0.8); MONO % 7.5 % (0.0-5.0); NEUTROPHILS # 5.3 10^3/uL (1.5-8.5); NEUTROPHILS % 69.2 % (36.0-66.0); PLATELET COUNT, AUTOMATED 152 10^3/uL (150-450); RED BLOOD COUNT 2.98 10^6/uL (4.30-6.10); WHITE BLOOD COUNT 7.7 10^3/uL (4.0-10.0)
[2019-09-25 06:58] LABS: CALCIUM LEVEL 8.5 MG/DL (8.8-10.2); CREATININE FOR GFR 7.89 MG/DL (0.70-1.30); GLOMERULAR FILTRATION RATE 7.2 (>42); MAGNESIUM LEVEL 2.6 MG/DL (1.8-2.4); POTASSIUM SERUM 5.8 MEQ/L (3.5-5.1)
[2019-09-25 07:23] LABS: PHOSPHORUS LEVEL 6.5 MG/DL (2.5-4.9)
[2019-09-25] MEDS: NEPHRO-VIT TAB (NEPHROCAPS) PO SCH (08:12)
[2019-09-25] MEDS: APIXABAN 5 MG TAB (ELIQUIS) PO SCH ×3 (08:13→20:09)
[2019-09-25] MEDS: DOCUSATE SODIUM 100 MG CAP PO SCH (08:13)
[2019-09-25] MEDS: CARVedilol 12.5 MG TAB PO SCH ×2 (08:16→20:11)
[2019-09-25] MEDS: AMIODARONE 200 MG TAB (PACERONE) PO SCH (08:16)
[2019-09-25] MEDS: PRAVASTATIN 20 MG TAB PO SCH (08:17)
[2019-09-25] MEDS: FLUoxetine 20 MG CAP PO SCH (08:17)
[2019-09-25] MEDS: SUCROFERRIC OXYHYDROXIDE 500MG CHEW TAB (VELPHORO) PO SCH ×2 (08:17→18:43)
[2019-09-25] MEDS: HumaLOG INSULIN (NovoLOG) PER UNIT SC SCH ×4 (08:18→20:13)
[2019-09-25] MEDS: LEVEMIR (INSULIN DETEMIR) 1 UNITS/0.01ML SC SCH (08:18)
[2019-09-25] MEDS: CINACALCET 30 MG TAB (SENSIPAR) PO SCH (08:19)
[2019-09-25] MEDS ORDERED: DARBEPOETIN 100 MCG/0.5 ML *DIALYSIS* SYRINGE (J0882) IV SCH (08:45)
--- NOTE | 2019-09-25 09:04 | CR ---
DATE OF CONSULTATION: 09/24/2019 REQUESTING PHYSICIAN: Dr. Yoselin Tamayo CONSULTING PHYSICIAN: Dr. Persaud REASON FOR CONSULTATION: Management of end-stage renal disease. CHIEF COMPLAINT: The patient presented to the emergency room after a fall and pain in the left hip. NOTE: This is a late dictation. Patient was seen in the emergency room on 09/24/2019. HISTORY OF PRESENT ILLNESS: Mr. Joel Villarreal is a 74-year-old male with past medical history of end-stage renal disease on hemodialysis every Sunday, Sunday, Sunday, well-known to nephrology service from outpatient dialysis center with multiple other comorbidities including insulin dependent diabetes and hypertension and other past medical history as mentioned below. Patient reports that he was in the restroom using the toilet and when he got up he tripped and fell on the left side. He did not have any loss of consciousness or dizziness before the fall. When he had his left side he had severe pain, he was unable to walk. He was brought to the emergency room and further imaging and evaluation showed that patient had a left rami closed fracture. So, he was admitted to the hospitalist service for management of pain. Nephrology service was called for further help in the management of end-stage renal disease and arrangement of hemodialysis. I saw and evaluated the patient at the bedside in the emergency room. He was awake and alert. He was unable to move his left leg, and there were no signs of fluid overload and blood pressure was within the acceptable range. PAST MEDICAL HISTORY: Past medical history of end-stage renal disease on hemodialysis every Sunday, Sunday, Sunday, history of active fibrillation, coronary artery disease, history of coronary artery bypass graft (CABG) in the past, hypertension, hyperlipidemia, and diabetes mellitus, type 2, insulin dependent, secondary hyperparathyroidism. PAST SURGICAL HISTORY: History of coronary artery bypass grafting in 1998, status post automatic implantable cardioverter defibrillator (AICD) placement in 1998 and replacement times three. History of cardiac stent placement, most recent one was in 2013. Status post cholecystectomy. History of left knee arthroplasty, history of a left hip fracture with open reduction, internal fixation in the past, and status post right arm arteriovenous (AV) fistula with revisions in 2017 and September 2018. ALLERGIES: He is allergic to PENICILLIN. FAMILY HISTORY: No significant family history of end-stage renal disease requiring hemodialysis. There is history of parkinsonism in mother and lung cancer in father. SOCIAL HISTORY: He denies any active smoking, illicit drug abuse or alcohol abuse. He lives at home with his . REVIEW OF SYSTEMS: Constitutional: He denies any fevers or chills. Eyes: He denies any blurry vision, double vision. ENT: He denies any dysphagia, odynophagia. Cardiovascular: He denies any chest pain or palpitation. Respiratory: He denies any shortness of breath or cough or phlegm. Gastrointestinal (GI): Denies any nausea, vomiting. Genitourinary: He denies any dysuria, hematuria. Musculoskeletal: He reports left hip pain and difficulty to move the left hip. Skin: He denies any rashes or ulcers. Central nervous system (HOT WORT SETTLER): He denies any strokes or seizures. Psychiatric: He denies any depression. Hematology/Oncology. He denies any easy bleeding or bruising. Endocrine: He reports secondary hyperparathyroidism and diabetes mellitus, type 2. All other review of system is negative. PHYSICAL EXAMINATION: General: Patient is awake, alert, oriented times three, laying in bed, in no apparent distress. Vital Signs: Temperature is 97.7 degrees Fahrenheit, blood pressure 126/73, pulse is 88, respiratory rate of 16, saturating 99% on room air. Head/Neck Exam: Extraocular muscles intact. Pupils equally round and reactive to light. Mucous membranes are moist. Neck is supple. There is no jugular venous distention (JVD). Cardiovascular: S1, S2, regular rate. 1+ edema of the right lower extremity. Respiratory: Chest is clear to auscultation bilaterally. Bilateral equal air entry. No rales or rhonchi. Abdomen is soft, obese, positive bowel sounds. Musculoskeletal: Decreased range of movement of the left hip because of pain. HOT WORT SETTLER: No focal deficit. Power is 5/5 in bilateral upper extremities. AV Access: He has a right forearm AV fistula with positive thrill and bruit. Skin: No active rashes or ulcers. Psychiatric: Normal mood and affect. LAB REVIEW: CBC showed WBC of 10.2, hemoglobin 10.3, platelets of 171. BMP showed sodium 133, potassium 6, chloride 99. Bicarbonate is not available. IMAGING: CAT scan was done in the emergency room, which showed nondisplaced fractures of left superior and inferior pubic rami. CURRENT MEDICATIONS: The patient's medications include: - Tylenol - amiodarone 200 mg by mouth daily - Eliquis 5 mg by mouth twice a day - Coreg 25 mg by mouth twice a day - Sensipar 60 mg by mouth Sunday, , Sunday - fluoxetine 20 mg by mouth daily - heparin subcu - insulin Levemir 46 units subcu daily - insulin lispro sliding scale - oxycodone as needed for pain - MiraLAX as needed for constipation - pravastatin 20 mg daily - Velphoro 1 gram by mouth with meals - Nephro-Franklin vitamin ASSESSMENT: 74-year-old male with past medical history of coronary artery disease, hypertension, end-stage renal disease on hemodialysis every Sunday, Sunday, Sunday, diabetes mellitus, type 2, insulin dependent admitted this time with a fall and left pubic rami fracture. PLAN: 1. End-stage renal disease. The patient's regular dialysis days are Sunday, Sunday, Sunday. There are no acute indication of dialysis at this time. The patient's volume status is optimal. Patient will be dialyzed early in the morning on 09/25/2019, 2. Hyperkalemia. Patient will be dialyzed with a 1 K bath. His repeat potassium is still above 6. That would help optimize his potassium level. 3. Anemia in end-stage renal disease. Patient will be given Aranesp with dialysis. 4. Hypertension with hypertensive heart disease and end-stage renal disease. Continue current dose of carvedilol. 5. Chronic kidney disease, mineral and bone disease. Continue current dose of Velphoro meals. 6. Secondary hyperparathyroidism. Continue current dose of Sensipar. 7. Atrial fibrillation. Heart rate is controlled with current dose of beta-alexander. Continue the Eliquis at this time. 8. Diabetes mellitus, type 2, insulin dependent. Continue current dose of insulin Levemir, insulin sliding scale. Thank you for involving me in the care of this patient. I shall be happy to follow the patient along with you tomorrow morning. [facility]
--- NOTE | 2019-09-25 10:39 | IPNPDOC ---
Text Note Date of Service The patient was seen on 09/25/19. NOTE Subjective: Patient is a 74-year-old male with a PMHx of ESRD on HD (MWF), A. fib, CAD s/p CABG and Stent x3, HTN, DLP, IDDM2, who presented to the emergency room after experiencing a fall while at home. Patient reports that this morning he was in the bathroom and while he got up he had tripped and fell on his left side. Patient denied any loss of consciousness or any head trauma. He denied any chest pain, shortness of breath or palpitations at the time. He denies any cough, nausea, vomiting, abdominal pain, constipation or diarrhea. Patient astrid es any fevers or chills over the last 2 weeks. Patient reported that when he fell he began to experience extreme shooting pain with left-sided hip and contacted EMS for further assistance. Patient reports that currently his pain as a 5/10, consistent sharp pain aggravated by movement and alleviated with morphine. Patient was admitted to hospitalist service for further evaluation and treatment. Patient was seen and examined at the bedside. Patient reports that her pain is doing significantly better with Percocet. They deny any chest pain, shortness of breath or palpitations. They do report a bowel movement this morning. They'll be working with physical therapy today. Objective: Vitals (See below) General: Lying in bed, no acute distress, comfortable, AAOx3 HEENT: NC, AT CVS: RRR, +S1S2 Lungs: Fair air entry b/l, no appreciable wheezing, rhonchi or rales Abdomen: Soft, ND, NT Extremities: - Edema, - Calf tenderness Assessment and plan: Left rami Closed fracture - likely 2/2 mechanical fall - Patient presented to the emergency room after experiencing a mechanical fall - Patient did not lose any consciousness or describe any head trauma, did not describe any symptoms of syncope - XR L femur 09/24: No evidence of fracture or dislocation. - XR L hip 09/24: No evidence of acute fracture or dislocation. - XR L shoulder 09/24: No fracture or dislocation. - Head CT 09/24: No acute intracranial process. - Cervical CT 09/24: No acute fracture. Multilevel degenerative sequelae. Calcified thyroid nodules. - L extremity CT 09/24: Nondisplaced left superior and inferior pubic rami fx - c/w Percocet for pain control; reports the pain is doing significantly better - Will c/w PT and OT - will be evaluated today ESRD on HD (MWF) - Patient is scheduled to go for dialysis today - Will consult Nephrology A. fib - c/w rate / rhythm control with amiodarone and carvedilol - c/w full anticoagulation with Eliquis CAD s/p CABG and Stent x3 HTN - BP remains well controlled - c/w Carvedilol DLP - c/w Pravastatin IDDM2 - c/w ISS and Levemir Depression - c/w Fluoxetine DVT prophylaxis - c/w full anticoagulation with Eliquis Disposition: - Will work with physical therapy, awaiting clearance VSSimin, I+O VSSimin I+O Laboratory Tests 09/24/19 17:20 09/25/19 06:03 Vital Signs Date Time Temp Pulse Resp B/P (MAP) Pulse Ox O2 Delivery O2 Flow Rate FiO2 09/25/19 08:16 62 105/69 09/25/19 06:13 17 09/25/19 05:34 97.9 100 Room Air I&O- Last 24 Hours up to 6 AM 09/25/19 06:00 Intake Total 960 ml Output Total 0 ml Balance 960 ml ALEX LYLE MD Sep 25, 2019 10:39
[2019-09-25] MEDS ORDERED: HEPARIN 1,000 UNITS/ML 10ML VIAL (FOR RADIOLOGY& DIALYSIS ONLY) IV ONE (14:00)
[2019-09-25 18:00] VITALS: BP 102/60
[2019-09-25 20:16] VITALS: BP 118/68
[2019-09-26 05:53] VITALS: BP 96/48
[2019-09-26] MEDS ORDERED: NS 1,000 ML IV ONE (07:00)
[2019-09-26 07:13] LABS: BASO # 0.1 10^3/uL (0.0-0.2); BASO % 0.8 % (0.0-1.0); EOS # 0.6 10^3/uL (0.0-0.5); EOS % 6.2 % (0.0-3.0); HEMOGLOBIN 9.4 g/dl (13.5-17.5); LYMPH # 0.9 10^3/uL (1.5-5.0); LYMPH % 9.2 % (24.0-44.0); MEAN CORPUSCULAR HEMOGLOBIN 33.2 pg (27.0-33.0); MEAN CORPUSCULAR HGB CONC 32.4 g/dl (32.0-36.5); MEAN CORPUSCULAR VOLUME 102.5 fl (80.0-96.0); MONO # 0.7 10^3/uL (0.0-0.8); MONO % 7.3 % (0.0-5.0); NEUTROPHILS # 7.5 10^3/uL (1.5-8.5); NEUTROPHILS % 75.9 % (36.0-66.0); PLATELET COUNT, AUTOMATED 186 10^3/uL (150-450); RED BLOOD COUNT 2.83 10^6/uL (4.30-6.10); WHITE BLOOD COUNT 9.9 10^3/uL (4.0-10.0)
[2019-09-26] MEDS: HumaLOG INSULIN (NovoLOG) PER UNIT SC SCH ×4 (07:30→20:39)
[2019-09-26 08:01] LABS: CALCIUM LEVEL 8.3 MG/DL (8.8-10.2); CREATININE FOR GFR 4.34 MG/DL (0.70-1.30); GLOMERULAR FILTRATION RATE 14.3 (>42); MAGNESIUM LEVEL 2.4 MG/DL (1.8-2.4); POTASSIUM SERUM 4.6 MEQ/L (3.5-5.1)
[2019-09-26] MEDS: DOCUSATE SODIUM 100 MG CAP PO SCH (08:57)
[2019-09-26] MEDS: SUCROFERRIC OXYHYDROXIDE 500MG CHEW TAB (VELPHORO) PO SCH ×2 (08:58→17:25)
[2019-09-26] MEDS: PERCOCET 5MG/325MG TAB PO PRN ×2 (08:58→16:26)
[2019-09-26] MEDS: NEPHRO-VIT TAB (NEPHROCAPS) PO SCH (08:58)
[2019-09-26] MEDS: LEVEMIR (INSULIN DETEMIR) 1 UNITS/0.01ML SC SCH (09:00)
[2019-09-26] MEDS: CARVedilol 12.5 MG TAB PO SCH ×3 (09:00→20:44)
[2019-09-26] MEDS: APIXABAN 5 MG TAB (ELIQUIS) PO SCH ×2 (10:21→20:44)
[2019-09-26] MEDS: FLUoxetine 20 MG CAP PO SCH (10:21)
[2019-09-26] MEDS: AMIODARONE 200 MG TAB (PACERONE) PO SCH (10:21)
[2019-09-26] MEDS: PRAVASTATIN 20 MG TAB PO SCH (10:21)
[2019-09-26] MEDS ORDERED: LEVEMIR (INSULIN DETEMIR) 1 UNITS/0.01ML SC ONE (11:00)
--- NOTE | 2019-09-26 11:29 | IPNPDOC ---
Text Note Date of Service The patient was seen on 09/26/19. NOTE Subjective: Patient is a 74-year-old male with a PMHx of ESRD on HD (MWF), A. fib, CAD s/p CABG and Stent x3, HTN, DLP, IDDM2, who presented to the emergency room after experiencing a fall while at home. Patient reports that this morning he was in the bathroom and while he got up he had tripped and fell on his left side. Patient denied any loss of consciousness or any head trauma. He denied any chest pain, shortness of breath or palpitations at the time. He denies any cough, nausea, vomiting, abdominal pain, constipation or diarrhea. Patient astrid es any fevers or chills over the last 2 weeks. Patient reported that when he fell he began to experience extreme shooting pain with left-sided hip and contacted EMS for further assistance. Patient reports that currently his pain as a 5/10, consistent sharp pain aggravated by movement and alleviated with morphine. Patient was admitted to hospitalist service for further evaluation and treatment. Patient was seen and examined at the bedside. Patient had dialysis yesterday after he had missed hemodialysis on Sunday. Patient does work with physical therapy today, however, has not been cleared and at this point, it does appear that he will require subacute rehabilitation for further physical therapy. Patient denies chest pain, shortness of breath or palpitations. He reports that his hip pain has improved significantly. We will begin to decrease the dose of his Percocet. Objective: Vitals (See below) General: Lying in bed, no acute distress, comfortable, AAOx3 HEENT: NC, AT CVS: +S1S2 Lungs: Air entry remains fair bilaterally without evidence of rhonchi, rales or wheezing Abdomen: Abdomen is soft, without any distention or tenderness Extremities: No evidence of lower extremity edema, - Calf tenderness Assessment and plan: Left rami Closed fracture - likely 2/2 mechanical fall - Patient presented to the emergency room after experiencing a mechanical fall; he denied any loss of consciousness / head trauma / syncope symptoms - Clinically patient has reported improvement of his pain - XR L femur 09/24: No evidence of fracture or dislocation. - XR L hip 09/24: No evidence of acute fracture or dislocation. - XR L shoulder 09/24: No fracture or dislocation. - Head CT 09/24: No acute intracranial process. - Cervical CT 09/24: No acute fracture. Multilevel degenerative sequelae. Calcified thyroid nodules. - L extremity CT 09/24: Nondisplaced left superior and inferior pubic rami fx - c/w Percocet for pain control - Will decrease dose of Percocet - c/w PT and OT; patient will likely be transitioned to subacute rehabilitation for continued therapy ESRD on HD (MWF) - s/p Dialysis on ; will again go for dialysis on Sunday - Will consult Nephrology A. fib - c/w rate / rhythm control with amiodarone and carvedilol - c/w full anticoagulation with Eliquis CAD s/p CABG and Stent x3 HTN - BP remains well controlled - c/w Carvedilol DLP - c/w Pravastatin IDDM2 - c/w ISS and Levemir Depression - c/w Fluoxetine DVT prophylaxis - c/w full anticoagulation with Eliquis Disposition: - Patient will be transitioned to [facility] status - Anticipate transition to subacute rehabilitation center for continued physical therapy VSSimin, I+O VSSimin, I+O Laboratory Tests 09/26/19 06:54 Vital Signs Date Time Temp Pulse Resp B/P (MAP) Pulse Ox O2 Delivery O2 Flow Rate FiO2 09/26/19 09:00 74 96/48 09/26/19 08:58 18 Room Air 09/26/19 05:53 97.2 97 I&O- Last 24 Hours up to 6 AM 09/26/19 06:00 Intake Total 1615 ml Output Total 1500 ml Balance 115 ml ALEX LYLE MD Sep 26, 2019 11:29
[2019-09-26 14:00] VITALS: BP 116/60
--- NOTE | 2019-09-26 17:23 | IPN ---
DATE: 09/25/2019 SUBJECTIVE: The patient was seen and examined the bedside today morning. He was admitted under the hospitalist service overnight with left inferior pubic ramus fracture. He missed his hemodialysis yesterday. The patient is supposed to be dialyzed today in the afternoon. Apart from the pain in the left hip, he denies any active complaints at this time. OBJECTIVE: Vital signs: Temperature is 97.9 degrees Fahrenheit, blood pressure 105/69, pulse is 62, respiratory of 70, saturating 100% on room air. Intake and output: There is no urine output recorded. Weight in the bed scale was 98.1 kg yesterday. PHYSICAL EXAMINATION: GENERAL: The patient is awake, alert, oriented times three, lying in bed in no apparent distress. HEAD AND NECK: Extraocular muscles intact. Pupils equally round and reactive to light. Mucous membranes are moist. Neck is supple. There is no jugular venous distention (JVD). CARDIOVASCULAR: S1, S2, regular rate. Edema 1+ of the right lower extremity. RESPIRATORY: Chest is clear to auscultation bilaterally. Bilateral equal air entry. No rales or rhonchi. ABDOMEN: Soft, obese. Positive bowel sounds. Nontender. MUSCULOSKELETAL: Decreased range of movement of the left hip. CENTRAL NERVOUS SYSTEM: No focal deficit. Power is 5/5 in bilateral upper extremities. LABORATORY REVIEW: CBC showed WBC of 7.7, hemoglobin 9.9, platelets are 152. BMP showed sodium 133, potassium 5.8, chloride 94, bicarbonate 30, BUN 42, creatinine is 7.8, phosphorus 6.5, magnesium 2.6. Albumin is 3. CURRENT INPATIENT MEDICATIONS: The patient's medications were all reviewed by myself. Subcutaneous heparin has been stopped. Patient is already on Eliquis. No other change in the medications today as compared with yesterday. ASSESSMENT AND PLAN: 1. End-stage renal disease. The patient's regular dialysis days are Sunday, Sunday, Sunday. He missed his dialysis yesterday. He will be dialyzed today. Ultrafiltration goal will be around 3 liters as tolerated by his blood pressure. 2. Hyperkalemia. Potassium has come down to 5.8 now. He will be dialyzed with a 2K bath. 3. Anemia and end-stage renal disease. He has been started on Aranesp 200 mcg with hemodialysis. 4. Hypertension with hypertensive heart disease and end-stage renal disease. Continue current dose of carvedilol. 5. 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 Continue Velphoro for hyperphosphatemia. 6. Atrial fibrillation. Continue Eliquis, Coreg, and amiodarone. 7. Left pubic ramus fracture. He is getting the physical therapy and pain optimization.
--- NOTE | 2019-09-26 21:50 | IPN ---
DATE: 09/26/2019 SUBJECTIVE The patient was seen and examined at the bedside today morning. He was sitting in the sofa. He denies any active complaints. He was dialyzed yesterday 1.5 liters of fluid was removed. Apparently the patient had a soft blood pressure overnight. He was started on IV fluid hydration. He currently has IV fluids running at 100 mL an hour. The patient himself denies any complaints of dizziness and lightheadedness. OBJECTIVE Vital signs: Temperature is 97.2 degrees Fahrenheit. Blood pressure 96/48, pulse is 74, respiratory rate of 18, saturating 97% on room air. Intake and output: There is no urine output recorded. Ultrafiltration with hemodialysis was 1.5 liters. Weight in the bed scale is not available. PHYSICAL EXAMINATION General: The patient is awake, alert, oriented times three, sitting up in the sofa. No apparent distress. Head and neck examination: Extraocular muscles intact. Pupils equally round and reactive to light. Mucous membranes are moist. Neck is supple. There is no jugular venous distention (JVD). Cardiovascular: S1, S2, regular rate. 1+ edema of the right lower extremity. Respiratory: Chest is clear to auscultation bilaterally. Bilateral equal air entry. No rales or rhonchi. Abdomen: Soft, obese, positive bowel sounds. Nontender. Musculoskeletal: Decreased range of movement of the left leg because of pain, otherwise no clubbing or cyanosis. LABORATORY GENETICIST: No focal deficit. Power is 5/5 in all extremities. AV access: He has a right forearm AV fistula with positive thrill and bruit. LAB REVIEW: CBC showed WBC of 9.9, hemoglobin 9.4, platelets are 186. BMP showed sodium 136, potassium 4.6, chloride 97, bicarb 31, BUN 20, creatinine is 4.3. CURRENT INPATIENT MEDICATIONS: The patient's medications were all reviewed by me. He was getting normal saline at 100 mL an hour. I have stopped the IV fluids now. Oxycodone dose has been decreased to 1 tablet every 6 hours by the primary team. ASSESSMENT/PLAN 1. End-stage renal disease on hemodialysis. The patient's regular dialysis days are Sunday, Sunday, Sunday. However in the hospital he is getting Sunday, , Sunday dialysis. Next dialysis will be done tomorrow morning. 2. Anemia in end-stage renal disease. Continue current dose of Aranesp with dialysis. 3. Hypertension. The patient's blood pressures were actually soft. He only gets carvedilol for hypertension and atrial fibrillation (A-Fib) as well. I am going to decrease the carvedilol dose. No need of IV fluid hydration. 4. Atrial fibrillation. Heart rate is controlled. Continue with Eliquis and amiodarone. 5. Diabetes mellitus type 2, insulin dependent. Glucose levels are controlled. Continue insulin sliding scale and Levemir.
[2019-09-27 05:56] LABS: BASO # 0.1 10^3/uL (0.0-0.2); BASO % 0.6 % (0.0-1.0); EOS # 0.7 10^3/uL (0.0-0.5); HEMATOCRIT 27.4 % (42.0-52.0); HEMOGLOBIN 8.9 g/dl (13.5-17.5); LYMPH % 12.3 % (24.0-44.0); MEAN CORPUSCULAR HEMOGLOBIN 33.2 pg (27.0-33.0); MEAN CORPUSCULAR HGB CONC 32.5 g/dl (32.0-36.5); MEAN CORPUSCULAR VOLUME 102.2 fl (80.0-96.0); MONO # 0.7 10^3/uL (0.0-0.8); MONO % 8.3 % (0.0-5.0); NEUTROPHILS # 5.8 10^3/uL (1.5-8.5); NEUTROPHILS % 70.3 % (36.0-66.0); PLATELET COUNT, AUTOMATED 178 10^3/uL (150-450); RED BLOOD COUNT 2.68 10^6/uL (4.30-6.10); WHITE BLOOD COUNT 8.2 10^3/uL (4.0-10.0)
[2019-09-27 06:00] VITALS: BP 111/62
[2019-09-27 06:25] LABS: CREATININE FOR GFR 5.38 MG/DL (0.70-1.30); GLOMERULAR FILTRATION RATE 11.2 (>42); MAGNESIUM LEVEL 2.4 MG/DL (1.8-2.4); POTASSIUM SERUM 4.7 MEQ/L (3.5-5.1)
[2019-09-27] MEDS: HumaLOG INSULIN (NovoLOG) PER UNIT SC SCH ×4 (06:56→21:00)
[2019-09-27] MEDS: CINACALCET 30 MG TAB (SENSIPAR) PO SCH (09:00)
[2019-09-27] MEDS: LEVEMIR (INSULIN DETEMIR) 1 UNITS/0.01ML SC SCH (10:11)
[2019-09-27] MEDS: SUCROFERRIC OXYHYDROXIDE 500MG CHEW TAB (VELPHORO) PO SCH ×3 (10:12→21:17)
[2019-09-27] MEDS: PRAVASTATIN 20 MG TAB PO SCH (10:12)
[2019-09-27] MEDS: AMIODARONE 200 MG TAB (PACERONE) PO SCH (10:13)
[2019-09-27] MEDS: APIXABAN 5 MG TAB (ELIQUIS) PO SCH ×2 (10:13→21:17)
[2019-09-27] MEDS: NEPHRO-VIT TAB (NEPHROCAPS) PO SCH (10:13)
[2019-09-27] MEDS: DOCUSATE SODIUM 100 MG CAP PO SCH (10:13)
[2019-09-27] MEDS: FLUoxetine 20 MG CAP PO SCH (10:14)
[2019-09-27] MEDS: CARVedilol 12.5 MG TAB PO SCH ×2 (10:14→21:00)
[2019-09-27] MEDS ORDERED: IRON SUCROSE 100MG 5ML VIAL (J1756 PER 1MG) IV SCH (10:30)
[2019-09-27] MEDS: PERCOCET 5MG/325MG TAB PO PRN ×2 (10:32→21:19)
[2019-09-27] MEDS ORDERED: HEPARIN 1,000 UNITS/ML 10ML VIAL (FOR RADIOLOGY& DIALYSIS ONLY) IV ONE (13:30)
[2019-09-27] MEDS ORDERED: LIDOCAINE 1% SDV 5 ML VIAL SQ ONE (13:30)
[2019-09-27] MEDS: MIRALAX *UNIT DOSE* 17GM PACKET PO PRN (21:25)
[2019-09-28 05:36] VITALS: BP 107/63
[2019-09-28 05:52] LABS: BASO # 0.1 10^3/uL (0.0-0.2); BASO % 0.8 % (0.0-1.0); EOS # 0.4 10^3/uL (0.0-0.5); EOS % 6.9 % (0.0-3.0); HEMATOCRIT 27.2 % (42.0-52.0); HEMOGLOBIN 8.9 g/dl (13.5-17.5); LYMPH # 0.9 10^3/uL (1.5-5.0); LYMPH % 14.3 % (24.0-44.0); MEAN CORPUSCULAR HEMOGLOBIN 33.5 pg (27.0-33.0); MEAN CORPUSCULAR HGB CONC 32.7 g/dl (32.0-36.5); MEAN CORPUSCULAR VOLUME 102.3 fl (80.0-96.0); MONO # 0.6 10^3/uL (0.0-0.8); MONO % 9.7 % (0.0-5.0); NEUTROPHILS # 4.1 10^3/uL (1.5-8.5); NEUTROPHILS % 67.6 % (36.0-66.0); PLATELET COUNT, AUTOMATED 155 10^3/uL (150-450); RED BLOOD COUNT 2.66 10^6/uL (4.30-6.10); WHITE BLOOD COUNT 6.1 10^3/uL (4.0-10.0)
[2019-09-28 06:20] LABS: CALCIUM LEVEL 8.4 MG/DL (8.8-10.2); CREATININE FOR GFR 3.43 MG/DL (0.70-1.30); GLOMERULAR FILTRATION RATE 18.8 (>42); MAGNESIUM LEVEL 2.3 MG/DL (1.8-2.4); POTASSIUM SERUM 3.9 MEQ/L (3.5-5.1)
[2019-09-28] MEDS: HumaLOG INSULIN (NovoLOG) PER UNIT SC SCH ×4 (07:30→20:06)
[2019-09-28] MEDS: LEVEMIR (INSULIN DETEMIR) 1 UNITS/0.01ML SC SCH (08:24)
[2019-09-28] MEDS: AMIODARONE 200 MG TAB (PACERONE) PO SCH (08:24)
[2019-09-28] MEDS: SUCROFERRIC OXYHYDROXIDE 500MG CHEW TAB (VELPHORO) PO SCH ×2 (08:24→18:10)
[2019-09-28] MEDS: PRAVASTATIN 20 MG TAB PO SCH (08:24)
[2019-09-28] MEDS: DOCUSATE SODIUM 100 MG CAP PO SCH (08:24)
[2019-09-28] MEDS: NEPHRO-VIT TAB (NEPHROCAPS) PO SCH (08:24)
[2019-09-28] MEDS: FLUoxetine 20 MG CAP PO SCH (08:25)
[2019-09-28] MEDS: APIXABAN 5 MG TAB (ELIQUIS) PO SCH ×2 (08:25→20:14)
[2019-09-28] MEDS: CARVedilol 12.5 MG TAB PO SCH (08:31)
--- NOTE | 2019-09-28 09:24 | IPN ---
DATE OF SERVICE: 09/27/2019 SUBJECTIVE: The patient was seen and examined at the bedside today morning. He is afebrile and hemodynamically stable. He denies any active complaints at this time. He reports that he is getting more physical therapy for pain in the left hip. He otherwise denies any active complaints. OBJECTIVE: Vital Signs: Temperature is 97.8 degrees [place], blood pressure 111/62, pulse is 63, respiratory rate of 16, saturating 98% on room air. Intake and output: There is no urine output recorded. Weight in the bed scale is 102.4 kg. PHYSICAL EXAMINATION: General: The patient is awake, alert, oriented times three, laying in bed in no apparent distress. Head and Neck Exam: Extraocular muscles intact. Pupils equally round and reactive to light. Mucous membranes are moist. Neck is supple. There is no jugular venous distention (JVD). Cardiovascular: S1, S2, regular rate. No edema of the bilateral lower extremities. Respiratory: Chest is clear to auscultation bilaterally. Bilateral equal air entry. No rales or rhonchi. Abdomen: Soft, obese, positive bowel sounds. Nontender. No organomegaly. Musculoskeletal: Decreased range of movement of the left hip. Otherwise no clubbing or cyanosis. PROJECT DRILLING ENGINEER: No focal deficit. Power is 5/5 in bilateral upper extremities. LAB REVIEW: CBC showed WBC 8.2, hemoglobin 8.9, platelets 178. BMP showed sodium 136, potassium 4.7, chloride 98, bicarb 28, BUN 28, creatinine 5.3, calcium 8. CURRENT INPATIENT MEDICATIONS: The patient's medications were all reviewed by me. There is no change in the medications today as compared with yesterday. I have ordered the Venofer to be given during dialysis now. ASSESSMENT/PLAN: 1. End-stage renal disease on hemodialysis. The patient's regular dialysis days are Sunday, Sunday, Sunday. However, inpatient he is getting Sunday, , Sunday dialysis. He will be dialyzed again today. 2. Anemia in end-stage renal disease. Anemia is worse. I have started Venofer with dialysis. Continue current dose of Aranesp with dialysis as well. 3. Hypertension with end-stage renal disease. Carvedilol dose was decreased yesterday. Blood pressure is optimized. 4. Atrial fibrillation. Heart rate is controlled. Continue Eliquis and amiodarone.
[2019-09-28] MEDS: PERCOCET 5MG/325MG TAB PO PRN ×2 (11:09→20:14)
[2019-09-28 19:52] VITALS: BP 133/70
[2019-09-28] MEDS: CARVedilol 6.25 MG TAB PO SCH (20:14)
[2019-09-29 05:54] LABS: BASO # 0.1 10^3/uL (0.0-0.2); BASO % 0.9 % (0.0-1.0); EOS # 0.4 10^3/uL (0.0-0.5); HEMATOCRIT 25.8 % (42.0-52.0); HEMOGLOBIN 8.6 g/dl (13.5-17.5); MEAN CORPUSCULAR HEMOGLOBIN 33.7 pg (27.0-33.0); MEAN CORPUSCULAR HGB CONC 33.3 g/dl (32.0-36.5); MEAN CORPUSCULAR VOLUME 101.2 fl (80.0-96.0); MONO # 0.7 10^3/uL (0.0-0.8); MONO % 10.6 % (0.0-5.0); NEUTROPHILS # 4.5 10^3/uL (1.5-8.5); NEUTROPHILS % 66.5 % (36.0-66.0); PLATELET COUNT, AUTOMATED 157 10^3/uL (150-450); RED BLOOD COUNT 2.55 10^6/uL (4.30-6.10); WHITE BLOOD COUNT 6.8 10^3/uL (4.0-10.0)
[2019-09-29 05:57] VITALS: BP 112/55
[2019-09-29 06:19] LABS: CALCIUM LEVEL 8.9 MG/DL (8.8-10.2); CREATININE FOR GFR 5.02 MG/DL (0.70-1.30); GLOMERULAR FILTRATION RATE 12.1 (>42); MAGNESIUM LEVEL 2.2 MG/DL (1.8-2.4); POTASSIUM SERUM 4.3 MEQ/L (3.5-5.1)
[2019-09-29] MEDS: HumaLOG INSULIN (NovoLOG) PER UNIT SC SCH ×4 (07:30→21:00)
[2019-09-29] MEDS: PERCOCET 5MG/325MG TAB PO PRN ×3 (08:13→18:43)
[2019-09-29] MEDS: SUCROFERRIC OXYHYDROXIDE 500MG CHEW TAB (VELPHORO) PO SCH ×2 (08:14→18:42)
[2019-09-29] MEDS: PRAVASTATIN 20 MG TAB PO SCH (08:14)
[2019-09-29] MEDS: DOCUSATE SODIUM 100 MG CAP PO SCH (08:14)
[2019-09-29] MEDS: APIXABAN 5 MG TAB (ELIQUIS) PO SCH ×2 (08:14→22:01)
[2019-09-29] MEDS: FLUoxetine 20 MG CAP PO SCH (08:14)
[2019-09-29] MEDS: CARVedilol 6.25 MG TAB PO SCH ×2 (08:15→22:01)
[2019-09-29] MEDS: NEPHRO-VIT TAB (NEPHROCAPS) PO SCH (08:15)
[2019-09-29] MEDS: AMIODARONE 200 MG TAB (PACERONE) PO SCH (08:15)
[2019-09-29] MEDS: LEVEMIR (INSULIN DETEMIR) 1 UNITS/0.01ML SC SCH (08:16)
[2019-09-29] MEDS ORDERED: CALCIUM CARBONATE 500 MG CHEW U/D PO PRN (10:15)
[2019-09-29] MEDS ORDERED: HEPARIN 1,000 UNITS/ML 10ML VIAL (FOR RADIOLOGY& DIALYSIS ONLY) IV ONE (15:00)
[2019-09-29] MEDS ORDERED: LIDOCAINE 1% SDV 5 ML VIAL SQ ONE (16:00)
[2019-09-29 21:28] VITALS: BP 111/54
[2019-09-30 05:52] VITALS: BP 110/53
[2019-09-30 07:23] LABS: BASO % 0.6 % (0.0-1.0); EOS # 0.3 10^3/uL (0.0-0.5); EOS % 4.6 % (0.0-3.0); LYMPH % 14.3 % (24.0-44.0); MEAN CORPUSCULAR HEMOGLOBIN 34.2 pg (27.0-33.0); MEAN CORPUSCULAR HGB CONC 33.3 g/dl (32.0-36.5); MEAN CORPUSCULAR VOLUME 102.7 fl (80.0-96.0); MONO # 0.7 10^3/uL (0.0-0.8); MONO % 9.9 % (0.0-5.0); NEUTROPHILS % 69.9 % (36.0-66.0); PLATELET COUNT, AUTOMATED 174 10^3/uL (150-450); RED BLOOD COUNT 2.63 10^6/uL (4.30-6.10); WHITE BLOOD COUNT 7.1 10^3/uL (4.0-10.0)
[2019-09-30 07:41] LABS: CALCIUM LEVEL 8.7 MG/DL (8.8-10.2); CREATININE FOR GFR 3.62 MG/DL (0.70-1.30); GLOMERULAR FILTRATION RATE 17.6 (>42); MAGNESIUM LEVEL 2.3 MG/DL (1.8-2.4)
[2019-09-30] MEDS: SUCROFERRIC OXYHYDROXIDE 500MG CHEW TAB (VELPHORO) PO SCH ×2 (08:18→17:58)
[2019-09-30] MEDS: HumaLOG INSULIN (NovoLOG) PER UNIT SC SCH ×4 (08:18→21:00)
[2019-09-30] MEDS: LEVEMIR (INSULIN DETEMIR) 1 UNITS/0.01ML SC SCH (08:19)
[2019-09-30] MEDS: DOCUSATE SODIUM 100 MG CAP PO SCH (08:20)
[2019-09-30] MEDS: NEPHRO-VIT TAB (NEPHROCAPS) PO SCH (08:20)
[2019-09-30] MEDS: CINACALCET 30 MG TAB (SENSIPAR) PO SCH (08:20)
[2019-09-30] MEDS: AMIODARONE 200 MG TAB (PACERONE) PO SCH (08:21)
[2019-09-30] MEDS: PRAVASTATIN 20 MG TAB PO SCH (08:21)
[2019-09-30] MEDS: APIXABAN 5 MG TAB (ELIQUIS) PO SCH ×2 (08:21→21:08)
[2019-09-30] MEDS: FLUoxetine 20 MG CAP PO SCH (08:21)
[2019-09-30] MEDS: PERCOCET 5MG/325MG TAB PO PRN ×2 (08:58→17:56)
[2019-09-30] MEDS: MIRALAX *UNIT DOSE* 17GM PACKET PO PRN (08:58)
[2019-09-30] MEDS: CARVedilol 6.25 MG TAB PO SCH ×2 (09:00→21:00)
--- NOTE | 2019-09-30 10:09 | IPN ---
DATE: 09/28/2019 SUBJECTIVE: The patient was seen and examined at the bedside today morning. He is afebrile, hemodynamically stable. He reports that he is getting his strength in the left lower extremity. He is getting physical therapy. He was dialyzed yesterday. He tolerated the ultrafiltration of 1.5 liters. He denies any active complaints at this time. OBJECTIVE: VITAL SIGNS: Temperature is 98.4 degrees Fahrenheit, blood pressure 109/62, pulse is 75, respiratory rate of 18, saturating 98% on room air. INTAKE AND OUTPUT: There is no urine output recorded. Ultrafiltration with hemodialysis was 1.5 liters. Weight in the bed scale was 102.4 kg yesterday. PHYSICAL EXAMINATION: GENERAL: The patient is awake, alert, oriented times, laying in bed, in no apparent distress. HEAD AND NECK: Extraocular muscles intact. Pupils equally round and reactive to light. Mucous membranes are moist. Neck is supple. There is no jugular venous distention (JVD). CARDIOVASCULAR: S1, S2, regular rate. No edema of the bilateral lower extremity. RESPIRATORY: Chest is clear to auscultation bilaterally. Bilateral equal air entry. No rales or rhonchi. ABDOMEN: Soft, positive bowel sounds, nontender. No organomegaly. MUSCULOSKELETAL: Decreased range of movement of the left hip because of pain, otherwise no clubbing or cyanosis. CENTRAL NERVOUS SYSTEM (HEAD ATHLETIC TRAINER/STRENGTH COACH): No focal deficit. Power is 5/5 in bilateral upper extremities. LABORATORY REVIEW: CBC showed a WBC of 6.1, hemoglobin 8.9, platelets are 155. BMP showed sodium 137, potassium 3.9, chloride 101, bicarbonate 28, BUN 12, creatinine is 3.4, calcium 8.4. CURRENT INPATIENT MEDICATIONS: The patient's medications were all reviewed by me. There is no change in the medications today as compared with yesterday. ASSESSMENT AND PLAN: 1. End-stage renal disease. The patient is on dialysis every Sunday, Sunday, Sunday. However, inpatient he is on Sunday, , Sunday schedule. Next hemodialysis will be done tomorrow morning because of the holiday schedule. 2. Anemia in end-stage renal disease. Continue current dose of Venofer and Aranesp. If hemoglobin stays low then Aranesp dose will be increased to 300 mcg. 3. Hypertension with end-stage renal disease. Continue current dose of carvedilol. Blood pressure is optimized.
[2019-09-30] MEDS ORDERED: HEPARIN 1,000 UNITS/ML 10ML VIAL (FOR RADIOLOGY& DIALYSIS ONLY) IV ONE (12:00)
--- NOTE | 2019-09-30 12:21 | IPN ---
DATE: 09/29/2019 SUBJECTIVE: Joel is seen and examined this afternoon in the hemodialysis unit receiving his maintenance treatment. Denies any acute overnight events or complaints. He continues receiving physical therapy and reports he is tolerating his rehabilitation well. VITAL SIGNS: Temperature 97.7, pulse 63, respiratory rate 18, blood pressure 112/55, saturating 97% on room air. Intake yesterday was 3 liters. Dialysis today removed 2 liters. Weight in bed scale today is not recorded. GENERAL: The patient is seen awake, alert, oriented, comfortable in no acute distress in the hemodialysis unit receiving his dialysis treatment. Extraocular muscles are intact. Pupils are equally round and reactive to light. Mucous membranes are moist. Neck is supple. Jugular veins are not distended. CARDIAC: S1, S2, regular rate. There are wraps on his bilateral legs below the knees. There is trace to 1+ edema. LUNGS: Clear to auscultation bilaterally. No crackle, rale, or rhonchus. ABDOMEN: Soft, obese, and nontender. There are bowel sounds. EXTREMITIES: Show no clubbing or cyanosis. NEUROLOGIC: No focal deficit. Oriented times three. PSYCHIATRIC: Appropriate mood and effect. SKIN: Normal turgor and temperature. LABORATORY DATA: White count 6.8, hemoglobin 8.6, platelets 157. Sodium 133, potassium 4.3. INPATIENT MEDICATIONS: Reviewed by myself and no change from prior. PROBLEMS: 1. End-stage renal disease, on hemodialysis. His regular dialysis days are Sunday, Sunday, Sunday. He was dialyzed today. His volume status and electrolytes are acceptable. His next dialysis treatment will, however, be on because of the holiday. 2. Anemia and end-stage renal disease. Hemoglobin is down to 8.6. He is receiving Venofer with dialysis, and he is also receiving Aranesp once weekly. 3. Hypertension. His blood pressures have been slightly soft on hemodialysis with systolic going into the 90s. His carvedilol dose was very recently increased. If his blood pressures remain soft with his next treatment, I will decrease the carvedilol dose further. At present, I am not decreasing it because he also has a history of atrial fibrillation, and his carvedilol is part of his rate control. 4. Atrial fibrillation, rate controlled with amiodarone and carvedilol and anticoagulated with Eliquis.
--- NOTE | 2019-09-30 13:37 | IPN ---
DATE: 09/30/2019 SUBJECTIVE: Joel is seen and examined this morning in the hemodialysis unit. He is being dialyzed off-schedule today because of the Sunday holiday. He denies any issues or complaints. He continues to receive iron with dialysis treatments. I advised him that we have cut down his Carvedilol dose on this admission. VITAL SIGNS: Temperature 98.7, pulse 70, respiratory rate 16, blood pressure 110/53, saturating 96% on room air. Intake yesterday was 1370, dialysis yesterday removed 2 liters. Weight in the bed scale today is not recorded. GENERAL: The patient is seen in the hemodialysis unit receiving his treatment, awake, alert, oriented, comfortable, in no acute distress. Extraocular muscles are intact. Pupils are round and reactive to light. Mucous membranes are moist. Neck is supple. Jugular veins are not distended. Heart sounds are regular, S1, S2. He has wraps on his lower extremities. There appears to be about trace edema present. Lungs show clear air entry bilaterally. No crackle, rale or rhonchus. He is comfortable on room air. The abdomen is soft and nontender. There are bowel sounds. SKIN: The wraps on the lower extremities were not removed. EXTREMITIES: His right upper extremity fistula is patent and in use. NEUROLOGIC: He is oriented times, no focal deficit, interactive and conversational. PSYCHIATRIC: Appropriate mood and affect. LABORATORY DATA: White count 7.1, hemoglobin 9.0, platelets 174. Sodium 136, potassium 4.0, bicarbonate 30. INPATIENT MEDICATIONS: Reviewed by myself and no change from prior. PROBLEMS: 1. End-stage renal disease on Sunday, Sunday, Sunday schedule. The patient is being dialyzed off-schedule today because of the Sunday holiday. His fluid removal goal has been decreased to 1-1/2 liters. His electrolytes and volume status are acceptable. His fistula is in good use. 2. Anemia and end-stage renal disease. Hemoglobin is suboptimal but stable at 9.0. He is receiving Venofer with his dialysis treatments and he is on Aranesp 200 mcg weekly. 3. Hypertension. Blood pressures have been soft. There has also been hypotension of hemodialysis. We did significantly reduce his Carvedilol dose down to 6.25 mg by mouth twice daily and the patient has been advised of the same. 4. Renal osteodystrophy. The patient continues on Sensipar on Sunday, and Saturdays and Velphoro twice daily with meals.
[2019-09-30 18:00] VITALS: BP 112/62
[2019-09-30 22:00] VITALS: BP 108/54
[2019-10-01 06:00] VITALS: BP 107/53
[2019-10-01 06:43] LABS: BASO # 0.1 10^3/uL (0.0-0.2); BASO % 0.7 % (0.0-1.0); EOS # 0.4 10^3/uL (0.0-0.5); EOS % 4.9 % (0.0-3.0); HEMATOCRIT 28.7 % (42.0-52.0); HEMOGLOBIN 9.3 g/dl (13.5-17.5); LYMPH % 14.1 % (24.0-44.0); MEAN CORPUSCULAR HEMOGLOBIN 33.8 pg (27.0-33.0); MEAN CORPUSCULAR HGB CONC 32.4 g/dl (32.0-36.5); MEAN CORPUSCULAR VOLUME 104.4 fl (80.0-96.0); MONO # 0.7 10^3/uL (0.0-0.8); MONO % 10.3 % (0.0-5.0); NEUTROPHILS % 69.2 % (36.0-66.0); PLATELET COUNT, AUTOMATED 175 10^3/uL (150-450); RED BLOOD COUNT 2.75 10^6/uL (4.30-6.10); WHITE BLOOD COUNT 7.2 10^3/uL (4.0-10.0)
[2019-10-01 07:04] LABS: CALCIUM LEVEL 8.7 MG/DL (8.8-10.2); CREATININE FOR GFR 3.06 MG/DL (0.70-1.30); GLOMERULAR FILTRATION RATE 21.4 (>42); MAGNESIUM LEVEL 2.2 MG/DL (1.8-2.4); POTASSIUM SERUM 4.1 MEQ/L (3.5-5.1)
[2019-10-01] MEDS: DOCUSATE SODIUM 100 MG CAP PO SCH (08:36)
[2019-10-01] MEDS: APIXABAN 5 MG TAB (ELIQUIS) PO SCH ×2 (08:38→21:12)
[2019-10-01] MEDS: AMIODARONE 200 MG TAB (PACERONE) PO SCH (08:38)
[2019-10-01] MEDS: CARVedilol 6.25 MG TAB PO SCH ×2 (08:38→21:00)
[2019-10-01] MEDS: PERCOCET 5MG/325MG TAB PO PRN ×2 (08:38→12:59)
[2019-10-01] MEDS: FLUoxetine 20 MG CAP PO SCH (08:38)
[2019-10-01] MEDS: NEPHRO-VIT TAB (NEPHROCAPS) PO SCH (08:38)
[2019-10-01] MEDS: SUCROFERRIC OXYHYDROXIDE 500MG CHEW TAB (VELPHORO) PO SCH ×2 (08:39→17:45)
[2019-10-01] MEDS: PRAVASTATIN 20 MG TAB PO SCH (08:39)
[2019-10-01] MEDS: HumaLOG INSULIN (NovoLOG) PER UNIT SC SCH ×4 (08:40→21:00)
[2019-10-01] MEDS: LEVEMIR (INSULIN DETEMIR) 1 UNITS/0.01ML SC SCH (08:41)
--- NOTE | 2019-10-01 13:43 | IPN ---
DATE: 10/01/2019 SUBJECTIVE: Joel is seen and examined this morning at bedside. He denies any issues with his dialysis treatment yesterday. He has been up and ambulating. Denies any chest pain or shortness of breath. PHYSICAL EXAMINATION: Vital signs: Temperature 97.9, pulse 70, respiratory rate 18, blood pressure 107/53, saturating 99% on room air. Intake yesterday was not fully recorded. Dialysis yesterday removed 1500 mL. Weight on the bed scale today is not recorded. General: The patient is seen awake, alert, oriented, comfortable in no acute distress, lying down. Extraocular muscles are intact. Tongue is moist. Neck is supple. Jugular veins are not elevated. Pupils are round and reactive to light. Mucous membranes are moist. Heart sounds are regular. S1, S2. He has wraps on his lower extremities. There is trace edema bilaterally. Lungs show clear air entry. No crackle, rale or rhonchus. Abdomen is soft and nontender. There are bowel sounds. His right upper extremity fistula is patent with thrill and bruit. Neurologic: Oriented times three. No focal deficits. Psychiatric: Appropriate mood and affect. LABORATORIES: White count 7.2, hemoglobin 9.3, sodium 136, potassium 4.1. Inpatient medications reviewed by myself and no change as compared to yesterday. PROBLEMS: 1. End-stage renal disease on hemodialysis. He is dialyzed on a Sunday, Sunday, Sunday schedule; however, there is no dialysis today because of the holiday. His next dialysis will be on Sunday. He was already dialyzed on Sunday and Sunday of this week. His volume status and electrolytes are acceptable. His fistula is in good use. 2. Anemia of end-stage renal disease, hemoglobin is slowly improving, up to 9.3 today. He continues on Venofer and Aranesp with dialysis treatment. 3. Hypertension. His Carvedilol dose was reduced during this admission because of hypotension of hemodialysis and has been cut down to Carvedilol 6.25 mg twice a day. No other changes have been made. Blood pressures have been acceptable. 4. Renal osteodystrophy. Continue current dose of Sensipar on Sunday, and Sunday and Velphoro twice daily with meals.
[2019-10-01 21:48] VITALS: BP 106/55
[2019-10-02 06:08] VITALS: BP 111/62
[2019-10-02] MEDS: CINACALCET 30 MG TAB (SENSIPAR) PO SCH (08:28)
[2019-10-02 08:29] VITALS: BP 111/62
[2019-10-02] MEDS: FLUoxetine 20 MG CAP PO SCH (08:29)
[2019-10-02] MEDS: AMIODARONE 200 MG TAB (PACERONE) PO SCH (08:29)
[2019-10-02] MEDS: NEPHRO-VIT TAB (NEPHROCAPS) PO SCH (08:29)
[2019-10-02] MEDS: DOCUSATE SODIUM 100 MG CAP PO SCH (08:29)
[2019-10-02] MEDS: PRAVASTATIN 20 MG TAB PO SCH (08:29)
[2019-10-02] MEDS: APIXABAN 5 MG TAB (ELIQUIS) PO SCH (08:29)
[2019-10-02] MEDS: CARVedilol 6.25 MG TAB PO SCH (08:29)
[2019-10-02] MEDS: SUCROFERRIC OXYHYDROXIDE 500MG CHEW TAB (VELPHORO) PO SCH (08:29)
[2019-10-02] MEDS: LEVEMIR (INSULIN DETEMIR) 1 UNITS/0.01ML SC SCH (08:30)
[2019-10-02] MEDS: HumaLOG INSULIN (NovoLOG) PER UNIT SC SCH ×2 (08:30→12:05)
[2019-10-02] MEDS ORDERED: PERCOCET PO (09:55)
[2019-10-02] MEDS ORDERED: INSUDET SC (09:55)
[2019-10-02] MEDS ORDERED: CARV6.25 PO (09:55)
[2019-10-02] MEDS ORDERED: INSUHUMDS SC ×2 (09:55)
--- NOTE | 2019-10-02 10:01 | DS.PDOC ---
Discharge Summary General Date of Admission Sep 24, 2019 at 15:54 Date of Discharge 10/02/2019 Discharge Summary PROCEDURES PERFORMED DURING STAY: [None]. ADMITTING DIAGNOSES / DISCHARGE DIAGNOSES: Left rami Closed fracture - likely 2/2 mechanical fall ESRD on HD (MWF) A. fib CAD s/p CABG and Stent x3 HTN DLP IDDM2 with hypoglycemia Depression DVT prophylaxis COMPLICATIONS/CHIEF COMPLAINT: Left hip pain HISTORY OF PRESENT ILLNESS: Patient is a 74-year-old male with a PMHx of ESRD on HD (MWF), A. fib, CAD s/p CABG and Stent x3, HTN, DLP, IDDM2, who presented to the emergency room after experiencing a fall while at home. Patient reports that this morning he was in the bathroom and while he got up he had tripped and fell on his left side. Patient denied any loss of consciousness or any head trauma. He denied any chest pain, shortness of breath or palpitations at the time. He denies any cough, nausea, vomiting, abdominal pain, constipation or diarrhea. Patient denies any fevers or chills over the last 2 weeks. Patient reported that when he fell he began to experience extreme shooting pain with left-sided hip and contacted EMS for further assistance. Patient reports that currently his pain as a 5/10, consistent sharp pain aggravated by movement and alleviated with morphine. Patient was admitted to hospitalist service for further evaluation and treatment. HOSPITAL COURSE: Left rami Closed fracture - likely 2/2 mechanical fall - Patient presented to the emergency room after experiencing a mechanical fall; he denied any loss of consciousness / head trauma / syncope symptoms - Continues to have improvement and progression with PT - XR L femur 09/24: No evidence of fracture or dislocation. - XR L hip 09/24: No evidence of acute fracture or dislocation. - XR L shoulder 09/24: No fracture or dislocation. - Head CT 09/24: No acute intracranial process. - Cervical CT 09/24: No acute fracture. Multilevel degenerative sequelae. Calcified thyroid nodules. - L extremity CT 09/24: Nondisplaced left superior and inferior pubic rami fx - c/w Percocet for pain control - Will decrease dose of Percocet - c/w PT / OT - Will be transferred to ARU today ESRD on HD (MWF) - s/p Dialysis on ; will again go for dialysis on Sunday - Nephrology on consult A. fib - c/w rate / rhythm control with amiodarone and carvedilol (dose reduced) - c/w full anticoagulation with Eliquis CAD s/p CABG and Stent x3 HTN - BP remains well controlled - c/w Carvedilol at reduced dose DLP - c/w Pravastatin IDDM2 with hypoglycemia - c/w ISS and Levemir (at reduced dose) Depression - c/w Fluoxetine DVT prophylaxis - c/w full anticoagulation with Eliquis DISCHARGE MEDICATIONS: Please see below. ALLERGIES: Please see below. PHYSICAL EXAMINATION ON DISCHARGE: Vitals (See below) General: Lying in bed, no acute distress, comfortable, AAOx3 HEENT: NC, AT CVS: +S1S2 Lungs: Fair air entry b/l, no rhonchi / rales / wheezing Abdomen: Soft, ND, NT Extremities: - Edema, - Calf tenderness LABORATORY DATA: Please see below. ACTIVITY: [As tolerated]. DISCHARGE PLAN: Follow up with Dr. Alonso and Dr. Moriah Miller upon discharge from ARU Follow up with Dr. Ruiz on transfer to ARU Remain compliant with treatment plan and medications Return to the ER if you experience any problems DISPOSITION: ARU DISCHARGE CONDITION: [Stable]. TIME SPENT ON DISCHARGE: 35 minutes Vital Signs/I&Os Vital Signs Date Time Temp Pulse Resp B/P (MAP) Pulse Ox O2 Delivery O2 Flow Rate FiO2 10/02/19 08:29 85 111/62 10/02/19 06:08 96.6 18 99 Room Air I&O- Last 24 Hours up to 6 AM 10/02/19 06:00 Intake Total 1080 ml Output Total 100 ml Balance 980 ml Laboratory Data Labs 24H Laboratory Tests 2 10/01/19 12:10: Bedside Glucose (Misc Panel) 159H 10/01/19 17:04: Bedside Glucose (Misc Panel) 104 10/01/19 21:11: Bedside Glucose (Misc Panel) 135H 10/02/19 06:20: Bedside Glucose (Misc Panel) 117H FSBS Laboratory Tests Test 10/01/19 12:10 10/01/19 17:04 10/01/19 21:11 10/02/19 06:20 Range/Units Bedside Glucose (Misc Panel) 159 104 135 117 83-110 MG/DL Discharge Medications Scheduled Amiodarone HCl (Amiodarone HCl) 200 Mg Tab, 200 MG PO DAILY, (Reported) Apixaban (Eliquis) 5 Mg Tab, 5 MG PO BID, (Reported) Carvedilol (Carvedilol) 6.25 Mg Tablet, 6.25 MG PO BID Cinacalcet (Sensipar) 30 Mg Tab, 60 MG PO 3XW, (Reported) ON NON-DIALYSIS DAYS, TUE/THURS/SAT Docusate Sodium (Colace) 100 Mg Cap, 100 MG PO DAILY, (Reported) Fluoxetine Hcl (Fluoxetine HCl) 20 Mg Cap, 20 MG PO DAILY, (Reported) Folic Acid/Vit B Complex and C (Renal-Franklin Tablet) 1 Tab Tab, 1 TAB PO DAILY, (Reported) Insulin Detemir (Levemir) 100 Unit/1 Ml Vial, 30 UNITS SC DAILY Insulin Human Lispro (Humalog) 100 Unit/1 Ml Vial, 0 UNITS SC AC Insulin Human Lispro (Humalog) 100 Unit/1 Ml Vial, 0 UNITS SC QHS Neomycin/Bacitracin/Polymyxinb (Triple Antibiotic Ointment) 28.4 Gm Oint...g., 1 APLCT TOP ASDIRECTED, (Reported) APPLY TO [facility] SITE AT DIALYSIS Pravastatin Sodium (Pravastatin Sodium) 20 Mg Tab, 20 MG PO DAILY, (Reported) Sucroferric Oxyhydroxide (Velphoro) 500 Mg Tab.chew, 1,000 MG PO BIDWM, (Reported) Scheduled PRN Oxycodone/Acetaminophen (Oxycodone-Acetaminophen 5-325) 1 Each Tablet, 2 TAB PO Q6HP PRN for SEVERE PAIN (PS 8-10) Oxycodone/Acetaminophen (Oxycodone-Acetaminophen 5-325) 1 Each Tablet, 1 TAB PO Q6HP PRN for MILD/MODERATE PAIN (PS 1-7) Polyethylene Glycol 3350 (Miralax) 1 Pow Pow, 17 GM PO DAILY PRN for CONSTIPATION, (Reported) Allergies Coded Allergies: Penicillins (Verified Adverse Reaction, Unknown, DIZZY, 09/24/19) ALEX LYLE MD Oct 02, 2019 10:01
[2019-10-02] MEDS: PERCOCET 5MG/325MG TAB PO PRN (12:05)
[2019-10-02 14:00] VITALS: BP 105/66
== END 2019-10-02 16:50 | DRG 535 ==
LOC: EDBD 09:49 → M ED 09:49 → M ED INP 15:54 → M MS5PR 16:50
PROVIDERS: ADMIT Internal Medicine; ATTEND Internal Medicine
PROC: 5A1D70Z Performance of Urinary Filtration, Intermittent, Less than 6 Hours Per Day (ICD-10-PCS; principal; 2019-09-25)
DX: S32.592A Other specified fracture of left pubis, initial encounter for closed fracture (principal); N18.6 End stage renal disease; N25.81 Secondary hyperparathyroidism of renal origin; I13.11 Hypertensive heart and chronic kidney disease without heart failure, with stage 5 chronic kidney disease, or end stage renal disease; I25.10 Atherosclerotic heart disease of native coronary artery without angina pectoris; F32.9 Major depressive disorder, single episode, unspecified; W18.30XA Fall on same level, unspecified, initial encounter; Y92.009 Unspecified place in unspecified non-institutional (private) residence as the place of occurrence of the external cause; Z95.2 Presence of prosthetic heart valve; I48.91 Unspecified atrial fibrillation; E11.649 Type 2 diabetes mellitus with hypoglycemia without coma; Z79.899 Other long term (current) drug therapy; Z79.4 Long term (current) use of insulin; Z88.0 Allergy status to penicillin; E87.5 Hyperkalemia; D63.1 Anemia in chronic kidney disease; E83.39 Other disorders of phosphorus metabolism

== ENCOUNTER 2019-10-02 09:25 | Inpatient (IN) | payer MEDICARE, OTHER ==
[~2019-10-02] VITALS: Ht 188 cm; Wt 93.8 kg
[~2019-10-02 09:25] MED LIST changes: -LORA0.5T11 PO; +LORA0.5T5 PO; +TRIPOIN9 TOP; +VELP5CHW PO
[2019-10-02] MEDS ORDERED: INSUDET SC (09:55)
[2019-10-02] MEDS ORDERED: CARV6.25 PO (09:55)
[2019-10-02] MEDS ORDERED: INSUHUMDS SC ×2 (09:55)
[2019-10-02] MEDS ORDERED: PERCOCET PO (09:55)
[2019-10-02] MEDS ORDERED: CALCIUM CARBONATE 500 MG CHEW U/D PO PRN (15:45)
[2019-10-02] MEDS ORDERED: GLUCOSE 4 GM CHEW TABLET PO PRN (15:45)
[2019-10-02] MEDS ORDERED: GLUCAGON FOR INJ 1 MG VIAL (J1610) SC PRN (15:45)
[2019-10-02] MEDS ORDERED: DEXTROSE 50% 50 ML SYRINGE IV PRN (15:45)
[2019-10-02] MEDS ORDERED: MOM 30ML SUSPENSION UDC PO PRN (15:45)
[2019-10-02] MEDS ORDERED: oxyCODONE 5MG TAB PO PRN (15:45)
--- NOTE | 2019-10-02 16:15 | HPEPDOC ---
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 SOURCE OF ADMISSION INFORMATION: [facility] record and patient CHIEF COMPLAINT: pelvic fracture in setting of ESRD with peripheral polyneuropathy HISTORY OF PRESENT ILLNESS: 74M pmh ESRD on dialysis M/W/F, Afib, CAD s/p CABG with 3 stents, AICD, HTN, DM, HLD who fell at home without LOC or pre-syncopal symptoms and presented to [facility] ED on 09-24-[address] LE showed, Nondisplaced fractures left superior and inferior pubic rami. He was deemed not to be a surgical candidate and was made WBAT and treated with pain medications. He was followed closely by renal who rearranged his dialysis schedule and gave him Aranesp and Venofer for his anemia. He was evaluated by therapy and found to be well below his prior level of function in mobility and ADL management and deemed medically appropriate for discharge to ARU. REVIEW OF SYSTEMS: The following is a completed review of systems and has been reviewed. Review of systems otherwise unremarkable. PAIN: Patient self reports pelvic pain with movement EYES: No recent vision changes EARS, NOSE, & THROAT: No throat pain, or dysphagia, or rhinorrhea CARDIOVASCULAR: Denies chest pain or palpitations PULMONARY: Denies shortness of breath GASTROINTESTINAL: [Denies constipation/diarrhea]. GENITOURINARY: denies dysuria MUSCULOSKELETAL: pelvic fracture NEUROLOGICAL:+peripheral polyneuropathy HEMATOLOGICAL: +easy bruising and anemia SKIN: +stauffer ulcers PSYCHIATRIC: Unremarkable All other review of systems found to be negative. PAST MEDICAL HISTORY: as per HPI PAST SURGICAL HISTORY: Cholecystectomy, left knee TKR, left hip ORIF ALLERGIES: Please see below. MEDICATIONS: Please see below. 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 GENERAL: Pleasant and cooperative. No acute distress. HEENT: PERRL. Extraocular movements intact. Clear conjunctiva CARDIOVASCULAR: Regular rate and rhythm. No murmurs, rubs, or gallops LUNGS: Clear to auscultation bilaterally. No wheezes. No rhonchi ABDOMEN: Soft, nontender, nondistended. Positive bowel sounds. Normal active bowel sounds NEUROLOGICAL: Alert and oriented times three. Cranial nerves II through XII grossly intact. Sensation diminished in bilateral feet in stocking pattern EXTREMITIES: 4\5 strength bilateral upper extremities. 4\5 strength bilat hip flexors and knee extensors, 2/5 bilat ankle DF, 0/5 EHL extension, 4/5 ankle PF bilat calf edema L>R bilat +1st interosseus wasting SKIN: scattered ecchymosis, bilat stauffer ulcers, frail skin LABORATORY DATA: Please see below. IMAGING:Imaging documentation personally reviewed by record. FUNCTIONAL STATUS: Premorbid: Modified Independent with all activities of daily life as well as mobility On Admission: Min-Max assistance for bathing, upper body dressing, bed chair and wheelchair transfers, toilet transfers, ambulation. GOALS: Mod-I household distances, stairs, functional transfers, toileting, dressing, bathing, medical optimization ASSESSMENT:74-year-old M with past medical history of ESRD who presents status post fall with pelvic fracture PLAN: 1. Rehab- PT/OT advance gait training and optimize ADL management, strengthen/stretch/maintain ROM all 4 extremities, fall recovery 2. Neuro: peripheral polyneuropathy in setting of ESRD and longstanding diabetes with bilateral foot drop -avoid delirogenic meds 3. Cardiac: Afib on eliquis, amiodarone, and Carvedilol-medicine consulted to assist in management -HLD c/u statin therapy 4. Resp: encourage incentive spirometry, monitor for infection 5. Endo: pmh DM c/u Levemir and ISS 6. Renal: ESRD, renal consulted -c/u Cinacalcet and sucroferric 7. Heme: anemia of chronic disease per renal management 8. Pain: Tylenol and low dose oxycodone to be held for sedation 9. Psyche: depression c/u Prozac 10. DVt ppx: teds and on eliquis 11. Dispo: TBD POST ADMISSION PHYSICIAN EVALUATION: Medical and functional status: Description of medical status, medical assessment: As above. Rehabilitation diagnosis and current and prior cold morbid medical conditions as above. Risk of complications and plans to mitigate them as above. Description of functional status current status is as above. Prior status as above. Status compared to preadmission: There are no clinically significant differences between the patient's current status and the information described on the preadmission screening document. Treatment plan anticipated: Treatment plan is as described above. Required disciplines including physical therapy, occupational therapy, others as noted above. Intensity of services: 3 hours a day, 6 days a week. Special considerations: There are no specific special or safety considerations that would likely preclude immediate implementation of an intensive rehabilitation program or subsequently influence the plan of care. ATTESTATION: Considering all the information above, it is my best judgment that this patient requires intensive rehabilitation therapy as described above and an inpatient hospital environment due to the complexity of nursing, medical, and rehabilitation needs required by the patient. Furthermore, this patient can reasonably be expected to participate in an benefit from an inpatient rehabilitation stay with an interdisciplinary team approach to the delivery of rehabilitation care under the direction and supervision of rehabilitation physician. PROGNOSIS:Good ESTIMATED LENGTH OF STAY:18-21 days. PROJECTED DISCHARGE DESTINATION: Home with family support and any durable medical equipment required to increase functional safety and mobility. TIME SPENT COUNSELING AND COORDINATING INITIAL CARE: Greater than 70 minutes. Vital Signs Vital Signs Date Time Temp Pulse Resp B/P (MAP) Pulse Ox O2 Delivery O2 Flow Rate FiO2 10/02/19 17:00 97.2 54 17 123/76 (92) 100 Room Air Home Medications Scheduled Amiodarone HCl (Amiodarone HCl) 200 Mg Tab, 200 MG PO DAILY, (Reported) Apixaban (Eliquis) 5 Mg Tab, 5 MG PO BID, (Reported) Carvedilol (Carvedilol) 6.25 Mg Tablet, 6.25 MG PO BID Cinacalcet (Sensipar) 30 Mg Tab, 60 MG PO 3XW, (Reported) ON NON-DIALYSIS DAYS, SUN//SAT Docusate Sodium (Colace) 100 Mg Cap, 100 MG PO DAILY, (Reported) Fluoxetine Hcl (Fluoxetine HCl) 20 Mg Cap, 20 MG PO DAILY, (Reported) Folic Acid/Vit B Complex and C (Renal-Franklin Tablet) 1 Tab Tab, 1 TAB PO DAILY, (Reported) Insulin Detemir (Levemir) 100 Unit/1 Ml Vial, 30 UNITS SC DAILY Insulin Human Lispro (Humalog) 100 Unit/1 Ml Vial, 0 UNITS SC AC Insulin Human Lispro (Humalog) 100 Unit/1 Ml Vial, 0 UNITS SC QHS Neomycin/Bacitracin/Polymyxinb (Triple Antibiotic Ointment) 28.4 Gm Oint...g., 1 APLCT TOP ASDIRECTED, (Reported) APPLY TO [facility] SITE AT DIALYSIS Pravastatin Sodium (Pravastatin Sodium) 20 Mg Tab, 20 MG PO DAILY, (Reported) Sucroferric Oxyhydroxide (Velphoro) 500 Mg Tab.chew, 1,000 MG PO BIDWM, (Reported) Scheduled PRN Oxycodone/Acetaminophen (Oxycodone-Acetaminophen 5-325) 1 Each Tablet, 2 TAB PO Q6HP PRN for SEVERE PAIN (PS 8-10) Oxycodone/Acetaminophen (Oxycodone-Acetaminophen 5-325) 1 Each Tablet, 1 TAB PO Q6HP PRN for MILD/MODERATE PAIN (PS 1-7) Polyethylene Glycol 3350 (Miralax) 1 Pow Pow, 17 GM PO DAILY PRN for CONSTIPATION, (Reported) Allergies Coded Allergies: Penicillins (Verified Adverse Reaction, Unknown, DIZZY, 09/24/19) A-FIB/CHADSVASC A-FIB History Current/History of A-Fib/PAF?: Yes Current PO Anticoag Therapy: Yes MARJ RICHARDSON MD Oct 02, 2019 16:15
[2019-10-02 17:00] VITALS: BP 123/76
[2019-10-02] MEDS ORDERED: PILL CUTTER 1 EACH XX PRN (17:15)
[2019-10-02] MEDS: HumaLOG INSULIN (NovoLOG) PER UNIT SC SCH ×2 (17:30→20:49)
[2019-10-02] MEDS: PANTOPRAZOLE 40MG TAB (PROTONIX) PO SCH (18:07)
[2019-10-02] MEDS: ACETAMINOPHEN 500 MG TAB PO SCH ×2 (18:07→20:46)
[2019-10-02] MEDS: SUCROFERRIC OXYHYDROXIDE 500MG CHEW TAB (VELPHORO) PO SCH (19:31)
[2019-10-02] MEDS: DOCUSATE SODIUM 100 MG CAP PO SCH (20:46)
[2019-10-02] MEDS: SENNA 8.6 MG TAB (SENOKOT) PO SCH (20:47)
[2019-10-02] MEDS: APIXABAN 5 MG TAB (ELIQUIS) PO SCH (20:47)
[2019-10-02] MEDS: CARVedilol 6.25 MG TAB PO SCH (20:48)
[2019-10-02 22:00] VITALS: BP 163/80
[2019-10-03 06:00] VITALS: BP 118/64
[2019-10-03 07:31] LABS: BASO % 0.5 % (0.0-1.0); EOS # 0.4 10^3/uL (0.0-0.5); EOS % 5.7 % (0.0-3.0); HEMATOCRIT 27.1 % (42.0-52.0); HEMOGLOBIN 8.7 g/dl (13.5-17.5); LYMPH % 15.5 % (24.0-44.0); MEAN CORPUSCULAR HEMOGLOBIN 33.2 pg (27.0-33.0); MEAN CORPUSCULAR HGB CONC 32.1 g/dl (32.0-36.5); MEAN CORPUSCULAR VOLUME 103.4 fl (80.0-96.0); MONO # 0.5 10^3/uL (0.0-0.8); MONO % 8.8 % (0.0-5.0); NEUTROPHILS # 4.2 10^3/uL (1.5-8.5); NEUTROPHILS % 68.7 % (36.0-66.0); PLATELET COUNT, AUTOMATED 173 10^3/uL (150-450); RED BLOOD COUNT 2.62 10^6/uL (4.30-6.10); WHITE BLOOD COUNT 6.1 10^3/uL (4.0-10.0)
[2019-10-03 08:28] LABS: ALBUMIN 2.6 GM/DL (3.2-5.2); BILIRUBIN,TOTAL 0.9 MG/DL (0.2-1.0); CALCIUM LEVEL 8.1 MG/DL (8.8-10.2); CREATININE FOR GFR 6.04 MG/DL (0.70-1.30); GLOMERULAR FILTRATION RATE 9.8 (>42); POTASSIUM SERUM 4.1 MEQ/L (3.5-5.1); TOTAL PROTEIN 6.7 GM/DL (6.4-8.2)
[2019-10-03] MEDS: HumaLOG INSULIN (NovoLOG) PER UNIT SC SCH ×4 (08:44→20:31)
[2019-10-03] MEDS: PANTOPRAZOLE 40MG TAB (PROTONIX) PO SCH (08:45)
[2019-10-03] MEDS: ACETAMINOPHEN 500 MG TAB PO SCH ×3 (08:45→20:31)
[2019-10-03] MEDS: PRAVASTATIN 20 MG TAB PO SCH (08:45)
[2019-10-03] MEDS: FLUoxetine 20 MG CAP PO SCH (08:45)
[2019-10-03] MEDS: LEVEMIR (INSULIN DETEMIR) 1 UNITS/0.01ML SC SCH (08:45)
[2019-10-03] MEDS: SUCROFERRIC OXYHYDROXIDE 500MG CHEW TAB (VELPHORO) PO SCH ×2 (08:45→18:00)
[2019-10-03] MEDS: DOCUSATE SODIUM 100 MG CAP PO SCH ×2 (08:45→20:29)
[2019-10-03] MEDS: APIXABAN 5 MG TAB (ELIQUIS) PO SCH ×2 (08:46→20:29)
[2019-10-03] MEDS: AMIODARONE 200 MG TAB (PACERONE) PO SCH (08:46)
[2019-10-03] MEDS: CARVedilol 6.25 MG TAB PO SCH ×2 (08:46→16:31)
[2019-10-03] MEDS: NEPHRO-VIT TAB (NEPHROCAPS) PO SCH (08:46)
[2019-10-03] MEDS ORDERED: traMADol 50 MG TAB PO PRN (09:45)
[2019-10-03] MEDS: tiZANidine 4 MG TAB PO SCH ×3 (09:45→16:00)
[2019-10-03] MEDS ORDERED: DARBEPOETIN 100 MCG/0.5 ML *DIALYSIS* SYRINGE (J0882) IV SCH (09:45)
--- NOTE | 2019-10-03 10:08 | IPNPDOC ---
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 REVIEW OF SYSTEMS: The following is a completed review of systems and has been reviewed. Review of systems otherwise unremarkable. PAIN: Patient self reports pelvic pain with movement EYES: No recent vision changes EARS, NOSE, & THROAT: No throat pain, or dysphagia, or rhinorrhea CARDIOVASCULAR: Denies chest pain or palpitations PULMONARY: Denies shortness of breath GASTROINTESTINAL: Denies constipation/diarrhea GENITOURINARY: denies dysuria MUSCULOSKELETAL: pelvic fracture NEUROLOGICAL:+peripheral polyneuropathy HEMATOLOGICAL: +easy bruising and anemia SKIN: +stauffer ulcers PSYCHIATRIC: Unremarkable All other review of systems found to be negative. PHYSICAL EXAMINATION: VITAL SIGNS: Please see below. GENERAL: Pleasant and cooperative. No acute distress. HEENT: PERRL. Extraocular movements intact. Clear conjunctiva CARDIOVASCULAR: Regular rate and rhythm. No murmurs, rubs, or gallops LUNGS: Clear to auscultation bilaterally. No wheezes. No rhonchi ABDOMEN: Soft, nontender, nondistended. Positive bowel sounds. Normal active bowel sounds NEUROLOGICAL: Alert and oriented times three. Cranial nerves II through XII grossly intact. Sensation diminished in bilateral feet in stocking pattern EXTREMITIES: 4\5 strength bilateral upper extremities. 4\5 strength bilat hip flexors and knee extensors, 2/5 bilat ankle DF, 0/5 EHL extension, 4/5 ankle PF bilat calf edema L>R bilat +1st interosseus wasting SKIN: scattered ecchymosis, bilat stauffer ulcers, frail skin -no sacral ulcers -bilat toe dry ulcers LABORATORY DATA: Please see below. ASSESSMENT:74-year-old M with past medical history of ESRD who presents status post fall with pelvic fracture PLAN: 1. Rehab- PT/OT advance gait training and optimize ADL management, strengthen/stretch/maintain ROM all 4 extremities, fall recovery 2. Neuro: peripheral polyneuropathy in setting of ESRD and longstanding diabetes with bilateral foot drop -avoid delirogenic meds 3. Cardiac: Afib on eliquis, amiodarone, and Carvedilol-medicine consulted to assist in management -HLD c/u statin therapy 4. Resp: encourage incentive spirometry, monitor for infection 5. Endo: pmh DM c/u Levemir and ISS 6. Renal: ESRD, renal consulted -c/u Cinacalcet and sucroferric 7. Heme: anemia of chronic disease per renal management 8. Pain: Tylenol standing, will trial tramadol prn as patient trying to avoid oxycodone as causes confusion, however is significantly limited by pain -will start low dose tizanidine 9. Psych: depression c/u Prozac 10. DVt ppx: teds and on eliquis 11. Dispo: TBD Allergies Coded Allergies: Penicillins (Verified Adverse Reaction, Unknown, DIZZY, 09/24/19) Vital Signs Vital Signs Date Time Temp Pulse Resp B/P (MAP) Pulse Ox O2 Delivery O2 Flow Rate FiO2 10/03/19 08:46 64 118/64 10/03/19 06:00 98.6 18 100 Room Air Laboratory Data CBC/BMP Laboratory Tests 10/03/19 06:52 Labs 24H Laboratory Tests 2 10/02/19 20:05: Bedside Glucose (Misc Panel) 135H 10/03/19 06:52: Immature Granulocyte % (Auto) 0.8, Neutrophils (%) (Auto) 68.7H, Lymphocytes (%) (Auto) 15.5L, Monocytes (%) (Auto) 8.8H, Eosinophils (%) (Auto) 5.7H, Basophils (%) (Auto) 0.5, Neutrophils # (Auto) 4.2, Lymphocytes # (Auto) 1.0L, Monocytes # (Auto) 0.5, Eosinophils # (Auto) 0.4, Basophils # (Auto) 0.0, Nucleated Red Blood Cells % (auto) 0.0, Anion Gap 10, Glomerular Filtration Rate 9.8L, Calcium Level 8.1L, Total Bilirubin 0.9, Aspartate Amino Transf (AST/SGOT) 15, Alanine Aminotransferase (ALT/SGPT) 15, Alkaline Phosphatase 208H, Total Protein 6.7, Albumin 2.6L, Albumin/Globulin Ratio 0.63L 10/03/19 07:06: Bedside Glucose (Misc Panel) 125H Current Medications Current Medications Current Medications Medications (Trade) Dose Ordered Sig/Jason Route PRN Reason Start Time Stop Time Status Last Admin Dose Admin Acetaminophen (Tylenol Tab) 1,000 mg TID PO 10/02/19 16:00 10/03/19 08:45 Amiodarone HCl (Pacerone, Cordarone) 200 mg DAILY PO 10/03/19 09:00 10/03/19 08:46 Apixaban (Eliquis) 5 mg BID PO 10/02/19 21:00 10/03/19 08:46 Calcium Carbonate (Tums) 1,000 mg Q4HP PRN PO HEARTBURN 10/02/19 15:45 Carvedilol (COReg) 6.25 mg BID PO 10/02/19 21:00 10/03/19 08:46 Cinacalcet (Sensipar) 60 mg TuThSa@0900 PO 10/04/19 09:00 Darbepoetin Blu (Aranesp (Dialysis Use)) 200 mcg HD IV 10/03/19 09:45 Dextrose (Dextrose 50%) 25 ml ASDIRECTED PRN IV SEE LABEL COMMENTS 10/02/19 15:45 Docusate Sodium (Colace) 100 mg BID PO 10/02/19 21:00 10/03/19 08:45 Fluoxetine HCl (PROzac) 20 mg DAILY PO 10/03/19 09:00 10/03/19 08:45 Glucagon (Glucagon) 1 mg ASDIRECTED PRN SC SEE LABEL COMMENTS 10/02/19 15:45 Glucose (Glucose) 16 GM ASDIRECTED PRN PO SEE LABEL COMMENTS 10/02/19 15:45 Insulin Detemir (Levemir Insulin) 25 units DAILY SC 10/03/19 09:00 10/03/19 08:45 Insulin Human Lispro (HumaLOG INSULIN) SEE PROTOCOL TABLE AC SC 10/02/19 17:30 10/03/19 08:44 Insulin Human Lispro (HumaLOG INSULIN) SEE PROTOCOL TABLE QHS SC 10/02/19 21:00 Magnesium Hydroxide (Milk Of Magnesia) 30 ml DAILYPRN PRN PO CONSTIPATION 10/02/19 15:45 Oxycodone HCl (Roxicodone, Oxyir) 2.5 mg Q6HP PRN PO PAIN 10/02/19 15:45 10/03/19 09:38 DC Pantoprazole Sodium (Protonix) 40 mg DAILY PO 10/02/19 09:00 10/03/19 08:45 Pravastatin Sodium (Pravachol) 20 mg DAILY PO 10/03/19 09:00 10/03/19 08:45 Senna (Senokot) 1 tab QHS PO 10/02/19 21:00 10/02/19 20:47 Sucroferric Oxyhydroxide (Velphoro) 1,000 mg BIDWM PO 10/02/19 18:00 10/03/19 08:45 Tizanidine HCl (Zanaflex) 2 mg ASDIRECTED PO 10/03/19 09:45 UNV Vitamin B Complex/ Vit C/Folic Acid (Nephro-Franklin Rx) 1 tab DAILY PO 10/03/19 09:00 10/03/19 08:46 MARJ RICHARDSON MD Oct 03, 2019 10:08
[2019-10-03] MEDS ORDERED: IRON SUCROSE 100MG 5ML VIAL (J1756 PER 1MG) IV SCH (11:30)
--- NOTE | 2019-10-03 12:56 | CR ---
DATE OF CONSULTATION: 10/03/2019 REQUESTING PHYSICIAN: Pam Wilcox MD CONSULTING PHYSICIAN: Anne Alonso MD REASON FOR CONSULTATION: Management of end-stage renal disease on hemodialysis. HISTORY OF PRESENT ILLNESS: Joel Villarreal is well known to me. He is a 74-year-old male with a past medical history of end-stage renal disease on dialysis on a Sunday, Sunday, Sunday schedule via right upper extremity fistula, atrial fibrillation, coronary artery disease status post CABG with a history of stents, status post AICD, hypertension, diabetes, dyslipidemia, and other comorbid conditions mentioned below. The patient was admitted to the rehabilitation unit on 10/02/2019 for a pelvic fracture after a fall at home without loss of consciousness or presyncopal symptoms. He has been in the inpatient unit for about the past 10 days prior to this admission to the rehabilitation unit. Nephrology service was consulted for management of his hemodialysis. PAST MEDICAL HISTORY: End-stage renal disease on dialysis Sunday, Sunday, Sunday, atrial fibrillation, coronary artery disease status post CABG, hypertension, diabetes, dyslipidemia, secondary hyperparathyroidism of renal origin, anemia of chronic kidney disease, polyneuropathy, long-term anticoagulant use. PAST SURGICAL HISTORY: Status post CABG in 1998 and status post AICD in 1998 with replacement times three, history of coronary artery stenting, most recent one in 2013, status post cholecystectomy history of left knee replacement, and status post left hip fracture with open reduction and internal fixation and status post right upper extremity AV fistula with revisions in 2018. ALLERGIES: PENICILLIN. HOME MEDICATIONS: Reviewed and include: - amiodarone 200 mg by mouth daily - Eliquis 5 mg twice a day - Coreg 6.25 mg twice a day - Sensipar 3 days a week - fluoxetine 20 mg daily - insulin - oxycodone as needed - MiraLax as needed - pravastatin 20 mg by mouth daily - Velphoro 1 gram by mouth three times a day with meal - Nephro-Franklin vitamin FAMILY HISTORY: There is a history of Parkinson's in his mother and lung cancer in his father. SOCIAL HISTORY: He denies active smoking, illicit drug abuse or alcohol abuse. He lives at home with his . REVIEW OF SYSTEMS: Constitutional: Denies fevers or chills. Eyes: Denies blurry vision or double vision. ENT: Denies dysphasia or odynophagia. Cardiac: Denies chest pain or palpitations. Has a history of coronary artery disease. Respiratory: Denies shortness of breath or cough. Gastrointestinal: Denies nausea, vomiting, diarrhea. Genitourinary: Denies dysuria or hematuria. Musculoskeletal: Reports left hip pain and presently receiving rehabilitation after pelvic fracture. Skin: Denies any new rashes or ulcers. Neurologic: Denies seizures or syncope. Psychiatric: Denies anxiety. Has been having some nightmares. Hematology: Reports a history of anemia of chronic renal failure and also reports long-term anticoagulant use. Endocrine: Reports insulin dependent diabetes and secondary hyperparathyroidism. Remainder of review of systems is negative or as per HPI. Vital signs: Temperature 98.6, pulse 64, respiratory rate 18, blood pressure 118/64, saturating 100% on room air. General: The patient is seen awake, alert, oriented in the rehabilitation unit about to get started on another round of therapy. Extraocular muscles are intact and there is mild conjunctival pallor. Ear, nose and throat are unremarkable. Cardiac: S1, S2, irregularly irregular, trace edema in the legs. Palpable radial pulse. Lungs are clear to auscultation bilaterally. No crackle, rale or rhonchus. Abdomen is soft and nontender. There are bowel sounds. Neurologic: He is oriented times three. No focal deficits, interactive and conversational. Extremities: His right upper extremity fistula is patent with thrill and bruit. There is trace to 1+ edema in the legs. Skin: There is some scattered ecchymosis. He is seen later in the afternoon in the dialysis unit receiving his treatment. LABORATORY DATA: White count 6.1, hemoglobin 8.7, platelet 173, sodium 134, potassium 4.1. INPATIENT MEDICATIONS: - Tylenol 1 gram by mouth three times a day - amiodarone 200 mg by mouth daily - Eliquis 5 mg by mouth twice a day - Tums as needed - Coreg 6.25 mg by mouth twice a day - Sensipar 60 mg Sunday, and Sunday - Aranesp 200 mcg with dialysis - fluoxetine 20 mg by mouth daily - insulin - Milk of Magnesia as needed - Protonix 40 mg by mouth daily - pravastatin 20 mg by mouth daily - Senna one tablet by mouth nightly - Velphoro 1 gram by mouth twice a day with meal - tizanidine 2 mg by mouth three times a day - tramadol 25 mg by mouth every 4 hours as needed - Nephro-Franklin PROBLEMS: 1. End-stage renal disease on hemodialysis on a Sunday, Sunday, Sunday schedule. The patient is dialyzed today. Goal fluid removal is 1.5 to 2 kg as tolerated by hemodynamics. His electrolytes and volume status are acceptable. His fistula has been in good use. His carvedilol dose was recently cut down because of hypotension of hemodialysis. 2. Hypertension. Blood pressures are acceptable. He has had some hypotension of hemodialysis recently and his carvedilol was reduced to 6.25 mg by mouth twice daily. Previously at home he was taking 25 mg twice a day. We will continue to monitor his blood pressures. 3. Atrial fibrillation. He is rate controlled with beta alexander and amiodarone and anticoagulated with Eliquis. 4. Anemia of chronic renal failure. Hemoglobin is down to 8.7. Goal hemoglobin is 10-11. I have increased his Aranesp and he will continue to receive Venofer with the next two dialysis treatments. 5. Renal osteodystrophy. The patient continues on Sensipar and Velphoro and we will intermittently check his phosphorus and parathyroid hormone. His corrected calcium is acceptable. Thank you for involving me in the care of Mr. Villarreal. I will be happy to follow him along with you.
[2019-10-03 14:00] VITALS: BP 122/67
--- NOTE | 2019-10-03 18:47 | CR.PDOC ---
General Date of Consultation: Oct 03, 2019 Consultation REASON FOR CONSULTATION/CHIEF COMPLAINT: Physical evaluation HISTORY OF PRESENT ILLNESS: Patient is 74 years old male with past medical history of end-stage renal diseases, coronary artery diseases status post CABG, hypertension, diabetes, dyslipidemia presented hospital with pelvic fracture. Currently patient in the acute rehabilitation unit. Patient denied fever, chills, nausea, shortness of breath, palpitations, vomiting, diarrhea ALLERGIES: Please see below. HOME MEDICATIONS: Please see below. PAST MEDICAL HISTORY: End-stage renal disease on dialysis Sunday, Sunday, Sunday, atrial fibrillation, coronary artery disease status post CABG, hypertension, diabetes, dyslipidemia, secondary hyperparathyroidism of renal origin, anemia of chronic kidney disease, polyneuropathy, long-term anticoagulant use. PAST SURGICAL HISTORY: Status post CABG in 1998 and status post AICD in 1998 with replacement times three, history of coronary artery stenting, most recent one in 2013, status post cholecystectomy history of left knee replacement, and status post left hip fracture with open reduction and internal fixation and status post right upper extremity AV fistula with revisions in 2018. FAMILY HISTORY: There is a history of Parkinson's in his mother and lung cancer in his father. SOCIAL HISTORY: Tobacco use: Denies ETOH: Denies Illicit drug use: Denies REVIEW OF SYSTEMS: 10 point review system negative except as listed above PHYSICAL EXAMINATION: VITAL SIGNS: Please see below. GENERAL APPEARANCE: NAD HEENT: PERRLA, EOMI RESPIRATORY: CTA CARDIOVASCULAR: Irregularly irregular, S1-S2 ABDOMEN: Nontender, nondistended EXTREMITIES: Right upper extremity fistula in place NEUROLOGICAL: Nonfocal LABORATORY DATA: Please see below. ASSESSMENT/PLAN: Patient is 74 years old male with past medical history of end- stage renal diseases, coronary artery diseases status post CABG, hypertension, diabetes, dyslipidemia presented hospital with pelvic fracture. . End-stage renal disease on hemodialysis on a Sunday, Sunday, Sunday schedule. Nephrology team follows him Hypertension Management by dialysis Continue home medications Atrial fibrillation Rate controlled Continue anticoagulation with Eliquis Anemia of chronic diseases Continue Aranesp Renal osteodystrophy. The patient continues on Sensipar and Velphoro Vital Signs/I&O Vital Signs Date Time Temp Pulse Resp B/P (MAP) Pulse Ox O2 Delivery O2 Flow Rate FiO2 10/03/19 14:00 97.2 51 18 122/67 (85) 97 Room Air I&O- Last 24 Hours up to 6 AM 10/03/19 06:00 Intake Total 360 ml Output Total 0 ml Balance 360 ml Laboratory Data Labs 24H Laboratory Tests 2 10/02/19 20:05: Bedside Glucose (Misc Panel) 135H 10/03/19 06:52: Immature Granulocyte % (Auto) 0.8, Neutrophils (%) (Auto) 68.7H, Lymphocytes (%) (Auto) 15.5L, Monocytes (%) (Auto) 8.8H, Eosinophils (%) (Auto) 5.7H, Basophils (%) (Auto) 0.5, Neutrophils # (Auto) 4.2, Lymphocytes # (Auto) 1.0L, Monocytes # (Auto) 0.5, Eosinophils # (Auto) 0.4, Basophils # (Auto) 0.0, Nucleated Red Blood Cells % (auto) 0.0, Anion Gap 10, Glomerular Filtration Rate 9.8L, Calcium Level 8.1L, Total Bilirubin 0.9, Aspartate Amino Transf (AST/SGOT) 15, Alanine Aminotransferase (ALT/SGPT) 15, Alkaline Phosphatase 208H, Total Protein 6.7, Albumin 2.6L, Albumin/Globulin Ratio 0.63L 10/03/19 07:06: Bedside Glucose (Misc Panel) 125H 10/03/19 12:01: Bedside Glucose (Misc Panel) 133H CBC/BMP Laboratory Tests 10/03/19 06:52 Allergies Coded Allergies: Penicillins (Verified Adverse Reaction, Unknown, DIZZY, 09/24/19) Home Medications Scheduled Amiodarone HCl (Amiodarone HCl) 200 Mg Tab, 200 MG PO DAILY, (Reported) Apixaban (Eliquis) 5 Mg Tab, 5 MG PO BID, (Reported) Carvedilol (Carvedilol) 6.25 Mg Tablet, 6.25 MG PO BID for 30 Days, #60 Cinacalcet (Sensipar) 30 Mg Tab, 60 MG PO 3XW, (Reported) ON NON-DIALYSIS DAYS, TUE//SAT Docusate Sodium (Colace) 100 Mg Cap, 100 MG PO DAILY, (Reported) Fluoxetine Hcl (Fluoxetine HCl) 20 Mg Cap, 20 MG PO DAILY, (Reported) Folic Acid/Vit B Complex and C (Renal-Franklin Tablet) 1 Tab Tab, 1 TAB PO DAILY, (R eported) Insulin Detemir (Levemir) 100 Unit/1 Ml Vial, 30 UNITS SC DAILY for 30 Days, #1 Insulin Human Lispro (Humalog) 100 Unit/1 Ml Vial, 0 UNITS SC AC for 1 Days, #1 Insulin Human Lispro (Humalog) 100 Unit/1 Ml Vial, 0 UNITS SC QHS for 1 Days, #1 Neomycin/Bacitracin/Polymyxinb (Triple Antibiotic Ointment) 28.4 Gm Oint...g., 1 APLCT TOP ASDIRECTED, (Reported) APPLY TO ACESS SITE AT DIALYSIS Pravastatin Sodium (Pravastatin Sodium) 20 Mg Tab, 20 MG PO DAILY, (Reported) Sucroferric Oxyhydroxide (Velphoro) 500 Mg Tab.chew, 1,000 MG PO BIDWM, (Reported) Scheduled PRN Oxycodone/Acetaminophen (Oxycodone-Acetaminophen 5-325) 1 Each Tablet, 2 TAB PO Q6HP PRN for SEVERE PAIN (PS 8-10) for 3 Days, #12 Oxycodone/Acetaminophen (Oxycodone-Acetaminophen 5-325) 1 Each Tablet, 1 TAB PO Q6HP PRN for MILD/MODERATE PAIN (PS 1-7) for 3 Days, #12 Polyethylene Glycol 3350 (Miralax) 1 Pow Pow, 17 GM PO DAILY PRN for CONSTIPATION, (Reported) CHU OSPINA DO Oct 03, 2019 18:47
[2019-10-03 20:00] VITALS: BP 103/56
[2019-10-03] MEDS: SENNA 8.6 MG TAB (SENOKOT) PO SCH (20:29)
[2019-10-04 06:00] VITALS: BP_SYST 113; BP_SYST 119; BP_DIAS 60; BP_DIAS 65
[2019-10-04] MEDS: HumaLOG INSULIN (NovoLOG) PER UNIT SC SCH ×4 (07:30→21:00)
[2019-10-04 07:36] LABS: BASO % 0.4 % (0.0-1.0); EOS # 0.1 10^3/uL (0.0-0.5); EOS % 1.2 % (0.0-3.0); HEMATOCRIT 29.2 % (42.0-52.0); HEMOGLOBIN 9.4 g/dl (13.5-17.5); LYMPH # 0.4 10^3/uL (1.5-5.0); LYMPH % 5.7 % (24.0-44.0); MEAN CORPUSCULAR HEMOGLOBIN 33.3 pg (27.0-33.0); MEAN CORPUSCULAR HGB CONC 32.2 g/dl (32.0-36.5); MEAN CORPUSCULAR VOLUME 103.5 fl (80.0-96.0); MONO # 0.5 10^3/uL (0.0-0.8); MONO % 7.2 % (0.0-5.0); NEUTROPHILS # 6.4 10^3/uL (1.5-8.5); PLATELET COUNT, AUTOMATED 192 10^3/uL (150-450); RED BLOOD COUNT 2.82 10^6/uL (4.30-6.10); WHITE BLOOD COUNT 7.5 10^3/uL (4.0-10.0)
[2019-10-04 07:53] LABS: CALCIUM LEVEL 9.1 MG/DL (8.8-10.2); CREATININE FOR GFR 3.78 MG/DL (0.70-1.30); GLOMERULAR FILTRATION RATE 16.8 (>42); POTASSIUM SERUM 4.2 MEQ/L (3.5-5.1)
[2019-10-04] MEDS: SUCROFERRIC OXYHYDROXIDE 500MG CHEW TAB (VELPHORO) PO SCH ×2 (08:00→17:28)
[2019-10-04] MEDS: tiZANidine 4 MG TAB PO SCH ×2 (08:00→12:00)
[2019-10-04] MEDS: NEPHRO-VIT TAB (NEPHROCAPS) PO SCH (09:00)
[2019-10-04] MEDS: ACETAMINOPHEN 500 MG TAB PO SCH ×3 (09:00→21:00)
[2019-10-04] MEDS: PANTOPRAZOLE 40MG TAB (PROTONIX) PO SCH (09:00)
[2019-10-04] MEDS: PRAVASTATIN 20 MG TAB PO SCH (09:00)
[2019-10-04] MEDS: APIXABAN 5 MG TAB (ELIQUIS) PO SCH ×2 (09:00→21:00)
[2019-10-04] MEDS: AMIODARONE 200 MG TAB (PACERONE) PO SCH (09:00)
[2019-10-04] MEDS: LEVEMIR (INSULIN DETEMIR) 1 UNITS/0.01ML SC SCH (09:00)
[2019-10-04] MEDS: DOCUSATE SODIUM 100 MG CAP PO SCH ×2 (09:00→21:00)
[2019-10-04] MEDS: CARVedilol 6.25 MG TAB PO SCH (09:00)
[2019-10-04] MEDS ORDERED: LevoFLOXacin 250 MG TABLET PO SCH (09:00)
[2019-10-04] MEDS: CINACALCET 30 MG TAB (SENSIPAR) PO SCH (09:00)
[2019-10-04] MEDS: FLUoxetine 20 MG CAP PO SCH (09:00)
[2019-10-04] MEDS ORDERED: LORazepam 2 MG/ML VIAL (J2060) IM STA (11:18)
[2019-10-04] MEDS ORDERED: HALOPERIDOL 5 MG/ML VIAL (J1630) IM ONE (12:00)
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
[2019-10-04 14:00] VITALS: BP 115/72
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
[2019-10-04] MEDS ORDERED: LORazepam 2 MG/ML VIAL (J2060) IM PRN (16:30)
--- NOTE | 2019-10-04 18:28 | REPVR ---
PROCEDURE INFORMATION: Exam: CT Head Without Contrast Exam date and time: 10/04/2019 5:56 PM Age: 74 years old Clinical indication: Altered mental status/memory loss; Additional info: AMS TECHNIQUE: Imaging protocol: Computed tomography of the head without contrast. Radiation optimization: All CT scans at this facility use at least one of these dose optimization techniques: automated exposure control; mA and/or kV adjustment per patient size (includes targeted exams where dose is matched to clinical indication); or iterative reconstruction. COMPARISON: CT Head without contrast 09/24/2019 10:08 AM FINDINGS: Brain: Normal. No hemorrhage. Unremarkable white matter. No mass effect. Ventricles: Normal. No ventriculomegaly. Bones/joints: Unremarkable. No acute fracture. Sinuses: Visualized sinuses are unremarkable. No fluid levels. Mastoid air cells: Visualized mastoid air cells are well aerated. Orbits: Bilateral cataract surgery. Soft tissues: Unremarkable. IMPRESSION: No acute intracranial abnormality. Electronically signed by: Lobo Arroyo On 10/04/2019 18:28:10 PM
[2019-10-04 18:31] LABS: BASO % 0.2 % (0.0-1.0); EOS % 0.4 % (0.0-3.0); HEMATOCRIT 28.7 % (42.0-52.0); HEMOGLOBIN 9.2 g/dl (13.5-17.5); LYMPH # 0.7 10^3/uL (1.5-5.0); LYMPH % 7.3 % (24.0-44.0); MEAN CORPUSCULAR HEMOGLOBIN 33.3 pg (27.0-33.0); MEAN CORPUSCULAR HGB CONC 32.1 g/dl (32.0-36.5); MONO # 0.8 10^3/uL (0.0-0.8); MONO % 8.4 % (0.0-5.0); NEUTROPHILS # 8.1 10^3/uL (1.5-8.5); NEUTROPHILS % 83.1 % (36.0-66.0); PLATELET COUNT, AUTOMATED 212 10^3/uL (150-450); RED BLOOD COUNT 2.76 10^6/uL (4.30-6.10); WHITE BLOOD COUNT 9.7 10^3/uL (4.0-10.0)
[2019-10-04 18:53] LABS: CALCIUM LEVEL 8.6 MG/DL (8.8-10.2); CREATININE FOR GFR 4.62 MG/DL (0.70-1.30); GLOMERULAR FILTRATION RATE 13.3 (>42); POTASSIUM SERUM 4.5 MEQ/L (3.5-5.1)
[2019-10-04 21:00] VITALS: BP 119/60
[2019-10-04] MEDS: CARVedilol 3.125 MG TAB PO SCH (21:00)
[2019-10-04] MEDS: SENNA 8.6 MG TAB (SENOKOT) PO SCH (21:00)
[2019-10-05 06:00] VITALS: BP 111/56
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
[2019-10-05] MEDS: HumaLOG INSULIN (NovoLOG) PER UNIT SC SCH ×4 (07:30→19:51)
[2019-10-05] MEDS ORDERED: MIRALAX *UNIT DOSE* 17GM PACKET PO PRN (07:45)
[2019-10-05] MEDS: SUCROFERRIC OXYHYDROXIDE 500MG CHEW TAB (VELPHORO) PO SCH ×3 (08:00→18:00)
[2019-10-05] MEDS: PRAVASTATIN 20 MG TAB PO SCH ×2 (09:00→18:01)
[2019-10-05] MEDS: NEPHRO-VIT TAB (NEPHROCAPS) PO SCH (09:00)
[2019-10-05] MEDS: CARVedilol 3.125 MG TAB PO SCH ×2 (09:00→19:50)
[2019-10-05] MEDS: DOCUSATE SODIUM 100 MG CAP PO SCH ×2 (09:35→19:55)
[2019-10-05] MEDS: APIXABAN 5 MG TAB (ELIQUIS) PO SCH ×2 (09:35→19:55)
[2019-10-05] MEDS: FLUoxetine 10 MG CAP PO SCH (09:35)
[2019-10-05] MEDS: AMIODARONE 200 MG TAB (PACERONE) PO SCH (09:35)
[2019-10-05] MEDS: ACETAMINOPHEN 500 MG TAB PO SCH ×2 (09:46→18:03)
[2019-10-05] MEDS: LEVEMIR (INSULIN DETEMIR) 1 UNITS/0.01ML SC SCH (10:00)
[2019-10-05] MEDS ORDERED: HEPARIN 1,000 UNITS/ML 10ML VIAL (FOR RADIOLOGY& DIALYSIS ONLY) IV ONE (11:30)
--- NOTE | 2019-10-05 13:38 | MHIPN ---
DATE OF SERVICE: 10/05/2019 This is a 74-year-old white male with a history of dementia and agitated behavior, seen yesterday. The patient was again seen today briefly. His is also interviewed. The patient's states his behavior is much improved today. He is no longer showing bizarre behavior. He is not reporting visual hallucinations of bugs, snakes, etc. He is not voicing any paranoid delusional beliefs. A son and grandsons came in to visit earlier today, and he recognized them appropriately. Patient's daughter stayed with the patient overnight, and he slept well from 11:00 p.m. to 6:00 a.m. Patient is on Haldol 2 mg twice a day. Patient is now in dialysis. MENTAL STATUS EXAM: Patient is dozing, resting quietly during the dialysis treatment. His behavior is appropriate. He is pleasant. He is not agitated, not voicing paranoid beliefs, not voicing any concerns about visual hallucinations. Not reporting any auditory hallucinations either. Affect appears much brighter. The patient states his mood is good. The patient does appear sedated and is not alert enough to perform usual cognitive assessment. No signs of parkinsonian symptoms. 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 Depressive disorder, unspecified. ASSESSMENT: Patient appears to be responding well to his antipsychotic medication Haldol. Behavior is markedly improved. This is corroborated by family members. PLAN: Continue present management.
[2019-10-05 14:00] VITALS: BP 93/57
--- NOTE | 2019-10-05 17:40 | IPN ---
DATE: 10/05/2019 SUBJECTIVE: Patient was seen and examined at the bedside today morning during dialysis. He is tolerating the hemodialysis well. He is still very drowsy and sleepy; however, his mental status is a lot better now. All of his sedative and opioid pain medications have been stopped. Patient is otherwise afebrile and hemodynamically stable. OBJECTIVE: VITAL SIGNS: Temperature is 97.6 degrees Fahrenheit, blood pressure 93/57, pulse is 75, respiratory rate of 16, saturating 96% on room air. INTAKE AND OUTPUT: There is no urine output recorded. Weight in the bed scale is 101.5 kg. PHYSICAL EXAMINATION: GENERAL: Patient is drowsy and sleepy, laying in bed getting hemodialysis done. HEAD AND NECK EXAM: Pupils are equally round and reactive to light. Mucous membranes are dry. Neck is supple. There is no jugular venous distention (JVD). CARDIOVASCULAR: S1, S2. Regular rate. Trace edema of the bilateral lower extremities. RESPIRATORY: Chest is clear to auscultation bilaterally. Bilateral equal air entry. No rales or rhonchi. ABDOMEN: Soft. Positive bowel sounds. Nontender. MUSCULOSKELETAL: No clubbing or cyanosis. Right forearm arteriovenous (AV) fistula is being used for dialysis. 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 Otherwise, he follows commands and moves extremities. LABORATORY REVIEW: Complete blood count (CBC) showed a WBC of 9.7, hemoglobin 9.2 and that was yesterday. Basic metabolic panel (BMP) done yesterday showed a potassium of 4.5 and creatinine of 4.6. IMAGING STUDIES: A CAT scan of the head was done yesterday which showed no acute intracranial abnormality. CURRENT INPATIENT MEDICATIONS: Patient's medications were all reviewed by myself. His fluoxetine dose has been decreased to 10 mg daily. Haldol dose has been decreased 2 mg as needed for agitation. Levaquin has been stopped. No other change in the medications today. ASSESSMENT AND PLAN: 1. End-stage renal disease. Patient is tolerating the hemodialysis since he has not been able to take much fluids because of his delirium. Ultrafiltration goal will be reduced to only 500 mL to 1 liter, as tolerated by blood pressure. 2. Hypertension in end-stage renal disease. Blood pressure is optimal. Minimal fluid removal, as mentioned above. Continue current dose of carvedilol 3.125 mg by mouth twice a day. 3. Atrial fibrillation. Continue current dose of amiodarone and Eliquis. Heart rate is controlled. 4. Acute delirium. His Haldol has been changed to as needed only. Avoid any use of benzodiazepines and opioids.
[2019-10-05] MEDS: PANTOPRAZOLE 40MG TAB (PROTONIX) PO SCH (18:01)
[2019-10-05] MEDS: SENNA 8.6 MG TAB (SENOKOT) PO SCH (19:55)
[2019-10-05] MEDS: BISACODYL 10 MG SUPP PR SCH (19:56)
[2019-10-05 20:00] VITALS: BP 100/55
[2019-10-06] MEDS: ACETAMINOPHEN 500 MG TAB PO SCH ×4 (02:50→20:49)
[2019-10-06 06:00] VITALS: BP 110/58
[2019-10-06] MEDS: FLUoxetine 10 MG CAP PO SCH (08:55)
[2019-10-06] MEDS: SUCROFERRIC OXYHYDROXIDE 500MG CHEW TAB (VELPHORO) PO SCH ×2 (08:55→17:30)
[2019-10-06] MEDS: AMIODARONE 200 MG TAB (PACERONE) PO SCH (08:56)
[2019-10-06] MEDS: DOCUSATE SODIUM 100 MG CAP PO SCH ×2 (08:56→20:49)
[2019-10-06] MEDS: PRAVASTATIN 20 MG TAB PO SCH (08:57)
[2019-10-06] MEDS: NEPHRO-VIT TAB (NEPHROCAPS) PO SCH (08:58)
[2019-10-06] MEDS: APIXABAN 5 MG TAB (ELIQUIS) PO SCH ×2 (08:58→20:49)
[2019-10-06] MEDS: CARVedilol 3.125 MG TAB PO SCH ×2 (08:58→20:40)
[2019-10-06] MEDS: PANTOPRAZOLE 40MG TAB (PROTONIX) PO SCH (08:58)
[2019-10-06] MEDS: BISACODYL 10 MG SUPP PR SCH ×2 (08:59→14:24)
[2019-10-06] MEDS: HumaLOG INSULIN (NovoLOG) PER UNIT SC SCH ×4 (09:00→20:40)
--- NOTE | 2019-10-06 11:54 | IPN ---
DATE OF SERVICE: 10/06/2019 SUBJECTIVE: The patient was seen and examined at the bedside today morning. He is afebrile, hemodynamically stable. He was dialyzed yesterday. He tolerated the hemodialysis procedure well, only 800 mL of fluid was removed. Patient is much more awake and alert today. He denies any active complaints. OBJECTIVE: VITAL SIGNS: Temperature is 98 degrees Fahrenheit. Blood pressure 110/58. Pulse is 80, respiratory rate of 17, saturating 97% on room air. INTAKE AND OUTPUT: There is no urine output recorded. Ultrafiltration with hemodialysis was only 800 mL. Weight on the bed scale was 101.5 kg yesterday. PHYSICAL EXAMINATION: GENERAL: Patient is awake, alert, oriented times three. No apparent distress. HEAD AND NECK EXAM: Extraocular muscles intact. Pupils equally round and reactive to light. Mucous membranes are moist. Neck is supple. There is no jugular venous distention (JVD). CARDIOVASCULAR: S1, S2 regular rate. No edema of the bilateral lower extremities. RESPIRATORY: Chest is clear to auscultation bilaterally. Bilateral equal air entry. No rales or rhonchi. ABDOMEN: Soft, positive bowel sounds, obese, nontender. MUSCULOSKELETAL: No clubbing or cyanosis. Pulses are 2+. 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 No focal deficit. LAB REVIEW: CBC and BMP is from October 04. there are no new labs available. CURRENT INPATIENT MEDICATIONS: The patient's medications were all reviewed by me. There is no significant change in the medications today as compared with yesterday. His insulin Levemir has been stopped and he is on sliding scale. ASSESSMENT/PLAN: 1. End-stage renal disease on hemodialysis. The patient was dialyzed yesterday. He tolerated the hemodialysis procedure well. Next hemodialysis will be done tomorrow morning. 2. Hypertension. The patient has a soft blood pressure. He is only on Coreg 3.125 mg p.o. twice a day with holding parameters. 3. Acute delirium. It is significantly getting better now. All of the sedatives and hypnotics have been stopped. 4. Atrial fibrillation. Heart rate is controlled. Continue Eliquis and amiodarone. 5. Anemia and end-stage renal disease. The patient continues to be on Aranesp 200 mcg IV with hemodialysis.
[2019-10-06 14:00] VITALS: BP 104/45
--- NOTE | 2019-10-06 17:09 | MHCR ---
DATE OF CONSULTATION: 10/02/2019 HISTORY OF PRESENT ILLNESS: This is a 74-year-old white male with a history of dementia and delirium. Patient was agitated several days ago requiring Ativan and Haldol. This behavior settled down relatively quickly. He showed no further acting out behavior. Patient recalls some visual hallucinations for example bugs crawling on the wall. He has never experienced this before. These symptoms have resolved. The patient's was with the patient. The patient feels back to normal and his confirms this. He denies feeling depressed. Patient's Prozac has been lowered to 10 mg per day. Patient tolerated his dialysis well yesterday. He has no other complaints. MENTAL STATUS EXAM: Patient is alert, oriented and cooperative. Affect is quite good. He smiles easily. He is oriented times three. He does have some short term memory deficits suggestive of early dementia. No signs of psychosis. No hallucinations. He is not depressed or suicidal. No signs of dangerousness. ASSESSMENT: The patient appears to be have a delirium episode, etiology is unknown. Fortunately the delirium process has resolved and the patient is back to his old self according to the patient and the wide. DIAGNOSIS: Major neurocognitive disorder secondary to Alzheimer's disease, delirium, unknown etiology. Depressive disorder unspecified. PLAN: No need for further psychiatric input. If the patient ever has a similar episode Ativan and Haldol appears to be effective for this individual. MTDD
[2019-10-06 20:00] VITALS: BP 102/54
[2019-10-06] MEDS: SENNA 8.6 MG TAB (SENOKOT) PO SCH (20:49)
[2019-10-07 05:35] VITALS: BP 117/67
[2019-10-07] MEDS: PRAVASTATIN 20 MG TAB PO SCH (07:55)
[2019-10-07] MEDS: SUCROFERRIC OXYHYDROXIDE 500MG CHEW TAB (VELPHORO) PO SCH (07:55)
[2019-10-07] MEDS: NEPHRO-VIT TAB (NEPHROCAPS) PO SCH (07:55)
[2019-10-07] MEDS: CINACALCET 30 MG TAB (SENSIPAR) PO SCH (07:56)
[2019-10-07] MEDS: CARVedilol 3.125 MG TAB PO SCH ×2 (07:56→20:34)
[2019-10-07] MEDS: PANTOPRAZOLE 40MG TAB (PROTONIX) PO SCH (07:56)
[2019-10-07] MEDS: HumaLOG INSULIN (NovoLOG) PER UNIT SC SCH ×4 (07:56→20:40)
[2019-10-07] MEDS: APIXABAN 5 MG TAB (ELIQUIS) PO SCH ×2 (07:57→20:34)
[2019-10-07] MEDS: AMIODARONE 200 MG TAB (PACERONE) PO SCH (07:57)
[2019-10-07] MEDS: ACETAMINOPHEN 500 MG TAB PO SCH ×3 (07:57→20:33)
[2019-10-07] MEDS: DOCUSATE SODIUM 100 MG CAP PO SCH ×2 (07:57→20:33)
[2019-10-07] MEDS: FLUoxetine 10 MG CAP PO SCH (08:00)
[2019-10-07] MEDS: BISACODYL 10 MG SUPP PR SCH (08:01)
[2019-10-07] MEDS ORDERED: DULoxetine 30 MG CAP (CYMBALTA) PO SCH (09:00)
[2019-10-07 09:50] LABS: BASO % 0.3 % (0.0-1.0); EOS # 0.4 10^3/uL (0.0-0.5); EOS % 5.3 % (0.0-3.0); HEMATOCRIT 32.3 % (42.0-52.0); HEMOGLOBIN 10.3 g/dl (13.5-17.5); LYMPH # 0.8 10^3/uL (1.5-5.0); MEAN CORPUSCULAR HEMOGLOBIN 33.7 pg (27.0-33.0); MEAN CORPUSCULAR HGB CONC 31.9 g/dl (32.0-36.5); MEAN CORPUSCULAR VOLUME 105.6 fl (80.0-96.0); MONO # 0.5 10^3/uL (0.0-0.8); MONO % 6.2 % (0.0-5.0); NEUTROPHILS # 5.9 10^3/uL (1.5-8.5); NEUTROPHILS % 77.4 % (36.0-66.0); PLATELET COUNT, AUTOMATED 230 10^3/uL (150-450); RED BLOOD COUNT 3.06 10^6/uL (4.30-6.10); WHITE BLOOD COUNT 7.6 10^3/uL (4.0-10.0)
[2019-10-07 10:11] LABS: ALBUMIN 2.6 GM/DL (3.2-5.2); CALCIUM LEVEL 8.5 MG/DL (8.8-10.2); CREATININE FOR GFR 5.28 MG/DL (0.70-1.30); GLOMERULAR FILTRATION RATE 11.4 (>42); PHOSPHORUS LEVEL 2.4 MG/DL (2.5-4.9); POTASSIUM SERUM 3.9 MEQ/L (3.5-5.1)
[2019-10-07] MEDS ORDERED: HEPARIN 1,000 UNITS/ML 10ML VIAL (FOR RADIOLOGY& DIALYSIS ONLY) IV ONE (12:00)
[2019-10-07] MEDS: LIDOCAINE 5% (LIDODERM) PATCH TD SCH (12:14)
[2019-10-07 16:23] VITALS: BP 113/62
--- NOTE | 2019-10-07 18:47 | IPN ---
DATE: 10/07/2019 SUBJECTIVE: The patient was seen and examined at the bedside today morning in the rehabilitation unit. He is afebrile, hemodynamically stable. He is much more awake and alert today. Today is the patient's day of dialysis. He just came back after getting physical therapy, and he denies any active complaints. OBJECTIVE: Vital signs: Temperature is 97.3 degrees Fahrenheit, blood pressure 117/67, pulse 72, respiratory of 18, saturating 97% on room air. Intake and output: There is no urine output recorded. Weight in the bed scale is not available. PHYSICAL EXAMINATION: GENERAL: The patient is awake, alert, oriented times three, sitting up in the sofa in no apparent distress. HEAD AND NECK: Extraocular muscles intact. Pupils equally round and reactive to light. Mucous membranes are moist. Neck is supple. There is no jugular venous distention (JVD). CARDIOVASCULAR: S1, S2, regular rate. Very trace edema of the bilateral lower extremities. RESPIRATORY: Chest is clear to auscultation bilaterally. Bilateral equal air entry. No rales or rhonchi. ABDOMEN: Soft. Positive bowel sounds. Nontender. No organomegaly. MUSCULOSKELETAL: No clubbing or cyanosis. Pulses are 2+. CENTRAL NERVOUS SYSTEM: There is no focal deficit. Power is 5/5 in all extremities. LABORATORY REVIEW: CBC showed a WBC of 7.6, hemoglobin 10.3, platelets at 213. BMP showed sodium 134, potassium 3.9, chloride 97, bicarbonate 24, BUN 31, creatinine is 5.2, phosphorus 2.4. Albumin is 2.6. CURRENT INPATIENT MEDICATIONS: The patient's medications were all reviewed by me. He was on Velphoro, and because of the low phosphorus levels I have stopped the Velphoro dose. No other change in the medications today as compared with yesterday. ASSESSMENT AND PLAN: 1. End-stage renal disease. The patient is dependent on hemodialysis. He will be dialyzed today. Ultrafiltration goal will be around 1-1.5 kg. 2. Hypertension. The patient has of soft blood pressure. He is on a low dose of Coreg 3.125 mg by mouth twice a day, and even with the holding parameter he is getting it only once a day. 3. Acute delirium. It is significantly better. Most likely is was secondary to sedative hypnotic and opioid pain medications. 4. Hypophosphatemia. The patient was getting Velforo, and his diet was low because of delirium. I am holding the Velphoro for a few days until the phosphorus levels are above 5. 5. Anemia and end-stage renal disease. Hemoglobin is within the optimal range. Continue current dose of Aranesp. 6. Hyponatremia. It is secondary to slight hypervolemia. Sodium level will improve after fluid removal.
[2019-10-07 20:00] VITALS: BP 113/66
[2019-10-07] MEDS: SENNA 8.6 MG TAB (SENOKOT) PO SCH (20:34)
[2019-10-07] MEDS: **NOTE PATIENT COMMENT** MISC XX SCH (20:35)
[2019-10-08 06:00] VITALS: BP 110/61
[2019-10-08] MEDS: HumaLOG INSULIN (NovoLOG) PER UNIT SC SCH ×4 (08:45→20:21)
[2019-10-08] MEDS: MIRALAX *UNIT DOSE* 17GM PACKET PO PRN (08:46)
[2019-10-08] MEDS: BISACODYL 10 MG SUPP PR SCH (08:46)
[2019-10-08] MEDS: AMIODARONE 200 MG TAB (PACERONE) PO SCH (08:49)
[2019-10-08] MEDS: FLUoxetine 10 MG CAP PO SCH (08:49)
[2019-10-08] MEDS: DOCUSATE SODIUM 100 MG CAP PO SCH ×2 (08:49→20:21)
[2019-10-08] MEDS: APIXABAN 5 MG TAB (ELIQUIS) PO SCH ×2 (08:49→20:21)
[2019-10-08] MEDS: LIDOCAINE 5% (LIDODERM) PATCH TD SCH (08:49)
[2019-10-08] MEDS: PRAVASTATIN 20 MG TAB PO SCH (08:50)
[2019-10-08] MEDS: PANTOPRAZOLE 40MG TAB (PROTONIX) PO SCH (08:50)
[2019-10-08] MEDS: CARVedilol 3.125 MG TAB PO SCH ×2 (08:50→20:21)
[2019-10-08] MEDS: ACETAMINOPHEN 500 MG TAB PO SCH ×3 (08:50→20:21)
[2019-10-08] MEDS: NEPHRO-VIT TAB (NEPHROCAPS) PO SCH (08:50)
[2019-10-08 14:00] VITALS: BP 92/56
--- NOTE | 2019-10-08 19:05 | IPN ---
DATE: 10/08/2018 SUBJECTIVE: Patient was seen and examined at the bedside today morning. He is laying in the bed. He denies any active complaints. He is afebrile, hemodynamically stable, much more awake and alert. His is also present at the bedside. Dialysis was done yesterday. He tolerated 1.5 liters of fluid removal. OBJECTIVE: VITAL SIGNS: Temperature is 96.6 degrees Fahrenheit, blood pressure 92/66, pulse is 64, respiratory rate of 18, saturating 100% on room air. INTAKE AND OUTPUT: Ultrafiltration with hemodialysis was 1.5 liters yesterday. Weight in the bed scale is 99.9 kg. PHYSICAL EXAMINATION: GENERAL: Patient is awake, alert, oriented x3, laying in bed in no apparent distress. HEAD AND NECK EXAM: Extraocular muscles intact. Pupils equally round and reactive to light. Mucous membranes are moist. Neck is supple. There is no jugular venous distention (JVD). CARDIOVASCULAR: S1, S2. Regular rate. No edema of the bilateral lower extremities. RESPIRATORY: Chest is clear to auscultation bilaterally. Bilateral equal air entry. No rales or rhonchi. ABDOMEN: Soft, positive bowel sounds. Nontender. No organomegaly. MUSCULOSKELETAL: No clubbing or cyanosis. Pulses are 2+. 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 Power is 5/5 in all extremities. LABORATORY REVIEW: Complete blood count (CBC) and Basic metabolic panel (BMP) is from yesterday. There are no new labs available from today. CURRENT INPATIENT MEDICATIONS: Patient's medications were all reviewed by me. There is no change in the medications today as compared with yesterday. ASSESSMENT AND PLAN: 1. End-stage renal disease on hemodialysis. Patient was dialyzed yesterday. He tolerated the hemodialysis procedure well. Next hemodialysis will be done on Sunday. 2. Hypertension with end-stage renal disease. Patient has a very soft blood pressure. Continue current dose of Coreg 3.125 mg by mouth twice a day with holding parameters. 3. Anemia in end-stage renal disease. Hemoglobin level is stable at 10.3 as of the labs done yesterday. Continue current dose of Aranesp 200 mcg once a week. 4. Secondary hyperparathyroidism. Continue current dose of Sensipar 60 mg three times a week.
[2019-10-08 20:00] VITALS: BP 107/53
[2019-10-08] MEDS: SENNA 8.6 MG TAB (SENOKOT) PO SCH (20:21)
[2019-10-08] MEDS: **NOTE PATIENT COMMENT** MISC XX SCH (20:22)
[2019-10-09] MEDS: AMIODARONE 200 MG TAB (PACERONE) PO SCH (08:20)
[2019-10-09] MEDS: ACETAMINOPHEN 500 MG TAB PO SCH ×4 (08:20→20:07)
[2019-10-09] MEDS: FLUoxetine 10 MG CAP PO SCH (08:20)
[2019-10-09] MEDS: DOCUSATE SODIUM 100 MG CAP PO SCH ×2 (08:20→20:07)
[2019-10-09] MEDS: CARVedilol 3.125 MG TAB PO SCH ×2 (08:21→20:07)
[2019-10-09] MEDS: CINACALCET 30 MG TAB (SENSIPAR) PO SCH (08:21)
[2019-10-09] MEDS: APIXABAN 5 MG TAB (ELIQUIS) PO SCH ×2 (08:22→20:07)
[2019-10-09] MEDS: LIDOCAINE 5% (LIDODERM) PATCH TD SCH (08:22)
[2019-10-09] MEDS: HumaLOG INSULIN (NovoLOG) PER UNIT SC SCH ×4 (08:23→20:08)
[2019-10-09] MEDS: PRAVASTATIN 20 MG TAB PO SCH (08:23)
[2019-10-09] MEDS: PANTOPRAZOLE 40MG TAB (PROTONIX) PO SCH (08:23)
[2019-10-09] MEDS: NEPHRO-VIT TAB (NEPHROCAPS) PO SCH (08:28)
[2019-10-09] MEDS: BISACODYL 10 MG SUPP PR SCH (09:00)
--- NOTE | 2019-10-09 10:42 | IPNPDOC ---
PM&R Progress Note DATE OF SERVICE: Oct 04, 2019 Audio Recording Engineer Progress Note Subjective: Patient reporting he feels confused this morning, but feel able to participate in therapy. He says is only taking tylenol for his pain. REVIEW OF SYSTEMS: The following is a completed review of systems and has been reviewed. Review of systems otherwise unremarkable. PAIN: Patient self reports pelvic pain with movement EYES: No recent vision changes EARS, NOSE, & THROAT: No throat pain, or dysphagia, or rhinorrhea CARDIOVASCULAR: Denies chest pain or palpitations PULMONARY: Denies shortness of breath GASTROINTESTINAL: Denies constipation/diarrhea GENITOURINARY: denies dysuria MUSCULOSKELETAL: pelvic fracture NEUROLOGICAL:+peripheral polyneuropathy HEMATOLOGICAL: +easy bruising and anemia SKIN: +stauffer ulcers PSYCHIATRIC: Unremarkable All other review of systems found to be negative. PHYSICAL EXAMINATION: VITAL SIGNS: Please see below. GENERAL: Pleasant and cooperative. No acute distress. HEENT: PERRL. Extraocular movements intact. Clear conjunctiva CARDIOVASCULAR: Regular rate and rhythm. No murmurs, rubs, or gallops LUNGS: Clear to auscultation bilaterally. No wheezes. No rhonchi ABDOMEN: Soft, nontender, nondistended. Positive bowel sounds. Normal active bowel sounds NEUROLOGICAL: Alert and oriented times three. Cranial nerves II through XII grossly intact. Sensation diminished in bilateral feet in stocking pattern EXTREMITIES: 4\5 strength bilateral upper extremities. 4\5 strength bilat hip flexors and knee extensors, 2/5 bilat ankle DF, 0/5 EHL extension, 4/5 ankle PF bilat calf edema L>R bilat +1st interosseus wasting SKIN: scattered ecchymosis, bilat stauffer ulcers, frail skin -no sacral ulcers -bilat toe dry ulcers ASSESSMENT:74-year-old M with past medical history of ESRD who presents status post fall with pelvic fracture PLAN: 1. Rehab- PT/OT advance gait training and optimize ADL management, strengthen/stretch/maintain ROM all 4 extremities, fall recovery 2. Neuro: peripheral polyneuropathy in setting of ESRD and longstanding diabetes with bilateral foot drop -avoid delirogenic meds 3. Cardiac: Afib on eliquis, amiodarone, and Carvedilol-medicine consulted to assist in management -HLD c/u statin therapy 4. Resp: encourage incentive spirometry, monitor for infection 5. Endo: pmh DM c/u Levemir and ISS 6. Renal: ESRD, renal consulted -c/u Cinacalcet and sucroferric 7. Heme: anemia of chronic disease per renal management 8. Pain: c/u Tylenol standing, will d/c trial tramadol prn as patient still reporting confusion -c/u low dose tizanidine 9. Psych: depression c/u Prozac 10. DVt ppx: acewrap and on eliquis 11. Dispo: TBD Allergies Coded Allergies: Penicillins (Verified Adverse Reaction, Unknown, DIZZY, 09/24/19) Vital Signs Vital Signs Date Time Temp Pulse Resp B/P (MAP) Pulse Ox O2 Delivery O2 Flow Rate FiO2 10/09/19 08:21 68 107/54 10/08/19 20:00 97.2 18 100 Room Air Laboratory Data Labs 24H Laboratory Tests 2 10/08/19 12:07: Bedside Glucose (Misc Panel) 178H 10/08/19 16:32: Bedside Glucose (Misc Panel) 130H 10/08/19 20:05: Bedside Glucose (Misc Panel) 167H 10/09/19 06:13: Bedside Glucose (Misc Panel) 133H Microbiology Microbiology 10/04/19 Blood Culture - Preliminary, Resulted No Growth after 72 hours. All specime... Current Medications Current Medications Current Medications Medications (Trade) Dose Ordered Sig/Jason Route PRN Reason Start Time Stop Time Status Last Admin Dose Admin Acetaminophen (Tylenol Tab) 1,000 mg TID PO 10/02/19 16:00 10/09/19 08:20 Amiodarone HCl (Pacerone, Cordarone) 200 mg DAILY PO 10/03/19 09:00 10/09/19 08:20 Apixaban (Eliquis) 5 mg BID PO 10/02/19 21:00 10/09/19 08:22 Bisacodyl (Dulcolax Suppository) 10 mg DAILY [place] 10/05/19 09:00 10/08/19 08:46 Calcium Carbonate (Tums) 1,000 mg Q4HP PRN PO HEARTBURN 10/02/19 15:45 Carvedilol (COReg) 3.125 mg BID PO 10/04/19 21:00 10/08/19 08:50 Carvedilol (COReg) 6.25 mg BID PO 10/02/19 21:00 10/04/19 12:34 DC 10/03/19 08:46 Cinacalcet (Sensipar) 60 mg TuThSa@0900 PO 10/04/19 09:00 10/09/19 08:21 Darbepoetin Blu (Aranesp (Dialysis Use)) 200 mcg HD IV 10/03/19 09:45 Dextrose (Dextrose 50%) 25 ml ASDIRECTED PRN IV SEE LABEL COMMENTS 10/02/19 15:45 Docusate Sodium (Colace) 100 mg BID PO 10/02/19 21:00 10/09/19 08:20 Duloxetine HCl (Cymbalta) 30 mg DAILY PO 10/07/19 09:00 UNV Fluoxetine HCl (PROzac) 10 mg DAILY PO 10/05/19 09:00 10/09/19 08:20 Fluoxetine HCl (PROzac) 20 mg DAILY PO 10/03/19 09:00 10/04/19 19:52 DC 10/03/19 08:45 Glucagon (Glucagon) 1 mg ASDIRECTED PRN SC SEE LABEL COMMENTS 10/02/19 15:45 Glucose (Glucose) 16 GM ASDIRECTED PRN PO SEE LABEL COMMENTS 10/02/19 15:45 Haloperidol (Haldol) 2 mg BID PO 10/04/19 21:00 10/05/19 12:24 DC Haloperidol (Haldol) 2 mg DAILYPRN PRN PO AGITATION 10/04/19 16:30 Insulin Detemir (Levemir Insulin) 25 units DAILY SC 10/03/19 09:00 10/05/19 18:58 DC 10/03/19 08:45 Insulin Human Lispro (HumaLOG INSULIN) SEE PROTOCOL TABLE AC SC 10/02/19 17:30 10/09/19 08:23 Insulin Human Lispro (HumaLOG INSULIN) SEE PROTOCOL TABLE QHS SC 10/02/19 21:00 Iron (Venofer) 100 mg HD IV 10/03/19 11:30 10/06/19 23:59 DC Levofloxacin (Levaquin) 250 mg DAILY PO 10/04/19 09:00 10/05/19 12:24 DC Lidocaine (Lidoderm Patch) 1 patch DAILY TD 10/07/19 09:00 10/09/19 08:22 Lorazepam (Ativan) 2 mg DAILYPRN PRN IM AGITATION 10/04/19 16:30 Lorazepam (Ativan) 2 mg STAT STAT IM 10/04/19 11:18 10/04/19 11:20 DC 10/04/19 11:52 Magnesium Hydroxide (Milk Of Magnesia) 30 ml DAILYPRN PRN PO CONSTIPATION 10/02/19 15:45 Non-Formulary Medication ( See Comment Field Below ) REMOVE LIDODERM PATCH DAILY@21 XX 10/07/19 21:00 10/08/19 20:22 Oxycodone HCl (Roxicodone, Oxyir) 2.5 mg Q6HP PRN PO PAIN 10/02/19 15:45 10/03/19 09:38 DC Pantoprazole Sodium (Protonix) 40 mg DAILY PO 10/02/19 09:00 10/09/19 08:23 Polyethylene Glycol (Miralax) 1 pkt DAILY PRN PO CONSTIPATION 10/06/19 09:00 10/08/19 08:46 Polyethylene Glycol (Miralax) 1 pkt DAILYPRN PRN PO CONSTIPATION 10/05/19 07:45 10/05/19 12:24 DC Pravastatin Sodium (Pravachol) 20 mg DAILY PO 10/03/19 09:00 10/09/19 08:23 Senna (Senokot) 1 tab QHS PO 10/02/19 21:00 10/08/19 20:21 Sucroferric Oxyhydroxide (Velphoro) 1,000 mg BIDWM PO 10/02/19 18:00 10/07/19 12:02 DC 10/07/19 07:55 Tizanidine HCl (Zanaflex) 2 mg TID@0800,1200,1600 PO 10/03/19 09:45 10/07/19 12:05 DC 10/03/19 12:09 Tramadol HCl (Ultram) 25 mg Q4HP PRN PO MODERATE PAIN (PS 5-7) 10/03/19 09:45 Cancel Vitamin B Complex/ Vit C/Folic Acid (Nephro-[place] Rx) 1 tab DAILY PO 10/03/19 09:00 10/09/19 08:28 MARJ RICHARDSON MD Oct 09, 2019 10:42
--- NOTE | 2019-10-09 10:46 | IPNPDOC ---
PM&R Progress Note DATE OF SERVICE: Oct 09, 2019 Financial Services Director Progress Note Subjective: Patient reporting he is very upset that he got confused Sunday and is tearful about the episode. He wants to get home as soon as he can. He reports considerable pain with standing. REVIEW OF SYSTEMS: The following is a completed review of systems and has been reviewed. Review of systems otherwise unremarkable. PAIN: Patient self reports pelvic pain with movement EYES: No recent vision changes EARS, NOSE, & THROAT: No throat pain, or dysphagia, or rhinorrhea CARDIOVASCULAR: Denies chest pain or palpitations PULMONARY: Denies shortness of breath GASTROINTESTINAL: Denies constipation/diarrhea GENITOURINARY: denies dysuria MUSCULOSKELETAL: pelvic fracture NEUROLOGICAL:+peripheral polyneuropathy HEMATOLOGICAL: +easy bruising and anemia SKIN: +stauffer ulcers PSYCHIATRIC: Unremarkable All other review of systems found to be negative. PHYSICAL EXAMINATION: VITAL SIGNS: Please see below. GENERAL: Pleasant and cooperative. No acute distress. HEENT: PERRL. Extraocular movements intact. Clear conjunctiva CARDIOVASCULAR: Regular rate and rhythm. No murmurs, rubs, or gallops LUNGS: Clear to auscultation bilaterally. No wheezes. No rhonchi ABDOMEN: Soft, nontender, nondistended. Positive bowel sounds. Normal active bowel sounds NEUROLOGICAL: Alert and oriented times three. Cranial nerves II through XII grossly intact. Sensation diminished in bilateral feet in stocking pattern EXTREMITIES: 4\5 strength bilateral upper extremities. 4\5 strength bilat hip flexors and knee extensors, 2/5 bilat ankle DF, 0/5 EHL extension, 4/5 ankle PF bilat calf edema L>R bilat +1st interosseus wasting SKIN: scattered ecchymosis, bilat stauffer ulcers, frail skin -no sacral ulcers -bilat toe dry ulcers ASSESSMENT:74-year-old M with past medical history of ESRD who presents status post fall with pelvic fracture PLAN: 1. Rehab- PT/OT advance gait training and optimize ADL management, strengthen/stretch/maintain ROM all 4 extremities, fall recovery 2. Neuro: peripheral polyneuropathy in setting of ESRD and longstanding diabetes with bilateral foot drop -avoid delirogenic meds 3. Cardiac: Afib on eliquis, amiodarone, and Carvedilol-medicine consulted to assist in management -HLD c/u statin therapy 4. Resp: encourage incentive spirometry, monitor for infection 5. Endo: pmh DM c/u Levemir and ISS 6. Renal: ESRD, renal consulted -c/u Cinacalcet and sucroferric 7. Heme: anemia of chronic disease per renal management 8. 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 Psych: depression c/u Prozac, had been lowered over the weekend due to episode of psychosis requiring Haldol, however patient has not had any further episodes of delirium and is tearful this morning, will increase back to 20mg daily and stop Haldol prn -psych recs appreciated 10. DVt ppx: acewrap and on eliquis 11. Dispo: TBD Allergies Coded Allergies: Penicillins (Verified Adverse Reaction, Unknown, DIZZY, 09/24/19) Vital Signs Vital Signs Date Time Temp Pulse Resp B/P (MAP) Pulse Ox O2 Delivery O2 Flow Rate FiO2 10/09/19 08:21 68 107/54 10/08/19 20:00 97.2 18 100 Room Air Laboratory Data Labs 24H Laboratory Tests 2 10/08/19 12:07: Bedside Glucose (Misc Panel) 178H 10/08/19 16:32: Bedside Glucose (Misc Panel) 130H 10/08/19 20:05: Bedside Glucose (Misc Panel) 167H 10/09/19 06:13: Bedside Glucose (Misc Panel) 133H Microbiology Microbiology 10/04/19 Blood Culture - Preliminary, Resulted No Growth after 72 hours. All specime... Current Medications Current Medications Current Medications Medications (Trade) Dose Ordered Sig/Jason Route PRN Reason Start Time Stop Time Status Last Admin Dose Admin Acetaminophen (Tylenol Tab) 1,000 mg TID PO 10/02/19 16:00 10/09/19 08:20 Amiodarone HCl (Pacerone, Cordarone) 200 mg DAILY PO 10/03/19 09:00 10/09/19 08:20 Apixaban (Eliquis) 5 mg BID PO 10/02/19 21:00 10/09/19 08:22 Bisacodyl (Dulcolax Suppository) 10 mg DAILY KS 10/05/19 09:00 10/08/19 08:46 Calcium Carbonate (Tums) 1,000 mg Q4HP PRN PO HEARTBURN 10/02/19 15:45 Carvedilol (COReg) 3.125 mg BID PO 10/04/19 21:00 10/08/19 08:50 Carvedilol (COReg) 6.25 mg BID PO 10/02/19 21:00 10/04/19 12:34 DC 10/03/19 08:46 Cinacalcet (Sensipar) 60 mg TuThSa@0900 PO 10/04/19 09:00 10/09/19 08:21 Darbepoetin Blu (Aranesp (Dialysis Use)) 200 mcg HD IV 10/03/19 09:45 Dextrose (Dextrose 50%) 25 ml ASDIRECTED PRN IV SEE LABEL COMMENTS 10/02/19 15:45 Docusate Sodium (Colace) 100 mg BID PO 10/02/19 21:00 10/09/19 08:20 Duloxetine HCl (Cymbalta) 30 mg DAILY PO 10/07/19 09:00 UNV Fluoxetine HCl (PROzac) 10 mg DAILY PO 10/05/19 09:00 10/09/19 08:20 Fluoxetine HCl (PROzac) 20 mg DAILY PO 10/03/19 09:00 10/04/19 19:52 DC 10/03/19 08:45 Glucagon (Glucagon) 1 mg ASDIRECTED PRN SC SEE LABEL COMMENTS 10/02/19 15:45 Glucose (Glucose) 16 GM ASDIRECTED PRN PO SEE LABEL COMMENTS 10/02/19 15:45 Haloperidol (Haldol) 2 mg BID PO 10/04/19 21:00 10/05/19 12:24 DC Haloperidol (Haldol) 2 mg DAILYPRN PRN PO AGITATION 10/04/19 16:30 Insulin Detemir (Levemir Insulin) 25 units DAILY SC 10/03/19 09:00 10/05/19 18:58 DC 10/03/19 08:45 Insulin Human Lispro (HumaLOG INSULIN) SEE PROTOCOL TABLE AC SC 10/02/19 17:30 10/09/19 08:23 Insulin Human Lispro (HumaLOG INSULIN) SEE PROTOCOL TABLE QHS SC 10/02/19 21:00 Iron (Venofer) 100 mg HD IV 10/03/19 11:30 10/06/19 23:59 DC Levofloxacin (Levaquin) 250 mg DAILY PO 10/04/19 09:00 10/05/19 12:24 DC Lidocaine (Lidoderm Patch) 1 patch DAILY TD 10/07/19 09:00 10/09/19 08:22 Lorazepam (Ativan) 2 mg DAILYPRN PRN IM AGITATION 10/04/19 16:30 Lorazepam (Ativan) 2 mg STAT STAT IM 10/04/19 11:18 10/04/19 11:20 DC 10/04/19 11:52 Magnesium Hydroxide (Milk Of Magnesia) 30 ml DAILYPRN PRN PO CONSTIPATION 10/02/19 15:45 Non-Formulary Medication ( See Comment Field Below ) REMOVE LIDODERM PATCH DAILY@21 XX 10/07/19 21:00 10/08/19 20:22 Oxycodone HCl (Roxicodone, Oxyir) 2.5 mg Q6HP PRN PO PAIN 10/02/19 15:45 10/03/19 09:38 DC Pantoprazole Sodium (Protonix) 40 mg DAILY PO 10/02/19 09:00 10/09/19 08:23 Polyethylene Glycol (Miralax) 1 pkt DAILY PRN PO CONSTIPATION 10/06/19 09:00 10/08/19 08:46 Polyethylene Glycol (Miralax) 1 pkt DAILYPRN PRN PO CONSTIPATION 10/05/19 07:45 10/05/19 12:24 DC Pravastatin Sodium (Pravachol) 20 mg DAILY PO 10/03/19 09:00 10/09/19 08:23 Senna (Senokot) 1 tab QHS PO 10/02/19 21:00 10/08/19 20:21 Sucroferric Oxyhydroxide (Velphoro) 1,000 mg BIDWM PO 10/02/19 18:00 10/07/19 12:02 DC 10/07/19 07:55 Tizanidine HCl (Zanaflex) 2 mg TID@0800,1200,1600 PO 10/03/19 09:45 10/07/19 12:05 DC 10/03/19 12:09 Tramadol HCl (Ultram) 25 mg Q4HP PRN PO MODERATE PAIN (PS 5-7) 10/03/19 09:45 Cancel Vitamin B Complex/ Vit C/Folic Acid (Nephro-[facility] Rx) 1 tab DAILY PO 10/03/19 09:00 10/09/19 08:28 MARJ RICHARDSON MD Oct 09, 2019 10:46
--- NOTE | 2019-10-09 11:39 | IPN ---
DATE OF SERVICE: 10/09/2019 SUBJECTIVE: The patient was seen and examined at the bedside today morning in the rehab unit. The patient was getting the physical therapy. He is afebrile, hemodynamically stable. He denies any chest pain, shortness of breath or fevers. OBJECTIVE: Vital Signs: Temperature is 97.2 degrees Fahrenheit, blood pressure 107/54, pulse is 68, respiratory rate of 18, saturating 100% on room air. Intake and output: There is no urine output recorded. Weight in the bed scale is 100.6 kg. PHYSICAL EXAMINATION: General: The patient is awake, alert, oriented times three, laying in bed, in no apparent distress. Head and Neck Exam: Extraocular muscles intact. Pupils equally round and reactive to light. Mucous membranes are moist. Neck is supple. There is no jugular venous distention (JVD). Cardiovascular: S1, S2, regular rate. No edema of the bilateral lower extremities. Respiratory: Chest is clear to auscultation bilaterally. Bilateral equal air entry. No rales or rhonchi. Abdomen: Soft, positive bowel sounds. Nontender. No organomegaly. Musculoskeletal: No clubbing or cyanosis. Pulses are 2+. INTERNAL AFFAIRS INVESTIGATOR: No focal deficit. Power is 5/5 in all extremities. LAB REVIEW: The patient had no labs done today morning. CURRENT INPATIENT MEDICATIONS: The patient's medications were all reviewed by me. There is no change in the medications today apart from increase in his paroxetine dose to 20 mg daily and p.r.n. Haldol has been stopped. ASSESSMENT/PLAN: 1. End-stage renal disease on hemodialysis. The patient's regular dialysis days are Sunday, Sunday, Sunday. Because of the recent holiday, he was dialyzed on Sunday and he is hemodynamically stable and volume status is okay and he is feeling okay to wait until Sunday for his regular day of dialysis. 2. Hypertension with end-stage renal disease. The patient has very soft blood pressures and he is on a low dose of Coreg 3.125 mg by mouth twice a day, which is sometimes held because of holding parameters. 3. Atrial fibrillation, heart rate is controlled. Continue current dose of amiodarone and Eliquis. 4. Secondary hyperparathyroidism. Continue current dose of Sensipar 60 mg by mouth three times a week.
[2019-10-09] MEDS: GABAPENTIN 100 MG CAP PO SCH (12:36)
[2019-10-09 14:00] VITALS: BP 101/56
[2019-10-09 20:00] VITALS: BP 105/59
[2019-10-09] MEDS: MIRALAX *UNIT DOSE* 17GM PACKET PO PRN (20:06)
[2019-10-09] MEDS: SENNA 8.6 MG TAB (SENOKOT) PO SCH (20:07)
[2019-10-09] MEDS: THERAPEUTIC BATH LOTION 240 ML BTL TOP SCH (20:08)
[2019-10-09] MEDS: **NOTE PATIENT COMMENT** MISC XX SCH (20:08)
[2019-10-10 06:00] VITALS: BP 127/72
[2019-10-10 08:29] LABS: BASO % 0.4 % (0.0-1.0); EOS # 0.2 10^3/uL (0.0-0.5); EOS % 3.6 % (0.0-3.0); HEMATOCRIT 30.8 % (42.0-52.0); HEMOGLOBIN 9.5 g/dl (13.5-17.5); LYMPH # 0.7 10^3/uL (1.5-5.0); LYMPH % 14.9 % (24.0-44.0); MEAN CORPUSCULAR HEMOGLOBIN 32.8 pg (27.0-33.0); MEAN CORPUSCULAR HGB CONC 30.8 g/dl (32.0-36.5); MEAN CORPUSCULAR VOLUME 106.2 fl (80.0-96.0); MONO # 0.3 10^3/uL (0.0-0.8); MONO % 5.8 % (0.0-5.0); NEUTROPHILS # 3.7 10^3/uL (1.5-8.5); NEUTROPHILS % 74.5 % (36.0-66.0); PLATELET COUNT, AUTOMATED 202 10^3/uL (150-450)
[2019-10-10] MEDS: NEPHRO-VIT TAB (NEPHROCAPS) PO SCH (08:49)
[2019-10-10] MEDS: ACETAMINOPHEN 500 MG TAB PO SCH ×4 (08:50→20:43)
[2019-10-10] MEDS: PANTOPRAZOLE 40MG TAB (PROTONIX) PO SCH (08:50)
[2019-10-10] MEDS: CARVedilol 3.125 MG TAB PO SCH ×2 (08:50→20:12)
[2019-10-10] MEDS: GABAPENTIN 100 MG CAP PO SCH (08:50)
[2019-10-10] MEDS: DOCUSATE SODIUM 100 MG CAP PO SCH ×2 (08:50→20:43)
[2019-10-10] MEDS: APIXABAN 5 MG TAB (ELIQUIS) PO SCH ×2 (08:51→20:43)
[2019-10-10] MEDS: AMIODARONE 200 MG TAB (PACERONE) PO SCH (08:51)
[2019-10-10] MEDS: HumaLOG INSULIN (NovoLOG) PER UNIT SC SCH ×4 (08:51→20:13)
[2019-10-10] MEDS: FLUoxetine 20 MG CAP PO SCH (08:51)
[2019-10-10] MEDS: PRAVASTATIN 20 MG TAB PO SCH (08:52)
[2019-10-10] MEDS: LIDOCAINE 5% (LIDODERM) PATCH TD SCH (08:52)
[2019-10-10] MEDS: BISACODYL 10 MG SUPP PR SCH (08:52)
[2019-10-10] MEDS: THERAPEUTIC BATH LOTION 240 ML BTL TOP SCH ×2 (09:00→21:00)
[2019-10-10 09:16] LABS: ALBUMIN 2.5 GM/DL (3.2-5.2); CALCIUM LEVEL 7.9 MG/DL (8.8-10.2); CREATININE FOR GFR 6.29 MG/DL (0.70-1.30); GLOMERULAR FILTRATION RATE 9.3 (>42); PHOSPHORUS LEVEL 3.2 MG/DL (2.5-4.9); POTASSIUM SERUM 4.5 MEQ/L (3.5-5.1)
--- NOTE | 2019-10-10 11:17 | IPN ---
DATE: 10/10/2019 SUBJECTIVE: The patient was seen and examined at the bedside today morning. He is afebrile and hemodynamically stable. Today is his regular day of dialysis. He denies any active complaints apart from pain in the left hip after physical therapy. OBJECTIVE: Vital Signs: Temperature is 96.3 degrees Fahrenheit, blood pressure 127/72, pulse 62, respiratory rate of 16, saturating 100% on room air. Intake and Output: There is no urine output recorded. Weight in the bed scale was 100.6 kg yesterday. PHYSICAL EXAMINATION: General: The patient is awake, alert, oriented times three, laying in bed, in no apparent distress. Head and Neck Exam: Extraocular muscles intact. Pupils equally round and reactive to light. Mucous membranes are moist. Neck is supple. There is no jugular venous distention (JVD). Cardiovascular: S1, S2, regular rate. Trace edema of the bilateral lower extremities. Respiratory: Chest is clear to auscultation bilaterally. Bilateral equal air entry. No rales or rhonchi. Abdomen: Soft. Positive bowel sounds. Nontender. No organomegaly. Musculoskeletal: Moderate amount of pain on movement of the left leg. Central Nervous System (AVIAN KEEPER): No focal deficit. Power is 5/5 in bilateral upper extremities. LAB REVIEW: CBC showed a WBC of 5, hemoglobin 9.5, platelets 202. BMP showed sodium 135, potassium 4.5, chloride 99, bicarb 24, BUN 37, creatinine is 6.2, albumin is 2.5. CURRENT INPATIENT MEDICATIONS: The patient's medications were all reviewed by me. There is no change in the medications today as compared with yesterday. ASSESSMENT/PLAN: 1. End-stage renal disease. The patient is being on put back on his Sunday, Sunday, Sunday schedule. He will be dialyzed today in the afternoon. Ultrafiltration goal will be 2 liters. 2. Hypertension with end-stage renal disease. The patient is on low dose of carvedilol, which he is tolerating now. 3. Atrial fibrillation. Heart rate is controlled with amiodarone. Continue Eliquis.
[2019-10-10] MEDS ORDERED: HEPARIN 1,000 UNITS/ML 10ML VIAL (FOR RADIOLOGY& DIALYSIS ONLY) IV ONE (12:00)
--- NOTE | 2019-10-10 15:19 | IPNPDOC ---
PM&R Progress Note DATE OF SERVICE: Oct 10, 2019 Printed Circuit Board Assembly Repairer Progress Note Subjective: Patient reporting the gabapentin helped his pain tremendously, but that he had periods of time where he felt he lost track of time and does not want to take gabapentin anymore. REVIEW OF SYSTEMS: The following is a completed review of systems and has been reviewed. Review of systems otherwise unremarkable. PAIN: Patient self reports pelvic pain with movement EYES: No recent vision changes EARS, NOSE, & THROAT: No throat pain, or dysphagia, or rhinorrhea CARDIOVASCULAR: Denies chest pain or palpitations PULMONARY: Denies shortness of breath GASTROINTESTINAL: Denies constipation/diarrhea GENITOURINARY: denies dysuria MUSCULOSKELETAL: pelvic fracture NEUROLOGICAL:+peripheral polyneuropathy HEMATOLOGICAL: +easy bruising and anemia SKIN: +stauffer ulcers PSYCHIATRIC: Unremarkable All other review of systems found to be negative. PHYSICAL EXAMINATION: VITAL SIGNS: Please see below. GENERAL: Pleasant and cooperative. No acute distress. HEENT: PERRL. Extraocular movements intact. Clear conjunctiva CARDIOVASCULAR: Regular rate and rhythm. No murmurs, rubs, or gallops LUNGS: Clear to auscultation bilaterally. No wheezes. No rhonchi ABDOMEN: Soft, nontender, nondistended. Positive bowel sounds. Normal active bowel sounds NEUROLOGICAL: Alert and oriented times three. Cranial nerves II through XII grossly intact. Sensation diminished in bilateral feet in stocking pattern EXTREMITIES: 4\5 strength bilateral upper extremities. 4\5 strength bilat hip flexors and knee extensors, 2/5 bilat ankle DF, 0/5 EHL extension, 4/5 ankle PF bilat calf edema L>R bilat +1st interosseus wasting SKIN: scattered ecchymosis, bilat stauffer ulcers, frail skin -no sacral ulcers -bilat toe dry ulcers ASSESSMENT:74-year-old M with past medical history of ESRD who presents status post fall with pelvic fracture PLAN: 1. Rehab- PT/OT advance gait training and optimize ADL management, strengthen/stretch/maintain ROM all 4 extremities, fall recovery 2. Neuro: peripheral polyneuropathy in setting of ESRD and longstanding diabetes with bilateral foot drop -avoid delirogenic meds 3. Cardiac: Afib on eliquis, amiodarone, and Carvedilol-medicine consulted to assist in management -HLD c/u statin therapy 4. Resp: encourage incentive spirometry, monitor for infection 5. Endo: pmh DM c/u Levemir and ISS 6. Renal: ESRD, renal consulted -c/u Cinacalcet and sucroferric 7. Heme: anemia of chronic disease per renal management 8. Pain: c/u Tylenol standing, increased to QID, patient reporting significant pain relief with gabapentin, but reported having episodes of losing his awareness and does not want to take it -will trial K-pad and discuss alternative oral agents with renal -c/u lidoderm patch -avoid opioids and tizanidine as may have contributed to delirium 9. Psych: depression c/u Prozac, had been lowered over the weekend due to episode of psychosis requiring Haldol, however patient has not had any further episodes of delirium and was tearful, increased back to 20mg daily -psych recs appreciated 10. DVt ppx: acewrap and on eliquis 11. Dispo: 10-21-19 to home progressing towards goals Allergies Coded Allergies: Penicillins (Verified Adverse Reaction, Unknown, DIZZY, 09/24/19) Vital Signs Vital Signs Date Time Temp Pulse Resp B/P (MAP) Pulse Ox O2 Delivery O2 Flow Rate FiO2 10/10/19 08:50 62 127/72 10/10/19 06:00 96.3 16 100 Room Air Laboratory Data CBC/BMP Laboratory Tests 10/10/19 08:15 Labs 24H Laboratory Tests 2 10/09/19 16:55: Bedside Glucose (Misc Panel) 106 10/09/19 20:05: Bedside Glucose (Misc Panel) 170H 10/10/19 06:37: Bedside Glucose (Misc Panel) 163H 10/10/19 08:15: Immature Granulocyte % (Auto) 0.8, Neutrophils (%) (Auto) 74.5H, Lymphocytes (%) (Auto) 14.9L, Monocytes (%) (Auto) 5.8H, Eosinophils (%) (Auto) 3.6H, Basophils (%) (Auto) 0.4, Neutrophils # (Auto) 3.7, Lymphocytes # (Auto) 0.7L, Monocytes # (Auto) 0.3, Eosinophils # (Auto) 0.2, Basophils # (Auto) 0.0, Nucleated Red Blood Cells % (auto) 0.0, Anion Gap 12, Glomerular Filtration Rate 9.3L, Calcium Level 7.9L, Phosphorus Level 3.2#, Albumin 2.5L 10/10/19 11:18: Bedside Glucose (Misc Panel) 135H Microbiology Microbiology 10/04/19 Blood Culture - Final, Complete NO GROWTH AFTER 5 DAYS Current Medications Current Medications Current Medications Medications (Trade) Dose Ordered Sig/Jason Route PRN Reason Start Time Stop Time Status Last Admin Dose Admin Acetaminophen (Tylenol Tab) 1,000 mg QID PO 10/09/19 13:00 10/10/19 12:25 Acetaminophen (Tylenol Tab) 1,000 mg TID PO 10/02/19 16:00 10/09/19 10:38 DC 10/09/19 08:20 Amiodarone HCl (Pacerone, Cordarone) 200 mg DAILY PO 10/03/19 09:00 10/10/19 08:51 Apixaban (Eliquis) 5 mg BID PO 10/02/19 21:00 10/10/19 08:51 Bisacodyl (Dulcolax Suppository) 10 mg DAILY NV 10/05/19 09:00 10/08/19 08:46 Calcium Carbonate (Tums) 1,000 mg Q4HP PRN PO HEARTBURN 10/02/19 15:45 Carvedilol (COReg) 3.125 mg BID PO 10/04/19 21:00 10/10/19 08:50 Carvedilol (COReg) 6.25 mg BID PO 10/02/19 21:00 10/04/19 12:34 DC 10/03/19 08:46 Cinacalcet (Sensipar) 60 mg TuThSa@0900 PO 10/04/19 09:00 10/09/19 08:21 Darbepoetin Blu (Aranesp (Dialysis Use)) 200 mcg HD IV 10/03/19 09:45 Dextrose (Dextrose 50%) 25 ml ASDIRECTED PRN IV SEE LABEL COMMENTS 10/02/19 15:45 Docusate Sodium (Colace) 100 mg BID PO 10/02/19 21:00 10/10/19 08:50 Duloxetine HCl (Cymbalta) 30 mg DAILY PO 10/07/19 09:00 UNV Fluoxetine HCl (PROzac) 10 mg DAILY PO 10/05/19 09:00 10/09/19 10:38 DC 10/09/19 08:20 Fluoxetine HCl (PROzac) 20 mg DAILY PO 10/10/19 09:00 10/10/19 08:51 Fluoxetine HCl (PROzac) 20 mg DAILY PO 10/03/19 09:00 10/04/19 19:52 DC 10/03/19 08:45 Gabapentin (Neurontin) 100 mg DAILY PO 10/09/19 09:00 10/09/19 12:36 Glucagon (Glucagon) 1 mg ASDIRECTED PRN SC SEE LABEL COMMENTS 10/02/19 15:45 Glucose (Glucose) 16 GM ASDIRECTED PRN PO SEE LABEL COMMENTS 10/02/19 15:45 Haloperidol (Haldol) 2 mg BID PO 10/04/19 21:00 10/05/19 12:24 DC Haloperidol (Haldol) 2 mg DAILYPRN PRN PO AGITATION 10/04/19 16:30 10/09/19 10:38 DC Insulin Detemir (Levemir Insulin) 25 units DAILY SC 10/03/19 09:00 10/05/19 18:58 DC 10/03/19 08:45 Insulin Human Lispro (HumaLOG INSULIN) SEE PROTOCOL TABLE AC SC 10/02/19 17:30 10/10/19 12:25 Insulin Human Lispro (HumaLOG INSULIN) SEE PROTOCOL TABLE QHS SC 10/02/19 21:00 Iron (Venofer) 100 mg HD IV 10/03/19 11:30 10/06/19 23:59 DC Levofloxacin (Levaquin) 250 mg DAILY PO 10/04/19 09:00 10/05/19 12:24 DC Lidocaine (Lidoderm Patch) 1 patch DAILY TD 10/07/19 09:00 10/10/19 08:52 Lorazepam (Ativan) 2 mg DAILYPRN PRN IM AGITATION 10/04/19 16:30 10/10/19 11:27 DC Lorazepam (Ativan) 2 mg STAT STAT IM 10/04/19 11:18 10/04/19 11:20 DC 10/04/19 11:52 Magnesium Hydroxide (Milk Of Magnesia) 30 ml DAILYPRN PRN PO CONSTIPATION 10/02/19 15:45 Miscellaneous (Unresolved Patient Own Med Order) SEE LABEL COMMENTS DAILY XX 10/10/19 09:00 Multi-Ingredient Lotion (Melody Lotion) apply to bilat mj... BID TOP 10/09/19 21:00 10/09/19 20:08 Non-Formulary Medication ( See Comment Field Below ) REMOVE LIDODERM PATCH DAILY@21 XX 10/07/19 21:00 10/09/19 20:08 Oxycodone HCl (Roxicodone, Oxyir) 2.5 mg Q6HP PRN PO PAIN 10/02/19 15:45 10/03/19 09:38 DC Pantoprazole Sodium (Protonix) 40 mg DAILY PO 10/02/19 09:00 10/10/19 08:50 Patient Own Medication (Patient'S Own Med) apply to sacrum af... TID TOP 10/10/19 16:00 UNV Polyethylene Glycol (Miralax) 1 pkt DAILY PRN PO CONSTIPATION 10/06/19 09:00 10/09/19 20:06 Polyethylene Glycol (Miralax) 1 pkt DAILYPRN PRN PO CONSTIPATION 10/05/19 07:45 10/05/19 12:24 DC Pravastatin Sodium (Pravachol) 20 mg DAILY PO 10/03/19 09:00 10/10/19 08:52 Senna (Senokot) 1 tab QHS PO 10/02/19 21:00 10/09/19 20:07 Sucroferric Oxyhydroxide (Velphoro) 1,000 mg BIDWM PO 10/02/19 18:00 10/07/19 12:02 DC 10/07/19 07:55 Tizanidine HCl (Zanaflex) 2 mg TID@0800,1200,1600 PO 10/03/19 09:45 10/07/19 12:05 DC 10/03/19 12:09 Tramadol HCl (Ultram) 25 mg Q4HP PRN PO MODERATE PAIN (PS 5-7) 10/03/19 09:45 Cancel Vitamin B Complex/ Vit C/Folic Acid (Nephro-[facility] Rx) 1 tab DAILY PO 10/03/19 09:00 10/10/19 08:49 MARJ RICHARDSON MD Oct 10, 2019 15:19
[2019-10-10] MEDS ORDERED: DULoxetine 20 MG CAP (CYMBALTA) PO SCH (15:30)
[2019-10-10] MEDS ORDERED: [UNRECOGNIZED DRUG - OTHER] TOP SCH (16:00)
[2019-10-10 16:20] VITALS: BP 106/88
[2019-10-10] MEDS ORDERED: PILL CUTTER 1 EACH XX PRN (17:00)
[2019-10-10 20:11] VITALS: BP 102/57
[2019-10-10] MEDS: SENNA 8.6 MG TAB (SENOKOT) PO SCH (20:43)
[2019-10-10] MEDS: **NOTE PATIENT COMMENT** MISC XX SCH (20:45)
[2019-10-11 06:00] VITALS: BP 103/59
[2019-10-11] MEDS: HumaLOG INSULIN (NovoLOG) PER UNIT SC SCH ×4 (08:10→21:00)
[2019-10-11] MEDS: DOCUSATE SODIUM 100 MG CAP PO SCH ×2 (08:10→21:14)
[2019-10-11] MEDS: FLUoxetine 20 MG CAP PO SCH (08:10)
[2019-10-11] MEDS: PRAVASTATIN 20 MG TAB PO SCH (08:11)
[2019-10-11] MEDS: VENLAFAXINE 37.5 MG TAB PO SCH ×2 (08:11→21:14)
[2019-10-11] MEDS: PANTOPRAZOLE 40MG TAB (PROTONIX) PO SCH (08:11)
[2019-10-11] MEDS: NEPHRO-VIT TAB (NEPHROCAPS) PO SCH (08:11)
[2019-10-11] MEDS: ACETAMINOPHEN 500 MG TAB PO SCH ×4 (08:11→21:14)
[2019-10-11] MEDS: APIXABAN 5 MG TAB (ELIQUIS) PO SCH ×2 (08:12→21:14)
[2019-10-11] MEDS: AMIODARONE 200 MG TAB (PACERONE) PO SCH (08:12)
[2019-10-11] MEDS: CINACALCET 30 MG TAB (SENSIPAR) PO SCH (08:12)
[2019-10-11] MEDS: LIDOCAINE 5% (LIDODERM) PATCH TD SCH (08:13)
[2019-10-11] MEDS: CARVedilol 3.125 MG TAB PO SCH ×2 (08:13→21:00)
[2019-10-11] MEDS: BISACODYL 10 MG SUPP PR SCH (08:13)
[2019-10-11] MEDS: THERAPEUTIC BATH LOTION 240 ML BTL TOP SCH ×2 (08:16→21:15)
[2019-10-11] MEDS ORDERED: VENLAFAXINE 37.5 MG TAB PO SCH (09:00)
[2019-10-11] MEDS ORDERED: VENLAFAXINE **XR** 37.5 MG CAPSULE PO SCH (09:00)
[2019-10-11 14:00] VITALS: BP 95/58
[2019-10-11 20:00] VITALS: BP 100/58
[2019-10-11] MEDS: SENNA 8.6 MG TAB (SENOKOT) PO SCH (21:14)
[2019-10-11] MEDS: **NOTE PATIENT COMMENT** MISC XX SCH (21:20)
[2019-10-12 06:17] VITALS: BP 106/50
[2019-10-12] MEDS: LIDOCAINE 5% (LIDODERM) PATCH TD SCH (08:20)
[2019-10-12] MEDS: VENLAFAXINE 37.5 MG TAB PO SCH ×2 (08:21→21:39)
[2019-10-12] MEDS: AMIODARONE 200 MG TAB (PACERONE) PO SCH (08:21)
[2019-10-12] MEDS: FLUoxetine 20 MG CAP PO SCH (08:21)
[2019-10-12] MEDS: PANTOPRAZOLE 40MG TAB (PROTONIX) PO SCH (08:21)
[2019-10-12] MEDS: APIXABAN 5 MG TAB (ELIQUIS) PO SCH ×2 (08:21→21:39)
[2019-10-12] MEDS: PRAVASTATIN 20 MG TAB PO SCH (08:21)
[2019-10-12] MEDS: NEPHRO-VIT TAB (NEPHROCAPS) PO SCH (08:21)
[2019-10-12] MEDS: ACETAMINOPHEN 500 MG TAB PO SCH ×4 (08:22→21:40)
[2019-10-12] MEDS: BISACODYL 10 MG SUPP PR SCH (08:23)
[2019-10-12] MEDS: DOCUSATE SODIUM 100 MG CAP PO SCH ×2 (08:23→21:40)
[2019-10-12] MEDS: CARVedilol 3.125 MG TAB PO SCH ×2 (08:23→21:00)
[2019-10-12] MEDS: THERAPEUTIC BATH LOTION 240 ML BTL TOP SCH ×2 (08:24→21:40)
[2019-10-12] MEDS: HumaLOG INSULIN (NovoLOG) PER UNIT SC SCH ×4 (08:24→21:00)
[2019-10-12 14:00] VITALS: BP 99/52
[2019-10-12 20:00] VITALS: BP 109/58
[2019-10-12] MEDS: SENNA 8.6 MG TAB (SENOKOT) PO SCH (21:39)
[2019-10-12] MEDS: **NOTE PATIENT COMMENT** MISC XX SCH (21:42)
[2019-10-13 06:00] VITALS: BP 102/60
[2019-10-13] MEDS: HumaLOG INSULIN (NovoLOG) PER UNIT SC SCH ×4 (08:22→21:00)
[2019-10-13] MEDS: LIDOCAINE 5% (LIDODERM) PATCH TD SCH (08:23)
[2019-10-13] MEDS: FLUoxetine 20 MG CAP PO SCH (08:24)
[2019-10-13] MEDS: DOCUSATE SODIUM 100 MG CAP PO SCH ×2 (08:24→21:12)
[2019-10-13] MEDS: PRAVASTATIN 20 MG TAB PO SCH (08:25)
[2019-10-13] MEDS: VENLAFAXINE 37.5 MG TAB PO SCH ×2 (08:25→21:12)
[2019-10-13] MEDS: PANTOPRAZOLE 40MG TAB (PROTONIX) PO SCH (08:25)
[2019-10-13] MEDS: APIXABAN 5 MG TAB (ELIQUIS) PO SCH ×2 (08:25→21:13)
[2019-10-13] MEDS: CARVedilol 3.125 MG TAB PO SCH ×2 (08:25→21:13)
[2019-10-13] MEDS: ACETAMINOPHEN 500 MG TAB PO SCH ×4 (08:26→21:12)
[2019-10-13] MEDS: AMIODARONE 200 MG TAB (PACERONE) PO SCH (08:26)
[2019-10-13] MEDS: THERAPEUTIC BATH LOTION 240 ML BTL TOP SCH ×2 (08:27→21:15)
[2019-10-13] MEDS: NEPHRO-VIT TAB (NEPHROCAPS) PO SCH (08:27)
[2019-10-13] MEDS: BISACODYL 10 MG SUPP PR SCH (08:27)
[2019-10-13 08:30] VITALS: BP 122/65
[2019-10-13 09:11] LABS: HEMATOCRIT 31.7 % (42.0-52.0); HEMOGLOBIN 10.1 g/dl (13.5-17.5); MEAN CORPUSCULAR HEMOGLOBIN 33.1 pg (27.0-33.0); MEAN CORPUSCULAR HGB CONC 31.9 g/dl (32.0-36.5); MEAN CORPUSCULAR VOLUME 103.9 fl (80.0-96.0); PLATELET COUNT, AUTOMATED 205 10^3/uL (150-450); RED BLOOD COUNT 3.05 10^6/uL (4.30-6.10); WHITE BLOOD COUNT 5.7 10^3/uL (4.0-10.0)
[2019-10-13 09:31] LABS: CALCIUM LEVEL 7.4 MG/DL (8.8-10.2); CREATININE FOR GFR 6.74 MG/DL (0.70-1.30); GLOMERULAR FILTRATION RATE 8.6 (>42); POTASSIUM SERUM 4.6 MEQ/L (3.5-5.1)
--- NOTE | 2019-10-13 12:50 | IPNPDOC ---
PM&R Progress Note DATE OF SERVICE: Oct 13, 2019 Side Puller Progress Note Subjective: Patient reporting his pain is not any worse since starting effexor, but cannot tell if it is any better either. He is agreeable to trying a higher dose. He d enies having any delirium over the weekend and would like to try a sleep aid. REVIEW OF SYSTEMS: The following is a completed review of systems and has been reviewed. Review of systems otherwise unremarkable. PAIN: Patient self reports pelvic pain with movement EYES: No recent vision changes EARS, NOSE, & THROAT: No throat pain, or dysphagia, or rhinorrhea CARDIOVASCULAR: Denies chest pain or palpitations PULMONARY: Denies shortness of breath GASTROINTESTINAL: Denies constipation/diarrhea GENITOURINARY: denies dysuria MUSCULOSKELETAL: pelvic fracture NEUROLOGICAL:+peripheral polyneuropathy HEMATOLOGICAL: +easy bruising and anemia SKIN: +stauffer ulcers PSYCHIATRIC: Unremarkable All other review of systems found to be negative. PHYSICAL EXAMINATION: VITAL SIGNS: Please see below. GENERAL: Pleasant and cooperative. No acute distress. HEENT: PERRL. Extraocular movements intact. Clear conjunctiva CARDIOVASCULAR: Regular rate and rhythm. No murmurs, rubs, or gallops LUNGS: Clear to auscultation bilaterally. No wheezes. No rhonchi ABDOMEN: Soft, nontender, nondistended. Positive bowel sounds. Normal active bowel sounds NEUROLOGICAL: Alert and oriented times three. Cranial nerves II through XII grossly intact. Sensation diminished in bilateral feet in stocking pattern EXTREMITIES: 4\5 strength bilateral upper extremities. 4\5 strength bilat hip flexors and knee extensors, 2/5 bilat ankle DF, 0/5 EHL extension, 4/5 ankle PF bilat calf edema L>R bilat +1st interosseus wasting SKIN: scattered ecchymosis, bilat stauffer ulcers, frail skin -no sacral ulcers -bilat toe dry ulcers ASSESSMENT:74-year-old M with past medical history of ESRD who presents status post fall with pelvic fracture PLAN: 1. Rehab- PT/OT advance gait training and optimize ADL management, strengthen/stretch/maintain ROM all 4 extremities, fall recovery 2. Neuro: peripheral polyneuropathy in setting of ESRD and longstanding diabetes with bilateral foot drop -avoid delirogenic meds 3. Cardiac: Afib on eliquis, amiodarone, and Carvedilol-medicine consulted to assist in management -HLD c/u statin therapy 4. Resp: encourage incentive spirometry, monitor for infection 5. Endo: pmh DM c/u Levemir and ISS 6. Renal: ESRD, renal consulted -c/u Cinacalcet and sucroferric 7. Heme: anemia of chronic disease per renal management 8. Pain: c/u Tylenol standing, c/u QID, will increase Effexor to 37.5 BID as patient reporting no adverse psychiatric effects to see if helps with pain -c/u K-pad -c/u lidoderm patch -avoid opioids and tizanidine as may have contributed to delirium, avoid gabapentin as well 9. Psych: depression c/u Prozac, delirium resolved -psych recs appreciated -trazodone prn for insomnia 10. DVt ppx: acewrap and on eliquis 11. Dispo: 10-21-19 to home progressing towards goals Allergies Coded Allergies: Penicillins (Verified Adverse Reaction, Unknown, DIZZY, 09/24/19) Vital Signs Vital Signs Date Time Temp Pulse Resp B/P (MAP) Pulse Ox O2 Delivery O2 Flow Rate FiO2 10/13/19 08:30 61 122/65 (84) 10/13/19 06:00 97.0 18 99 NIPPV (BIPAP/CPAP) Laboratory Data CBC/BMP Laboratory Tests 10/13/19 08:40 Labs 24H Laboratory Tests 2 10/12/19 16:23: Bedside Glucose (Misc Panel) 140H 10/12/19 19:47: Bedside Glucose (Misc Panel) 170H 10/13/19 06:50: Bedside Glucose (Misc Panel) 131H 10/13/19 08:40: Nucleated Red Blood Cells % (auto) 0.0, Anion Gap 14, Glomerular Filtration Rate 8.6L, Calcium Level 7.4L 10/13/19 12:10: Bedside Glucose (Misc Panel) 132H Microbiology Microbiology 10/04/19 Blood Culture - Final, Complete NO GROWTH AFTER 5 DAYS Current Medications Current Medications Current Medications Medications (Trade) Dose Ordered Sig/Jason Route PRN Reason Start Time Stop Time Status Last Admin Dose Admin Acetaminophen (Tylenol Tab) 1,000 mg QID PO 10/09/19 13:00 10/13/19 12:37 Acetaminophen (Tylenol Tab) 1,000 mg TID PO 10/02/19 16:00 1/2/20 10:38 DC 10/09/19 08:20 Amiodarone HCl (Pacerone, Cordarone) 200 mg DAILY PO 10/03/19 09:00 10/13/19 08:26 Apixaban (Eliquis) 5 mg BID PO 10/02/19 21:00 10/13/19 08:25 Bisacodyl (Dulcolax Suppository) 10 mg DAILY UT 10/05/19 09:00 10/08/19 08:46 Calcium Carbonate (Tums) 1,000 mg Q4HP PRN PO HEARTBURN 10/02/19 15:45 Carvedilol (COReg) 3.125 mg BID PO 10/04/19 21:00 10/13/19 08:25 Carvedilol (COReg) 6.25 mg BID PO 10/02/19 21:00 10/04/19 12:34 DC 10/03/19 08:46 Cinacalcet (Sensipar) 60 mg TuThSa@0900 PO 10/04/19 09:00 10/11/19 08:12 Darbepoetin Blu (Aranesp (Dialysis Use)) 200 mcg HD IV 10/03/19 09:45 Dextrose (Dextrose 50%) 25 ml ASDIRECTED PRN IV SEE LABEL COMMENTS 10/02/19 15:45 Docusate Sodium (Colace) 100 mg BID PO 10/02/19 21:00 10/13/19 08:24 Duloxetine HCl (Cymbalta) 10 mg DAILY PO 10/10/19 15:30 10/10/19 16:37 DC Duloxetine HCl (Cymbalta) 30 mg DAILY PO 10/07/19 09:00 UNV Fluoxetine HCl (PROzac) 10 mg DAILY PO 10/05/19 09:00 10/09/19 10:38 DC 10/09/19 08:20 Fluoxetine HCl (PROzac) 20 mg DAILY PO 10/10/19 09:00 10/13/19 08:24 Fluoxetine HCl (PROzac) 20 mg DAILY PO 10/03/19 09:00 10/04/19 19:52 DC 10/03/19 08:45 Gabapentin (Neurontin) 100 mg DAILY PO 10/09/19 09:00 1/3/20 15:15 DC 10/09/19 12:36 Glucagon (Glucagon) 1 mg ASDIRECTED PRN SC SEE LABEL COMMENTS 10/02/19 15:45 Glucose (Glucose) 16 GM ASDIRECTED PRN PO SEE LABEL COMMENTS 10/02/19 15:45 Haloperidol (Haldol) 2 mg BID PO 10/04/19 21:00 10/05/19 12:24 DC Haloperidol (Haldol) 2 mg DAILYPRN PRN PO AGITATION 10/04/19 16:30 10/09/19 10:38 DC Insulin Detemir (Levemir Insulin) 25 units DAILY SC 10/03/19 09:00 10/05/19 18:58 DC 10/03/19 08:45 Insulin Human Lispro (HumaLOG INSULIN) SEE PROTOCOL TABLE AC SC 10/02/19 17:30 10/13/19 12:35 Insulin Human Lispro (HumaLOG INSULIN) SEE PROTOCOL TABLE QHS SC 10/02/19 21:00 Iron (Venofer) 100 mg HD IV 10/03/19 11:30 10/06/19 23:59 DC Levofloxacin (Levaquin) 250 mg DAILY PO 10/04/19 09:00 10/05/19 12:24 DC Lidocaine (Lidoderm Patch) 1 patch DAILY TD 10/07/19 09:00 10/13/19 08:23 Lorazepam (Ativan) 2 mg DAILYPRN PRN IM AGITATION 10/04/19 16:30 10/10/19 11:27 DC Lorazepam (Ativan) 2 mg STAT STAT IM 10/04/19 11:18 10/04/19 11:20 DC 10/04/19 11:52 Magnesium Hydroxide (Milk Of Magnesia) 30 ml DAILYPRN PRN PO CONSTIPATION 10/02/19 15:45 Miscellaneous (Unresolved Patient Own Med Order) SEE LABEL COMMENTS DAILY XX 10/10/19 09:00 Cancel Multi-Ingredient Lotion (Melody Lotion) apply to bilat mj... BID TOP 10/09/19 21:00 10/13/19 08:27 Non-Formulary Medication ( See Comment Field Below ) REMOVE LIDODERM PATCH DAILY@21 XX 10/07/19 21:00 10/12/19 21:42 Oxycodone HCl (Roxicodone, Oxyir) 2.5 mg Q6HP PRN PO PAIN 10/02/19 15:45 10/03/19 09:38 DC Pantoprazole Sodium (Protonix) 40 mg DAILY PO 10/02/19 09:00 10/13/19 08:25 Patient Own Medication (Patient'S Own Med) apply to sacrum af... TID TOP 10/10/19 16:00 UNV Polyethylene Glycol (Miralax) 1 pkt DAILY PRN PO CONSTIPATION 10/06/19 09:00 10/09/19 20:06 Polyethylene Glycol (Miralax) 1 pkt DAILYPRN PRN PO CONSTIPATION 10/05/19 07:45 10/05/19 12:24 DC Pravastatin Sodium (Pravachol) 20 mg DAILY PO 10/03/19 09:00 10/13/19 08:25 Senna (Senokot) 1 tab QHS PO 10/02/19 21:00 10/12/19 21:39 Sucroferric Oxyhydroxide (Velphoro) 1,000 mg BIDWM PO 10/02/19 18:00 10/07/19 12:02 DC 10/07/19 07:55 Tizanidine HCl (Zanaflex) 2 mg TID@0800,1200,1600 PO 10/03/19 09:45 10/07/19 12:05 DC 10/03/19 12:09 Tramadol HCl (Ultram) 25 mg Q4HP PRN PO MODERATE PAIN (PS 5-7) 10/03/19 09:45 Cancel Venlafaxine HCl (Effexor Xr) 37.5 mg DAILY PO 10/11/19 09:00 10/10/19 16:56 DC Venlafaxine HCl (Effexor) 18.75 mg BID PO 10/11/19 09:00 10/13/19 08:25 Venlafaxine HCl (Effexor) 18.75 mg DAILY PO 10/11/19 09:00 10/10/19 17:07 DC Vitamin B Complex/ Vit C/Folic Acid (Nephro-[facility]) 1 tab DAILY PO 10/03/19 09:00 10/13/19 08:27 MARJ RICHARDSON MD Oct 13, 2019 12:50
[2019-10-13 18:00] VITALS: BP 116/67
[2019-10-13 20:00] VITALS: BP 105/58
[2019-10-13] MEDS: SENNA 8.6 MG TAB (SENOKOT) PO SCH (21:12)
[2019-10-13] MEDS: traZODone 25MG PER 1/2 TABLET PO PRN (21:13)
[2019-10-13] MEDS: **NOTE PATIENT COMMENT** MISC XX SCH (21:13)
[2019-10-14 06:00] VITALS: BP 113/67
[2019-10-14] MEDS: NEPHRO-VIT TAB (NEPHROCAPS) PO SCH (08:43)
[2019-10-14] MEDS: PRAVASTATIN 20 MG TAB PO SCH (08:43)
[2019-10-14] MEDS: FLUoxetine 20 MG CAP PO SCH (08:43)
[2019-10-14] MEDS: ACETAMINOPHEN 500 MG TAB PO SCH ×4 (08:43→21:07)
[2019-10-14] MEDS: VENLAFAXINE 37.5 MG TAB PO SCH ×2 (08:44→21:07)
[2019-10-14] MEDS: AMIODARONE 200 MG TAB (PACERONE) PO SCH (08:44)
[2019-10-14] MEDS: CARVedilol 3.125 MG TAB PO SCH ×2 (08:44→21:00)
[2019-10-14] MEDS: BISACODYL 10 MG SUPP PR SCH (08:44)
[2019-10-14] MEDS: PANTOPRAZOLE 40MG TAB (PROTONIX) PO SCH (08:44)
[2019-10-14] MEDS: APIXABAN 5 MG TAB (ELIQUIS) PO SCH ×2 (08:44→21:07)
[2019-10-14] MEDS: HumaLOG INSULIN (NovoLOG) PER UNIT SC SCH ×4 (08:45→21:00)
[2019-10-14] MEDS: DOCUSATE SODIUM 100 MG CAP PO SCH (08:45)
[2019-10-14] MEDS: THERAPEUTIC BATH LOTION 240 ML BTL TOP SCH ×2 (08:46→21:08)
[2019-10-14] MEDS: LIDOCAINE 5% (LIDODERM) PATCH TD SCH (08:46)
[2019-10-14] MEDS: CINACALCET 30 MG TAB (SENSIPAR) PO SCH (08:51)
--- NOTE | 2019-10-14 09:03 | IPNPDOC ---
PM&R Progress Note DATE OF SERVICE: Oct 14, 2019 Battery Stacker Progress Note Subjective: Patient reporting he slept a little better with trazodone and that he has been having loose stools for a couple of days. REVIEW OF SYSTEMS: The following is a completed review of systems and has been reviewed. Review of systems otherwise unremarkable. PAIN: Patient self reports pelvic pain with movement EYES: No recent vision changes EARS, NOSE, & THROAT: No throat pain, or dysphagia, or rhinorrhea CARDIOVASCULAR: Denies chest pain or palpitations PULMONARY: Denies shortness of breath GASTROINTESTINAL: +loose stools GENITOURINARY: denies dysuria MUSCULOSKELETAL: pelvic fracture NEUROLOGICAL:+peripheral polyneuropathy HEMATOLOGICAL: +easy bruising and anemia SKIN: +stauffer ulcers PSYCHIATRIC: Unremarkable All other review of systems found to be negative. PHYSICAL EXAMINATION: VITAL SIGNS: Please see below. GENERAL: Pleasant and cooperative. No acute distress. HEENT: PERRL. Extraocular movements intact. Clear conjunctiva CARDIOVASCULAR: Regular rate and rhythm. No murmurs, rubs, or gallops LUNGS: Clear to auscultation bilaterally. No wheezes. No rhonchi ABDOMEN: Soft, nontender, nondistended. Positive bowel sounds. Normal active bowel sounds NEUROLOGICAL: Alert and oriented times three. Cranial nerves II through XII grossly intact. Sensation diminished in bilateral feet in stocking pattern EXTREMITIES: 4\5 strength bilateral upper extremities. 4\5 strength bilat hip flexors and knee extensors, 2/5 bilat ankle DF, 0/5 EHL extension, 4/5 ankle PF bilat calf edema L>R bilat +1st interosseus wasting SKIN: scattered ecchymosis, bilat stauffer ulcers, frail skin -no sacral ulcers -bilat toe dry ulcers ASSESSMENT:74-year-old M with past medical history of ESRD who presents status post fall with pelvic fracture PLAN: 1. Rehab- PT/OT advance gait training and optimize ADL management, strengthen/stretch/maintain ROM all 4 extremities, fall recovery 2. Neuro: peripheral polyneuropathy in setting of ESRD and longstanding diabetes with bilateral foot drop -avoid delirogenic meds 3. Cardiac: Afib on eliquis, amiodarone, and Carvedilol-medicine consulted to assist in management -HLD c/u statin therapy 4. Resp: encourage incentive spirometry, monitor for infection 5. Endo: pmh DM c/u Levemir and ISS 6. Renal: ESRD, renal consulted -c/u Cinacalcet and sucroferric 7. Heme: anemia of chronic disease per renal management 8. Pain: c/u Tylenol standing, c/u QID, c/u Effexor increased to 37.5 BID as patient reporting no adverse psychiatric effects to see if helps with pain -c/u K-pad -c/u lidoderm patch -avoid opioids and tizanidine as may have contributed to delirium, avoid gabapentin as well 9. Psych: depression c/u Prozac, delirium resolved -psych recs appreciated -c/u trazodone prn for insomnia 10. DVt ppx: acewrap and on eliquis 11. GI: will change bowel meds to prn as patient reporting loose stools 11. Dispo: 10-21-19 to home progressing towards goals Allergies Coded Allergies: Penicillins (Verified Adverse Reaction, Unknown, DIZZY, 09/24/19) Vital Signs Vital Signs Date Time Temp Pulse Resp B/P (MAP) Pulse Ox O2 Delivery O2 Flow Rate FiO2 10/14/19 08:44 63 113/67 10/14/19 06:00 97.6 19 99 Room Air Laboratory Data Labs 24H Laboratory Tests 2 10/13/19 12:10: Bedside Glucose (Misc Panel) 132H 10/13/19 18:03: Bedside Glucose (Misc Panel) 89 10/13/19 20:19: Bedside Glucose (Misc Panel) 95 10/14/19 06:25: Bedside Glucose (Misc Panel) 119H Microbiology Microbiology 10/04/19 Blood Culture - Final, Complete NO GROWTH AFTER 5 DAYS Current Medications Current Medications Current Medications Medications (Trade) Dose Ordered Sig/Jason Route PRN Reason Start Time Stop Time Status Last Admin Dose Admin Acetaminophen (Tylenol Tab) 1,000 mg QID PO 10/09/19 13:00 10/14/19 08:43 Acetaminophen (Tylenol Tab) 1,000 mg TID PO 10/02/19 16:00 10/09/19 10:38 DC 10/09/19 08:20 Amiodarone HCl (Pacerone, Cordarone) 200 mg DAILY PO 10/03/19 09:00 10/14/19 08:44 Apixaban (Eliquis) 5 mg BID PO 10/02/19 21:00 10/14/19 08:44 Bisacodyl (Dulcolax Suppository) 10 mg DAILY SD 10/05/19 09:00 10/08/19 08:46 Calcium Carbonate (Tums) 1,000 mg Q4HP PRN PO HEARTBURN 10/02/19 15:45 Carvedilol (COReg) 3.125 mg BID PO 10/04/19 21:00 10/14/19 08:44 Carvedilol (COReg) 6.25 mg BID PO 10/02/19 21:00 10/04/19 12:34 DC 10/03/19 08:46 Cinacalcet (Sensipar) 60 mg TuThSa@0900 PO 10/04/19 09:00 10/14/19 08:51 Darbepoetin Blu (Aranesp (Dialysis Use)) 200 mcg HD IV 10/03/19 09:45 Dextrose (Dextrose 50%) 25 ml ASDIRECTED PRN IV SEE LABEL COMMENTS 10/02/19 15:45 Docusate Sodium (Colace) 100 mg BID PO 10/02/19 21:00 10/13/19 21:12 Duloxetine HCl (Cymbalta) 10 mg DAILY PO 10/10/19 15:30 10/10/19 16:37 DC Duloxetine HCl (Cymbalta) 30 mg DAILY PO 10/07/19 09:00 UNV Fluoxetine HCl (PROzac) 10 mg DAILY PO 10/05/19 09:00 10/09/19 10:38 DC 10/09/19 08:20 Fluoxetine HCl (PROzac) 20 mg DAILY PO 10/10/19 09:00 10/14/19 08:43 Fluoxetine HCl (PROzac) 20 mg DAILY PO 10/03/19 09:00 10/04/19 19:52 DC 10/03/19 08:45 Gabapentin (Neurontin) 100 mg DAILY PO 10/09/19 09:00 10/10/19 15:15 DC 10/09/19 12:36 Glucagon (Glucagon) 1 mg ASDIRECTED PRN SC SEE LABEL COMMENTS 10/02/19 15:45 Glucose (Glucose) 16 GM ASDIRECTED PRN PO SEE LABEL COMMENTS 10/02/19 15:45 Haloperidol (Haldol) 2 mg BID PO 10/04/19 21:00 10/05/19 12:24 DC Haloperidol (Haldol) 2 mg DAILYPRN PRN PO AGITATION 10/04/19 16:30 10/09/19 10:38 DC Insulin Detemir (Levemir Insulin) 25 units DAILY SC 10/03/19 09:00 10/05/19 18:58 DC 10/03/19 08:45 Insulin Human Lispro (HumaLOG INSULIN) SEE PROTOCOL TABLE AC SC 10/02/19 17:30 10/14/19 08:45 Insulin Human Lispro (HumaLOG INSULIN) SEE PROTOCOL TABLE QHS SC 10/02/19 21:00 Iron (Venofer) 100 mg HD IV 10/03/19 11:30 10/06/19 23:59 DC Levofloxacin (Levaquin) 250 mg DAILY PO 10/04/19 09:00 10/05/19 12:24 DC Lidocaine (Lidoderm Patch) 1 patch DAILY TD 10/07/19 09:00 10/14/19 08:46 Lorazepam (Ativan) 2 mg DAILYPRN PRN IM AGITATION 10/04/19 16:30 10/10/19 11:27 DC Lorazepam (Ativan) 2 mg STAT STAT IM 10/04/19 11:18 10/04/19 11:20 DC 10/04/19 11:52 Magnesium Hydroxide (Milk Of Magnesia) 30 ml DAILYPRN PRN PO CONSTIPATION 10/02/19 15:45 Miscellaneous (Unresolved Patient Own Med Order) SEE LABEL COMMENTS DAILY XX 10/10/19 09:00 Cancel Multi-Ingredient Lotion (Melody Lotion) apply to bilat mj... BID TOP 10/09/19 21:00 10/14/19 08:46 Non-Formulary Medication ( See Comment Field Below ) REMOVE LIDODERM PATCH DAILY@21 XX 10/07/19 21:00 10/13/19 21:13 Oxycodone HCl (Roxicodone, Oxyir) 2.5 mg Q6HP PRN PO PAIN 10/02/19 15:45 10/03/19 09:38 DC Pantoprazole Sodium (Protonix) 40 mg DAILY PO 10/02/19 09:00 10/14/19 08:44 Patient Own Medication (Patient'S Own Med) apply to sacrum af... TID TOP 10/10/19 16:00 UNV Polyethylene Glycol (Miralax) 1 pkt DAILY PRN PO CONSTIPATION 10/06/19 09:00 10/09/19 20:06 Polyethylene Glycol (Miralax) 1 pkt DAILYPRN PRN PO CONSTIPATION 10/05/19 07:45 10/05/19 12:24 DC Pravastatin Sodium (Pravachol) 20 mg DAILY PO 10/03/19 09:00 10/14/19 08:43 Senna (Senokot) 1 tab QHS PO 10/02/19 21:00 10/13/19 21:12 Sucroferric Oxyhydroxide (Velphoro) 1,000 mg BIDWM PO 10/02/19 18:00 10/07/19 12:02 DC 10/07/19 07:55 Tizanidine HCl (Zanaflex) 2 mg TID@0800,1200,1600 PO 10/03/19 09:45 10/07/19 12:05 DC 10/03/19 12:09 Tramadol HCl (Ultram) 25 mg Q4HP PRN PO MODERATE PAIN (PS 5-7) 10/03/19 09:45 Cancel Trazodone HCl (Desyrel) 25 mg QHSP PRN PO INSOMNIA 10/13/19 13:00 10/13/19 21:13 Venlafaxine HCl (Effexor Xr) 37.5 mg DAILY PO 10/11/19 09:00 10/10/19 16:56 DC Venlafaxine HCl (Effexor) 18.75 mg BID PO 10/11/19 09:00 10/13/19 12:47 DC 10/13/19 08:25 Venlafaxine HCl (Effexor) 18.75 mg DAILY PO 10/11/19 09:00 10/10/19 17:07 DC Venlafaxine HCl (Effexor) 37.5 mg BID PO 10/13/19 21:00 10/14/19 08:44 Vitamin B Complex/ Vit C/Folic Acid (Nephro-[facility] Rx) 1 tab DAILY PO 10/03/19 09:00 10/14/19 08:43 MARJ RICHARDSON MD Oct 14, 2019 09:03
[2019-10-14] MEDS ORDERED: SENNA 8.6 MG TAB (SENOKOT) PO PRN (09:15)
--- NOTE | 2019-10-14 12:56 | IPN ---
DATE: 10/13/2019 The patient seen and examined in the rehab unit having his physical therapy. Denies any complaints. Dialyzed this afternoon with 2 liters of fluid removed. He reports that he is under his estimated dry weight. Vital Signs: Temperature 97.8, pulse 72, respiratory rate 17, blood pressure 116/67, saturating 99% on room air. Intake yesterday was 980. Dialysis today removed 2 liters. Weight in the bed scale today is not recorded. General: The patient is seen in the rehab unit and later on dialysis, awake, alert, oriented, comfortable, in no apparent distress. Extraocular muscles are intact. Pupils are equal and reactive to light. Neck is supple. Jugular veins were not elevated. Heart sounds are regular. S1, S2. There are dressings on his legs and trace edema below the dressings. The lungs are clear to auscultation bilaterally. No crackle, rale or rhonchus. Abdomen is soft and nontender. There are bowel sounds. Neurologic: No focal deficits. Awake, alert, oriented times three, interactive and conversational. Skin: Normal turgor and temperature. LABS: Sodium 136, potassium 4.6, BUN 35, creatinine 6.7, hemoglobin 10.1. INPATIENT MEDICATIONS: Reviewed by myself and no change in medications except for increase in venlafaxine dose to 37.5 mg twice daily and initiation of trazodone 25 mg p.r.n. PROBLEMS; 1. End-stage renal disease on hemodialysis on a Sunday, Sunday, Sunday schedule. He was dialyzed today, 2 liters of fluid were removed. His electrolytes and volume status are acceptable. His fistula is in good use. No change is being made to his dialysis prescription. There is no significant hypotension of hemodialysis. 2. Hypertension. His carvedilol dose was cut significantly over the past few weeks and his blood pressures are reasonable. No changes are being made today. 3. Atrial fibrillation, rate controlled with amiodarone and with carvedilol and anticoagulated with Eliquis 4. Anemia of chronic renal failure. Hemoglobin is improved to 10.1, which is optimal. Continue current dose of Aranesp. 5. Secondary hyperparathyroidism of renal origin. Continue current dose of Sensipar. His phosphorus level is controlled and he is not requiring any phosphorus binders.
[2019-10-14 14:00] VITALS: BP 102/58
[2019-10-14 20:00] VITALS: BP_SYST 35; BP_SYST 95; BP_DIAS 51
[2019-10-14] MEDS: traZODone 25MG PER 1/2 TABLET PO PRN (21:07)
[2019-10-14] MEDS: **NOTE PATIENT COMMENT** MISC XX SCH (21:08)
[2019-10-15 06:00] VITALS: BP 106/60
[2019-10-15 06:48] LABS: HEMATOCRIT 32.5 % (42.0-52.0); HEMOGLOBIN 10.1 g/dl (13.5-17.5); MEAN CORPUSCULAR HGB CONC 31.1 g/dl (32.0-36.5); MEAN CORPUSCULAR VOLUME 106.2 fl (80.0-96.0); PLATELET COUNT, AUTOMATED 183 10^3/uL (150-450); RED BLOOD COUNT 3.06 10^6/uL (4.30-6.10); WHITE BLOOD COUNT 4.3 10^3/uL (4.0-10.0)
[2019-10-15 07:16] LABS: CALCIUM LEVEL 7.3 MG/DL (8.8-10.2); CREATININE FOR GFR 5.18 MG/DL (0.70-1.30); GLOMERULAR FILTRATION RATE 11.7 (>42); POTASSIUM SERUM 4.2 MEQ/L (3.5-5.1)
[2019-10-15] MEDS: HumaLOG INSULIN (NovoLOG) PER UNIT SC SCH ×4 (08:13→20:55)
[2019-10-15] MEDS: LIDOCAINE 5% (LIDODERM) PATCH TD SCH (08:13)
[2019-10-15] MEDS: PRAVASTATIN 20 MG TAB PO SCH (08:14)
[2019-10-15] MEDS: APIXABAN 5 MG TAB (ELIQUIS) PO SCH ×2 (08:14→20:57)
[2019-10-15] MEDS: AMIODARONE 200 MG TAB (PACERONE) PO SCH (08:14)
[2019-10-15] MEDS: NEPHRO-VIT TAB (NEPHROCAPS) PO SCH (08:14)
[2019-10-15] MEDS: ACETAMINOPHEN 500 MG TAB PO SCH ×4 (08:14→20:57)
[2019-10-15] MEDS: FLUoxetine 20 MG CAP PO SCH (08:14)
[2019-10-15] MEDS: VENLAFAXINE 37.5 MG TAB PO SCH ×2 (08:14→20:57)
[2019-10-15] MEDS: PANTOPRAZOLE 40MG TAB (PROTONIX) PO SCH (08:14)
[2019-10-15] MEDS: BISACODYL 10 MG SUPP PR SCH (08:15)
[2019-10-15] MEDS: THERAPEUTIC BATH LOTION 240 ML BTL TOP SCH ×2 (08:15→20:58)
[2019-10-15] MEDS: CARVedilol 3.125 MG TAB PO SCH ×2 (08:15→21:00)
--- NOTE | 2019-10-15 12:12 | IPNPDOC ---
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 His loose stools are improving. REVIEW OF SYSTEMS: The following is a completed review of systems and has been reviewed. Review of systems otherwise unremarkable. PAIN: Patient self reports pelvic pain with movement EYES: No recent vision changes EARS, NOSE, & THROAT: No throat pain, or dysphagia, or rhinorrhea CARDIOVASCULAR: Denies chest pain or palpitations PULMONARY: Denies shortness of breath GASTROINTESTINAL: +loose stools (improving) GENITOURINARY: denies dysuria MUSCULOSKELETAL: pelvic fracture NEUROLOGICAL:+peripheral polyneuropathy HEMATOLOGICAL: +easy bruising and anemia SKIN: +stauffer ulcers PSYCHIATRIC: Unremarkable All other review of systems found to be negative. PHYSICAL EXAMINATION: VITAL SIGNS: Please see below. GENERAL: Pleasant and cooperative. No acute distress. HEENT: PERRL. Extraocular movements intact. Clear conjunctiva CARDIOVASCULAR: Regular rate and rhythm. No murmurs, rubs, or gallops LUNGS: Clear to auscultation bilaterally. No wheezes. No rhonchi ABDOMEN: Soft, nontender, nondistended. Positive bowel sounds. Normal active bowel sounds NEUROLOGICAL: Alert and oriented times three. Cranial nerves II through XII grossly intact. Sensation diminished in bilateral feet in stocking pattern EXTREMITIES: 4\5 strength bilateral upper extremities. 4\5 strength bilat hip flexors and knee extensors, 2/5 bilat ankle DF, 0/5 EHL extension, 4/5 ankle PF bilat calf edema L>R bilat +1st interosseus wasting SKIN: scattered ecchymosis, bilat stauffer ulcers, frail skin -no sacral ulcers -bilat toe dry ulcers ASSESSMENT:74-year-old M with past medical history of ESRD who presents status post fall with pelvic fracture PLAN: 1. Rehab- PT/OT advance gait training and optimize ADL management, strengthen/stretch/maintain ROM all 4 extremities, fall recovery 2. Neuro: peripheral polyneuropathy in setting of ESRD and longstanding diabetes with bilateral foot drop -avoid delirogenic meds 3. Cardiac: Afib on eliquis, amiodarone, and Carvedilol-medicine consulted to assist in management -HLD c/u statin therapy 4. Resp: encourage incentive spirometry, monitor for infection 5. Endo: pmh DM c/u Levemir and ISS 6. Renal: ESRD, renal consulted -c/u Cinacalcet and sucroferric 7. Heme: anemia of chronic disease per renal management 8. Pain: c/u Tylenol standing, c/u QID, c/u Effexor increased to 37.5 BID as patient reporting no adverse psychiatric effects to see if helps with pain -c/u K-pad -c/u lidoderm patch -avoid opioids and tizanidine as may have contributed to delirium, avoid gabapentin as well 9. Psych: depression c/u Prozac, delirium resolved -psych recs appreciated -c/u trazodone prn for insomnia 10. DVt ppx: acewrap and on eliquis 11. GI: c/u bowel meds to prn- loose stools improving 11. Dispo: 10-21-19 to home progressing towards goals Allergies Coded Allergies: Penicillins (Verified Adverse Reaction, Unknown, DIZZY, 09/24/19) Vital Signs Vital Signs Date Time Temp Pulse Resp B/P (MAP) Pulse Ox O2 Delivery O2 Flow Rate FiO2 10/15/19 08:15 58 106/60 10/15/19 06:00 97.2 18 100 Room Air Laboratory Data CBC/BMP Laboratory Tests 10/15/19 06:27 Labs 24H Laboratory Tests 2 10/14/19 16:16: Bedside Glucose (Misc Panel) 82L 10/14/19 19:50: Bedside Glucose (Misc Panel) 171H 10/15/19 06:02: Bedside Glucose (Misc Panel) 144H 10/15/19 06:27: Nucleated Red Blood Cells % (auto) 0.0, Anion Gap 11, Glomerular Filtration Rate 11.7L, Calcium Level 7.3L 10/15/19 11:40: Bedside Glucose (Misc Panel) 156H Current Medications Current Medications Current Medications Medications (Trade) Dose Ordered Sig/Jason Route PRN Reason Start Time Stop Time Status Last Admin Dose Admin Acetaminophen (Tylenol Tab) 1,000 mg QID PO 10/09/19 13:00 10/15/19 08:14 Acetaminophen (Tylenol Tab) 1,000 mg TID PO 10/02/19 16:00 10/09/19 10:38 DC 10/09/19 08:20 Amiodarone HCl (Pacerone, Cordarone) 200 mg DAILY PO 10/03/19 09:00 10/15/19 08:14 Apixaban (Eliquis) 5 mg BID PO 10/02/19 21:00 10/15/19 08:14 Bisacodyl (Dulcolax Suppository) 10 mg DAILY [place] 10/05/19 09:00 10/08/19 08:46 Calcium Carbonate (Tums) 1,000 mg Q4HP PRN PO HEARTBURN 10/02/19 15:45 Carvedilol (COReg) 3.125 mg BID PO 10/04/19 21:00 10/14/19 08:44 Carvedilol (COReg) 6.25 mg BID PO 10/02/19 21:00 10/04/19 12:34 DC 10/03/19 08:46 Cinacalcet (Sensipar) 60 mg TuThSa@0900 PO 10/04/19 09:00 10/14/19 08:51 Darbepoetin Blu (Aranesp (Dialysis Use)) 200 mcg HD IV 10/03/19 09:45 Dextrose (Dextrose 50%) 25 ml ASDIRECTED PRN IV SEE LABEL COMMENTS 10/02/19 15:45 Docusate Sodium (Colace) 100 mg BID PO 10/02/19 21:00 10/14/19 09:02 DC 10/13/19 21:12 Duloxetine HCl (Cymbalta) 10 mg DAILY PO 10/10/19 15:30 10/10/19 16:37 DC Duloxetine HCl (Cymbalta) 30 mg DAILY PO 10/07/19 09:00 UNV Fluoxetine HCl (PROzac) 10 mg DAILY PO 10/05/19 09:00 10/09/19 10:38 DC 10/09/19 08:20 Fluoxetine HCl (PROzac) 20 mg DAILY PO 10/10/19 09:00 10/15/19 08:14 Fluoxetine HCl (PROzac) 20 mg DAILY PO 10/03/19 09:00 10/04/19 19:52 DC 10/03/19 08:45 Gabapentin (Neurontin) 100 mg DAILY PO 10/09/19 09:00 10/10/19 15:15 DC 10/09/19 12:36 Glucagon (Glucagon) 1 mg ASDIRECTED PRN SC SEE LABEL COMMENTS 10/02/19 15:45 Glucose (Glucose) 16 GM ASDIRECTED PRN PO SEE LABEL COMMENTS 10/02/19 15:45 Haloperidol (Haldol) 2 mg BID PO 10/04/19 21:00 10/05/19 12:24 DC Haloperidol (Haldol) 2 mg DAILYPRN PRN PO AGITATION 10/04/19 16:30 10/09/19 10:38 DC Insulin Detemir (Levemir Insulin) 25 units DAILY SC 10/03/19 09:00 10/05/19 18:58 DC 10/03/19 08:45 Insulin Human Lispro (HumaLOG INSULIN) SEE PROTOCOL TABLE AC SC 10/02/19 17:30 10/15/19 08:13 Insulin Human Lispro (HumaLOG INSULIN) SEE PROTOCOL TABLE QHS SC 10/02/19 21:00 Iron (Venofer) 100 mg HD IV 10/03/19 11:30 10/06/19 23:59 DC Levofloxacin (Levaquin) 250 mg DAILY PO 10/04/19 09:00 10/05/19 12:24 DC Lidocaine (Lidoderm Patch) 1 patch DAILY TD 10/07/19 09:00 10/15/19 08:13 Lorazepam (Ativan) 2 mg DAILYPRN PRN IM AGITATION 10/04/19 16:30 10/10/19 11:27 DC Lorazepam (Ativan) 2 mg STAT STAT IM 10/04/19 11:18 10/04/19 11:20 DC 10/04/19 11:52 Magnesium Hydroxide (Milk Of Magnesia) 30 ml DAILYPRN PRN PO CONSTIPATION 10/02/19 15:45 Miscellaneous (Unresolved Clarification Entry) SEE LABEL COMMENTS DAILY XX 10/15/19 09:00 Miscellaneous (Unresolved Patient Own Med Order) SEE LABEL COMMENTS DAILY XX 10/10/19 09:00 Cancel Multi-Ingredient Lotion (Melody Lotion) apply to bilat mj... BID TOP 10/09/19 21:00 10/15/19 08:15 Non-Formulary Medication ( See Comment Field Below ) REMOVE LIDODERM PATCH DAILY@21 XX 10/07/19 21:00 10/14/19 21:08 Oxycodone HCl (Roxicodone, Oxyir) 2.5 mg Q6HP PRN PO PAIN 10/02/19 15:45 10/03/19 09:38 DC Pantoprazole Sodium (Protonix) 40 mg DAILY PO 10/02/19 09:00 10/15/19 08:14 Patient Own Medication (Patient'S Own Med) apply to sacrum af... TID TOP 10/10/19 16:00 UNV Polyethylene Glycol (Miralax) 1 pkt DAILY PRN PO CONSTIPATION 10/06/19 09:00 10/09/19 20:06 Polyethylene Glycol (Miralax) 1 pkt DAILYPRN PRN PO CONSTIPATION 10/05/19 07:45 10/05/19 12:24 DC Pravastatin Sodium (Pravachol) 20 mg DAILY PO 10/03/19 09:00 10/15/19 08:14 Senna (Senokot) 1 tab BIDP PRN PO CONSTIPATION 10/14/19 09:15 Senna (Senokot) 1 tab QHS PO 10/02/19 21:00 10/14/19 09:03 DC 10/13/19 21:12 Sucroferric Oxyhydroxide (Velphoro) 1,000 mg BIDWM PO 10/02/19 18:00 10/07/19 12:02 DC 10/07/19 07:55 Tizanidine HCl (Zanaflex) 2 mg TID@0800,1200,1600 PO 10/03/19 09:45 10/07/19 12:05 DC 10/03/19 12:09 Tramadol HCl (Ultram) 25 mg Q4HP PRN PO MODERATE PAIN (PS 5-7) 10/03/19 09:45 Cancel Trazodone HCl (Desyrel) 25 mg QHSP PRN PO INSOMNIA 10/13/19 13:00 10/14/19 21:07 Venlafaxine HCl (Effexor Xr) 37.5 mg DAILY PO 10/11/19 09:00 10/10/19 16:56 DC Venlafaxine HCl (Effexor) 18.75 mg BID PO 10/11/19 09:00 10/13/19 12:47 DC 10/13/19 08:25 Venlafaxine HCl (Effexor) 18.75 mg DAILY PO 10/11/19 09:00 10/10/19 17:07 DC Venlafaxine HCl (Effexor) 37.5 mg BID PO 10/13/19 21:00 10/15/19 08:14 Vitamin B Complex/ Vit C/Folic Acid (Nephro-[facility]) 1 tab DAILY PO 10/03/19 09:00 10/15/19 08:14 MARJ RICHARDSON MD Oct 15, 2019 12:12
[2019-10-15] MEDS ORDERED: HEPARIN 1,000 UNITS/ML 10ML VIAL (FOR RADIOLOGY& DIALYSIS ONLY) IV ONE (12:30)
--- NOTE | 2019-10-15 13:45 | IPN ---
DATE OF SERVICE: 10/15/2019 SUBJECTIVE: The patient was seen and examined this afternoon in the hemodialysis unit receiving his maintenance treatment. Reports improvement in loose stools and reports that therapy is going well. Denies any issues with dialysis. No shortness of breath. No dyspnea on exertion and no troubles with his arteriovenous access. Temperature 97.2, pulse 58, respiratory rate 18, blood pressure 106/60, saturating 100% on room air. Intake yesterday was 1380. Goal dialysis removal today will be 1.5 to 2 liters. Weight on the bed scale today is 93.6 kg. General: Patient is seen in the hemodialysis unit receiving his treatment, awake, alert, oriented, and comfortable in no apparent distress. Extraocular muscles are intact. Pupils are round and reactive to light. Clear conjunctiva. Neck is supple. Jugular veins were not elevated. Heart sounds are regular, S1-S2. There is leg edema present bilaterally below the dressings, about trace to 1+. Lungs are clear to auscultation bilaterally. No crackle, rale or rhonchus. Abdomen is soft and nontender. Positive bowel sounds. Skin shows scattered ecchymosis and stauffer ulcers. Arteriovenous access is fistula in the right upper extremity is presently in use. Neurologic: Oriented times three. No focal deficit. LABORATORY DATA White count 4.3, hemoglobin 10.1, platelet 183, sodium 139, potassium 4.2. INPATIENT MEDICATIONS: Reviewed by myself. No change as compared to yesterday. PROBLEMS: 1. End-stage renal disease on hemodialysis on a Sunday, Sunday, Sunday schedule. The patient is dialyzed today. Goal fluid removal is 1.5 to 2 liters as tolerated. His electrolytes and volume status are acceptable. Fistula is in good use. No changes are being made to the current dialysis prescription. He is compliant with fluid restriction. 2. Hypertension. His Carvedilol dose was cut significantly over the past few weeks and his blood pressures are reasonable. His hypotension of hemodialysis is fairly mild. 3. Atrial fibrillation. Rate controlled with amiodarone and with beta-alexander and anticoagulated with Eliquis. His electrolytes are optimized 4. Anemia of chronic renal failure. Hemoglobin is 10.1, which is optimal. Continue current dose of Aranesp.
--- NOTE | 2019-10-15 17:26 | IPNPDOC ---
Text Note Date of Service The patient was seen on 10/15/19. NOTE Subjective: Patient stated that he is doing fine. No any acute events overnight. Patient denies fever, chills, nausea, chest pains, vomiting, diarrhea Objective:General: NAD PERRLA, EOMI, no JVD CV: S1-S2. There is leg edema present bilaterally below the dressings, about trace to 1+. Lungs are clear to auscultation bilaterally. No crackle, rale or rhonchus. Abdomen: soft and nontender. Positive bowel sounds. Musculoskeletal :Arteriovenous access is fistula in the right upper extremity is presently in use. 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
[2019-10-15 20:00] VITALS: BP 100/58
[2019-10-15] MEDS: **NOTE PATIENT COMMENT** MISC XX SCH (20:59)
[2019-10-15] MEDS: traZODone 25MG PER 1/2 TABLET PO PRN (21:02)
[2019-10-16 05:00] VITALS: BP 115/64
[2019-10-16] MEDS: HumaLOG INSULIN (NovoLOG) PER UNIT SC SCH ×4 (07:54→21:00)
[2019-10-16] MEDS: ACETAMINOPHEN 500 MG TAB PO SCH ×4 (07:54→21:14)
[2019-10-16] MEDS: PANTOPRAZOLE 40MG TAB (PROTONIX) PO SCH (07:54)
[2019-10-16] MEDS: CINACALCET 30 MG TAB (SENSIPAR) PO SCH (07:54)
[2019-10-16] MEDS: VENLAFAXINE 37.5 MG TAB PO SCH ×2 (07:54→21:13)
[2019-10-16] MEDS: NEPHRO-VIT TAB (NEPHROCAPS) PO SCH (07:55)
[2019-10-16] MEDS: AMIODARONE 200 MG TAB (PACERONE) PO SCH (07:55)
[2019-10-16] MEDS: APIXABAN 5 MG TAB (ELIQUIS) PO SCH ×2 (07:55→21:13)
[2019-10-16] MEDS: CARVedilol 3.125 MG TAB PO SCH (07:55)
[2019-10-16] MEDS: FLUoxetine 20 MG CAP PO SCH (07:55)
[2019-10-16] MEDS: THERAPEUTIC BATH LOTION 240 ML BTL TOP SCH ×2 (07:55→21:14)
[2019-10-16] MEDS: LIDOCAINE 5% (LIDODERM) PATCH TD SCH (07:56)
[2019-10-16] MEDS: BISACODYL 10 MG SUPP PR SCH (07:56)
[2019-10-16] MEDS: PRAVASTATIN 20 MG TAB PO SCH (07:56)
[2019-10-16 14:00] VITALS: BP 101/61
--- NOTE | 2019-10-16 14:43 | IPNPDOC ---
PM&R Progress Note DATE OF SERVICE: Oct 16, 2019 Proration Clerk Progress Note Subjective: Patient reporting he felt dizzy today in therapy and is wondering if it had to do with the sleep medication. He would like to try not taking it. He thinks overall his pain is much better on the Effexor. REVIEW OF SYSTEMS: The following is a completed review of systems and has been reviewed. Review of systems otherwise unremarkable. PAIN: Patient self reports pelvic pain with movement EYES: No recent vision changes EARS, NOSE, & THROAT: No throat pain, or dysphagia, or rhinorrhea CARDIOVASCULAR: Denies chest pain or palpitations PULMONARY: Denies shortness of breath GASTROINTESTINAL: +loose stools (improving) GENITOURINARY: denies dysuria MUSCULOSKELETAL: pelvic fracture NEUROLOGICAL:+peripheral polyneuropathy HEMATOLOGICAL: +easy bruising and anemia SKIN: +stauffer ulcers PSYCHIATRIC: Unremarkable All other review of systems found to be negative. PHYSICAL EXAMINATION: VITAL SIGNS: Please see below. GENERAL: Pleasant and cooperative. No acute distress. HEENT: PERRL. Extraocular movements intact. Clear conjunctiva CARDIOVASCULAR: Regular rate and rhythm. No murmurs, rubs, or gallops LUNGS: Clear to auscultation bilaterally. No wheezes. No rhonchi ABDOMEN: Soft, nontender, nondistended. Positive bowel sounds. Normal active bowel sounds NEUROLOGICAL: Alert and oriented times three. Cranial nerves II through XII grossly intact. Sensation diminished in bilateral feet in stocking pattern EXTREMITIES: 4\5 strength bilateral upper extremities. 4\5 strength bilat hip flexors and knee extensors, 2/5 bilat ankle DF, 0/5 EHL extension, 4/5 ankle PF bilat calf edema L>R bilat +1st interosseus wasting SKIN: scattered ecchymosis, bilat stauffer ulcers, frail skin -no sacral ulcers -bilat toe dry ulcers ASSESSMENT:74-year-old M with past medical history of ESRD who presents status post fall with pelvic fracture PLAN: 1. Rehab- PT/OT advance gait training and optimize ADL management, stre ngthen/stretch/maintain ROM all 4 extremities, fall recovery 2. Neuro: peripheral polyneuropathy in setting of ESRD and longstanding diabetes with bilateral foot drop -avoid delirogenic meds 3. Cardiac: Afib on eliquis, amiodarone, and Carvedilol-medicine consulted to assist in management -HLD c/u statin therapy 4. Resp: encourage incentive spirometry, monitor for infection 5. Endo: pmh DM c/u Levemir and ISS 6. Renal: ESRD, renal consulted -c/u Cinacalcet and sucroferric 7. Heme: anemia of chronic disease per renal management 8. Pain: c/u Tylenol standing, c/u QID, c/u Effexor increased to 37.5 BID as patient reporting no adverse psychiatric effects to see if helps with pain -c/u K-pad -c/u lidoderm patch -avoid opioids and tizanidine as may have contributed to delirium, avoid gabapentin as well 9. Psych: depression c/u Prozac, delirium resolved -psych recs appreciated -d/c trazodone prn for insomnia as patient reporting he feels light headed today 10. DVt ppx: acewrap and on eliquis 11. GI: c/u bowel meds to prn- loose stools improving 11. Dispo: 10-21-19 to home progressing towards goals Allergies Coded Allergies: Penicillins (Verified Adverse Reaction, Unknown, DIZZY, 09/24/19) Vital Signs Vital Signs Date Time Temp Pulse Resp B/P (MAP) Pulse Ox O2 Delivery O2 Flow Rate FiO2 10/16/19 14:00 98.2 68 18 101/61 (74) 100 Room Air Laboratory Data Labs 24H Laboratory Tests 2 10/15/19 16:30: Bedside Glucose (Misc Panel) 90 10/15/19 19:31: Bedside Glucose (Misc Panel) 130H 10/16/19 05:04: Bedside Glucose (Misc Panel) 114H 10/16/19 11:30: Bedside Glucose (Misc Panel) 156H Current Medications Current Medications Current Medications Medications (Trade) Dose Ordered Sig/Jason Route PRN Reason Start Time Stop Time Status Last Admin Dose Admin Acetaminophen (Tylenol Tab) 1,000 mg QID PO 10/09/19 13:00 10/16/19 12:38 Acetaminophen (Tylenol Tab) 1,000 mg TID PO 10/02/19 16:00 10/09/19 10:38 DC 10/09/19 08:20 Amiodarone HCl (Pacerone, Cordarone) 200 mg DAILY PO 10/03/19 09:00 10/16/19 07:55 Apixaban (Eliquis) 5 mg BID PO 10/02/19 21:00 10/16/19 07:55 Bisacodyl (Dulcolax Suppository) 10 mg DAILY [place] 10/05/19 09:00 10/08/19 08:46 Calcium Carbonate (Tums) 1,000 mg Q4HP PRN PO HEARTBURN 10/02/19 15:45 Carvedilol (COReg) 3.125 mg BID PO 10/04/19 21:00 10/16/19 07:55 Carvedilol (COReg) 6.25 mg BID PO 10/02/19 21:00 10/04/19 12:34 DC 10/03/19 08:46 Cinacalcet (Sensipar) 60 mg TuThSa@0900 PO 10/04/19 09:00 10/16/19 07:54 Darbepoetin Blu (Aranesp (Dialysis Use)) 200 mcg HD IV 10/03/19 09:45 Dextrose (Dextrose 50%) 25 ml ASDIRECTED PRN IV SEE LABEL COMMENTS 10/02/19 15:45 Docusate Sodium (Colace) 100 mg BID PO 10/02/19 21:00 10/14/19 09:02 DC 10/13/19 21:12 Duloxetine HCl (Cymbalta) 10 mg DAILY PO 10/10/19 15:30 10/10/19 16:37 DC Duloxetine HCl (Cymbalta) 30 mg DAILY PO 10/07/19 09:00 UNV Fluoxetine HCl (PROzac) 10 mg DAILY PO 10/05/19 09:00 10/09/19 10:38 DC 10/09/19 08:20 Fluoxetine HCl (PROzac) 20 mg DAILY PO 10/10/19 09:00 10/16/19 07:55 Fluoxetine HCl (PROzac) 20 mg DAILY PO 10/03/19 09:00 10/04/19 19:52 DC 10/03/19 08:45 Gabapentin (Neurontin) 100 mg DAILY PO 10/09/19 09:00 10/10/19 15:15 DC 10/09/19 12:36 Glucagon (Glucagon) 1 mg ASDIRECTED PRN SC SEE LABEL COMMENTS 10/02/19 15:45 Glucose (Glucose) 16 GM ASDIRECTED PRN PO SEE LABEL COMMENTS 10/02/19 15:45 Haloperidol (Haldol) 2 mg BID PO 10/04/19 21:00 10/05/19 12:24 DC Haloperidol (Haldol) 2 mg DAILYPRN PRN PO AGITATION 10/04/19 16:30 10/09/19 10:38 DC Insulin Detemir (Levemir Insulin) 25 units DAILY SC 10/03/19 09:00 10/05/19 18:58 DC 10/03/19 08:45 Insulin Human Lispro (HumaLOG INSULIN) SEE PROTOCOL TABLE AC SC 10/02/19 17:30 10/16/19 12:37 Insulin Human Lispro (HumaLOG INSULIN) SEE PROTOCOL TABLE QHS SC 10/02/19 21:00 Iron (Venofer) 100 mg HD IV 10/03/19 11:30 10/06/19 23:59 DC Levofloxacin (Levaquin) 250 mg DAILY PO 10/04/19 09:00 10/05/19 12:24 DC Lidocaine (Lidoderm Patch) 1 patch DAILY TD 10/07/19 09:00 10/16/19 07:56 Lorazepam (Ativan) 2 mg DAILYPRN PRN IM AGITATION 10/04/19 16:30 10/10/19 11:27 DC Lorazepam (Ativan) 2 mg STAT STAT IM 10/04/19 11:18 10/04/19 11:20 DC 10/04/19 11:52 Magnesium Hydroxide (Milk Of Magnesia) 30 ml DAILYPRN PRN PO CONSTIPATION 10/02/19 15:45 Miscellaneous (Unresolved Clarification Entry) SEE LABEL COMMENTS DAILY XX 10/15/19 09:00 10/15/19 12:15 DC Miscellaneous (Unresolved Patient Own Med Order) SEE LABEL COMMENTS DAILY XX 10/10/19 09:00 Cancel Multi-Ingredient Lotion (Melody Lotion) apply to bilat mj... BID TOP 10/09/19 21:00 10/16/19 07:55 Non-Formulary Medication ( See Comment Field Below ) REMOVE LIDODERM PATCH DAILY@21 XX 10/07/19 21:00 10/15/19 20:59 Oxycodone HCl (Roxicodone, Oxyir) 2.5 mg Q6HP PRN PO PAIN 10/02/19 15:45 10/03/19 09:38 DC Pantoprazole Sodium (Protonix) 40 mg DAILY PO 10/02/19 09:00 10/16/19 07:54 Patient Own Medication (Patient'S Own Med) apply to sacrum af... TID TOP 10/10/19 16:00 UNV Polyethylene Glycol (Miralax) 1 pkt DAILY PRN PO CONSTIPATION 10/06/19 09:00 10/09/19 20:06 Polyethylene Glycol (Miralax) 1 pkt DAILYPRN PRN PO CONSTIPATION 10/05/19 07:45 10/05/19 12:24 DC Pravastatin Sodium (Pravachol) 20 mg DAILY PO 10/03/19 09:00 10/16/19 07:56 Senna (Senokot) 1 tab BIDP PRN PO CONSTIPATION 10/14/19 09:15 Senna (Senokot) 1 tab QHS PO 10/02/19 21:00 10/14/19 09:03 DC 10/13/19 21:12 Sucroferric Oxyhydroxide (Velphoro) 1,000 mg BIDWM PO 10/02/19 18:00 10/07/19 12:02 DC 10/07/19 07:55 Tizanidine HCl (Zanaflex) 2 mg TID@0800,1200,1600 PO 10/03/19 09:45 10/07/19 12:05 DC 10/03/19 12:09 Tramadol HCl (Ultram) 25 mg Q4HP PRN PO MODERATE PAIN (PS 5-7) 10/03/19 09:45 Cancel Trazodone HCl (Desyrel) 25 mg QHSP PRN PO INSOMNIA 10/13/19 13:00 10/15/19 21:02 Venlafaxine HCl (Effexor Xr) 37.5 mg DAILY PO 10/11/19 09:00 10/10/19 16:56 DC Venlafaxine HCl (Effexor) 18.75 mg BID PO 10/11/19 09:00 10/13/19 12:47 DC 10/13/19 08:25 Venlafaxine HCl (Effexor) 18.75 mg DAILY PO 10/11/19 09:00 10/10/19 17:07 DC Venlafaxine HCl (Effexor) 37.5 mg BID PO 10/13/19 21:00 10/16/19 07:54 Vitamin B Complex/ Vit C/Folic Acid (Nephro-[facility] Rx) 1 tab DAILY PO 10/03/19 09:00 10/16/19 07:55 MARJ RICHARDSON MD Oct 16, 2019 14:43
[2019-10-16] MEDS: METOPROLOL TART 12.5 MG PER 1/2 TAB PO SCH ×2 (15:00→21:15)
[2019-10-16 20:00] VITALS: BP 102/64
[2019-10-16] MEDS: **NOTE PATIENT COMMENT** MISC XX SCH (21:14)
[2019-10-17 06:00] VITALS: BP 109/59
[2019-10-17] MEDS: METOPROLOL TART 12.5 MG PER 1/2 TAB PO SCH ×3 (06:00→21:27)
[2019-10-17 06:46] LABS: HEMATOCRIT 32.7 % (42.0-52.0); HEMOGLOBIN 10.2 g/dl (13.5-17.5); MEAN CORPUSCULAR HEMOGLOBIN 32.8 pg (27.0-33.0); MEAN CORPUSCULAR HGB CONC 31.2 g/dl (32.0-36.5); MEAN CORPUSCULAR VOLUME 105.1 fl (80.0-96.0); PLATELET COUNT, AUTOMATED 178 10^3/uL (150-450); RED BLOOD COUNT 3.11 10^6/uL (4.30-6.10); WHITE BLOOD COUNT 5.2 10^3/uL (4.0-10.0)
[2019-10-17 07:17] LABS: CALCIUM LEVEL 7.3 MG/DL (8.8-10.2); CREATININE FOR GFR 5.19 MG/DL (0.70-1.30); GLOMERULAR FILTRATION RATE 11.6 (>42); POTASSIUM SERUM 4.1 MEQ/L (3.5-5.1)
[2019-10-17] MEDS: HumaLOG INSULIN (NovoLOG) PER UNIT SC SCH ×4 (07:50→21:00)
[2019-10-17] MEDS: ACETAMINOPHEN 500 MG TAB PO SCH ×4 (08:58→21:26)
[2019-10-17] MEDS: NEPHRO-VIT TAB (NEPHROCAPS) PO SCH (08:58)
[2019-10-17] MEDS: LIDOCAINE 5% (LIDODERM) PATCH TD SCH (08:59)
[2019-10-17] MEDS: PANTOPRAZOLE 40MG TAB (PROTONIX) PO SCH (08:59)
[2019-10-17] MEDS: VENLAFAXINE 37.5 MG TAB PO SCH ×2 (08:59→21:26)
[2019-10-17] MEDS: BISACODYL 10 MG SUPP PR SCH (08:59)
[2019-10-17] MEDS: APIXABAN 5 MG TAB (ELIQUIS) PO SCH ×2 (08:59→21:26)
[2019-10-17] MEDS: FLUoxetine 20 MG CAP PO SCH (08:59)
[2019-10-17] MEDS: PRAVASTATIN 20 MG TAB PO SCH (08:59)
[2019-10-17] MEDS: AMIODARONE 200 MG TAB (PACERONE) PO SCH (08:59)
[2019-10-17] MEDS: THERAPEUTIC BATH LOTION 240 ML BTL TOP SCH ×2 (09:00→21:27)
[2019-10-17 14:00] VITALS: BP 113/59
[2019-10-17] MEDS ORDERED: HEPARIN 1,000 UNITS/ML 10ML VIAL (FOR RADIOLOGY& DIALYSIS ONLY) IV ONE (14:30)
--- NOTE | 2019-10-17 15:59 | IPNPDOC ---
PM&R Progress Note DATE OF SERVICE: Oct 17, 2019 [facility] Progress Note Subjective: Patient reporting he did nto feel dizzy today and that he slept ok without the trazodone. REVIEW OF SYSTEMS: The following is a completed review of systems and has been reviewed. Review of systems otherwise unremarkable. PAIN: Patient self reports pelvic pain with movement EYES: No recent vision changes EARS, NOSE, & THROAT: No throat pain, or dysphagia, or rhinorrhea CARDIOVASCULAR: Denies chest pain or palpitations PULMONARY: Denies shortness of breath GASTROINTESTINAL: +loose stools (improving) GENITOURINARY: denies dysuria MUSCULOSKELETAL: pelvic fracture NEUROLOGICAL:+peripheral polyneuropathy HEMATOLOGICAL: +easy bruising and anemia SKIN: +stauffer ulcers PSYCHIATRIC: Unremarkable All other review of systems found to be negative. PHYSICAL EXAMINATION: VITAL SIGNS: Please see below. GENERAL: Pleasant and cooperative. No acute distress. HEENT: PERRL. Extraocular movements intact. Clear conjunctiva CARDIOVASCULAR: Regular rate and rhythm. No murmurs, rubs, or gallops LUNGS: Clear to auscultation bilaterally. No wheezes. No rhonchi ABDOMEN: Soft, nontender, nondistended. Positive bowel sounds. Normal active bowel sounds NEUROLOGICAL: Alert and oriented times three. Cranial nerves II through XII grossly intact. Sensation diminished in bilateral feet in stocking pattern EXTREMITIES: 4\5 strength bilateral upper extremities. 4\5 strength bilat hip flexors and knee extensors, 2/5 bilat ankle DF, 0/5 EHL extension, 4/5 ankle PF bilat calf edema L>R bilat +1st interosseus wasting SKIN: scattered ecchymosis, bilat stauffer ulcers, frail skin -no sacral ulcers -bilat toe dry ulcers ASSESSMENT:74-year-old M with past medical history of ESRD who presents status post fall with pelvic fracture PLAN: 1. Rehab- PT/OT advance gait training and optimize ADL management, strengthen/stretch/maintain ROM all 4 extremities, fall recovery 2. Neuro: peripheral polyneuropathy in setting of ESRD and longstanding diabetes with bilateral foot drop -avoid delirogenic meds 3. Cardiac: Afib on eliquis, amiodarone, switched to low dose metoprolol tartrate to avoid soft BPs which may have been contributing to patient's dizziness-medicine consulted to assist in management -HLD c/u statin therapy 4. Resp: encourage incentive spirometry, monitor for infection 5. Endo: pmh DM c/u Levemir and ISS 6. Renal: ESRD, renal consulted -c/u Cinacalcet and sucroferric 7. Heme: anemia of chronic disease per renal management 8. Pain: c/u Tylenol standing, c/u QID, c/u Effexor increased to 37.5 BID as patient reporting no adverse psychiatric effects to see if helps with pain -c/u K-pad -c/u lidoderm patch -avoid opioids and tizanidine as may have contributed to delirium, avoid gabapentin as well 9. Psych: depression c/u Prozac, delirium resolved -psych recs appreciated -d/c trazodone prn for insomnia as patient reporting dizziness, resolved since today 10. DVt ppx: acewrap and on eliquis 11. GI: c/u bowel meds to prn- loose stools resolved 11. Dispo: 10-21-19 to home progressing towards goals Allergies Coded Allergies: Penicillins (Verified Adverse Reaction, Unknown, DIZZY, 09/24/19) Vital Signs Vital Signs Date Time Temp Pulse Resp B/P (MAP) Pulse Ox O2 Delivery O2 Flow Rate FiO2 10/17/19 14:00 97.5 60 18 113/59 (77) 99 Room Air Laboratory Data CBC/BMP Laboratory Tests 10/17/19 06:15 Labs 24H Laboratory Tests 2 10/16/19 16:36: Bedside Glucose (Misc Panel) 98 10/16/19 19:55: Bedside Glucose (Misc Panel) 137H 10/17/19 06:15: Nucleated Red Blood Cells % (auto) 0.0, Anion Gap 9, Glomerular Filtration Rate 11.6L, Calcium Level 7.3L 10/17/19 06:27: Bedside Glucose (Misc Panel) 140H 10/17/19 11:18: Bedside Glucose (Misc Panel) 166H Current Medications Current Medications Current Medications Medications (Trade) Dose Ordered Sig/Jason Route PRN Reason Start Time Stop Time Status Last Admin Dose Admin Acetaminophen (Tylenol Tab) 1,000 mg QID PO 10/09/19 13:00 10/17/19 12:32 Acetaminophen (Tylenol Tab) 1,000 mg TID PO 10/02/19 16:00 10/09/19 10:38 DC 10/09/19 08:20 Amiodarone HCl (Pacerone, Cordarone) 200 mg DAILY PO 10/03/19 09:00 10/17/19 08:59 Apixaban (Eliquis) 5 mg BID PO 10/02/19 21:00 10/17/19 08:59 Bisacodyl (Dulcolax Suppository) 10 mg DAILY ND 10/05/19 09:00 10/08/19 08:46 Calcium Carbonate (Tums) 1,000 mg Q4HP PRN PO HEARTBURN 10/02/19 15:45 Carvedilol (COReg) 3.125 mg BID PO 10/04/19 21:00 10/16/19 14:48 DC 10/16/19 07:55 Carvedilol (COReg) 6.25 mg BID PO 10/02/19 21:00 10/04/19 12:34 DC 10/03/19 08:46 Cinacalcet (Sensipar) 60 mg TuThSa@0900 PO 10/04/19 09:00 10/16/19 07:54 Darbepoetin Blu (Aranesp (Dialysis Use)) 200 mcg HD IV 10/03/19 09:45 Dextrose (Dextrose 50%) 25 ml ASDIRECTED PRN IV SEE LABEL COMMENTS 10/02/19 15:45 Docusate Sodium (Colace) 100 mg BID PO 10/02/19 21:00 10/14/19 09:02 DC 10/13/19 21:12 Duloxetine HCl (Cymbalta) 10 mg DAILY PO 10/10/19 15:30 10/10/19 16:37 DC Duloxetine HCl (Cymbalta) 30 mg DAILY PO 10/07/19 09:00 UNV Fluoxetine HCl (PROzac) 10 mg DAILY PO 10/05/19 09:00 10/09/19 10:38 DC 10/09/19 08:20 Fluoxetine HCl (PROzac) 20 mg DAILY PO 10/10/19 09:00 10/17/19 08:59 Fluoxetine HCl (PROzac) 20 mg DAILY PO 10/03/19 09:00 10/04/19 19:52 DC 10/03/19 08:45 Gabapentin (Neurontin) 100 mg DAILY PO 10/09/19 09:00 10/10/19 15:15 DC 10/09/19 12:36 Glucagon (Glucagon) 1 mg ASDIRECTED PRN SC SEE LABEL COMMENTS 10/02/19 15:45 Glucose (Glucose) 16 GM ASDIRECTED PRN PO SEE LABEL COMMENTS 10/02/19 15:45 Haloperidol (Haldol) 2 mg BID PO 10/04/19 21:00 10/05/19 12:24 DC Haloperidol (Haldol) 2 mg DAILYPRN PRN PO AGITATION 10/04/19 16:30 10/09/19 10:38 DC Insulin Detemir (Levemir Insulin) 25 units DAILY SC 10/03/19 09:00 10/05/19 18:58 DC 10/03/19 08:45 Insulin Human Lispro (HumaLOG INSULIN) SEE PROTOCOL TABLE AC SC 10/02/19 17:30 10/17/19 11:54 Insulin Human Lispro (HumaLOG INSULIN) SEE PROTOCOL TABLE QHS SC 10/02/19 21:00 Iron (Venofer) 100 mg HD IV 10/03/19 11:30 10/06/19 23:59 DC Levofloxacin (Levaquin) 250 mg DAILY PO 10/04/19 09:00 10/05/19 12:24 DC Lidocaine (Lidoderm Patch) 1 patch DAILY TD 10/07/19 09:00 10/17/19 08:59 Lorazepam (Ativan) 2 mg DAILYPRN PRN IM AGITATION 10/04/19 16:30 10/10/19 11:27 DC Lorazepam (Ativan) 2 mg STAT STAT IM 10/04/19 11:18 10/04/19 11:20 DC 10/04/19 11:52 Magnesium Hydroxide (Milk Of Magnesia) 30 ml DAILYPRN PRN PO CONSTIPATION 10/02/19 15:45 Metoprolol Tartrate (Lopressor) 12.5 mg Q8H PO 10/16/19 14:00 10/16/19 15:00 Miscellaneous (Unresolved Clarification Entry) SEE LABEL COMMENTS DAILY XX 10/15/19 09:00 10/15/19 12:15 DC Miscellaneous (Unresolved Patient Own Med Order) SEE LABEL COMMENTS DAILY XX 10/10/19 09:00 Cancel Multi-Ingredient Lotion (Melody Lotion) apply to bilat mj... BID TOP 10/09/19 21:00 10/17/19 09:00 Non-Formulary Medication ( See Comment Field Below ) REMOVE LIDODERM PATCH DAILY@21 XX 10/07/19 21:00 10/16/19 21:14 Oxycodone HCl (Roxicodone, Oxyir) 2.5 mg Q6HP PRN PO PAIN 10/02/19 15:45 10/03/19 09:38 DC Pantoprazole Sodium (Protonix) 40 mg DAILY PO 10/02/19 09:00 10/17/19 08:59 Patient Own Medication (Patient'S Own Med) apply to sacrum af... TID TOP 10/10/19 16:00 UNV Polyethylene Glycol (Miralax) 1 pkt DAILY PRN PO CONSTIPATION 10/06/19 09:00 10/09/19 20:06 Polyethylene Glycol (Miralax) 1 pkt DAILYPRN PRN PO CONSTIPATION 10/05/19 07:45 10/05/19 12:24 DC Pravastatin Sodium (Pravachol) 20 mg DAILY PO 10/03/19 09:00 10/17/19 08:59 Senna (Senokot) 1 tab BIDP PRN PO CONSTIPATION 10/14/19 09:15 Senna (Senokot) 1 tab QHS PO 10/02/19 21:00 10/14/19 09:03 DC 10/13/19 21:12 Sucroferric Oxyhydroxide (Velphoro) 1,000 mg BIDWM PO 10/02/19 18:00 10/07/19 12:02 DC 10/07/19 07:55 Tizanidine HCl (Zanaflex) 2 mg TID@0800,1200,1600 PO 10/03/19 09:45 10/07/19 12:05 DC 10/03/19 12:09 Tramadol HCl (Ultram) 25 mg Q4HP PRN PO MODERATE PAIN (PS 5-7) 10/03/19 09:45 Cancel Trazodone HCl (Desyrel) 25 mg QHSP PRN PO INSOMNIA 10/13/19 13:00 10/16/19 14:44 DC 10/15/19 21:02 Venlafaxine HCl (Effexor Xr) 37.5 mg DAILY PO 10/11/19 09:00 10/10/19 16:56 DC Venlafaxine HCl (Effexor) 18.75 mg BID PO 10/11/19 09:00 10/13/19 12:47 DC 10/13/19 08:25 Venlafaxine HCl (Effexor) 18.75 mg DAILY PO 10/11/19 09:00 10/10/19 17:07 DC Venlafaxine HCl (Effexor) 37.5 mg BID PO 10/13/19 21:00 10/17/19 08:59 Vitamin B Complex/ Vit C/Folic Acid (Nephro-[facility]) 1 tab DAILY PO 10/03/19 09:00 10/17/19 08:58 MARJ RICHARDSON MD Oct 17, 2019 15:59
--- NOTE | 2019-10-17 19:23 | IPN ---
DATE: 10/17/2019 SUBJECTIVE: Joel is seen and examined this evening in the hemodialysis unit receiving his treatment. He complains that his blood pressures were soft earlier and that he felt lightheaded and dizzy and he requests that the fluid removal with dialysis today be reduced. VITAL SIGNS: Temperature 97.5, pulse 60, respiratory rate 18, blood pressure 113/59, saturating 99% on room air. Intake yesterday was 720, goal dialysis fluid removal today is 700. Weight in the bed scale today is 93 kg. GENERAL: The patient is seen in the hemodialysis unit awake, alert, oriented, comfortable, in no apparent distress. Extraocular muscles are intact. Ears, nose and throat are unremarkable. Neck is supple. Jugular veins are not elevated. Heart sounds irregular, S1, S2. There is trace edema in the legs. Lungs are clear to auscultation bilaterally. No crackle, rale or rhonchus. Abdomen is soft and nontender. There are positive bowel sounds. The lower extremities have dressings and at most there is trace edema. The fistula in the left upper extremity is presently in use. NEUROLOGIC: Oriented times three. No focal deficit. LABORATORY DATA: White count 5.2, hemoglobin 10.2, platelets 178. Sodium 135, potassium 4.1, bicarbonate 27, glucose 117. INPATIENT MEDICATIONS: Reviewed by myself and noted that he was started on metoprolol 12.5 mg by mouth every eight hours. His remainder of medications are unchanged as compared to yesterday. PROBLEMS: 1. End-stage renal disease, on hemodialysis on a Sunday, Sunday, Sunday schedule. The patient is dialyzed today. He complained of dizziness and low blood pressure earlier. He requested that we cut his fluid removal goal down, and so only 700 mL were removed with dialysis today. His volume status appears well-compensated to be. I note that his beta alexander has been switched to low-dose metoprolol. 2. Atrial fibrillation, rate controlled with amiodarone and low-dose beta alexander and anticoagulated with Eliquis. 3. Anemia of chronic renal failure. Hemoglobin is 10.2 which is optimal. Continue current dose of Aranesp.
[2019-10-17 20:00] VITALS: BP 99/53
[2019-10-17] MEDS: **NOTE PATIENT COMMENT** MISC XX SCH (21:27)
[2019-10-18 06:00] VITALS: BP_SYST 112; BP_SYST 117; BP_DIAS 59
[2019-10-18] MEDS: METOPROLOL TART 12.5 MG PER 1/2 TAB PO SCH ×3 (06:22→21:00)
[2019-10-18] MEDS: PRAVASTATIN 20 MG TAB PO SCH (07:51)
[2019-10-18] MEDS: VENLAFAXINE 37.5 MG TAB PO SCH ×2 (07:51→21:17)
[2019-10-18] MEDS: HumaLOG INSULIN (NovoLOG) PER UNIT SC SCH ×4 (07:51→21:00)
[2019-10-18] MEDS: LIDOCAINE 5% (LIDODERM) PATCH TD SCH (07:51)
[2019-10-18] MEDS: AMIODARONE 200 MG TAB (PACERONE) PO SCH (07:51)
[2019-10-18] MEDS: FLUoxetine 20 MG CAP PO SCH (07:51)
[2019-10-18] MEDS: APIXABAN 5 MG TAB (ELIQUIS) PO SCH ×2 (07:51→21:18)
[2019-10-18] MEDS: PANTOPRAZOLE 40MG TAB (PROTONIX) PO SCH (07:52)
[2019-10-18] MEDS: THERAPEUTIC BATH LOTION 240 ML BTL TOP SCH ×2 (07:52→21:22)
[2019-10-18] MEDS: CINACALCET 30 MG TAB (SENSIPAR) PO SCH (07:52)
[2019-10-18] MEDS: NEPHRO-VIT TAB (NEPHROCAPS) PO SCH (07:52)
[2019-10-18] MEDS: BISACODYL 10 MG SUPP PR SCH (07:52)
[2019-10-18] MEDS: ACETAMINOPHEN 500 MG TAB PO SCH ×4 (07:52→21:17)
[2019-10-18 14:00] VITALS: BP 90/51
--- NOTE | 2019-10-18 17:56 | IPNPDOC ---
Text Note Date of Service The patient was seen on 10/18/19. NOTE Subjective: Patient stated that he doesn't have any pain, he told me that he has a good progress in physical rehabilitation. No any acute events overnight. Patient denies fever, chills, nausea, chest pains, vomiting, diarrhea Objective:General: NAD PERRLA, EOMI, no JVD CV: S1-S2. There is leg edema present bilaterally below the dressings, about trace to 1+. Lungs are clear to auscultation bilaterally. No crackle, rale or rhonchus. Abdomen: soft and nontender. Positive bowel sounds. Musculoskeletal :Arteriovenous access is fistula in the right upper extremity is presently in use. Assessment and plan Patient is 74 years old male with past history of atrial fibrillation, end-stage renal diseases currently in ARU for physical rehabilitation End-stage renal diseases Vacuum [employer] team follows him Hypertension/hypotension Today patient developed hypotension with blood pressure around 90/60 with heart rate 58 I will decrease her dose of metoprolol 12.5 every 12 hours instead of q 8 hours Continue to monitor Atrial fibrillation Continue cardioprotective medications and targeted oral anticoagulation Anemia of chronic diseases Hemoglobin is stable Aranesp per oil pipe inspector recommendation VS,Fishbone, I+O VS, Fishbone, I+O Vital Signs Date Time Temp Pulse Resp B/P (MAP) Pulse Ox O2 Delivery O2 Flow Rate FiO2 10/18/19 14:00 98.6 58 18 90/51 (64) 99 Room Air I&O- Last 24 Hours up to 6 AM 10/18/19 06:00 Intake Total 1040 ml Output Total 700 ml Balance 340 ml CHU OSPINA DO Oct 18, 2019 17:56
--- NOTE | 2019-10-18 18:49 | IPN ---
DATE: 10/18/2019 Mr. Villarreal is seen this morning on his bedside. He was dialyzed yesterday and tolerated his dialysis treatment very well. The patient remains weak and continues to have pain in his left pubic area where he had pubic bone fracture. He denies any dyspnea, chest pain, nausea or vomiting. PHYSICAL EXAMINATION: Temperature 97.8 degrees Fahrenheit, heart rate 66 per minute and respiratory rate 18 per minute. Blood pressure 112/59 mmHg and oxygen saturation 100% on room air. His head is atraumatic. There is no oral thrush or ulcers. Neck is supple and without jugular venous distension (JVD) or thyroid enlargement. Lungs: Clear to auscultation. Abdomen: Soft and nontender. His gastric procedure valve apparatus is in the abdominal wall which is nontender. Extremities: Have no cyanosis or clubbing. He has dressings on both lower legs. Neurologically, he is awake, alert and oriented x3. PROBLEMS: 1. End-stage renal disease. The patient was dialyzed yesterday and his next dialysis will be scheduled for Sunday. At present, there is no emergent indication for dialysis today. 2. Hyponatremia. The patient has chronic mild hyponatremia with sodium level 135 yesterday. This is related to end-stage renal disease and likely corrected with dialysis already. No need to repeat his labs today. We will check his chemistry again on Sunday. 3. Anemia. The patient has anemia of end-stage renal disease and has been stable. No intervention is indicated at present. 4. Congestive heart failure. His volume status is very well compensated and will continue to manage with dialysis. No other intervention is indicated at present.
[2019-10-18 20:30] VITALS: BP 93/54
[2019-10-18] MEDS: **NOTE PATIENT COMMENT** MISC XX SCH (21:22)
[2019-10-19 06:00] VITALS: BP 109/57
[2019-10-19] MEDS: HumaLOG INSULIN (NovoLOG) PER UNIT SC SCH ×4 (07:30→20:24)
[2019-10-19] MEDS: METOPROLOL TART 12.5 MG PER 1/2 TAB PO SCH ×2 (07:35→19:55)
[2019-10-19] MEDS: PRAVASTATIN 20 MG TAB PO SCH (08:45)
[2019-10-19] MEDS: APIXABAN 5 MG TAB (ELIQUIS) PO SCH ×2 (08:45→20:23)
[2019-10-19] MEDS: AMIODARONE 200 MG TAB (PACERONE) PO SCH (08:45)
[2019-10-19] MEDS: ACETAMINOPHEN 500 MG TAB PO SCH ×4 (08:45→20:23)
[2019-10-19] MEDS: FLUoxetine 20 MG CAP PO SCH (08:45)
[2019-10-19] MEDS: NEPHRO-VIT TAB (NEPHROCAPS) PO SCH (08:45)
[2019-10-19] MEDS: PANTOPRAZOLE 40MG TAB (PROTONIX) PO SCH (08:45)
[2019-10-19] MEDS: VENLAFAXINE 37.5 MG TAB PO SCH ×2 (08:45→20:22)
[2019-10-19] MEDS: BISACODYL 10 MG SUPP PR SCH (08:46)
[2019-10-19] MEDS: LIDOCAINE 5% (LIDODERM) PATCH TD SCH (08:46)
[2019-10-19] MEDS: THERAPEUTIC BATH LOTION 240 ML BTL TOP SCH ×2 (08:46→20:24)
[2019-10-19 14:00] VITALS: BP 110/60
[2019-10-19 19:55] VITALS: BP 102/59
[2019-10-19] MEDS: **NOTE PATIENT COMMENT** MISC XX SCH (21:59)
[2019-10-20 05:18] VITALS: BP 115/71
[2019-10-20] MEDS: HumaLOG INSULIN (NovoLOG) PER UNIT SC SCH ×4 (07:44→21:00)
[2019-10-20] MEDS: FLUoxetine 20 MG CAP PO SCH (07:44)
[2019-10-20] MEDS: APIXABAN 5 MG TAB (ELIQUIS) PO SCH ×2 (07:44→21:44)
[2019-10-20] MEDS: NEPHRO-VIT TAB (NEPHROCAPS) PO SCH (07:44)
[2019-10-20] MEDS: PANTOPRAZOLE 40MG TAB (PROTONIX) PO SCH (07:44)
[2019-10-20] MEDS: LIDOCAINE 5% (LIDODERM) PATCH TD SCH (07:45)
[2019-10-20] MEDS: THERAPEUTIC BATH LOTION 240 ML BTL TOP SCH ×2 (07:45→21:45)
[2019-10-20] MEDS: ACETAMINOPHEN 500 MG TAB PO SCH ×4 (07:45→21:44)
[2019-10-20] MEDS: PRAVASTATIN 20 MG TAB PO SCH (07:45)
[2019-10-20] MEDS: VENLAFAXINE 37.5 MG TAB PO SCH ×2 (07:46→21:44)
[2019-10-20] MEDS: METOPROLOL TART 12.5 MG PER 1/2 TAB PO SCH ×2 (07:47→21:00)
[2019-10-20] MEDS: AMIODARONE 200 MG TAB (PACERONE) PO SCH (07:48)
[2019-10-20] MEDS: BISACODYL 10 MG SUPP PR SCH (07:48)
[2019-10-20] MEDS ORDERED: FLUO20CA20 PO (09:42)
[2019-10-20] MEDS ORDERED: VENL37TA PO (09:42)
[2019-10-20] MEDS ORDERED: ELIQ5TAB PO (09:42)
[2019-10-20] MEDS ORDERED: AMIO200T PO (09:42)
[2019-10-20] MEDS ORDERED: METO1TAB87 PO (09:42)
[2019-10-20] MEDS ORDERED: PRAV20TA2 PO (09:42)
[2019-10-20] MEDS ORDERED: HEPARIN 1,000 UNITS/ML 10ML VIAL (FOR RADIOLOGY& DIALYSIS ONLY) IV ONE (10:30)
--- NOTE | 2019-10-20 11:01 | IPNPDOC ---
PM&R Progress Note DATE OF SERVICE: Oct 20, 2019 [facility] Progress Note Subjective: Patient reporting he is feeling good, much stronger, and that he is not longer dizzy. He believes his pain is overall much better. REVIEW OF SYSTEMS: The following is a completed review of systems and has been reviewed. Review of systems otherwise unremarkable. PAIN: Patient self reports pelvic pain with movement EYES: No recent vision changes EARS, NOSE, & THROAT: No throat pain, or dysphagia, or rhinorrhea CARDIOVASCULAR: Denies chest pain or palpitations PULMONARY: Denies shortness of breath GASTROINTESTINAL: +loose stools (improving) GENITOURINARY: denies dysuria MUSCULOSKELETAL: pelvic fracture NEUROLOGICAL:+peripheral polyneuropathy HEMATOLOGICAL: +easy bruising and anemia SKIN: +stauffer ulcers PSYCHIATRIC: Unremarkable All other review of systems found to be negative. PHYSICAL EXAMINATION: VITAL SIGNS: Please see below. GENERAL: Pleasant and cooperative. No acute distress. HEENT: PERRL. Extraocular movements intact. Clear conjunctiva CARDIOVASCULAR: Regular rate and rhythm. No murmurs, rubs, or gallops LUNGS: Clear to auscultation bilaterally. No wheezes. No rhonchi ABDOMEN: Soft, nontender, nondistended. Positive bowel sounds. Normal active bowel sounds NEUROLOGICAL: Alert and oriented times three. Cranial nerves II through XII grossly intact. Sensation diminished in bilateral feet in stocking pattern EXTREMITIES: 4\5 strength bilateral upper extremities. 4\5 strength bilat hip flexors and knee extensors, 2/5 bilat ankle DF, 0/5 EHL extension, 4/5 ankle PF bilat calf edema L>R bilat +1st interosseus wasting SKIN: scattered ecchymosis, bilat stauffer ulcers, frail skin -no sacral ulcers -bilat toe dry ulcers ASSESSMENT:74-year-old M with past medical history of ESRD who presents status post fall with pelvic fracture PLAN: 1. Rehab- PT/OT advance gait training and optimize ADL management, strengthen/stretch/maintain ROM all 4 extremities, fall recovery- family tr elias, walking with RW 2. Neuro: peripheral polyneuropathy in setting of ESRD and longstanding diabetes with bilateral foot drop -avoid delirogenic meds 3. Cardiac: Afib on eliquis, amiodarone, switched to low dose metoprolol tartrate to avoid soft BPs which may have been contributing to patient's dizziness-medicine consulted to assist in management -HLD c/u statin therapy 4. Resp: encourage incentive spirometry, monitor for infection 5. Endo: pmh DM c/u Levemir and ISS 6. Renal: ESRD, renal consulted -c/u Cinacalcet and sucroferric 7. Heme: anemia of chronic disease per renal management 8. Pain: c/u Tylenol standing, c/u QID, c/u Effexor increased to 37.5 BID as patient reporting no adverse psychiatric effects to see if helps with pain -c/u K-pad -c/u lidoderm patch -avoid opioids and tizanidine as may have contributed to delirium, avoid gabapentin as well 9. Psych: depression c/u Prozac, delirium resolved -psych recs appreciated -d/c'd trazodone prn for insomnia as patient reporting dizziness, resolved 10. DVt ppx: acewrap and on eliquis 11. GI: c/u bowel meds to prn- loose stools resolved 11. Dispo: 10-21-19 to home progressing towards goals Allergies Coded Allergies: Penicillins (Verified Adverse Reaction, Unknown, DIZZY, 09/24/19) Vital Signs Vital Signs Date Time Temp Pulse Resp B/P (MAP) Pulse Ox O2 Delivery O2 Flow Rate FiO2 10/20/19 07:47 66 115/71 10/20/19 05:18 97.1 18 100 NIPPV (BIPAP/CPAP) Laboratory Data Labs 24H Laboratory Tests 2 10/19/19 11:30: Bedside Glucose (Misc Panel) 110 10/19/19 16:29: Bedside Glucose (Misc Panel) 162H 10/19/19 20:18: Bedside Glucose (Misc Panel) 117H 10/20/19 06:33: Bedside Glucose (Misc Panel) 112H Current Medications Current Medications Current Medications Medications (Trade) Dose Ordered Sig/Jason Route PRN Reason Start Time Stop Time Status Last Admin Dose Admin Acetaminophen (Tylenol Tab) 1,000 mg QID PO 10/09/19 13:00 10/20/19 07:45 Acetaminophen (Tylenol Tab) 1,000 mg TID PO 10/02/19 16:00 10/09/19 10:38 DC 10/09/19 08:20 Amiodarone HCl (Pacerone, Cordarone) 200 mg DAILY PO 10/03/19 09:00 10/20/19 07:48 Apixaban (Eliquis) 5 mg BID PO 10/02/19 21:00 10/20/19 07:44 Bisacodyl (Dulcolax Suppository) 10 mg DAILY CA 10/05/19 09:00 10/08/19 08:46 Calcium Carbonate (Tums) 1,000 mg Q4HP PRN PO HEARTBURN 10/02/19 15:45 Carvedilol (COReg) 3.125 mg BID PO 10/04/19 21:00 10/16/19 14:48 DC 10/16/19 07:55 Carvedilol (COReg) 6.25 mg BID PO 10/02/19 21:00 10/04/19 12:34 DC 10/03/19 08:46 Cinacalcet (Sensipar) 60 mg TuThSa@0900 PO 10/04/19 09:00 10/18/19 07:52 Darbepoetin Blu (Aranesp (Dialysis Use)) 200 mcg HD IV 10/03/19 09:45 Dextrose (Dextrose 50%) 25 ml ASDIRECTED PRN IV SEE LABEL COMMENTS 10/02/19 15:45 Docusate Sodium (Colace) 100 mg BID PO 10/02/19 21:00 10/14/19 09:02 DC 10/13/19 21:12 Duloxetine HCl (Cymbalta) 10 mg DAILY PO 10/10/19 15:30 10/10/19 16:37 DC Duloxetine HCl (Cymbalta) 30 mg DAILY PO 10/07/19 09:00 UNV Fluoxetine HCl (PROzac) 10 mg DAILY PO 10/05/19 09:00 10/09/19 10:38 DC 10/09/19 08:20 Fluoxetine HCl (PROzac) 20 mg DAILY PO 10/10/19 09:00 10/20/19 07:44 Fluoxetine HCl (PROzac) 20 mg DAILY PO 10/03/19 09:00 10/04/19 19:52 DC 10/03/19 08:45 Gabapentin (Neurontin) 100 mg DAILY PO 10/09/19 09:00 10/10/19 15:15 DC 10/09/19 12:36 Glucagon (Glucagon) 1 mg ASDIRECTED PRN SC SEE LABEL COMMENTS 10/02/19 15:45 Glucose (Glucose) 16 GM ASDIRECTED PRN PO SEE LABEL COMMENTS 10/02/19 15:45 Haloperidol (Haldol) 2 mg BID PO 10/04/19 21:00 10/05/19 12:24 DC Haloperidol (Haldol) 2 mg DAILYPRN PRN PO AGITATION 10/04/19 16:30 10/09/19 10:38 DC Insulin Detemir (Levemir Insulin) 25 units DAILY SC 10/03/19 09:00 10/05/19 18:58 DC 10/03/19 08:45 Insulin Human Lispro (HumaLOG INSULIN) SEE PROTOCOL TABLE AC SC 10/02/19 17:30 10/20/19 07:44 Insulin Human Lispro (HumaLOG INSULIN) SEE PROTOCOL TABLE QHS SC 10/02/19 21:00 Iron (Venofer) 100 mg HD IV 10/03/19 11:30 10/06/19 23:59 DC Levofloxacin (Levaquin) 250 mg DAILY PO 10/04/19 09:00 10/05/19 12:24 DC Lidocaine (Lidoderm Patch) 1 patch DAILY TD 10/07/19 09:00 10/20/19 07:45 Lorazepam (Ativan) 2 mg DAILYPRN PRN IM AGITATION 10/04/19 16:30 10/10/19 11:27 DC Lorazepam (Ativan) 2 mg STAT STAT IM 10/04/19 11:18 10/04/19 11:20 DC 10/04/19 11:52 Magnesium Hydroxide (Milk Of Magnesia) 30 ml DAILYPRN PRN PO CONSTIPATION 10/02/19 15:45 Metoprolol Tartrate (Lopressor) 12.5 mg Q12H PO 10/18/19 21:00 10/20/19 07:47 Metoprolol Tartrate (Lopressor) 12.5 mg Q8H PO 10/16/19 14:00 10/18/19 17:56 DC 10/18/19 06:22 Miscellaneous (Unresolved Clarification Entry) SEE LABEL COMMENTS DAILY XX 10/15/19 09:00 10/15/19 12:15 DC Miscellaneous (Unresolved Patient Own Med Order) SEE LABEL COMMENTS DAILY XX 10/10/19 09:00 Cancel Multi-Ingredient Lotion (Melody Lotion) apply to bilat mj... BID TOP 10/09/19 21:00 10/20/19 07:45 Non-Formulary Medication ( See Comment Field Below ) REMOVE LIDODERM PATCH DAILY@21 XX 10/07/19 21:00 10/19/19 21:59 Oxycodone HCl (Roxicodone, Oxyir) 2.5 mg Q6HP PRN PO PAIN 10/02/19 15:45 10/03/19 09:38 DC Pantoprazole Sodium (Protonix) 40 mg DAILY PO 10/02/19 09:00 10/20/19 07:44 Patient Own Medication (Patient'S Own Med) apply to sacrum af... TID TOP 10/10/19 16:00 UNV Polyethylene Glycol (Miralax) 1 pkt DAILY PRN PO CONSTIPATION 10/06/19 09:00 10/09/19 20:06 Polyethylene Glycol (Miralax) 1 pkt DAILYPRN PRN PO CONSTIPATION 10/05/19 07:45 10/05/19 12:24 DC Pravastatin Sodium (Pravachol) 20 mg DAILY PO 10/03/19 09:00 10/20/19 07:45 Senna (Senokot) 1 tab BIDP PRN PO CONSTIPATION 10/14/19 09:15 Senna (Senokot) 1 tab QHS PO 10/02/19 21:00 10/14/19 09:03 DC 10/13/19 21:12 Sucroferric Oxyhydroxide (Velphoro) 1,000 mg BIDWM PO 10/02/19 18:00 10/07/19 12:02 DC 10/07/19 07:55 Tizanidine HCl (Zanaflex) 2 mg TID@0800,1200,1600 PO 10/03/19 09:45 10/07/19 12:05 DC 10/03/19 12:09 Tramadol HCl (Ultram) 25 mg Q4HP PRN PO MODERATE PAIN (PS 5-7) 10/03/19 09:45 Cancel Trazodone HCl (Desyrel) 25 mg QHSP PRN PO INSOMNIA 10/13/19 13:00 10/16/19 14:44 DC 10/15/19 21:02 Venlafaxine HCl (Effexor Xr) 37.5 mg DAILY PO 10/11/19 09:00 10/10/19 16:56 DC Venlafaxine HCl (Effexor) 18.75 mg BID PO 10/11/19 09:00 10/13/19 12:47 DC 10/13/19 08:25 Venlafaxine HCl (Effexor) 18.75 mg DAILY PO 10/11/19 09:00 10/10/19 17:07 DC Venlafaxine HCl (Effexor) 37.5 mg BID PO 10/13/19 21:00 10/20/19 07:46 Vitamin B Complex/ Vit C/Folic Acid (Nephro-[facility] Rx) 1 tab DAILY PO 10/03/19 09:00 10/20/19 07:44 MARJ RICHARDSON MD Oct 20, 2019 11:01
[2019-10-20 12:47] LABS: HEMATOCRIT 33.7 % (42.0-52.0); HEMOGLOBIN 10.8 g/dl (13.5-17.5); MEAN CORPUSCULAR HEMOGLOBIN 33.4 pg (27.0-33.0); MEAN CORPUSCULAR VOLUME 104.3 fl (80.0-96.0); PLATELET COUNT, AUTOMATED 175 10^3/uL (150-450); RED BLOOD COUNT 3.23 10^6/uL (4.30-6.10); WHITE BLOOD COUNT 7.5 10^3/uL (4.0-10.0)
[2019-10-20 13:32] LABS: ALBUMIN 2.8 GM/DL (3.2-5.2); CALCIUM LEVEL 7.5 MG/DL (8.8-10.2); CREATININE FOR GFR 6.95 MG/DL (0.70-1.30); GLOMERULAR FILTRATION RATE 8.3 (>42); PHOSPHORUS LEVEL 3.7 MG/DL (2.5-4.9); POTASSIUM SERUM 4.3 MEQ/L (3.5-5.1)
[2019-10-20 16:50] VITALS: BP 113/58
--- NOTE | 2019-10-20 19:44 | IPN ---
DATE: 10/20/2019 Mr. Villarreal is seen this morning on his bedside. He just had physical therapy and walked in the hallway. He is feeling stronger and anticipating going home tomorrow. He denies any dyspnea, chest pain, nausea or vomiting. PHYSICAL EXAMINATION: Temperature 97 degrees Fahrenheit, heart rate 66 per minute and respiratory rate 18 per minute. Blood pressure 115/70 mmHg and oxygen saturation is 98% on room air. Head is atraumatic. Neck is supple and without JVD or thyroid enlargement. Heart sounds are regular and lungs sound clear to auscultation. Abdomen soft and nontender and bowel sounds are normal. Extremities without any cyanosis or clubbing. Neurologically he is awake, alert and oriented times three. The patient did not have any new labs and I have ordered a CBC and renal profile for today. PROBLEM: 1. End-stage renal disease. The patient is regularly dialyzed on Sunday, Sunday and Sunday schedule. He will be dialyzed this afternoon. 2. Congestive heart failure. At present his volume status is reasonably well-compensated and will try to remove about 2 liters of fluid as tolerated. 3. Anemia. His anemia has been stable with last hemoglobin 10.2 on 10/17/2019. CBC will be checked again today. We will continue with Aranesp once a week. 4. Generalized weakness and deconditioning following pelvic fracture. The patient is making progress and is anticipating going home tomorrow. From a renal standpoint, he seems to be very stable.
[2019-10-20 20:00] VITALS: BP 88/53
[2019-10-20] MEDS: **NOTE PATIENT COMMENT** MISC XX SCH (21:50)
[2019-10-20 21:51] VITALS: BP 100/56
[2019-10-21 06:00] VITALS: BP 105/56
[2019-10-21] MEDS: HumaLOG INSULIN (NovoLOG) PER UNIT SC SCH (07:30)
[2019-10-21 09:00] VITALS: BP 105/56
[2019-10-21] MEDS: METOPROLOL TART 12.5 MG PER 1/2 TAB PO SCH (09:00)
[2019-10-21] MEDS: CINACALCET 30 MG TAB (SENSIPAR) PO SCH (09:00)
[2019-10-21] MEDS: BISACODYL 10 MG SUPP PR SCH (09:00)
[2019-10-21] MEDS: AMIODARONE 200 MG TAB (PACERONE) PO SCH (09:01)
[2019-10-21] MEDS: LIDOCAINE 5% (LIDODERM) PATCH TD SCH (09:01)
[2019-10-21] MEDS: FLUoxetine 20 MG CAP PO SCH (09:01)
[2019-10-21] MEDS: PRAVASTATIN 20 MG TAB PO SCH (09:01)
[2019-10-21] MEDS: VENLAFAXINE 37.5 MG TAB PO SCH (09:01)
[2019-10-21] MEDS: PANTOPRAZOLE 40MG TAB (PROTONIX) PO SCH (09:01)
[2019-10-21] MEDS: APIXABAN 5 MG TAB (ELIQUIS) PO SCH (09:01)
[2019-10-21] MEDS: NEPHRO-VIT TAB (NEPHROCAPS) PO SCH (09:01)
[2019-10-21] MEDS: THERAPEUTIC BATH LOTION 240 ML BTL TOP SCH (09:02)
[2019-10-21] MEDS: ACETAMINOPHEN 500 MG TAB PO SCH (09:29)
--- NOTE | 2019-10-21 14:39 | PMRDS ---
DATE OF ADMISSION: 10/02/2019 DATE OF DISCHARGE: 10/21/2019 CHIEF COMPLAINT/DISCHARGE DIAGNOSIS: Pelvic fracture in the setting of end-stage renal disease with peripheral polyneuropathy. HISTORY OF PRESENT ILLNESS: 74-year-old male with a past medical history of end-stage renal disease on dialysis, atrial fibrillation, coronary artery disease (CAD) status post coronary artery bypass grafting (CABG) with three stents, automatic implantable cardioverter-defibrillator (AICD), hypertension, diabetes, hyperlipidemia who fell at home without loss of consciousness (LOC) or presyncopal symptoms and presented to [facility] emergency department (ED) on 09/24/[address] lower extremity showed "nondisplaced fracture of left superior inferior pubic rami." He was deemed not to be a surgical candidate and was made weightbearing as tolerated and treated with pain medications. He was followed closely by renal who rearranged his dialysis schedule and gave him Aranesp and Venofer for his anemia. He was evaluated by therapy and found to be well below his prior level of function and mobility, activities of daily living (ADL) management deemed medically appropriate for discharge to ARU. PAST MEDICAL HISTORY: As per HPI. HOSPITAL COURSE: The patient was admitted and enrolled in a comprehensive physical therapy/occupational therapy (PT/OT) program. He received 24-hour nursing supervision and weekly team meetings were held to discuss his progress. The patient presented with pain that was difficult to control, and episodes of delirium and psychosis while on Dictation cut off here
--- NOTE | 2019-10-21 14:58 | PMRDS ---
DATE OF ADMISSION: 10/02/2019 DATE OF DISCHARGE: 10/21/2019 CHIEF COMPLAINT/DISCHARGE DIAGNOSIS: Pelvic fracture in setting of end-stage renal disease with peripheral polyneuropathy. HISTORY OF PRESENT ILLNESS 74-year-old man with a past medical history of end-stage renal disease on dialysis, atrial fibrillation, coronary artery disease, status post coronary artery bypass graft (CABG) with three stents, AICD, hypertension, diabetes, hyperlipidemia who fell at home without LOC or presyncopal symptoms and presented to [facility] emergency department on 09/24/[address] lower extremity showed "nondisplaced fractures left superior and inferior pubic rami." He was deemed not to be a surgical candidate and was made weightbearing as tolerated and treated with pain medications. He was followed closely by renal who reoriented the dialysis schedule and gave him Aranesp and Venofer for his anemia. He was evaluated by therapy and found to be well below his prior level of function and mobility and activities of daily living management and deemed medically appropriate for discharge to acute rehabilitation unit. PAST MEDICAL HISTORY: As per history of present illness. HOSPITAL COURSE: The patient was admitted and enrolled in a comprehensive physical therapy (PT) and occupational therapy (OT) program. He received 24-hour nursing supervision and weekly team meetings were held to discuss his progress. The patient had difficulty initially with pain control and experienced delirium and psychosis while on tizanidine and opioids, for which these medications were held. He was evaluated by mental health on one occasions and received a dose of Haldol; however, his psychosis improved and he was lucid throughout the rest of his hospital course. The patient's pain was eventually treated with Effexor with a gradual increase in dosing at 37.5 twice a day and he remained on Tylenol as well. The patient experienced some dizziness. After trialing trazodone for insomnia, which resolved upon discontinuation of this medication. He was deemed medically and functionally stable to return home. Discharge medications as per instructions. FUNCTIONAL HISTORY UPON DISCHARGE: The patient was standby assist for functional transfers and for ambulation 50 feet with a rolling walker. Occupational therapy, he was modified independent for functional transfers, standby assist for toileting. Thank you for this referral.
== END 2019-10-21 11:55 | disposition home health service (06) | DRG 559 ==
LOC: M PM&R 16:45
PROVIDERS: ADMIT Physical Medicine & Rehabilitation; ATTEND Physical Medicine & Rehabilitation
PROC: 5A1D70Z Performance of Urinary Filtration, Intermittent, Less than 6 Hours Per Day (ICD-10-PCS; principal; 2019-10-03)
DX: S32.512D Fracture of superior rim of left pubis, subsequent encounter for fracture with routine healing (principal); N18.6 End stage renal disease; I12.0 Hypertensive chronic kidney disease with stage 5 chronic kidney disease or end stage renal disease; N25.81 Secondary hyperparathyroidism of renal origin; F02.81 Dementia in other diseases classified elsewhere, unspecified severity, with behavioral disturbance; E87.1 Hypo-osmolality and hyponatremia; R26.89 Other abnormalities of gait and mobility; W18.09XD Striking against other object with subsequent fall, subsequent encounter; Y92.009 Unspecified place in unspecified non-institutional (private) residence as the place of occurrence of the external cause; I48.91 Unspecified atrial fibrillation; I25.10 Atherosclerotic heart disease of native coronary artery without angina pectoris; D63.1 Anemia in chronic kidney disease; E11.22 Type 2 diabetes mellitus with diabetic chronic kidney disease; R42 Dizziness and giddiness; E78.5 Hyperlipidemia, unspecified; E11.42 Type 2 diabetes mellitus with diabetic polyneuropathy; G47.00 Insomnia, unspecified; N25.0 Renal osteodystrophy; R44.1 Visual hallucinations; G30.9 Alzheimer's disease, unspecified; F32.9 Major depressive disorder, single episode, unspecified; T42.8X5A Adverse effect of antiparkinsonism drugs and other central muscle-tone depressants, initial encounter; R41.0 Disorientation, unspecified; T40.2X5A Adverse effect of other opioids, initial encounter; T43.225A Adverse effect of selective serotonin reuptake inhibitors, initial encounter; E83.39 Other disorders of phosphorus metabolism; M21.371 Foot drop, right foot; M21.372 Foot drop, left foot; Z95.5 Presence of coronary angioplasty implant and graft; Z99.2 Dependence on renal dialysis; Z95.810 Presence of automatic (implantable) cardiac defibrillator; Z79.01 Long term (current) use of anticoagulants; Z87.891 Personal history of nicotine dependence; Z79.4 Long term (current) use of insulin; Z79.899 Other long term (current) drug therapy; Z88.0 Allergy status to penicillin; Z96.652 Presence of left artificial knee joint; I95.9 Hypotension, unspecified

== ENCOUNTER → 2019-12-09 | Outpatient (CLI) | payer MEDICARE, OTHER ==
[~2019-12-09] MED LIST changes: +INSUDET SC; +METO1TAB87 PO; +PERCOCET PO; +VENL37TA PO
--- NOTE | 2019-12-16 13:39 | DEXA ---
AP SPINE L1 - L4 1.497 2.4 2.7 LT FEMUR TOTAL Left hip replacement. LT NECK Left hip replacement. RT FEMUR TOTAL 0.533 -3.8 -3.1 RT NECK 0.567 -3.4 -2.5 TOTAL BODY TOTAL OTHER COMMENTS: Normal bone densitometry of the spine. There is osteoporosis of the right hip. FOLLOW-UP: Recommendation for the next bone density exam: 2 years. RADHA
== END ==
LOC: M WHC 13:23
PROVIDERS: ATTEND Orthopaedic Surgery
DX: M81.8 Other osteoporosis without current pathological fracture (principal); S32.512A Fracture of superior rim of left pubis, initial encounter for closed fracture; X58.XXXA Exposure to other specified factors, initial encounter; Y92.9 Unspecified place or not applicable; Y93.9 Activity, unspecified; Y99.9 Unspecified external cause status

== ENCOUNTER → 2020-02-10 | Outpatient (POV) | payer MEDICARE, OTHER ==
--- NOTE | 2020-02-11 08:57 | IRCOV ---
[facility] IR Consult Office Visit IR Consult Office Visit DATE: February 10, 2020 Telemedicine consult REASON FOR CONSULTATION/CHIEF COMPLAINT: non healing left leg wound. HISTORY OF PRESENT ILLNESS: 75 year old male with DM, HTN, HL, CHF and AUSTYN presents with left lower extremity swelling for 3 years. This is worse at the end of the day after he's been on his feet and least in the morning. Associated with left thigh ulcer which is refractory to healing for 2 months. He denies intermittent claudication, he is ambulatory with a walker in/out of dialysis and around the house. He denies rest pain, gangrene, chest pain, orthopnea, PND or prior DVT. ALLERGIES: Please see below. HOME MEDICATIONS: Please see below. PAST MEDICAL HISTORY: HEMATURIA HTN END STAGE RENAL DISEASE WITH DIALYSIS HYPERCHOLESTEROLEMIA A-FIB CAD ISCHEMIC CARDIOMYOPATHY DIABETES TYPE 2 PAST SURGICAL HISTORY: LEFT HIP FRACTURE REPAIR 11/2013 LEFT KNEE REPLACEMENT 03/2000 CHOLECYSTECTOMY 1986 TRIPLE BYPASS & DEFIBRILLATOR 1999 CARDIAC STENTING X3 2015 BILATERAL CATERACT REMOVAL 2018 FAMILY HISTORY: non contributory SOCIAL HISTORY: ex smoker stopped 20 years. Denies alcohol or drugs. REVIEW OF SYSTEMS: Otherwise negative. PHYSICAL EXAMINATION: patient sent pictures of both legs. Left leg skin appears dry, scaly with brownish discoloration over the stauffer. Quarter sized ulcer medial thigh. No surrounding erythema no pus. Right leg dry and peeling. No ulcer. LABORATORY DATA: 10/20/19 Hgb 10.8 HCT 33.7 wbc 7.5 PLT 175 Na 135 K 4.3 BUN 34 Creatinine 6.95 Glu 60 hgbA1c 6.6 LDL 94 Imaging: I personally reviewed the CTA abdomen pelvis and bilateral run off performed may 2019. Patent left CF, SFA, Popliteal and 3 vessel run off to the left foot at that time. I do note prominent superficial veins bilateral lower extremities. ASSESSMENT/PLAN: 75 year old male with chronic asymmetric left leg swelling with varicose eczema, hemosiderin deposition, and associated with non healing ulcer. No rest pain. I would like to get a venous reflux study to asses for venous hypertension and treat this if applicable. If this is negative we'll follow up with an arterial ultrasound. We'll schedule the patient for venous reflux US. I spent 30minutes in consultation with the patient. Thank you for this referral. cc Renetta NICHOLS Allergies Coded Allergies: Penicillins (Verified Adverse Reaction, Unknown, DIZZY, 09/24/19) Home Medications Scheduled Amiodarone HCl (Amiodarone HCl), 200 MG PO DAILY Apixaban (Eliquis), 5 MG PO BID Cinacalcet (Sensipar), 60 MG PO 3XW, (Reported) Docusate Sodium (Colace), 100 MG PO DAILY, (Reported) Fluoxetine Hcl (Fluoxetine HCl), 20 MG PO DAILY Folic Acid/Vit B Complex and C (Renal-Franklin Tablet), 1 TAB PO DAILY, (Reported) Metoprolol Tartrate (Metoprolol Tartrate), 12.5 MG PO Q12H Neomycin/Bacitracin/Polymyxinb (Triple Antibiotic Ointment), 1 APLCT TOP ASDIRECTED, (Reported) Pravastatin Sodium (Pravastatin Sodium), 20 MG PO DAILY Sucroferric Oxyhydroxide (Velphoro), 1,000 MG PO BIDWM, (Reported) Venlafaxine HCl (Venlafaxine HCl), 37.5 MG PO BID Scheduled PRN Polyethylene Glycol 3350 (Miralax), 17 GM PO DAILY PRN for CONSTIPATION, (Reported) HALLIE CHRISTENSEN MD February 11, 2020 08:57
== END ==
LOC: M TMIRPOV 08:18
PROVIDERS: ATTEND Radiology Diagnostic Radiology
DX: L97.129 Non-pressure chronic ulcer of left thigh with unspecified severity (principal); I83.12 Varicose veins of left lower extremity with inflammation; E11.9 Type 2 diabetes mellitus without complications; I10 Essential (primary) hypertension; E78.5 Hyperlipidemia, unspecified; I50.9 Heart failure, unspecified; G47.33 Obstructive sleep apnea (adult) (pediatric); R60.0 Localized edema

== ENCOUNTER 2020-02-21 15:39 | Emergency (ER) | payer MEDICARE, OTHER ==
[~2020-02-21] VITALS: Ht 188 cm; Wt 91.4 kg
[2020-02-21] MEDS ORDERED: CYCL5TAB PO (15:47)
[2020-02-21] MEDS ORDERED: CARV25TA (16:04)
[2020-02-21] MEDS ORDERED: FLUO20CA22 PO (16:04)
[2020-02-21] MEDS ORDERED: LORA0.5T5 PO (16:09)
[2020-02-21] MEDS ORDERED: HUMA100I3 SC (16:12)
[2020-02-21] MEDS ORDERED: TOUJ1.2I SC (16:12)
[2020-02-21] MEDS ORDERED: ACETAMINOPHEN TAB 650MG DOSE (2X325MG) As Ordered ONE (16:42)
[2020-02-21] MEDS ORDERED: ACETAMINOPHEN 650MG ER TAB (TYLENOL ARTHRITIS) PO ONE (16:45)
[2020-02-21] MEDS ORDERED: ACETAMINOPHEN TAB 650MG DOSE (2X325MG) PO ONE (17:00)
[2020-02-21 17:36] VITALS: BP 122/67
--- NOTE | 2020-02-23 11:23 | REP ---
REASON FOR EXAM: Pain. Preliminary report was given by Dr. Ivory at the time the examination was performed. The only comparison exam is a left shoulder, which was performed on 09/24/2019. RIGHT SHOULDER: Chronic degenerative changes are present. There is superior subluxation of the humeral head within the glenoid, which is marked and narrowing the subarachnoid space. There is no evidence of an acute fracture. IMPRESSION: Degenerative-type changes which are rather marked, as described above. Three views of the left shoulder again show degenerative-type changes which may have increased somewhat compared to the prior exam with humeral head marginal osteophytosis and narrowing of the glenohumeral joint. AC joint DJD is also present. There is no evidence of an acute fracture or dislocation. IMPRESSION: Chronic changes as described above. Electronically Signed by Davdi Luis DO 02/23/2020 11:54 A
== END 2020-02-21 17:38 | disposition home or self-care (01) ==
LOC: M ED 15:39
DX: M19.011 Primary osteoarthritis, right shoulder (principal); M19.012 Primary osteoarthritis, left shoulder; E11.9 Type 2 diabetes mellitus without complications; I10 Essential (primary) hypertension; N18.6 End stage renal disease; I48.91 Unspecified atrial fibrillation; G62.9 Polyneuropathy, unspecified; K74.60 Unspecified cirrhosis of liver; Z95.0 Presence of cardiac pacemaker; Z95.5 Presence of coronary angioplasty implant and graft; Z79.899 Other long term (current) drug therapy; Z79.4 Long term (current) use of insulin; Z79.01 Long term (current) use of anticoagulants; Z88.0 Allergy status to penicillin; Z87.891 Personal history of nicotine dependence

== ENCOUNTER 2020-02-27 10:09 | Inpatient (IN) | payer MEDICARE, OTHER ==
[~2020-02-27] VITALS: Ht 188 cm; Wt 91.9 kg
[~2020-02-27 10:09] MED LIST changes: +CARV25TA; +CYCL5TAB PO; +FLUO20CA22 PO; +HUMA100I3 SC
[2020-02-27] MEDS ORDERED: TRAM50TA2 PO (11:06)
[2020-02-27 11:19] LABS: BASO % 0.4 % (0.0-1.0); EOS # 0.1 10^3/uL (0.0-0.5); EOS % 0.7 % (0.0-3.0); HEMATOCRIT 25.7 % (42.0-52.0); HEMOGLOBIN 8.7 g/dl (13.5-17.5); LYMPH # 0.8 10^3/uL (1.5-5.0); LYMPH % 11.4 % (24.0-44.0); MEAN CORPUSCULAR HEMOGLOBIN 32.6 pg (27.0-33.0); MEAN CORPUSCULAR HGB CONC 33.9 g/dl (32.0-36.5); MEAN CORPUSCULAR VOLUME 96.3 fl (80.0-96.0); MONO # 0.4 10^3/uL (0.0-0.8); MONO % 6.3 % (0.0-5.0); NEUTROPHILS # 5.6 10^3/uL (1.5-8.5); NEUTROPHILS % 80.5 % (36.0-66.0); PLATELET COUNT, AUTOMATED 229 10^3/uL (150-450); RED BLOOD COUNT 2.67 10^6/uL (4.30-6.10)
--- NOTE | 2020-02-27 11:54 | REP ---
CT BRAIN WITHOUT CONTRAST: HISTORY: Weakness. Comparison CT study October 04, 2019. FINDINGS: Preliminary digital brewer helper radiograph is unremarkable. There is mild hyperostosis frontalis. Vascular calcifications noted. Visualized paranasal sinuses are clear. No skull fractures seen. No bony destructive lesion. There is generalized volume loss again noted. There is no evidence of intracranial hemorrhage. No infarct, mass, extra-axial fluid collection or midline shift is seen. IMPRESSION: Generalized volume loss and vascular calcification. No acute intracranial abnormality. Electronically Signed by Adrian Castillo MD 02/27/2020 04:15 P
--- NOTE | 2020-02-27 12:27 | ECGEPIP ---
[facility] - ED Test Date: 2020-02-27 Pat Name: DAGO BRODERICK Department: Room: - Gender: Male Head Concierge: ct : 1945 Requested By: AYAD BANKS Order Number: [id number] Reading MD: Jose R Mendoza Measurements Intervals [place] Rate: 80 P: WI: 0 QRS: -41 QRSD: 154 T: 136 QT: 486 QTc: 561 Interpretive Statements ATRIAL FIBRILLATION MARKED LEFT AXIS DEVIATION INTRAVENTRICULAR CONDUCTION DELAY INTERPRETATION BASED ON A DEFAULT AGE OF 40 YEARS 09/29/[address] [facility] Electronically Signed on 02-27-2020 12:26:42 EDT by Jose R Mendoza
[2020-02-27 12:32] LABS: ALT/SGPT 21 U/L (12-78); CPK CREATINE PHOSPHOKINASE 33 U/L (39-308)
[2020-02-27 12:33] LABS: ALBUMIN 2.6 GM/DL (3.2-5.2); BILIRUBIN,DIRECT 0.2 MG/DL (0.0-0.2); BILIRUBIN,TOTAL 0.4 MG/DL (0.2-1.0); CK-MB VALUE MASS 2.7 NG/ML (<3.6); MB/CK RELATIVE INDEX 8.18 (< OR =4); TOTAL PROTEIN 6.8 GM/DL (6.4-8.2); TROPONIN I < 0.02 NG/ML (< 0.10)
[2020-02-27] MEDS ORDERED: ACETAMINOPHEN 650MG ER TAB (TYLENOL ARTHRITIS) PO ONE (13:15)
[2020-02-27] MEDS ORDERED: QC A650T3 PO (13:26)
[2020-02-27] MEDS ORDERED: AMIO200T PO (13:26)
[2020-02-27] MEDS ORDERED: CARV25TA PO ×2 (13:26)
[2020-02-27] MEDS ORDERED: PRAV20TA2 PO (13:26)
[2020-02-27] MEDS ORDERED: ELIQ5TAB PO (13:26)
[2020-02-27] MEDS ORDERED: CYCLOBENZAPRINE 5MG TABLET PO PRN (14:45)
[2020-02-27] MEDS ORDERED: traMADol 50 MG TAB PO PRN (14:45)
[2020-02-27] MEDS ORDERED: MIRALAX *UNIT DOSE* 17GM PACKET PO PRN (14:45)
--- NOTE | 2020-02-27 15:03 | REP ---
REASON FOR EXAM: Anemia. Latest prior for comparison is also portable obtained 09/29/2018. The technique utilized in obtaining the radiograph has magnified the cardiac silhouette and accentuated the interstitial markings. There is a mobile cardiomegaly status quo. Note is again made of previous median sternotomy. Note is again made of diffuse increase in the interstitial markings through the lung bird status quo. No patchy opacities or pleural effusions have developed. The single chamber bipolar pacemaker device is unchanged. There is no significant change in the appearance of the osseous structures. IMPRESSION: Standard appearing changes as described above. Correlate clinically to rule out the possibility of acute disease, superimposed upon chronic change seen on this limited portable exam. Electronically Signed by David Luis DO 02/27/2020 03:47 P
[2020-02-27] MEDS ORDERED: SLF 3 ML SYR IV PRN (16:30)
[2020-02-27 16:35] VITALS: BP 122/75
[2020-02-27 17:00] LABS: FREE T4 1.17 NG/DL (0.76-1.46); MAGNESIUM LEVEL 2.4 MG/DL (1.8-2.4); PERCENT SATURATION 34.7 % (19.7-50.0)
[2020-02-27 17:10] LABS: FOLATE 13.5 NG/ML (>5.4)
--- NOTE | 2020-02-27 17:40 | HPE ---
DATE OF ADMISSION: 02/27/2020 PRIMARY CARE PROVIDER: Dr. Morgan Miller PRINCIPAL DIAGNOSIS: Weakness of legs. HISTORY: Joel Villarreal is a 75-year-old who came to the emergency room because he was too weak to stand. We were asked to admit him for anemia, but I do not believe that his weakness is secondary to anemia. Appears to be a neurologic process. The history I obtained from Joel is not accurate according to his , Barbara, who I also spoke with, and I do believe he is minimizing his symptoms. Per the patient, for 2 or 3 weeks, he has been having trouble using his upper extremities. He cannot hold utensils to eat or hold on to a pen or pencil. He says this came on fairly abruptly 2 or 3 weeks ago. He was having trouble moving his shoulders, and he came to the emergency room on 02/21/2020 where it looks like he had shoulder x-rays done that showed the expected arthritis. He says that his legs have been fine until today when he couldn't stand, but his , Barbara, says that for 2 or 3 months he has been having increasing problems ambulating. He uses a walker, but has reached the point where she has to walk beside him as he uses his walker as he is unsteady even with that assistive device. He says his legs act as though they are going to buckle on him. Today he simply could not stand, so she brought him to the emergency room. He denies nor has she witnessed any fasciculations. There are no paresthesias in the arms or legs. He did have a CT scan of his cervical spine just 5 months ago on 09/24/2019 after he fell. It showed degenerative disc disease, but no other significant problems. The patient has a pacemaker/defibrillator in place and cannot have an MRI scan. He is anemic, but he has chronic kidney disease. His hemoglobin is 8.7, which is down from his baseline of 10.8. He has end-stage renal disease, on dialysis nephrology group. Denies any rectal bleeding, epistaxis, hematemesis, or hematuria. He did have heme positive stool in the emergency room. PAST MEDICAL HISTORY: Shows end-stage renal disease, on Sunday, Sunday, Sunday dialysis, history of atrial fibrillation, coronary artery disease, status post stents times three and then coronary artery bypass grafting, hyperlipidemia, hypertensive heart disease, type 2 diabetes, now on insulin. SURGICAL HISTORY: Shows coronary artery bypass 1998, implantable cardioverter defibrillator (ICD) originally placed in 1998 and generator has been replaced three times since then, coronary artery disease stenting most recently in 2013, cholecystectomy, left hip fracture with open reduction internal fixation (ORIF), had a fistula created in his right forearm in 2008, revised 04/24 and 09/24. He just saw Dr. Patel from interventional radiology who was having nonhealing wounds, including a left thigh venous ulcer for he was going to the wound clinic, Dr. Self referred him for noninvasive radiology evaluation. She felt that he had a CT angiogram of the abdomen and pelvis 05/26 that showed patent common femoral, superficial femoral, and popliteal arteries and three-vessel run off to the left foot at that time. He has osteoporosis, had a DEXA scan done by Dr. Gavino Gaston 12/25, right hip had a T-score of -3.8 showing severe arthritis, vertebral body T-score was not diagnostic as he has an elevated Z-score, his T-score would not be viable. The patient had the gastric wrap performed for bariatric procedure, loss over 250 pounds. FAMILY HISTORY: Mother had Parkinson's, father lung disease. SOCIAL HISTORY: He is . 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 Lives in [place]. He quit smoking 20 years ago. No alcohol use. REVIEW OF SYSTEMS: No fever, chills, night sweats. Denies fasciculations. No seizures. No syncope. No epistaxis, ectal bleeding, urinary bleeding. MEDICATIONS: - amiodarone 200 mg daily - Eliquis 5 mg twice a day - carvedilol 12.5 mg three times weekly 25 mg - Sensipar 60 mg three times a week - cyclobenzaprine 5 mg daily - Colace 100 mg daily - fluoxetine 20 mg daily - folic acid with B complex (Luna-Franklin) one daily - Toujeo insulin 40 units daily - Lispro insulin sliding scale - MiraLAX 17 grams daily as needed - pravastatin 20 mg daily - Velphoro 1000 mg with meals - tramadol 50 mg twice a day as needed ALLERGIES: PENICILLIN PHYSICAL EXAMINATION: Vital Signs: Per flow sheet. He is resting in bed, no distress, seems fairly forgetful on details. Pupils equal, reactive to light. Tympanic membranes (TMs) normal. Pharynx benign. Neck: No masses. bruits. Heart: Irregular in rhythm, 1/6 systolic ejection murmur. Abdomen: Soft, nontender, no masses. Lungs: Clear. Abdomen: Soft, nontender, no masses. Extremities: No clubbing or cyanosis. Trace peripheral edema. Venous stasis dermatitis present. Pulses are decreased and palpable both feet. Stool was reportedly heme . Neurologic exam showed no fasciculations. He has trouble lifting his arms up off the exam table. He has prominent atrophy of the intrinsic muscles of the hands. 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 Muscle strength - intrinsic muscle hands is 3+ over 5. LABORATORY: White count 7, hemoglobin 8.7, MCV 96, platelets 229. Sodium 136, potassium 4.3, BUN 34, creatinine 6.9, calcium 7.5, albumin is low at 2.6, TSH mildly elevated at 6.0. Sodium 133, potassium 4.1, BUN 34, ionized calcium normal at 4.6. IMPRESSION: 1. Generalized weakness. Seems to be a neurologic process. I do not think it is related to his mild anemia. He has had progressive loss of upper and lower extremity neuromuscular function over 3-4 months with a dramatic decline over the last 2 or 3 weeks. The case was discussed with his , Barbara, who filled in more accurate history concerning the timeline of this condition. Spoke to Dr. Gonzalez from Neurology who will see the patient in consultation. Appreciate his insight. 2. Anemia. Heme positive stool. Dr. Islas did a colonoscopy 12/24, tubular adenoma removed. 3. History of bariatric surgery. He had a gastric wrap done, did not have a Karen-en-Y gastric bypass, should not have iron deficiency as a consequence of that. Will check all of his vitamin levels, particularly in face of neurologic symptoms. 4. Defibrillation. Continue his anticoagulant. His rate is controlled. He had a transesophageal echocardiogram 10/04/18 when he had positive blood cultures for Enterococcus. Ejection fraction (EF) was 55%. No vegetations were seen. Very mild mitral regurgitation was noted. 5. Diabetes. Sliding scale insulin coverage. Reduce dose of Lantus while on enforced diabetic diet. 6. End-stage renal disease. Consult nephrology. Continue his current medications. 7. Hyperlipidemia. Continue his pravastatin 20 mg daily. ADDENDUM: 8. Heme positive stool. The patient has heme positive stool and no darleen gastrointestinal (GI) bleeding. He did have colonoscopy a year ago and one small tubular adenoma was found. I have ordered repeat complete blood count (CBC). He signed consent for blood. I do not think his hemoglobin is down significantly from his baseline and he is not having severe bleeding. There is no GI coverage at this time and I do not think he needs an endoscopy unless his hemoglobin shows a significant change. I am holding his Eliquis due to the heme positive stool, but if hemoglobin remains stable I have recommended this to be restarted and he can get an outpatient GI workup. If his hemoglobin drops significantly, then inpatient consultation will be necessary, but I do not think there is any GI coverage over the weekend. Addendum Dictated: 02/27/2020 1449 Addendum Transcribed: 02/27/2020 1608 etelvina
[2020-02-27] MEDS: SUCROFERRIC OXYHYDROXIDE 500MG CHEW TAB (VELPHORO) PO SCH (17:41)
[2020-02-27] MEDS: ACETAMINOPHEN 650MG ER TAB (TYLENOL ARTHRITIS) PO SCH ×2 (17:43→20:58)
--- NOTE | 2020-02-27 18:53 | IPN ---
DATE: 02/27/2020 Update on Mr. Villarreal. The patient was seen by Dr. Gonzalez. 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 He advised CT scan of cervical, thoracic and lumbosacral spine to rule out a spinal lesion. Patient will need an EMG nerve conduction study and ongoing neurology care after discharge. I have tried to reach the patient's to discuss this and asked nursing staff to call me when she arrives on the floor. I did try to talk to Joel about this, but he did not appear to comprehend my discussion with him and so I will try to discuss the diagnosis with his after she arrives here for visiting hours.
[2020-02-27 20:00] VITALS: BP 124/66
--- NOTE | 2020-02-27 20:05 | REPVR ---
PROCEDURE INFORMATION: Exam: CT Cervical Spine Without Contrast Exam date and time: 02/27/2020 7:16 PM Age: 75 years old Clinical indication: Other: Als TECHNIQUE: Imaging protocol: Computed tomography images of the cervical spine without contrast. Radiation optimization: All CT scans at this facility use at least one of these dose optimization techniques: automated exposure control; mA and/or kV adjustment per patient size (includes targeted exams where dose is matched to clinical indication); or iterative reconstruction. COMPARISON: CT Spine,cervical w/o contrast 09/24/2019 10:08 AM FINDINGS: Tubes, catheters and devices: A right-sided pacemaker or AICD lead is partially visualized. Vertebrae: No acute cervical spine fracture. The cervical lordosis is straightened. The facet alignment is preserved bilaterally. The occipital condyles and C1-C2 articulations appear intact. Mild retrolisthesis of C3 on C4. There is an unfused apophysis of the C7 spinous process. Hypertrophic degenerative changes are identified at the junction of the anterior C1 arch and dens process. Slight convexity of the cervical spine to the right. Discs/Spinal canal/Neural foramina: Spondylosis is visualized at multiple cervical levels. There is a decrease in disc height from C3-C4 through C6-C7 with sclerotic change within the adjacent bone marrow. Varying degrees of neural foraminal narrowing are identified at multiple cervical levels. Moderate narrowing of the thecal sac is identified at C3-C4, with mild narrowing of the thecal sac from C4-C5 through C6-C7. Soft tissues: No significant prevertebral soft tissue swelling. Sinuses: Mild mucosal thickening with a small mucous retention cyst or polyp in the left maxillary sinus. Thyroid: There is a 1.1 cm calcified nodule within the right thyroid lobe. Lungs: No pneumothorax, as visualized. Vasculature: Atherosclerotic changes. IMPRESSION: 1. No acute cervical spine fracture. 2. The cervical lordosis is straightened. 3. Mild retrolisthesis of C3 on C4. 4. Spondylosis is visualized at multiple cervical levels. 5. Moderate narrowing of the thecal sac is identified at C3-C4, with mild narrowing of the thecal sac from C4-C5 through C6-C7. 6. Additional findings described above. COMMENTS: Consistent with the [employer]'s Incidental Findings Committee white paper (J Am Lanie Radiol 2015): In patients aged 35 years and older with an incidental thyroid nodule equal to or greater than 1.[address], MRI or extrathyroidal US, further evaluation with dedicated thyroid US is recommended for patients with normal life expectancy and without comorbidities. For smaller nodules without suspicious features, no further evaluation or follow up is recommended. Electronically signed by: Narayan Oconnor On 02/27/2020 20:05:16 PM
--- NOTE | 2020-02-27 20:18 | REPVR ---
PROCEDURE INFORMATION: Exam: CT Thoracic Spine Without Contrast Exam date and time: 02/27/2020 7:16 PM Age: 75 years old Clinical indication: Other: Als TECHNIQUE: Imaging protocol: Computed tomography images of the thoracic spine without contrast. Radiation optimization: All CT scans at this facility use at least one of these dose optimization techniques: automated exposure control; mA and/or kV adjustment per patient size (includes targeted exams where dose is matched to clinical indication); or iterative reconstruction. COMPARISON: No relevant prior studies available. FINDINGS: Vertebrae: Diffuse osteopenia. The thoracic vertebral bodies are normal in height, without abnormal subluxation. No acute fracture involving the thoracic spine, as visualized. The T7 through T12 spinous processes extend out of the field of view of this study. Spondylosis is visualized at multiple thoracic levels. Increased kyphosis of the thoracic spine. Discs/Spinal canal/Neural foramina: Linear ossification is identified along the anterior aspect of the mid to lower thoracic spine, consistent with ankylosis. Mild narrowing of the thecal sac is identified at T7-8, with moderate narrowing of the thecal sac at T8-9. Mild narrowing of the thecal sac is also visualized at T10-11 and T9-10. Varying degrees of neural foraminal narrowing identified at multiple thoracic levels. Soft tissues: Paraspinal muscle atrophy. Vasculature: Atherosclerosis of the thoracic aorta. Mild aneurysmal dilatation of the descending thoracic aorta measuring 3.2 cm in diameter. Additional atherosclerosis visualized. Lungs: Dependent interstitial and airspace disease identified within both lower lobes. This airspace disease is likely contributed by atelectatic change. Parenchymal contusion cannot be excluded in the setting of trauma. Heart: Cardiomegaly. There is coronary artery calcification. Stomach and bowel: A lap-band is identified at the gastroesophageal junction. Other findings: There is a limited evaluation of organ/aortic injury due to the absence of intravenous contrast administration. IMPRESSION: 1. No acute fracture involving the thoracic spine, as visualized. The T7 through T12 spinous processes extend out of the field of view of this study. 2. Spondylosis is visualized at multiple thoracic levels. 3. Mild narrowing of the thecal sac is identified at T7-8, with moderate narrowing of the thecal sac at T8-9. Mild narrowing of the thecal sac is also visualized at T10-11 and T9-10. 4. Mild aneurysmal dilatation of the descending thoracic aorta measuring 3.2 cm in diameter. 5. Dependent interstitial and airspace disease identified within both lower lobes. This airspace disease is likely contributed by atelectatic change. Parenchymal contusion cannot be excluded in the setting of trauma. 6. Cardiomegaly. 7. Increased kyphosis of the thoracic spine. Linear ossification is identified along the anterior aspect of the mid to lower thoracic spine, consistent with ankylosis. 8. Additional findings described above. Electronically signed by: Narayan Oconnor On 02/27/2020 20:18:08 PM
--- NOTE | 2020-02-27 20:27 | REPVR ---
PROCEDURE INFORMATION: Exam: CT Lumbar Spine Without Contrast Exam date and time: 02/27/2020 7:16 PM Age: 75 years old Clinical indication: Other: Als TECHNIQUE: Imaging protocol: Computed tomography images of the lumbar spine without contrast. Radiation optimization: All CT scans at this facility use at least one of these dose optimization techniques: automated exposure control; mA and/or kV adjustment per patient size (includes targeted exams where dose is matched to clinical indication); or iterative reconstruction. COMPARISON: No relevant prior studies available. FINDINGS: Tubes, catheters and devices: A gastric lap band is identified. Vertebrae: Diffuse osteopenia. No visualized acute fracture involving the lumbar spine. The lumbar vertebral bodies are normal in height without significant abnormal subluxation. Discs/Spinal canal/Neural foramina: Diffuse degenerative changes are identified within the lumbar spine, with disc bulge/osteophyte complexes. There is a severe decrease in disc height at L5-S1. A vacuum disc phenomena is noted at L1-L2. Artifact significant limits evaluation of the lumbar spinal canal. Varying degrees of neural foraminal narrowing identified at multiple lumbar levels. Sacrum/coccyx: Sclerotic changes are identified involving the sacrum on each side. There is a suggested insufficiency fracture on the right side. Bilateral sacroiliac arthropathy. Kidneys and ureters: There is atrophy of the bilateral kidneys. Calcifications are nonobstructing calculi are identified within the left kidney. A small hypodense lesion is seen exophytic to the midpole of the left kidney, too small to characterize further. Vasculature: There is atherosclerotic calcification of the abdominal aorta and iliac arteries. Soft tissues: Patchy muscle atrophy visualized. IMPRESSION: 1. No visualized acute fracture involving the lumbar spine. 2. Sclerotic changes are identified involving the sacrum on each side. There is a suggested insufficiency fracture on the right side. 3. Diffuse degenerative changes are identified within the lumbar spine. 4. Additional findings described above. COMMENTS: Consistent with the [employer]'s Incidental Findings Committee white paper (J Am Lanie Radiol 2018): Any incidental renal lesion less than 1.0 cm or classified as too small to characterize, or any incidental cystic renal lesion characterized as simple-appearing, is likely benign. No follow-up imaging is recommended for these lesions per consensus recommendations based on imaging criteria. Electronically signed by: Narayan Oconnor On 02/27/2020 20:27:46 PM
[2020-02-27] MEDS: SLF 3 ML SYR IV SCH (20:59)
[2020-02-28] VITALS (7 sets, daily range): BP systolic 97–141; BP diastolic 56–73
[2020-02-28] MEDS: ACETAMINOPHEN 650MG ER TAB (TYLENOL ARTHRITIS) PO SCH ×6 (00:28→20:37)
[2020-02-28] MEDS: SLF 3 ML SYR IV SCH ×3 (04:20→20:37)
[2020-02-28 04:52] LABS: HEMATOCRIT 25.6 % (42.0-52.0); HEMOGLOBIN 8.8 g/dl (13.5-17.5); MEAN CORPUSCULAR HEMOGLOBIN 32.5 pg (27.0-33.0); MEAN CORPUSCULAR HGB CONC 34.4 g/dl (32.0-36.5); MEAN CORPUSCULAR VOLUME 94.5 fl (80.0-96.0); PLATELET COUNT, AUTOMATED 221 10^3/uL (150-450); RED BLOOD COUNT 2.71 10^6/uL (4.30-6.10); WHITE BLOOD COUNT 6.1 10^3/uL (4.0-10.0)
[2020-02-28 05:10] LABS: CALCIUM LEVEL 8.6 MG/DL (8.8-10.2); CREATININE FOR GFR 5.8 MG/DL (0.70-1.30); GLOMERULAR FILTRATION RATE 10.2 (>42); MAGNESIUM LEVEL 2.5 MG/DL (1.8-2.4); POTASSIUM SERUM 4.4 MEQ/L (3.5-5.1)
[2020-02-28] MEDS: SUCROFERRIC OXYHYDROXIDE 500MG CHEW TAB (VELPHORO) PO SCH ×3 (08:00→18:00)
[2020-02-28] MEDS ORDERED: CARVedilol 12.5 MG TAB PO SCH ×2 (09:00→21:00)
[2020-02-28] MEDS ORDERED: FLUoxetine 20 MG CAP PO SCH (09:00)
[2020-02-28] MEDS ORDERED: PRAVASTATIN 20 MG TAB PO SCH (09:00)
[2020-02-28] MEDS ORDERED: DOCUSATE SODIUM 100 MG CAP PO SCH (09:00)
[2020-02-28] MEDS ORDERED: CINACALCET 30 MG TAB (SENSIPAR) PO SCH (09:00)
[2020-02-28] MEDS ORDERED: SODIUM CHLORIDE 1 GM TAB PO SCH (09:00)
[2020-02-28] MEDS ORDERED: AMIODARONE 200 MG TAB (PACERONE) PO SCH (09:00)
[2020-02-28] MEDS ORDERED: NS 1,000 ML IV SCH (10:00)
[2020-02-28] MEDS ORDERED: IRON SUCROSE 100MG 5ML VIAL (J1756 PER 1MG) IV SCH (11:00)
[2020-02-28] MEDS ORDERED: DARBEPOETIN 300 MCG/0.6 ML *DIALYSIS* SYRINGE (J0882) IV SCH (11:00)
--- NOTE | 2020-02-28 16:06 | CR ---
DATE OF CONSULTATION: 02/28/2020 CONSULTATION REPORT FOR: Dr. Graham Saldana REASON FOR CONSULTATION: Progressive weakness of the arms and legs, inability to ambulate well. HISTORY OF PRESENT ILLNESS: Joel Villarreal is a 75-year-old male who presented to [facility] Emergency Department due to inability to stand and ambulate well. The patient reports at least two years of symptoms of hand weakness and weakness in the lower extremities also for at least a year which has significantly gotten worse over the last few months and certainly over the last few days. The patient has a longstanding history of type 2 diabetes. He has lost significant muscle mass particularly in his hand intrinsic muscles and he also does have bilateral foot drops. The patient denies having an ascending pattern of numbness. He denies any shortness of breath. He denies any dysarthria, dysphasia, or any bulbar weakness. The patient only notices weakness in his hand lap runner and his lower extremities. He also notes significant pain in multiple joints, particularly in the shoulders. He has a history of frozen shoulders and states that he again has a recurrence of frozen shoulder. He can not lift his arms up against gravity without pain in the arms. On gross examination, he is noted to have significant hand intrinsic muscle atrophy with severe weakness. He is noted to have fasciculations of the deltoids suggesting lower motor neuron disease. He is weak in his triceps bilaterally though he has preserved 2+ reflexes to suggest relative brisk reflexes in association with weakness suggesting the possibility of underlying motor neuron disease with mixed upper and lower motor neuron findings. EMG nerve conduction study will certainly be helpful. The patient does have a history of end-stage renal disease on hemodialysis and does not have any production of urine. He denies any loss of bowel or bladder symptoms. He denies any low back pain. He has occasional neck pain. The patient is noted to have anemia secondary to gastrointestinal (GI) blood loss with hemoccult positive stool as well during this admission. PAST MEDICAL HISTORY: 1. End-stage renal disease, on hemodialysis Sunday, Sunday, Sunday. 2. History of atrial fibrillation. 3. Coronary artery disease, status post three stents, three-vessel coronary artery bypass graft. 4. Hyperlipidemia. 5. Hypertensive heart disease. 6. Type 2 diabetes, insulin-dependent presently. PAST SURGICAL HISTORY: 1. Coronary artery bypass graft 1998. 2. Implantable cardioverter defibrillator originally placed 1998, generator replaced three times. 3. History of cholecystectomy. 4. Left hip fracture October 2019, status post open reduction and internal fixation. 5. 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 6. History of left venous ulcer. 7. Abdominal aortic aneurysm dilatation. FAMILY HISTORY: Mother with Parkinson's disease. SOCIAL HISTORY: The patient is a former smoker. Denies use of any alcohol or illicit drugs. REVIEW OF SYSTEMS: 14-point review of systems obtained and is negative except as per history of present illness (HPI). HOME MEDICATIONS: Amiodarone, Eliquis, carvedilol, Sensipar, Toujeo, Lispro, MiraLAX, pravastatin, Velphoro, tramadol. ALLERGIES: PENICILLIN. VITAL SIGNS: Blood pressure 139/73, pulse rate 78, respiratory rate is 20, temperature 96.6 degrees Fahrenheit, oxygenation 100% on room air. The patient is awake, alert, oriented to person, place and time. Speech, language, comprehension and repetition appear to be intact. Pupils are 2-1/2 mm, round, and reactive to light. Extraocular movements are intact in all directions. Sensation V1, V2, V3 is intact to light touch. There is no atrophy of the tongue. The tongue is midline. There is no weakness or facial muscles on activation. Hearing is subjectively equal to finger rub. Sensory is intact to light touch in all four extremities, decreased in the lower extremities distally due to peripheral neuropathy. Positive Tinel's sign at the wrists and elbows. Significant weakness involving bilateral deltoids 4+, triceps 5-, biceps 5-, finger extensor 4, finger spread 3, hand lap runner 4, iliopsoas 4+, quadriceps 5/5, tibialis anterior 3- bilaterally. Deep tendon reflexes are absent in the lower extremities and are 2s at the triceps, absent at the biceps. Coordination does not reveal any gross ataxia or dysmetria. Gait deferred. Gross fasciculations noted, prominently in the right deltoid muscle, slight in the left deltoid muscle. ASSESSMENT: Progressive symptoms of weakness, muscular atrophy ongoing over the last of couple of years, suddenly progressing and getting worse over the last few months to weeks. Suspect motor neuron disease given symptoms of atrophy, fasciculation, can not entirely exclude radiculopathy, compressive neuropathies at the wrist and elbows contributing towards these findings, cannot entirely exclude lumbosacral radiculopathies versus severe peripheral polyneuropathy causing lower extremity weakness, cannot eliminate the possibility of having underlying baseline deconditioning. PLAN: 1. Recommend obtaining CT cervical, thoracic, lumbosacral spine without contrast. Head CT completed is negative other than small-vessel ischemic disease and age-related changes. No evidence of stroke. 2. Recommend outpatient EMG nerve conduction studies to help further in diagnosis of possible motor neuron disease. 3. Physical therapy (PT)/occupational therapy (OT) evaluations. 4. Continue supportive medical care at this point. 5. B12 level has been checked 1392, within normal limits. Thyroid-stimulating hormone (TSH) is elevated 6.030. Magnesium is 2.5. Creatine kinase (CPK) levels are 28, less likely myopathy. Case has been discussed with Dr. Graham Saldana. The patient will followup in the [facility] upon discharge.
[2020-02-28 16:48] LABS: CALCIUM LEVEL 8.6 MG/DL (8.8-10.2); CREATININE FOR GFR 2.43 MG/DL (0.70-1.30); GLOMERULAR FILTRATION RATE 27.8 (>42); POTASSIUM SERUM 3.2 MEQ/L (3.5-5.1)
--- NOTE | 2020-02-28 18:09 | IPNPDOC ---
Subjective Date Seen The patient was seen on 02/28/20. Subjective Chief Complaint/HPI Fatigue with low blood pressure post HD and cannot sleep. 75 year old elderly male with PMH of ESRD on HD MWF had dialysis this morning, atrial fibrillation, CAD with stents x 3; CABG; hyperlipidemia; hypertensive heart disease with implantable ICD; osteoporosis; and Diabetes Mellitus type II insulin dependent. He is experiencing acute hypotension s/p HD, musculoskeletal pain (back, legs, arm, and shoulders) and insomnia. He reports he could not sleep last night and is worried about having neuromuscular disease Beverly Gehrigs. General: Reports: Fatigue, Malaise Constitutional: Reports: Malaise, Weakness, Fatigue Eyes: Denies: Pain, Vision change, Conjunctivae inflammation, Eyelid inflammation, Redness, Other ENT: Reports: Head Aches Skin: Reports: Dry; Denies: Rash, Lesions, Jaundice, Bruising, Itching, Breakdown, Nail Changes, Other Pulmonary: Denies: Dyspnea, Cough, Pleuritic Chest Pain, Other Symptoms Cardiovascular: Reports: Lt Headedness (post HD) Gastrointestinal: Denies: Nausea, Vomiting, Abdominal Pain, Diarrhea, Constipation, Melena, Hematochezia, Other Symptoms Genitourinary: Denies: Dysuria, Frequency, Incontinence, Hematuria, Retention, Other Symptoms Hematologic: Reports: Bruising Endocrine: Denies: Polydipsia, Polyphagia, Polyuria, Heat Intolerance, Cold Intolerance, Other Endocrine Sx Musculoskeletal: Reports: Back Pain, Shoulder Pain, Arm Pain, Leg Pain, Joint Pain; Denies: Neck Pain, Hand Pain, Foot Pain, Muscle Pain, Spasms, Other Symptoms Neurological: Reports: Weakness, Numbness Psych: Reports: Mood Normal, Other Psych (insomnia) Objective Physical Examination General Exam: Positive: Alert, Cooperative, Mild Distress Eye Exam: Positive: PERRLA, Conjunctiva & lids normal ENT Exam: Positive: Atraumatic, Tongue Midline, Other ENT (mucous membranes dry) Neck Exam: Positive: +2 carotid pulse wo bruit Chest Exam: Positive: Clear to auscultation, Normal air movement Heart Exam: Positive: Irregular Rhythm (regular), Normal S1, Normal S2 Abdomen Exam: Positive: Normal bowel sounds, Tenderness (mild to palpation) Extremity Exam: Positive: Tenderness Skin Exam: Positive: Lesion, Pruritus Neuro Exam: Positive: Normal Speech, Cranial Nerves 3-12 NL Psych Exam: Positive: Mental status NL, Oriented x 3 Assessment /Plan Problems (1) ESRD on hemodialysis Status: Acute Response to Treatment: Progressing Discussed With: Nurse, Patient Problem Specific Plan: Monitor Clinically, Repeat Labs Problem Text: Plan Hypotension s/p HD-Acute -One time infusion of NS @ 80ml/hr only 500 cc then stop Hypokalemia s/p HD 3.2 -Potassium chloride 10 meQ x 2 runs -Recheck BMP in 4 hours -monitor telemetry for ST or T wave abnormalities Insomnia-Acute -Xanax 0.5 mg po x 1 dose Plan/VTE VTE Prophylaxis Ordered?: Yes Plan IVF: Increase (one time infusion of 500 ml of NS at 80cc/hr) Diet: Continue Current Activity: Continue Current Medications: Replete Electrolytes IV Diagnostics: Check Labs, Repeat Labs in AM VS, I&O, 24H, Fishbone Vital Signs/I&O Vital Signs Date Time Temp Pulse Resp B/P (MAP) Pulse Ox O2 Delivery O2 Flow Rate FiO2 02/28/20 16:08 96.7 68 20 97/56 (70) 97 Room Air I&O- Last 24 Hours up to 6 AM 02/28/20 06:00 Intake Total 0 ml Output Total 0 ml Balance 0 ml Laboratory Data 24H LABS Laboratory Tests 2 02/28/20 04:20: Nucleated Red Blood Cells % (auto) 0.0, Anion Gap 11, Glomerular Filtration Rate 10.2L, Calcium Level 8.6L, Magnesium Level 2.5H 02/28/20 15:43: Anion Gap 8, Glomerular Filtration Rate 27.8L, Calcium Level 8.6L, Lactic Acid Level 1.1 CBC/BMP Laboratory Tests 02/28/20 04:20 02/28/20 15:43 VALERIA HAWKINS ICU CLERK February 28, 2020 18:09
[2020-02-28] MEDS ORDERED: NS 500 ML IV ONE (18:45)
[2020-02-28] MEDS ORDERED: ALPRAZolam 0.5 MG TAB PO ONE (18:45)
[2020-02-28] MEDS: KCL 10MEQ/100ML SWI (KRUN) 10 MEQ in IV 1 EA IV SCH ×2 (20:04→21:29)
[2020-02-29] VITALS (24 sets, daily range): BP systolic 69–117; BP diastolic 39–60
[2020-02-29] MEDS ORDERED: NS 500 ML IV ONE (00:45)
[2020-02-29] MEDS ORDERED: NS 250 ML IV ONE (00:45)
[2020-02-29] MEDS ORDERED: NOREPINEPHRINE 4 MG/4 ML AMP As Ordered ONE (01:50)
[2020-02-29] MEDS ORDERED: NOREPINEPHRINE BITARTRATE 8 MG in D5W 492 ML IV SCH (02:00)
--- NOTE | 2020-02-29 02:02 | DS.PDOC ---
Discharge Summary General Date of Admission February 27, 2020 at 14:17 Date of Discharge 02/29/20 Attending Physician: Tanja James MD Specialist/Consultants Involve: CESAR ALSTON MD Discharge Summary HISTORY OF PRESENT ILLNESS: Joel Villarreal is a 75-year-old with extensive PMH including ESRD on HD, CAD s/p stents and CABG, HTN, HLD, DM type II who presented on 02/27/20 with increased weakness. Per the patient, for 2 or 3 weeks, he has been having trouble using his upper extremities. He states muscular atrophy as been going on for years. He cannot hold utensils to eat or hold on to a pen or pencil. He says this came on fairly abruptly 2 or 3 weeks ago. He was having trouble moving his shoulders, and he came to the emergency room on 02/21/2020 where it looks like he had shoulder x-rays done that showed the expected arthritis. He says that his legs were fine until 02/27/20 when he couldn't stand, but his , Barbara, says that for 2 or 3 months he has been having increasing problems ambulating. He uses a walker, but has reached the point where she has to walk beside him as he uses his walker as he is unsteady even with that assistive device. He says his legs act as though they are going to buckle on him. He had CT scan of his cervical spine just 5 months ago on 09/24/2019 after a fall only showing degenerative disc disease, but no other significant problems. The patient has a pacemaker/defibrillator in place and cannot have an MRI scan. He was anemic, but he has chronic kidney disease. His hemoglobin is 8.7, which is down from his baseline of 10.8. He has end-stage renal disease, on dialysis nephrology group. Denies any rectal bleeding, epistaxis, hematemesis, or hematuria. He did have heme positive stool in the emergency room. He was admitted for further workup of increasing lower extremity weakness. HOSPITAL COURSE: Neurology evaluated him this admission and was concerned due to progressive symptoms of weakness, muscular atrophy ongoing over the last of couple of years, suddenly progressing and getting worse over the last few months to weeks. Motor neuron disease was suspected initially for symptoms of atrophy, fasciculations. They ordered CT cervical, thoracic and lumbar spine which did not show any findings that would have the progressive symptoms of weakness, heaviness. Later in the evening on , I was called to evaluate patient at bedside due to what the patient described as sudden loss of sensation and movement of the bilateral lower ext, right upper ext with only able to move his left upper ext very little. Strength was 0/5 bilateral lower, 0/5 RUE, 1/5 LUE. He could feel no sensation to sharp or dull to the affected extremities and the anterior chest well when examine. He had a mild left-side facial droop, with some slurring of speech. Blood pressure was also noted to be much lower than what it had previously been earlier in the day, currently in 90's systolic. While he was getting ready to go to CT, I spoke with out neurologist who felt that since th patient had developed hypotension and was not having significant neurological dysfunction, that there was a concern for autonomic dysfunction, possibly associated with something like Guillan-Dodson Syndrome. He recommended IVIG, spin al tap and STAT CT head. Patient was sent to CT but later taken back due to his BP dropping to systolics 60's. He was quickly sent to the ICU where the patient received 1 liter NSS bolus and later started on levophed for pressor support. Patient had right IJ central placed, placement confirmed on CXR. He was eventually sent to CT and results were negative for stroke. Patient had intermitted bradycardia in the ICU, dropping as low as high 30's, asymptomatic. He remained AAO. Patient's status and condition were reviewed with our ICU attending who felt that, due to the rapid decline of this patient, it would be better to transfer to [facility] in the event plasmapharesis should need to be done. STEPAN mccoy. I spoke with Dr. Carcamo ICU attending at [facility] who accepted patient. Transfer diagnosis: Progressing neuromuscular dysfunction r/o Guillan-Dodson Syndrome. PAST MEDICAL HISTORY: 1. ESRD on HD MWF 2. CAD s/p stent x 3, CABG 3. HLD 4. HTN 5. DM type II on insulin. 6. Arthritis 7. Atrial fibrillation PAST SURGICAL HISTORY: 1. CABG 1998 2. AICD originally placed in 1998 and generator has been replaced three times since then 3. Cardiac stenting most recently in 2013 4. Cholecystectomy 5. ORIF left hip 6. Fistula created in his right forearm 2008, revised 04/24 and 09/24 7. Gastric wrap performed for bariatric procedure FAMILY HISTORY: Mother had Parkinson's, father lung disease. SOCIAL HISTORY: He is . 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 Lives in [place]. He quit smoking 20 years ago. No alcohol use. CURRENT MEDICATIONS: Please see below PHYSICAL EXAMINATION: CONSTITUTIONAL: Patient lying in bed, worried but AAO x 3. EYES: PERRLA, EOM intact HENT, MOUTH: Normocephalic, atraumatic, moist mucous membranes NECK: SUPPLE, no JVD, no lymphadenopathy, no carotid bruit. Right IJ in place. CV: Bradycardic. Regular rate and rhythm, S1S2 normal, no murmurs/rubs/gallops RESPIRATORY: Clear to auscultation bilaterally, no rales/rhonchi/wheezes GI: BS positive in 4 quadrants, soft, nontender, nondistended, no rebound or guarding, no organomegaly : Deferred MUSCULOSKELETAL: No cyanosis, clubbing, swelling, joint deformity, extremity edema INTEGUMENTARY: Intact, no rashes, no lesions, no erythema NEUROLOGIC: Left side facial droop. Fasciculations notes in the left hamstring. DTR- bilateral biceps 0/5 , bilateral brachial radialis 0/5, bilteral triceps 0/5, bilateral patella 0/5, bilateral hamstrings 0/5. Motor function for right side- 0/5. Motor function for left side- deltoid 1/5, Brachioradialis 1/5. Cerebellar evaluation not able to be performed as patient could not lift hands off bed, was unable to stand. Decreased sensory to light touch, 2 point discrimination, position sense, proprioception, sharpness and dullness, hot and cold. PSYCHIATRIC: Flat affect, concerned mood LABORATORY DATA: Please see below IMAGING: CT head 02/29/20: No acute intracranial abnormality CT Cervical spine 02/27/20: 1. No acute cervical spine fracture. 2. The cervical lordosis is straightened. 3. Mild retrolisthesis of C3 on C4. 4. Spondylosis is visualized at multiple cervical levels. 5. Moderate narrowing of the thecal sac is identified at C3-C4, with mild narrowing of the thecal sac from C4-C5 through C6-C7. CT lumbar spine 02/27/20: 1. No visualized acute fracture involving the lumbar spine. 2. Sclerotic changes are identified involving the sacrum on each side. There is a suggested insufficiency fracture on the right side. 3. Diffuse degenerative changes are identified within the lumbar spine. CT thoracic spine 02/27/20: 1. No acute fracture involving the thoracic spine, as visualized. The T7 through T12 spinous processes extend out of the field of view of this study. 2. Spondylosis is visualized at multiple thoracic levels. 3. Mild narrowing of the thecal sac is identified at T7-8, with moderate narrowing of the thecal sac at T8-9. Mild narrowing of the thecal sac is also visualized at T10-11 and T9-10. 4. Mild aneurysmal dilatation of the descending thoracic aorta measuring 3.2 cm in diameter. 5. Dependent interstitial and airspace disease identified within both lower lobes. This airspace disease is likely contributed by atelectatic change. Parenchymal contusion cannot be excluded in the setting of trauma. 6. Cardiomegaly. 7. Increased kyphosis of the thoracic spine. Linear ossification is identified along the anterior aspect of the mid to lower thoracic spine, consistent with ankylosis. ASSESSMENT: 75 y/o M transferred to [facility] for progressing neuromuscular dysfunction r/o ascending paralysis. PLAN: 1. Progressing neuromuscular dysfunction r/o ascending paralysis. Rapidly progressed with autonomic dysfunction; however, stable on RA currently with normal RR. Cautious due to patient not being able to feel us touching his chest wall. ICU attending recommending transfer to facility in event plasmapharesis needing to be done. Will need spinal tap as soon as possible, IVIG not started here. 2. Hypotension believed to be 2/2 to autonomic dysfunction. Started on levophed, given 1 liter bolus. 3. Bradycardia believed to be 2/2 to autonomic dysfunction. HR ranging from 38- 60's, NSR. 4. Mild hypokalemia. Being supplemented. 5. Anemia likely multifactorial to iron deficiency and chronic disease. H/H has been stable, no signs of acute bleeding. 6. DM type II. BS controlled. 7. ESRD HD MWF. Tolerating well. 8. Mild aneurysmal dilatation of the descending thoracic aorta, 3.2 cm. Unknown if patient is being followed up for this, findings on CT done this admission. 9. CAD s/p stents, CABG. Denies chest pain, shortness of breath. C/w home medications. 10. HLD. Statin. 11. Atrial fibrillation. Currently NSR. C/w BB. 11. DVT px. DISPOSITION: Transferred to [facility] ICU, Dr. Carcamo TIME SPENT ON DISCHARGE: >60 minutes. Vital Signs/I&Os Vital Signs Date Time Temp Pulse Resp B/P (MAP) Pulse Ox O2 Delivery O2 Flow Rate FiO2 02/29/20 01:59 79/44 02/29/20 01:30 53 16 96 Room Air 02/29/20 00:00 97.4 I&O- Last 24 Hours up to 6 AM 02/29/20 06:00 Intake Total 0 ml Output Total 2000 ml Balance -2000 ml Laboratory Data Labs 24H Laboratory Tests 2 02/28/20 04:20: Nucleated Red Blood Cells % (auto) 0.0, Anion Gap 11, Glomerular Filtration Rate 10.2L, Calcium Level 8.6L, Magnesium Level 2.5H 02/28/20 15:43: Anion Gap 8, Glomerular Filtration Rate 27.8L, Calcium Level 8.6L, Lactic Acid Level 1.1 02/29/20 01:55: CBC/BMP Laboratory Tests 02/28/20 04:20 02/28/20 15:43 Discharge Medications Scheduled Acetaminophen (Acetaminophen 8 Hour) 650 Mg Tablet.er, 650 MG PO Q4H, (Reported) Amiodarone HCl (Amiodarone HCl) 200 Mg Tablet, 200 MG PO DAILY, (Reported) Apixaban (Eliquis) 5 Mg Tablet, 5 MG PO BID, (Reported) Carvedilol (Carvedilol) 25 Mg Tablet, 12.5 MG PO 3XW, (Reported) MON/WED/FRI AM Carvedilol (Carvedilol) 25 Mg Tablet, 25 MG PO ASDIRECTED, (Reported) 25MG BID ON NON DIALYSIS DAYS SUN/SUN//SAT Cinacalcet (Sensipar) 30 Mg Tab, 60 MG PO 3XW, (Reported) ON NON-DIALYSIS DAYS, E//SAT Docusate Sodium (Colace) 100 Mg Cap, 100 MG PO DAILY, (Reported) Fluoxetine Hcl (Fluoxetine HCl) 20 Mg Capsule, 20 MG PO DAILY, (Reported) Folic Acid/Vit B Complex and C (Renal-Franklin Tablet) 1 Tab Tab, 1 TAB PO DAILY, (Reported) Insulin Glargine,Hum.rec.anlog (Toujeo Solostar) 300 Unit/1 Ml Insuln.pen, 40 UNIT SC DAILY, (Reported) Pravastatin Sodium (Pravastatin Sodium) 20 Mg Tablet, 20 MG PO DAILY, (Reported) Sucroferric Oxyhydroxide (Velphoro) 500 Mg Tab.chew, 1,000 MG PO WM, (Reported) Scheduled PRN Cyclobenzaprine HCl (Cyclobenzaprine HCl) 5 Mg Tablet, 5 MG PO DAILY PRN for MUSCLE SPASMS, (Reported) Insulin Lispro (Humalog) 100 Unit/1 Ml Cartridge, 6 UNITS SC AC PRN for HYPERGLYCEMIA, (Reported) Polyethylene Glycol 3350 (Miralax) 1 Pow Pow, 17 GM PO DAILY PRN for CONSTIPATION, (Reported) Tramadol HCl (Tramadol HCl) 50 Mg Tablet, 50 MG PO BID PRN for PAIN, (Reported) Allergies Coded Allergies: Penicillins (Verified Adverse Reaction, Unknown, DIZZY, 09/24/19) Tanja James MD February 29, 2020 02:02
--- NOTE | 2020-02-29 02:21 | REPVR ---
PROCEDURE INFORMATION: Exam: CT Head Without Contrast Exam date and time: 02/29/2020 2:17 AM Age: 75 years old Clinical indication: Weakness, facial; Additional info: Left side droop TECHNIQUE: Imaging protocol: Computed tomography of the head without contrast. Radiation optimization: All CT scans at this facility use at least one of these dose optimization techniques: automated exposure control; mA and/or kV adjustment per patient size (includes targeted exams where dose is matched to clinical indication); or iterative reconstruction. Other technique: STROKE PROTOCOL was implemented. COMPARISON: CT Head without contrast 02/27/2020 11:14 AM FINDINGS: Brain: Mild decreased attenuation of the supratentorial white matter is likely secondary to chronic microvascular ischemia. No acute intracranial hemorrhage. Ventricles: Ventricular and subarachnoid spaces are age appropriate. Bones/joints: Unremarkable. No acute fracture. Sinuses: Mild paranasal sinus disease. Mastoid air cells: Visualized mastoid air cells are well aerated. Soft tissues: Unremarkable. Vasculature: Intracranial vascular calcification. IMPRESSION: No acute intracranial abnormality. ASSESSMENT: ASPECTS ([place] Stroke Program Early CT Score) is 10. Electronically signed by: Dov Aguilera On 02/29/2020 02:21:35 AM
[2020-02-29 03:17] LABS: INR 1.2; PROTHROMBIN TIME 14.9 SECONDS (11.8-14.0)
[2020-02-29 03:18] LABS: PARTIAL THROMBOPLASTIN TIME 37.2 SECONDS (25.0-38.4)
--- NOTE | 2020-02-29 06:04 | ROOPDOC ---
[facility] Report Of Operation Report of Operation CENTRAL LINE PLACEMENT NOTE DATE OF PROCEDURE: 02/29/20 PREPROCEDURE DIAGNOSES: Hypotension, bradycardia POSTPROCEDURE DIAGNOSES: Hypotension bradycardia PROCEDURE: Right internal jugular catheter placement UNIVERSAL PROTOCOL: A timeout was performed and the correct patient and site were verified. Consent was received and documented. PHYSICIAN: Tanja James MD ESTIMATED BLOOD LOSS: Approximately 2 mL. COMPLICATIONS: None . PROCEDURE NOTE: The patient was placed in Trendelenburg position. Anesthesia was obtained with local infiltration of 10 mL 1% lidocaine. Hand hygiene was performed prior to procedure. Chlorhexidine used to prep the skin on the right side of the neck and was dried for 2 minutes prior to skin puncture. Traffic was limited during the procedure. Full barrier precautions were utilized. Ultrasound guidance was used and the right internal jugular vein was cannulated. A triple lumen catheter was placed using the Seldinger technique. All lines were flushed and hunter nonpulsatile dark venous blood appropriately. The line was secured with sutures appropriately. A dressing was placed over the site. The patient tolerated the procedure well. A post-line chest x-ray was reviewed demonstrating the tip of the catheter in the SVC. Tanja James MD February 29, 2020 06:04
--- NOTE | 2020-02-29 11:04 | CR ---
DATE OF CONSULTATION: 02/28/2020 REQUESTING PHYSICIAN: Dr. Brandin Galicia CONSULTING PHYSICIAN: Dr. Persaud REASON FOR CONSULTATION: Management of end-stage renal disease on hemodialysis. CHIEF COMPLAINT: The patient presented to the hospital on 02/27/2020 because of progressive weakness of the legs. HISTORY OF PRESENT ILLNESS: Mr. Joel Villarreal is a 75-year-old male with past medical history of end stage renal disease on hemodialysis q. Sunday, Sunday, Sunday, history of atrial fibrillation, coronary artery disease, diabetes mellitus type 2, and multiple other comorbidities as mentioned below. He presented to the hospital 2 days ago because of progressive weakness and inability to walk. He is dependent on the wheelchair. The weakness is worse in the upper extremities as compared with the lower extremities. He has been having difficulty picking up utensils in his hands. He was admitted under the hospitalist service. Neurology service was called on board for further workup of possible neurological weakness. Nephrology service was called for further help in the management of this patient with end-stage renal disease and he missed his hemodialysis yesterday. I saw and evaluated the patient today morning at the bedside. I had already arranged his hemodialysis. He is tolerating his hemodialysis procedure well. PAST MEDICAL HISTORY: End-stage renal disease on hemodialysis q. Sunday, Sunday and Sunday, history of atrial fibrillation, coronary artery disease status post stents, history of coronary artery bypass grafting, hyperlipidemia, hypertensive heart disease, diabetes mellitus type 2 insulin dependent. PAST SURGICAL HISTORY: Status post automatic-implantable cardioverter defibrillator (AICD) placement, status post right forearm AV fistula placement, history of coronary artery bypass grafting, history of coronary artery stenting in the past, status post cholecystectomy, history of left hip surgery after fracture, and history of gastric bypass. ALLERGIES: The patient is allergic to PENICILLIN. FAMILY HISTORY: No history of end-stage renal disease. There is history of Parkinson disease in the mother. SOCIAL HISTORY: The patient lives at home. He is an ex-smoker. Denies any illicit drug abuse or alcohol abuse. REVIEW OF SYSTEMS: Constitutional. The patient reports progressive weakness. He denies any fevers or chills. Eyes: HE denies any blurry vision or double vision. ENT: He denies any dysphagia or odynophagia. Cardiovascular: He denies any chest pain or palpitations. Respiratory: He denies any shortness of breath. GI: Denies any nausea or vomiting. Genitourinary: He reports decrease in urine output. Musculoskeletal: He reports progressive muscle weakness, more in the upper extremities as compared with the lower extremities. Skin: He has nonhealing ulcers on the lower extremities. Psych: He denies any depression or anxiety. Endocrine: He reports diabetes mellitus type 2. Hematology/Oncology: He denies any easy bleeding or bruising. IMMIGRATION LAW SPECIALIST: He reports progressive muscle weakness more pronounced in the upper extremities. All other review of system is negative. PHYSICAL EXAMINATION: General: The patient is awake, alert and oriented x3, laying in bed, getting hemodialysis done. Vital Signs: Temperature is 97.5 degrees Fahrenheit, blood pressure 98/56, pulse 67, respiratory rate 18, saturating 98% on room air. Head and Neck Exam: Extraocular muscles intact. Pupils equally round and reactive to light. Mucous membranes are moist. Neck is supple. There is no jugular venous distention (JVD). Cardiovascular: S1, S2. Regular rate. No edema of the bilateral lower extremities. Respiratory: Chest is clear to auscultation bilaterally. Bilateral equal air entry. No rales or rhonchi. Abdomen: Soft. Positive bowel sounds. Nontender. No organomegaly. Musculoskeletal: No clubbing or cyanosis. The patient is moving bilateral lower extremities. There is decreased range of movement of the bilateral shoulders. IMMIGRATION LAW SPECIALIST: Decreased movement of the upper extremities. The patient is otherwise able to communicate and follows commands. AV Access: The patient has a right forearm AV fistula which is being used for dialysis. Psych: Normal mood and affect. LAB REVIEW: CBC showed a WBC of 6.1, hemoglobin 8.8, platelets are 221. BMP shows sodium 132, potassium 4.4, chloride 97, bicarbonate 24, BUN 42, creatinine 5.8, calcium 8.6, magnesium 2.5. IMAGING STUDIES: CAT scan of the cervical spine was done which showed no acute fractures, spondylosis visualized in multiple levels, moderate narrowing of the thecal sac at C3-4. CAT scan of the lumbar spine was also done which shows sclerotic changes and diffuse degenerative changes. CAT scan of the thoracic spine was also done which showed no acute fractures, spondylosis at multiple thoracic levels. CURRENT INPATIENT MEDICATIONS: The patient medications are all reviewed by myself. He was given normal saline bolus 500 mL today. He is on Tylenol p.r.n. He is amiodarone 200 mg by mouth daily, Coreg 25 mg by mouth twice a day on non dialysis days and 12.5 mg by mouth daily on Sunday, Sunday, Sunday - his dialysis days. He is on Sensipar 60 mg by mouth on non dialysis days. Aranesp 300 mcg IV with dialysis was started today. He is on Flomax 20 mg by mouth daily. He was also started on Venofer 100 mg IV with dialysis. He is on pravastatin 20 mg daily. Velphoro 1 gram by mouth with meals. Tramadol as needed. ASSESSMENT: 75-year-old male with end-stage renal disease on hemodialysis every Sunday, Sunday and Sunday, diabetes mellitus type 2, hyeprtension, atrial fibrillation, admitted at this time with progressive muscle weakness. PLAN: 1. End-stage renal disease. The patient missed his hemodialysis. He is being dialyzed today. Ultrafiltration goal is around 2 liters as tolerated by his blood pressure. 2. Anemia in end stage renal disease. The patient has been started on Aranesp and Venofer. Hemoglobin level is expected to improve with that. 3. Atrial fibrillation. The patient is currently on amiodarone and Coreg. His anticoagulation is on hold because of heme-positive stools. 4. Chronic kidney disease mineral bone disease. Continue current dose of Velphoro with meals. 5. Secondary hyperparathyroidism. Continue current dose of Sensipar on non dialysis days. 6. Generalized weakness. The patient is getting physical therapy. He was seen by neurology. EMG and nerve conduction studies were recommended. The rest of the management is as per neurology recommendations. Thank you for involving me in the care of this patient. I shall be happy to follow the patient along with you tomorrow morning.
[2020-03-01] MEDS ORDERED: CARVedilol 12.5 MG TAB PO SCH (09:00)
--- NOTE | 2020-03-02 11:13 | REP ---
REASON: Status post line placement. COMPARISON: 02/27/2020 The technique utilized in obtaining the radiograph has magnified the cardiac silhouette and accentuated the interstitial markings. Since the last examination a right-sided internal jugular central venous catheter has been placed, the tip in the superior vena cava. There is global cardiomegaly status quo. Note is again made of previous median sternotomy. The single chamber bipolar pacemaker is unchanged. No acute patchy parenchymal opacities or pleural effusions have developed. The lung bird are unchanged. There is no change in the osseous structure. IMPRESSION: 1. Central line catheter as described above with the tip in the superior vena cava. 2. Stable appearing chronic changes as described above. Electronically Signed by David Luis DO 03/02/2020 12:26 P
== END 2020-02-29 03:35 | disposition short-term general hospital (02) | DRG 73 ==
LOC: M ED 10:09 → M ED INP 14:17 → ENRESERV 15:52 → M PCU 16:31 → M ICU 02-29 01:20
PROVIDERS: ADMIT Family Medicine; ATTEND Internal Medicine
PROC: 5A1D70Z Performance of Urinary Filtration, Intermittent, Less than 6 Hours Per Day (ICD-10-PCS; principal; 2020-02-28)
PROC: 02HV33Z Insertion of Infusion Device into Superior Vena Cava, Percutaneous Approach (ICD-10-PCS; 2020-02-29)
DX: G90.8 Other disorders of autonomic nervous system (principal); N18.6 End stage renal disease; N25.81 Secondary hyperparathyroidism of renal origin; G61.0 Guillain-Barre syndrome; Z99.2 Dependence on renal dialysis; I48.91 Unspecified atrial fibrillation; I25.10 Atherosclerotic heart disease of native coronary artery without angina pectoris; Z95.5 Presence of coronary angioplasty implant and graft; E78.5 Hyperlipidemia, unspecified; I87.2 Venous insufficiency (chronic) (peripheral); I95.3 Hypotension of hemodialysis; G47.00 Insomnia, unspecified; D64.9 Anemia, unspecified; E87.6 Hypokalemia; R25.3 Fasciculation; E11.22 Type 2 diabetes mellitus with diabetic chronic kidney disease; E11.9 Type 2 diabetes mellitus without complications; D63.1 Anemia in chronic kidney disease; Z95.810 Presence of automatic (implantable) cardiac defibrillator; Z90.49 Acquired absence of other specified parts of digestive tract; Z98.84 Bariatric surgery status; Z79.01 Long term (current) use of anticoagulants; Z79.4 Long term (current) use of insulin; Z79.891 Long term (current) use of opiate analgesic; Z79.899 Other long term (current) drug therapy; Z88.0 Allergy status to penicillin; Z11.59 Encounter for screening for other viral diseases